=== PATIENT | female | born 1945 | race Caucasian/White ===

== ENCOUNTER 2016-11-09 09:09 | Day surgery (SDC) | payer MEDICARE, BC ==
[~2016-11-09 09:09] MED LIST: Lactated Ringers 1,000 ML IV SCH; Lidocaine 1%/Sod Bicarbonate in NS 8.4% 1 ML Syringe IV PRN; Sodium Chloride 0.9% 10 ML Syringe FLUSH PRN
--- NOTE | 2016-11-09 10:31 | PCM.PREANE ---
Preanesthetic Assessment - Anesthesia/Transfusion/Family Hx Type of Transfusion Reactions: Reports: Unknown - Physical Assessment Height: 1.6 m Weight: 77.111 kg - Allergies Allergies/Adverse Reactions: Allergies Allergy/AdvReac Type Severity Reaction Status Date / Time No Known Allergies Allergy Verified 11/08/16 15:29 PreAnesthesia Questionnaire HEENT History: Reports: Impaired vision, Other (see below) Other HEENT History: wears glasses, has upper partial Cardiovascular History: Reports: Heart Failure, Hypertension, Other (see below) Other Cardiovascular History: chest pain, edema Respiratory History: Reports: SOB, Other (see below) Other Respiratory History: URI Gastrointestinal History: Reports: Chronic constipation, Chronic diarrhea, Hemorrhoids, Other (see below) Other Gastrointestinal History: c diff, nausea, gastroparesis, colitis, post op nausea and vomiting Genitourinary History: Reports: Urinary incontinence, UTI, recurrent, Other ( see below) Other Genitourinary History: dysuria, renal failure, UTI, frequency, hestiency 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 Musculoskeletal History: Reports: Gout, Osteoarthritis Other Musculoskeletal History: degenerative joint disease, lumbar scolisosis, gout, hammertoes, rib fractures, low bakc pain, lumbar sacral radiculopathy at L5, cerviclagia Neurological History: Reports: Neuropathy, diabetic Psychiatric History: Reports: Other (see below) Other Psychiatric History: anorexia nervosa Endocrine/Metabolic History: Reports: Diabetes, type II, Vitamin D deficiency Other Endocrine/Metabolic History: benign lesion of adrenal gland Hematologic History: Reports: Other (see below) Other Hematologic History: hyperkalemia, blood clots, malaise, fatigue Immunologic History: Reports: None Oncologic (Cancer) History: Reports: Pancreatic Dermatologic History: Reports: Cellulitis Other Dermatologic History: dizziness - Past Surgical History Head Surgeries/Procedures: Reports: None HEENT Surgical History: Reports: Cataract surgery GI Surgical History: Reports: Appendectomy, Colonoscopy Female Surgical History: Reports: Hysterectomy Musculoskeletal Surgical History: Reports: Other (see below) Other Musculoskeletal Surgeries/Procedures:: carpal tunnel surgery, shoulder surgery, lumbar fusion, back surgery, knee replacement Oncologic Surgical History: Reports: Other (see below) Other Oncologic Surgeries/Procedures: pacrectomy 75% - SUBSTANCE USE Smoking Status *Q: Never Smoker Second Hand Smoke Exposure: No Recreational Drug Use History: No - HOME MEDS Home Medications: Home Meds Allopurinol [Zyloprim] 150 mg PO DAILY 04/14/14 [History] Furosemide [Lasix] 20 mg PO DAILY 04/14/14 [History] Metoprolol Tartrate [Lopressor] 25 mg PO BID 04/14/14 [History] Omeprazole 40 mg PO DAILY 04/14/14 [History] rOPINIRole [Requip XL] 2 mg PO DAILY 04/14/14 [History] rOPINIRole [Requip] 4 mg PO BEDTIME 04/14/14 [History] Diclofenac Sodium [Voltaren] 1 dose TOP ASDIRECTED PRN 12/31/14 [History] Insulin Aspart [NovoLOG] 3 dose SQ TID PRN 12/31/14 [History] Acetaminophen [Tylenol] 650 mg PO BID 10/04/16 [History] Acetaminophen/HYDROcodone [[place] 325-5 MG] 1 - 2 tab PO DAILY PRN 10/04/16 [ History] Ascorbate Calcium [Vitamin C] 500 mg PO DAILY 10/04/16 [History] Aspirin [Halfprin] 1 tab PO DAILY 10/04/16 [History] Cyanocobalamin (Vitamin B-12) [Vitamin B-12] 1 tab PO DAILY 10/04/16 [History] Diltiazem [Cardizem CD] 1 cap PO DAILY 10/04/16 [History] Docusate Sodium 1 cap PO DAILY 10/04/16 [History] Ergocalciferol (Vitamin D2) [Vitamin D] 1 tab PO DAILY 10/04/16 [History] Gabapentin [Gabapentin] 1,800 mg PO BEDTIME 10/04/16 [History] Gabapentin [Gabapentin] 200 mg PO QAM 10/04/16 [History] Glimepiride [Glimepiride] 1 mg PO DAILY 10/04/16 [History] Insulin Glarg,Human.Rec.Analog [LantUS Solostar] 35 units SQ QAM 10/04/16 [ History] Lactobacillus Acidophilus [Probiotic] 1 cap PO DAILY 10/04/16 [History] Pioglitazone HCl [Actos] 0.5 tab PO DAILY 10/04/16 [History] Simvastatin [Simvastatin] 20 mg PO BEDTIME 10/04/16 [History] metFORMIN HCl [Metformin HCl] 1 tab PO BEDTIME 10/04/16 [History] - CURRENT (IN HOUSE) MEDS Current Meds: Current Medications Lactated Ringer's (Ringers, Lactated) 1,000 mls @ 125 mls/hr IV ASDIRECTED CALI Stop: 11/09/16 23:59 Lidocaine/Sodium Bicarbonate (Buffered Lidocaine 1% In Ns 8.4%) 0.25 ml IV ONETIME PRN PRN Reason: Prior to IV Start Stop: 11/09/16 23:59 Sodium Chloride (Saline Flush) 10 ml FLUSH ASDIRECTED PRN PRN Reason: Keep Vein Open Stop: 11/09/16 23:59 Preanesthetic Assessment - ANESTHESIA/TRANSFUSION/FAMILY HX Anesthesia/Transfusion History: No Prior Transfusion(s), Prior Anesthesia Type of Anesthesia Reaction: Reports: Excessive Nausea/Vomiting. 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: no symptoms Respiratory: Reports: no symptoms Cardiovascular: Reports: blood pressure problem (HTN controlled with medication ) GI: Reports: no symptoms Other: Reports: Easy Bruising, Diabetes - PHYSICAL ASSESSMENT HR: 85 O2 Sat by Pulse Oximetry: 93 RR: 16 BP: 134/86 Temp: 36.5 C Height: 1.6 m Weight: 77.111 kg NPO Status Date: 11/08/16 NPO Status Time: 23:00 ASA Class: 3 Mental Status: Alert & Oriented x3 Airway Class: Mallampati = 2 Dentition: Reports: Dentures (upper ), Partial (bottom ) Thyro-Mental Finger Breadths: 3 Mouth Opening Finger Breadths: 3 ROM/Head Extension: Full Respiratory Status: lungs clear to auscultation bilaterally Cardiovascular Status: regular rate & rhythm, normal S1, S2, no murmur, blood pressure WNL - IMAGING/EKG Impressions: 11-09-16 SR rate 83 - ALLERGIES Allergies/Adverse Reactions: Allergies Allergy/AdvReac Type Severity Reaction Status Date / Time No Known Allergies Allergy Verified 11/08/16 15:29 - BLOOD Blood Available: No Product(s) Available: None - ANESTHESIA PLAN Preop Beta Ted: No Beta Ted: Metoprolol Beta-Ted Last Dose Date: 11/09/16 Beta-Ted Last Dose Time: 07:30 Anesthesia Type Planned: MAC - ACKNOWLEDGEMENTS Pt an Appropriate Candidate for the Planned Anesthesia: Yes Alternatives and Risks of Anesthesia Discussed w Pt/Guardian: Yes Pt/Guardian Understands and Agrees with Anesthesia Plan: Yes
[2016-11-09] MEDS ORDERED: Lidocaine 1% 4 ML ONE (11:10)
[2016-11-09] MEDS ORDERED: Midazolam 1 MG/ML 2 ML SDV ONE (11:10)
[2016-11-09] MEDS ORDERED: fentaNYL 100 MCG/2 ML SDV ONE (11:10)
[2016-11-09] MEDS ORDERED: Propofol 200 MG/20 ML SDV ONE ×2 (11:10→12:34)
--- NOTE | 2016-11-09 11:17 | PCM.HP ---
<Noemy Rawls - Last Filed: 11/09/16 11:32> H&P History of Present Illness - General Date of Service: 11/09/16 Source of Information: Patient History Limitations: Reports: No limitations - History of Present Illness Initial Comments - Free Text/Narative: CC: Colonoscopy HPI: The patient is a 71-year-old male referred by Dr. Edwards for colonoscopy I last saw the patient 09/21/16. She denies any changes to her health history since that visit, aside from starting CPAP for sleep apnea. Feels she is sleeping better. The patient still denies any constipation/ diarrhea/ hematochezia/ melena. Rare blood on tissue paper. Has hx of hemorrhoids, outside and inside with itching, this comes and goes. No pain right now. Hard to wipe clean, has itching and sits in a hot bath for relief. Has 1-2 soft, brown, formed, BMs daily. Bowel movements are described as regular and easy to pass. No unintentional weight loss. No change in stool caliber. Denies history of ulcerative colitis or Crohn' s disease. Daughter with colon cancer and ulcerative colitis. Last colonoscopy was unknown, with Dr. Mat Alcaraz. . History of reflux, heartburn. NO: nausea, vomiting, or dysphagia. Has reflux and heartburn, takes PPI; sometimes (prilosec) medication controls symptoms, sometimes this medication does not control. Will have acid come up into mouth. Sauces (red), make symptoms worse. When really bad will take Zantac for reflux/ heartburn. This does helps. Unsure if she has had an EGD. Has hx pancreatic cancer, 1994, did follow with oncology and did have serial scans, no longer needs screening per her report. No genetic testing per patient. Last mammogram was 2015, at [facility]. Family hx of breast cancer in sister around age 60. No hx of genetic testing. Also reports multiple abdominal surgeries. Feels something move in abdomen every once in a while in upper abdomen. No firm bulges. No pain. No obstipation. No pain with cough/sneeze/bend/lifting. Multiple family members with AAA. CTA abdomen with run offs 2015: Mild calcified and noncalcified thrombus plaque within the abdominal aorta. Patient has been evaluated by [facility], Dr. Martinez for abnormal ABIs, impression was "peripheral neuropathy causing her pain and no evidence of vascular disease." She was referred to neurology. - Related Data Allergies/Adverse Reactions: Allergies Allergy/AdvReac Type Severity Reaction Status Date / Time No Known Allergies Allergy Verified 11/08/16 15:29 Home Medications: Home Meds Allopurinol [Zyloprim] 150 mg PO DAILY 04/14/14 [History] Furosemide [Lasix] 20 mg PO DAILY 04/14/14 [History] Metoprolol Tartrate [Lopressor] 25 mg PO BID 04/14/14 [History] Omeprazole 40 mg PO DAILY 04/14/14 [History] rOPINIRole [Requip XL] 2 mg PO DAILY 04/14/14 [History] rOPINIRole [Requip] 4 mg PO BEDTIME 04/14/14 [History] Diclofenac Sodium [Voltaren] 1 dose TOP ASDIRECTED PRN 12/31/14 [History] Insulin Aspart [NovoLOG] 3 dose SQ TID PRN 12/31/14 [History] Acetaminophen [Tylenol] 650 mg PO BID 10/04/16 [History] Acetaminophen/HYDROcodone [[place] 325-5 MG] 1 - 2 tab PO DAILY PRN 10/04/16 [ History] Ascorbate Calcium [Vitamin C] 500 mg PO DAILY 10/04/16 [History] Aspirin [Halfprin] 1 tab PO DAILY 10/04/16 [History] Cyanocobalamin (Vitamin B-12) [Vitamin B-12] 1 tab PO DAILY 10/04/16 [History] Diltiazem [Cardizem CD] 1 cap PO DAILY 10/04/16 [History] Docusate Sodium 1 cap PO DAILY 10/04/16 [History] Ergocalciferol (Vitamin D2) [Vitamin D] 1 tab PO DAILY 10/04/16 [History] Gabapentin 1,800 mg PO BEDTIME 10/04/16 [History] Gabapentin 200 mg PO QAM 10/04/16 [History] Glimepiride 1 mg PO DAILY 10/04/16 [History] Insulin Glarg,Human.Rec.Analog [LantUS Solostar] 35 units SQ QAM 10/04/16 [ History] Lactobacillus Acidophilus [Probiotic] 1 cap PO DAILY 10/04/16 [History] Pioglitazone HCl [Actos] 0.5 tab PO DAILY 10/04/16 [History] Simvastatin 20 mg PO BEDTIME 10/04/16 [History] metFORMIN HCl [Metformin HCl] 1 tab PO BEDTIME 10/04/16 [History] Past Medical History HEENT History: Reports: Impaired vision, Other (see below) Other HEENT History: wears glasses, has upper partial Cardiovascular History: Reports: Heart Failure, Hypertension, Other (see below) Other Cardiovascular History: chest pain, edema Respiratory History: Reports: SOB, Other (see below) Other Respiratory History: URI Gastrointestinal History: Reports: Chronic constipation, Chronic diarrhea, Hemorrhoids, Other (see below) Other Gastrointestinal History: c diff, nausea, gastroparesis, colitis, post op nausea and vomiting Genitourinary History: Reports: Urinary incontinence, UTI, recurrent, Other ( see below) Other Genitourinary History: dysuria, renal failure, UTI, frequency, hestiency 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 Musculoskeletal History: Reports: Gout, Osteoarthritis Other Musculoskeletal History: degenerative joint disease, lumbar scolisosis, gout, hammertoes, rib fractures, low bakc pain, lumbar sacral radiculopathy at L5, cerviclagia Neurological History: Reports: Neuropathy, diabetic Psychiatric History: Reports: Other (see below) Other Psychiatric History: anorexia nervosa Endocrine/Metabolic History: Reports: Diabetes, type II, Vitamin D deficiency Other Endocrine/Metabolic History: benign lesion of adrenal gland Hematologic History: Reports: Other (see below) Other Hematologic History: hyperkalemia, blood clots, malaise, fatigue Immunologic History: Reports: None Oncologic (Cancer) History: Reports: Pancreatic Dermatologic History: Reports: Cellulitis Other Dermatologic History: dizziness - Past Surgical History Head Surgeries/Procedures: Reports: None HEENT Surgical History: Reports: Cataract surgery GI Surgical History: Reports: Appendectomy, Colonoscopy Female Surgical History: Reports: Hysterectomy Musculoskeletal Surgical History: Reports: Other (see below) Other Musculoskeletal Surgeries/Procedures:: carpal tunnel surgery, shoulder surgery, lumbar fusion, back surgery, knee replacement Oncologic Surgical History: Reports: Other (see below) Other Oncologic Surgeries/Procedures: pacrectomy 75% Social & Family History - Tobacco Use Smoking Status *Q: Never Smoker Month Tobacco Last Used: 1973 Second Hand Smoke Exposure: No - Recreational Drug Use Recreational Drug Use: No Drug Use in Last 12 Months: No H&P Review of Systems - Review of Systems: Review Of Systems: See Below Free Text/Narrative: Denies any exertional chest pain. Has some exertional shortness of breath.History of bleeding or bruising.Personal hx of blood clot. NO: familial history of clotting or bleeding disorders. No history of anesthetic complications, PONV. No history of familial anesthetic complications. Denies presence/history of chest pain, palpitations. Hx of lower extremity edema , wears compression hose. NO: Dyspnea at rest, orthopnea, claudication, wheezing, chronic cough, upper respiratory symptoms in the last two weeks. No history of blood thinner use. No history of anemia. No history of seizure or stroke. Told had a murmur or extra beat at times by providers. Has sleep apnea, reports- is now using CPAP. No fever, chills, or night sweats. No prior cardiology or pulmonology evaluation. Has poorly controlled DM. Echo 2014: EF 60%, mild proximal septal hypertrophy; Grade 2 pattern of LV diastolic filling. Mild to moderate mitral valve regurgitation; moderate tricuspid valve regurgitation. No significant change from 2010. EKG 01/2015: abnormal; SR, occasional ectopic ventricular beats, low voltage pre cordial leads Stress test 2007: Cardiolite scan; Unremarkable. No significant fixed reversible perfusion defect. All other systems reviewed and were negative except as per history of present illness. General: Reports: no symptoms HEENT: Reports: no symptoms Pulmonary: Reports: No Symptoms. Denies: Shortness of Breath Cardiovascular: Reports: no symptoms. Denies: chest pain Gastrointestinal: Reports: Other (see hpi) Genitourinary: Reports: no symptoms Musculoskeletal: Reports: no symptoms Skin: Reports: no symptoms Psychiatric: Reports: no symptoms Neurological: Reports: No Symptoms Hematologic/Lymphatic: Reports: no symptoms Immunologic: Reports: no symptoms Exam - Exam Exam: See Below - Vital Signs Vital Signs: Last Vital Signs Temp 36.5 C 11/09/16 10:44 Pulse 85 11/09/16 10:44 Resp 16 11/09/16 10:44 BP 134/86 11/09/16 10:44 Pulse Ox 93 L 11/09/16 10:44 Weight: 170 lb - Exam General: alert, oriented HEENT: Conjunctiva clear, Mucosa moist & pink Lungs: Other (see anesthesia assessment) Cardiovascular: other (see anesthesia assessment) Abdomen: No: distention Extremities: normal inspection Skin: warm, dry Neurological: No: focal deficit Neuro Extensive - Mental Status: alert, oriented x3, normal mood/affect, normal cognition Psychiatric: alert, normal affect, normal mood *Q Meaningful Use (ADM) - VTE *Q VTE Criteria *Q: - Stroke *Q Stroke Criteria *Q: - AMI *Q AMI Criteria *Q: - Problem List (1) Reflux esophagitis SNOMED Code(s): 747431897 ICD Code: K21.0 - GASTRO-ESOPHAGEAL REFLUX DISEASE WITH ESOPHAGITIS Status : Acute (2) Heartburn SNOMED Code(s): 27479192 ICD Code: R12 - HEARTBURN Status: Acute (3) Rectal bleeding SNOMED Code(s): 76451953 ICD Code: K62.5 - HEMORRHAGE OF ANUS AND RECTUM Status: Acute (4) Hemorrhoids SNOMED Code(s): 86489682 ICD Code: K64.9 - UNSPECIFIED HEMORRHOIDS Status: Acute Qualifiers: Hemorrhoid type: unspecified Qualified Code(s): K64.9 - Unspecified hemorrhoids Problem List Initiated/Reviewed/Updated: Yes Orders Last 24hrs: Active Orders 24 hr Category Date Time Status EKG Documentation Completion [RC] STAT Care 11/09/16 00:01 Active Peripheral IV Care [RC] . DIRECTED Care 11/09/16 00:01 Active Verify Patient Consent Obtain [RC] ASDIRECTED Care 11/09/16 00:01 Active Lactated Ringers [Ringers, Lactated] 1,000 ml Med 11/09/16 00:01 Active IV ASDIRECTED Lidocaine 1%/Sod Bicarbonate [Buffered Lidocaine 1% in Med 11/09/16 00:01 Active NS 8.4%] 0.25 ml IV ONETIME PRN Sodium Chloride 0.9% [Saline Flush] Med 11/09/16 00:01 Active 10 ml FLUSH ASDIRECTED PRN Medication Administration Instruction [OM.PC] Routine Oth 11/09/16 00:01 Ordered Peripheral IV Insertion Adult [OM.PC] Routine Oth 11/09/16 00:01 Ordered Medication Orders Lactated Ringer's (Ringers, Lactated) 1,000 mls @ 125 mls/hr IV ASDIRECTED CALI Stop: 11/09/16 23:59 Last Admin: 11/09/16 10:15 Dose: 125 mls/hr Lidocaine/Sodium Bicarbonate (Buffered Lidocaine 1% In Ns 8.4%) 0.25 ml IV ONETIME PRN PRN Reason: Prior to IV Start Stop: 11/09/16 23:59 Last Admin: 11/09/16 10:14 Dose: 0.25 ml Sodium Chloride (Saline Flush) 10 ml FLUSH ASDIRECTED PRN PRN Reason: Keep Vein Open Stop: 11/09/16 23:59 Assessment/Plan Comment:: 71yr female with reflux, heartburn, inability to wean from PPI, rectal bleeding , history of hemorrhoids, history of itching external hemorrhoidal skin tags, family hx of colon cancer in daughter, need for diagnostic EGD and diagnostic colonoscopy with possible hemorrhoidal banding and possible excision of hemorrhoidal skin tags. Patient can perform 4 METS of physical activity without chest pain. She has exertional shortness of breath. Personal hx of pancreatic cancer, multiple cancer types in family Questionable incisional hernia PLAN: We discussed performing a diagnostic EGD and diagnostic colonoscopy with possible hemorrhoidal banding and possible excision of hemorrhoidal skin tags. We discussed the procedure and post operative expectations. . This procedure will be done today at [facility], due to comorbidities, uncontrolled diabetes, orders were placed and sent. She has had multiple abdominal surgeries, questionable incisional hernia. Request Dr. Blanton evaluate the day of endoscopy. Patient verbalized understanding and agreed with care plan. NIKA Odom General Surgery Department [facility] <HarvinderJoselin - Last Filed: 11/13/16 10:55> H&P History of Present Illness - History of Present Illness Initial Comments - Free Text/Narative: * Correction 71-year-old FEMALE Exam - Vital Signs Vital Signs: Last Vital Signs Temp 97.0 F 11/09/16 13:00 Pulse 87 11/09/16 13:00 Resp 16 11/09/16 13:00 BP 131/80 11/09/16 13:00 Pulse Ox 93 L 11/09/16 13:00 *Q Meaningful Use (ADM) - VTE *Q VTE Criteria *Q: - Stroke *Q Stroke Criteria *Q: - AMI *Q AMI Criteria *Q: - Problem List (1) Gastritis and duodenitis SNOMED Code(s): 718755976 ICD Code: K29.90 - GASTRODUODENITIS, UNSPECIFIED, WITHOUT BLEEDING Status: Acute (2) Colon polyps SNOMED Code(s): 64928682 ICD Code: K63.5 - POLYP OF COLON Status: Acute (3) Hemorrhoids SNOMED Code(s): 68435529 ICD Code: K64.9 - UNSPECIFIED HEMORRHOIDS Status: Acute Qualifiers: Hemorrhoid type: unspecified Qualified Code(s): K64.9 - Unspecified hemorrhoids
--- NOTE | 2016-11-09 12:38 | PCM48HPAN ---
Post Anesthesia Note - EVALUATION WITHIN 48HRS OF ANESTHETIC Vital Signs in Normal Range: Yes Patient Participated in Evaluation: Yes Respiratory Function Stable: Yes Airway Patent: Yes Cardiovascular Function Stable: Yes Hydration Status Stable: Yes Pain Control Satisfactory: Yes Nausea and Vomiting Control Satisfactory: Yes Mental Status Recovered: Yes
--- NOTE | 2016-11-09 12:41 | PCM.OPNOTE ---
- General Post-Op/Procedure Note Date of Surgery/Procedure: 11/09/16 Operative Procedure(s): 1. Diagnostic EGD with cold forceps biopsy. 2. Diagnostic colonoscopy was cold forceps and hot snare polypectomy, saline lift, injection of Jane ink, hemorrhoidal banding Pre Op Diagnosis: Heartburn, hematochezia Post-Op Diagnosis: Hiatal hernia, gastritis, duodenitis, colon polyps at 60 cm, rectal polyp, internal hemorrhoids grade 2 Anesthesia Technique: MAC Primary Surgeon: Joselin Blanton Anesthesia Provider: Jayshree Ray Pathology: 1. Small bowel biopsy 2. Antral biopsy 3. Distal esophageal biopsy 4. Colon polyp at 60 cm 5. Rectal polyp Fluid Replacement, Intraop: 750 (mL crystalloid) EBL in mLs: 2 Complications: None Condition: Good Free Text/Narrative:: INDICATION FOR PROCEDURE: The patient is a 71-year-old woman who was referred to me by Dr. Mac Edwards for evaluation for colonoscopy. The patient did have complaints of occasional hematochezia, history of hemorrhoids, and a daughter with colon cancer. The patient also had a history of reflux and heartburn. Her symptoms are not always controlled with her PPI (Prilosec). Performing a colonoscopy and EGD and the associated risks of the procedures had been discussed with the patient. The patient found these risks acceptable and agreed to proceed. DESCRIPTION OF PROCEDURE: The patient was taken to the operating room and placed in the left lateral decubitus position. After induction of adequate sedation, a bite block was placed. A standard Olympus gastroscope was inserted into the oropharynx and guided down the esophagus without difficulty. The gastroesophageal junction was appreciated at 32 cm from the teeth with an obvious hiatal hernia. There was no evidence of stricture or esophageal ulcerations. The scope was advanced into the stomach, and there was gastritis. The scope was passed into the proximal jejunum and the duodenum which showed duodenitis of D1 and D2 with the presence of petechia. There were no ulcerations. The proximal jejunum was grossly normal in appearance. Multiple cold forceps biopsies were obtained of the proximal jejunum and duodenum. The scope was withdrawn into the antrum, and additional cold forceps biopsies were obtained. The remainder of the gastric body was examined, and there were no other obvious abnormalities. The scope was retroflexed, and there was evidence of hiatal hernia. There were no Stanton's ulcers. The hiatus was measured at 36 cm. The GE junction was at 32 cm, measuring the hiatal hernia at 4 centimeters. The scope was straightened and withdrawn to the GE junction. Additional cold forceps biopsies were obtained of the distal esophagus. The scope was withdrawn through the remainder of the esophagus and no further abnormalities were noted. The posterior oropharynx was grossly normal in appearance. The scope was fully withdrawn and attention was then turned to the colonoscopy. A digital rectal exam was performed which was unremarkable. There were tiny external hemorrhoidal skin tags anteriorly only. They were not removed. A pediatric Olympus colonoscope was inserted into the rectum and guided under direct visualization to the appendiceal orifice and ileocecal valve. Mild melanosis coli was noted. The scope was then slowly withdrawn through the colon. The quality of the prep was good. There was no evidence of angiodysplasias or diverticulum. There was a large polyp at 60 cm from the anal verge, estimated to be around the splenic flexure. Saline elevation was performed followed by snare cautery polypectomy. The area was then tattooed, just distal to the polypectomy site, with Jane ink on 3 titus of the colon. The scope was withdrawn into the rectum, a small sessile polyp was noted in the rectum and removed using cold forceps, the scope was then retroflexed. There were Grade II internal hemorrhoids. Hemorrhoidal banding was performed. The scope was straightened, the colon was desufflated,and the scope was withdrawn. The patient was awakened from sedation and transferred to the recovery room in stable condition having tolerated the procedure well. POSTOPERATIVE PLAN: I discussed with the patient's family my intraoperative findings and recommendations. The patient will follow up in approximately 7- 10 days to discuss pathology and how their symptoms are progressing. The patient is to continue her omeprazole daily. Post-banding and polypectomy instructions were given. I have asked the patient to follow a GERD\gastritis diet. I did discuss with her the possibility of discontinuing her Vitamin C and diclofenac as they can cause gastric irritation. Further intervention for the hiatal hernia may also need to be considered. The patient is to call with any worsening of symptoms or questions prior to the appointment.
[2016-11-09 13:40] VITALS: BP 131/80
== END 2016-11-09 13:30 | disposition home or self-care (01) ==
LOC: JD.SDS 09:09
PROVIDERS: ATTEND Surgery
DX: D12.6 Benign neoplasm of colon, unspecified (principal); K62.1 Rectal polyp; K64.8 Other hemorrhoids; K31.89 Other diseases of stomach and duodenum; K44.9 Diaphragmatic hernia without obstruction or gangrene; Z79.82 Long term (current) use of aspirin; Z79.4 Long term (current) use of insulin; Z79.899 Other long term (current) drug therapy; I10 Essential (primary) hypertension; E55.9 Vitamin D deficiency, unspecified; E11.40 Type 2 diabetes mellitus with diabetic neuropathy, unspecified; Z90.49 Acquired absence of other specified parts of digestive tract; Z90.710 Acquired absence of both cervix and uterus; Z98.890 Other specified postprocedural states
CPT/HCPCS: 43239; 45380; 45385; 46945; 82962; 93005; J2250; J3010; J7120; 00810; 88305; J2704

== ENCOUNTER 2017-07-28 19:44 | Emergency (ER) | payer MEDICARE, BC ==
[2017-07-28 19:57] VITALS: BP 130/79
[2017-07-28] MEDS ORDERED: Lidocaine 1% 20 ML MDV INJECT ONE (20:18)
[2017-07-28] MEDS ORDERED: Diphtheria,Pertussis(Acell),Tetanus Vaccine 0.5 ML SDV IM ONE (20:20)
--- NOTE | 2017-07-28 20:22 | EDM.PDOC ---
ED HPI GENERAL MEDICAL PROBLEM - General Chief Complaint: Laceration Stated Complaint: LACERATION TO HAND Time Seen by Provider: 07/28/17 19:49 Source of Information: Reports: Patient History Limitations: Reports: No Limitations - History of Present Illness INITIAL COMMENTS - FREE TEXT/NARRATIVE: This is a 71-year-old female. Tonight she was taking a knife and trying to try apart 2 frozen things and stabbed a knife into her left hand. She has about a 2 cm laceration over the eye though thenar dominance about mid shaft of the fifth metacarpal area. She denies any numbness denies any tingling she moves her little finger and ring finger without difficulty. He does not know when her last tetanus was. Left Hand Pain Score (Numeric/FACES): 3 - Related Data Allergies Allergy/AdvReac Type Severity Reaction Status Date / Time No Known Allergies Allergy Verified 11/08/16 15:29 Home Meds: Home Meds Allopurinol [Zyloprim] 150 mg PO DAILY 04/14/14 [History] Furosemide [Lasix] 20 mg PO DAILY 04/14/14 [History] Metoprolol Tartrate [Lopressor] 25 mg PO BID 04/14/14 [History] Omeprazole 40 mg PO DAILY 04/14/14 [History] rOPINIRole [Requip XL] 1 mg PO DAILY 04/14/14 [History] rOPINIRole [Requip] 4 mg PO BEDTIME 04/14/14 [History] Insulin Aspart [NovoLOG] 3 dose SQ TID PRN 12/31/14 [History] Acetaminophen [Tylenol] 650 mg PO BID 10/04/16 [History] Acetaminophen/HYDROcodone [[place] 325-5 MG] 1 - 2 tab PO DAILY PRN 10/04/16 [ History] Ascorbate Calcium [Vitamin C] 500 mg PO DAILY 10/04/16 [History] Aspirin [Halfprin] 1 tab PO DAILY 10/04/16 [History] Cyanocobalamin (Vitamin B-12) [Vitamin B-12] 1 tab PO DAILY 10/04/16 [History] Diltiazem [Cardizem CD] 1 cap PO DAILY 10/04/16 [History] Docusate Sodium 1 cap PO DAILY 10/04/16 [History] Ergocalciferol (Vitamin D2) [Vitamin D] 1 tab PO DAILY 10/04/16 [History] Gabapentin 1,800 mg PO BEDTIME 10/04/16 [History] Gabapentin 200 mg PO QAM 10/04/16 [History] Glimepiride 1 mg PO DAILY 10/04/16 [History] Insulin Glarg,Human.Rec.Analog [LantUS Solostar] 35 units SQ QAM 10/04/16 [ History] Lactobacillus Acidophilus [Probiotic] 1 cap PO DAILY 10/04/16 [History] Pioglitazone HCl [Actos] 0.5 tab PO DAILY 10/04/16 [History] Simvastatin 20 mg PO BEDTIME 10/04/16 [History] metFORMIN HCl [Metformin HCl] 500 mg PO BEDTIME 10/04/16 [History] Past Medical History HEENT History: Reports: Impaired Vision, Other (See Below) Other HEENT History: wears glasses, has upper partial Cardiovascular History: Reports: Heart Failure, Hypertension, Other (See Below) Other Cardiovascular History: chest pain, edema Respiratory History: Reports: SOB, Other (See Below) Other Respiratory History: URI Gastrointestinal History: Reports: Chronic Constipation, Chronic Diarrhea, Hemorrhoids, Other (See Below) Other Gastrointestinal History: c diff, nausea, gastroparesis, colitis, post op nausea and vomiting Genitourinary History: Reports: Urinary Incontinence, UTI, Recurrent, Other ( See Below) Other Genitourinary History: dysuria, renal failure, UTI, frequency, hestiency [employer] History: Reports: None Musculoskeletal History: Reports: Gout, Osteoarthritis Other Musculoskeletal History: degenerative joint disease, lumbar scolisosis, gout, hammertoes, rib fractures, low bakc pain, lumbar sacral radiculopathy at L5, cerviclagia Neurological History: Reports: Neuropathy, Diabetic Psychiatric History: Reports: Other (See Below) Other Psychiatric History: anorexia nervosa Endocrine/Metabolic History: Reports: Diabetes, Type II, Vitamin D Deficiency Other Endocrine/Metabolic History: benign lesion of adrenal gland Hematologic History: Reports: Other (See Below) Other Hematologic History: hyperkalemia, blood clots, malaise, fatigue Immunologic History: Reports: None Oncologic (Cancer) History: Reports: Pancreatic Dermatologic History: Reports: Cellulitis Other Dermatologic History: dizziness - Past Surgical History Head Surgeries/Procedures: Reports: None HEENT Surgical History: Reports: Cataract Surgery Musculoskeletal Surgical History: Reports: Other (See Below) Oncologic Surgical History: Reports: Other (See Below) Social & Family History - Tobacco Use Smoking Status *Q: Former Smoker Used Tobacco, but Quit: Yes Month Tobacco Last Used: 45 yrs Second Hand Smoke Exposure: No - Caffeine Use Caffeine Use: Reports: Coffee, Soda - Recreational Drug Use Recreational Drug Use: No Drug Use in Last 12 Months: No ED ROS GENERAL - Review of Systems Review Of Systems: See Below Constitutional: Denies: Fever, Chills HEENT: Reports: No Symptoms Respiratory: Reports: No Symptoms Cardiovascular: Reports: No Symptoms Endocrine: Reports: No Symptoms GI/Abdominal: Reports: No Symptoms : Reports: No Symptoms Musculoskeletal: Reports: Other (As per history of present illness) Skin: Reports: Other (As per history of present illness) Neurological: Reports: No Symptoms Psychiatric: Reports: No Symptoms Hematologic/Lymphatic: Reports: No Symptoms ED EXAM, SKIN/RASH Exam: See Below Exam Limited By: No Limitations General Appearance: Alert, WD/WN, No Apparent Distress Eye Exam: Bilateral Eye: Normal Inspection Ears: Normal External Exam Nose: Normal Inspection Throat/Mouth: Normal Inspection, Normal Lips, Normal Voice, No Airway Compromise Head: Normocephalic Neck: Supple Respiratory/Chest: No Respiratory Distress Back Exam: Full Range of Motion Extremities: Normal Range of Motion, Other (Left hand shows a 2 cm laceration in the palm surface over the mid shaft of the fifth metacarpal, neurovascular is intact in her little and ring finger completely, she has full flexion and extension of her little and ring finger, there is no arterial bleed noted, there is no other acute trauma) Neurological: Alert, Oriented Psychiatric: Normal Affect, Normal Mood Skin: Warm, Dry ED SKIN PROCEDURES - Laceration/Wound Repair Left Hand Lac/Wound length In cm: 2 Appearance: Subcutaneous, Linear Distal NVT: Neuro & Vascular Intact Anesthetic Type: Local Local Anesthesia - Lidocaine (Xylocaine): 1% Plain Local Anesthetic Volume: 4cc Skin Prep: Providone-Iodine (Betadine), Saline, Sterile Drape Exploration/Debridement/Repair: Wound Explored Closed with: Sutures Suture Size: other (5-0) # of Sutures: 3 Suture Type: Nylon, Mattress Drain Placement: No Sterile Dressing Applied: Nurse Tetanus Status Addressed: Yes Complications: No Progress/Comments: Patient tolerated the procedure well Course - Vital Signs Last Recorded V/S: Last Vital Signs Temp 98.3 F 07/28/17 19:55 Pulse 77 07/28/17 19:55 Resp 20 07/28/17 19:55 BP 130/79 07/28/17 19:55 Pulse Ox 94 L 07/28/17 19:55 - Orders/Labs/Meds Orders: Active Orders 24 hr Category Date Time Status Vaccines to be Administered [RC] PER UNIT ROUTINE Care 07/28/17 20:20 Active Meds: Medications Discontinued Medications Generic Name Dose Route Start Last Admin Trade Name Howie PRN Reason Stop Dose Admin Diphtheria/Tetanus/Acell Pertussis 0.5 ml 07/28/17 20:20 Adacel IM 07/28/17 20:21 .ONCE ONE Lidocaine HCl 20 ml 07/28/17 20:18 07/28/17 20:38 Xylocaine 1% INJECT 07/28/17 20:19 Not Given ONETIME ONE Lidocaine HCl 10 ml 07/28/17 20:24 07/28/17 20:38 Xylocaine 1% INJECT 07/28/17 20:25 10 ml ONETIME STA Administration Lidocaine HCl Confirm 07/28/17 20:26 07/28/17 20:38 Xylocaine 1% Administered 07/28/17 20:27 Not Given Dose 10 ml .ROUTE .STK-MED ONE Departure - Departure Time of Disposition: 20:41 Disposition: Home, Self-Care 01 Condition: Good Clinical Impression: Laceration of left palm without complication Qualifiers: Encounter type: initial encounter Qualified Code(s): S61.412A - Laceration without foreign body of left hand, initial encounter - Discharge Information Referrals: Mac Valdez MD [Primary Care Provider] - Forms: ED Department Discharge Additional Instructions: Keep the wound clean and dry and covered for the next 3-4 days, watch for infection which would be redness swelling or purulent drainage and if this occurs see your doctor right away or return to the ER right away, have your sutures removed in 7-10 days with your family doctor, return to the ER if needed - My Orders Last 24 Hours: My Active Orders 07/28/17 20:20 Vaccines to be Administered [RC] PER UNIT ROUTINE - Assessment/Plan Last 24 Hours: My Active Orders 07/28/17 20:20 Vaccines to be Administered [RC] PER UNIT ROUTINE
[2017-07-28] MEDS ORDERED: Lidocaine 1% 10 ML MDV INJECT STA (20:24)
[2017-07-28] MEDS ORDERED: Lidocaine 1% 10 ML MDV ONE (20:26)
== END 2017-07-28 20:50 | disposition home or self-care (01) ==
LOC: JD.ED 19:44
DX: S61.412A Laceration without foreign body of left hand, initial encounter (principal); E11.9 Type 2 diabetes mellitus without complications; Z23 Encounter for immunization; Z87.891 Personal history of nicotine dependence; I10 Essential (primary) hypertension; Z79.82 Long term (current) use of aspirin; Z79.4 Long term (current) use of insulin; Z79.899 Other long term (current) drug therapy; W26.0XXA Contact with knife, initial encounter
CPT/HCPCS: 12001; 90471; 90715; 99282-25; 99283-25

== ENCOUNTER 2018-10-24 16:23 | Emergency (ER) | payer MEDICARE, BC ==
[2018-10-24 16:39] VITALS: BP 144/74
[2018-10-24] MEDS ORDERED: Acetaminophen/oxyCODONE 325-5 MG Tab PO ONE (17:12)
--- NOTE | 2018-10-24 17:38 | EDM.PDOC ---
<Yocasta Melendez - Last Filed: 10/24/18 19:15> ED HPI GENERAL MEDICAL PROBLEM - General Chief Complaint: Lower Extremity Injury/Pain Stated Complaint: LT KNEE AND CALF INJURY Time Seen by Provider: 10/24/18 16:41 Source of Information: Reports: Patient History Limitations: Reports: No Limitations - History of Present Illness INITIAL COMMENTS - FREE TEXT/NARRATIVE: 73-year-old female presents to emergency with chief complaints of left knee pain. She reports she was in the kitchen making more falls when her "left knee gave way twisting her left knee and lower calf region." She reports that she's had left knee pain for months now. She also states that she scraped her left toe during this occurrence. She denies any back pain or neck pain and she is not taking any type of blood thinners. She reports that she did not take anything for pain prior to arrival. She states that the pain is worse when she tries to bear weight she gets severe pain in her knee that radiates down to her calf. Patient does have a strong history of knee pain, diabetes, hypertension. Her PCP is Dr. Mac Diaz. Onset: Today, Sudden Onset Date: 10/24/18 Onset Time: 15:30 Duration: Getting Worse Location: Reports: Lower Extremity, Left (Left knee pain) Quality: Reports: Throbbing Severity: Moderate Improves with: Reports: None Worsens with: Reports: Movement Context: Reports: Trauma Associated Symptoms: Reports: No Other Symptoms Left Knee Pain Score (Numeric/FACES): 8 - Related Data Allergies Allergy/AdvReac Type Severity Reaction Status Date / Time No Known Allergies Allergy Verified 11/08/16 15:29 Home Meds: Home Meds Allopurinol [Zyloprim] 150 mg PO DAILY 04/14/14 [History] Furosemide [Lasix] 30 mg PO DAILY 04/14/14 [History] Metoprolol Tartrate [Lopressor] 25 mg PO BID 04/14/14 [History] Omeprazole 40 mg PO DAILY 04/14/14 [History] rOPINIRole [Requip XL] 2 mg PO DAILY 04/14/14 [History] rOPINIRole [Requip] 4 mg PO BEDTIME 04/14/14 [History] Insulin Aspart [NovoLOG] 3 dose SQ TID PRN 12/31/14 [History] Acetaminophen [Tylenol] 650 mg PO BID 10/04/16 [History] Ascorbate Calcium [Vitamin C] 500 mg PO DAILY 10/04/16 [History] Aspirin [Halfprin] 1 tab PO DAILY 10/04/16 [History] Cyanocobalamin (Vitamin B-12) [Vitamin B-12] 1 tab PO DAILY 10/04/16 [History] Diltiazem [Cardizem CD] 1 cap PO DAILY 10/04/16 [History] Docusate Sodium 1 cap PO DAILY 10/04/16 [History] Ergocalciferol (Vitamin D2) [Vitamin D] 1 tab PO DAILY 10/04/16 [History] Gabapentin 1,800 mg PO BEDTIME 10/04/16 [History] Gabapentin 200 mg PO QAM 10/04/16 [History] Glimepiride 1 mg PO DAILY 10/04/16 [History] Lactobacillus Acidophilus [Probiotic] 1 cap PO DAILY 10/04/16 [History] Pioglitazone HCl [Actos] 0.5 tab PO DAILY 10/04/16 [History] Simvastatin 20 mg PO BEDTIME 10/04/16 [History] Hydrocodone/Acetaminophen [[place] 7.5-325 Tablet] 1 each PO Q6HR PRN #15 tablet 10/24/18 [Rx] Insulin Glargine,Hum.Rec.Anlog [Basaglar Kwikpen U-100] 30 unit SQ DAILY [History] Past Medical History HEENT History: Reports: Impaired Vision, Other (See Below) Other HEENT History: wears glasses, has upper partial Cardiovascular History: Reports: Heart Failure, Hypertension, Other (See Below) Other Cardiovascular History: chest pain, edema Respiratory History: Reports: SOB, Other (See Below) Other Respiratory History: URI Gastrointestinal History: Reports: Chronic Constipation, Chronic Diarrhea, Hemorrhoids, Other (See Below) Other Gastrointestinal History: c diff, nausea, gastroparesis, colitis, post op nausea and vomiting Genitourinary History: Reports: Urinary Incontinence, UTI, Recurrent, Other ( See Below) Other Genitourinary History: dysuria, renal failure, UTI, frequency, hestiency [employer] AGENT History: Reports: None Musculoskeletal History: Reports: Gout, Osteoarthritis Other Musculoskeletal History: degenerative joint disease, lumbar scolisosis, gout, hammertoes, rib fractures, low bakc pain, lumbar sacral radiculopathy at L5, cerviclagia Neurological History: Reports: Neuropathy, Diabetic Psychiatric History: Reports: Other (See Below) Other Psychiatric History: anorexia nervosa Endocrine/Metabolic History: Reports: Diabetes, Type II, Vitamin D Deficiency Other Endocrine/Metabolic History: benign lesion of adrenal gland Hematologic History: Reports: Other (See Below) Other Hematologic History: hyperkalemia, blood clots, malaise, fatigue Immunologic History: Reports: None Oncologic (Cancer) History: Reports: Pancreatic Dermatologic History: Reports: Cellulitis Other Dermatologic History: dizziness - Past Surgical History Head Surgeries/Procedures: Reports: None HEENT Surgical History: Reports: Cataract Surgery Musculoskeletal Surgical History: Reports: Other (See Below) Oncologic Surgical History: Reports: Other (See Below) Social & Family History - Family History Family Medical History: Noncontributory - Tobacco Use Smoking Status *Q: Former Smoker Used Tobacco, but Quit: Yes Month/Year Tobacco Last Used: 08/1984 - Caffeine Use Caffeine Use: Reports: Coffee Review of Systems - Review of Systems Review Of Systems: See Below Constitutional: Reports: No Symptoms Eyes: Reports: No Symptoms Ears: Reports: No Symptoms Nose: Reports: No Symptoms Mouth/Throat: Reports: No Symptoms Respiratory: Reports: No Symptoms Cardiovascular: Denies: Chest Pain, Edema GI/Abdominal: Reports: No Symptoms Genitourinary: Reports: No Symptoms Musculoskeletal: Reports: Leg Pain, Muscle Pain, Other (Left knee pain radiating to her left calf) Skin: Reports: Other (Left pinky toe abrasion) Neurological: Reports: No Symptoms Psychiatric: Reports: No Symptoms ED EXAM, GENERAL - Physical Exam Exam: See Below Exam Limited By: No Limitations General Appearance: Alert, WD/WN, No Apparent Distress Head: Atraumatic, Normocephalic Neck: Normal Inspection, Supple, Non-Tender, Full Range of Motion Respiratory/Chest: No Respiratory Distress, Lungs Clear, Normal Breath Sounds, No Accessory Muscle Use, Chest Non-Tender Cardiovascular: Normal Peripheral Pulses, Regular Rate, Rhythm, No Edema, No Gallop, No JVD, No Murmur, No Rub Back Exam: Normal Inspection, Full Range of Motion Extremities: No Pedal Edema, Normal Capillary Refill, Other (Left knee grossly edematous there is no erythema or warmth noted neurovascularly intact.) Neurological: Alert, Oriented, CN II-XII Intact, Normal Cognition, Normal Gait, Normal Reflexes, No Motor/Sensory Deficits Psychiatric: Normal Affect, Normal Mood Skin Exam: Warm, Dry, Intact, Normal Color Lymphatic: No Adenopathy Course - Vital Signs Last Recorded V/S: Last Vital Signs Temp 97.4 F 10/24/18 16:36 Pulse 85 10/24/18 16:36 Resp 16 10/24/18 16:36 BP 144/74 H 10/24/18 16:36 Pulse Ox 94 L 10/24/18 16:36 - Orders/Labs/Meds Orders: Active Orders 24 hr Category Date Time Status Knee 3V Lt [CR] Stat Exams 10/24/18 17:11 Taken Meds: Medications Discontinued Medications Generic Name Dose Route Start Last Admin Trade Name Howie PRN Reason Stop Dose Admin Ibuprofen 800 mg 10/24/18 18:18 10/24/18 18:32 Motrin PO 10/24/18 18:19 Not Given ONETIME ONE Ketorolac Tromethamine 30 mg 10/24/18 18:24 10/24/18 18:29 Toradol IM 10/24/18 18:25 30 mg ONETIME ONE Administration Morphine Sulfate 6 mg 10/24/18 18:24 10/24/18 19:10 Morphine IM 10/24/18 18:25 6 mg ONETIME ONE Administration Morphine Sulfate Confirm 10/24/18 19:07 10/24/18 19:12 Morphine Administered 10/24/18 19:08 Not Given Dose 10 mg .ROUTE .STK-MED ONE Oxycodone HCl 5 mg 10/24/18 18:19 10/24/18 18:32 Oxycodone PO 10/24/18 18:20 Not Given ONETIME ONE Oxycodone/Acetaminophen 1 tab 10/24/18 17:12 10/24/18 17:17 Percocet 325-5 Mg PO 10/24/18 17:13 1 tab ONETIME ONE Administration - Re-Assessments/Exams Free Text/Narrative Re-Assessment/Exam: 10/24/18 19:15 Her x-ray reveals severe tricompartmental osteoarthritic change. This is characterized by severe osteophytosis and joint space narrowing. No acute fracture dislocation. Soft tissue is normal. Impression is 1)arthritis 2) arthritis Departure - Departure Time of Disposition: 19:17 Disposition: Home, Self-Care 01 Condition: Fair Clinical Impression: Sprain of knee - Discharge Information *PRESCRIPTION DRUG MONITORING PROGRAM REVIEWED*: Not Applicable *COPY OF PRESCRIPTION DRUG MONITORING REPORT IN PATIENT IRENA: Not Applicable Prescriptions: Hydrocodone/Acetaminophen [[place] 7.5-325 Tablet] 1 each PO Q6HR PRN #15 tablet PRN Reason: left knee pain Instructions: Cryotherapy, [id number], Knee Sprain, Adult, [id number], Elastic Bandage and RICE, Knee Sprain, Adult Referrals: Mac Valdez MD [Primary Care Provider] - Forms: ED Department Discharge Additional Instructions: Review of been diagnosed with a left knee sprain. He may take [place] for pain as instructed do not drink, drive or operate machinery while taking this medication. He can alternate the [place] with ibuprofen 800 mg every 8 hours as needed or Tylenol. Alternate ice and heat for pain. You're to follow-up with the orthopedic doctor for further evaluation and treatment. Return to the emergency room for new or acutely worsening symptoms. <Scout Hansen - Last Filed: 10/24/18 19:31> Course - Re-Assessments/Exams Free Text/Narrative Re-Assessment/Exam: 10/24/18 19:30 Hx and exam doen by DEISY Love. I have also interviewed examined patient. I agree with hx, exam, treatment plan as documented.
[2018-10-24] MEDS ORDERED: Ibuprofen 800 MG Tab PO ONE (18:18)
[2018-10-24] MEDS ORDERED: oxyCODONE 5 MG Tab PO ONE (18:19)
[2018-10-24] MEDS ORDERED: Morphine 10 MG/ML Syringe IM ONE (18:24)
[2018-10-24] MEDS ORDERED: Ketorolac 30 MG/ML SDV IM ONE (18:24)
[2018-10-24] MEDS ORDERED: Morphine 10 MG/ML SDV ONE (19:07)
--- NOTE | 2018-10-25 09:26 | CR ---
Left knee: AP, lateral and sunrise patellar views of the left knee were obtained. Comparison: Previous left knee exam of 11/17/09. Severe medial joint space narrowing is seen. Osteophytes noted off the lateral and medial joint. Detached osteophyte noted off the medial joint. Degenerative spurring is noted within the patellofemoral joint. Bony structures are osteopenic. Nothing acute is appreciated. Impression: 1. Degenerative change. 2. Nothing acute is appreciated on left knee exam. Diagnostic code #2 I agree with preliminary report from ad, finalized on 10/24/18, 8:12 PM Central Time
== END 2018-10-24 19:53 | disposition home or self-care (01) ==
LOC: JD.ED 16:23
DX: S83.92XA Sprain of unspecified site of left knee, initial encounter (principal); I11.0 Hypertensive heart disease with heart failure; I50.9 Heart failure, unspecified; X50.1XXA Overexertion from prolonged static or awkward postures, initial encounter; Z79.899 Other long term (current) drug therapy; Z87.891 Personal history of nicotine dependence
CPT/HCPCS: 73562; 96372; 99283; A9270; J1885; J2270

== ENCOUNTER 2019-06-19 01:00 | Emergency (ER) | payer MEDICARE, BC ==
[2019-06-19] MEDS ORDERED: Metoclopramide 10 MG/2 ML SDV IVPUSH ONE (01:24)
[2019-06-19] MEDS ORDERED: HYDROmorphone 1 MG/ML Syringe IVPUSH ONE (01:24)
--- NOTE | 2019-06-19 01:29 | EDM.PDOC ---
ED HPI GENERAL MEDICAL PROBLEM - General Chief Complaint: Gastrointestinal Problem Stated Complaint: [facility] Time Seen by Provider: 06/19/19 01:12 Source of Information: Reports: Patient, EMS Notes Reviewed History Limitations: Reports: No Limitations - History of Present Illness INITIAL COMMENTS - FREE TEXT/NARRATIVE: 73-year-old female presents to the ED per [facility]. States that she became ill about 20 hours ago developed and of diffuse periumbilical cramping pain. She did have a piece of toast and some peanut butter for breakfast. Dull pain started shortly after she left for work this morning about 0800 hrs. Pain has gradually intensified as the day has gone on. She felt that she was constipated and has taken numerous medications to get her bowels working. She estimates she has not had a good [place] for about 4 days. Have some bowel movement but not enough to relieve the abdominal pain. She has had previous abdominal surgery with 3/4 of her pancreas resected due to pancreatic carcinoma 1994. This was done by a surgeon in [facility]. She has never had a bowel obstruction. She presents vomiting of dark bilious material almost feculent in appearance. Latest per rectum. He does feel her abdomen is distended and he feels bloated. This makes her feel somewhat short of breath. No noted fever or chills. Patient is often incontinent of urine. He is prone to urinary tract infections. Denies any back pain. Pain at times will be a 9 out of 10 with severe cramping. Just started vomiting and hour prior to coming to the ED. she did keep her morning meds down. She did not try to take any of her p.m. meds today. Onset: Sudden Onset Date: 06/18/19 Onset Time: 08:00 Duration: Hour(s):, Getting Worse Location: Reports: Abdomen (Diffuse abdominal pain strong colicky component.) Quality: Reports: Sharp (Strong colicky pain but there is a constant deep aching pain just above the umbilicus as well.), Stabbing Severity: Severe (9 out of 10) Improves with: Reports: None Worsens with: Reports: None Context: Denies: Activity, Exercise, Lifting, Sick Contact, Trauma, Other Associated Symptoms: Reports: Loss of Appetite, Malaise, Nausea/Vomiting (Feels like she can't get a full deep breath due to abdominal wall. Started about hour ago. Emesis is dark brown in color. Believe it is mostly dark bile versus feculent.), Shortness of Breath. 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 (see below) (She has taken numerous medications to get her bowels working today.) Middle Abdomen Pain Score (Numeric/FACES): 8 - Related Data Allergies Allergy/AdvReac Type Severity Reaction Status Date / Time No Known Allergies Allergy Verified 02/17/19 14:12 Home Meds: Home Meds Allopurinol [Zyloprim] 150 mg PO DAILY 04/14/14 [History] Furosemide [Lasix] 30 mg PO DAILY 04/14/14 [History] Metoprolol Tartrate [Lopressor] 25 mg PO BID 04/14/14 [History] Insulin Aspart [NovoLOG] 3 units SQ TID PRN 12/31/14 [History] Diltiazem [Cardizem CD] 180 mg PO DAILY 10/04/16 [History] Docusate Sodium 100 mg PO BID PRN 10/04/16 [History] Gabapentin 2,400 mg PO BEDTIME 10/04/16 [History] Gabapentin 200 mg PO QAM 10/04/16 [History] Simvastatin 20 mg PO BEDTIME 10/04/16 [History] Insulin Glargine,Hum.Rec.Anlog [Basaglar Kwikpen U-100] 40 unit SQ QAM 10/24/18 [History] Calcium Carb/Mag Ox/Zinc Gluc [Zzyihvm-Zqcorqvpw-Yksf] 1 tab PO DAILY 02/17/19 [ History] Dapagliflozin/Metformin HCl [Xigduo Xr 10 mg-500 mg Tablet] 1 tab PO DAILY 02/17 [History] Dexlansoprazole [Dexilant] 60 mg PO DAILY 02/17/19 [History] Diclofenac Sodium [Voltaren 1% Gel] 1 dose TOP BID PRN 02/17/19 [History] Dulaglutide [Trulicity] 1.5 ml SQ TU 02/17/19 [History] Ferrous Sulfate [Iron] 65 mg PO DAILY 02/17/19 [History] Cholecalciferol (Vitamin D3) [Vitamin D] 5,000 unit PO DAILY 02/18/19 [History] Lactobacillus Rhamnosus R0011 [Probiotic Digestive Care] 1 each PO DAILY [History] Zolpidem Tartrate [Ambien] 5 mg PO BEDTIME PRN 02/18/19 [History] rOPINIRole [Requip] 4 mg PO BID 02/18/19 [History] Acetaminophen/oxyCODONE [Percocet 325-5 MG] 1 - 2 tab PO Q4H PRN #60 tablet 05/02 [Rx] Aspirin [Ecotrin EC] 325 mg PO BID #84 tab.ec 02/19/19 [Rx] Bisacodyl [Dulcolax] 5 mg PO DAILY PRN tablet 02/19/19 [Rx] Cyclobenzaprine [Flexeril] 10 mg PO BID PRN #30 tablet 02/19/19 [Rx] Docusate Sodium [Colace] 100 mg PO BID cap 02/19/19 [Rx] Famotidine [Pepcid] 20 mg PO Q12H tablet 02/19/19 [Rx] Magnesium Hydroxide [Milk of Magnesia] 30 ml PO BID PRN cup 02/19/19 [Rx] Sennosides [Senna] 8.6 mg PO BID PRN tablet 02/19/19 [Rx] Past Medical History HEENT History: Reports: Impaired Vision, Other (See Below) Other HEENT History: wears glasses, has upper partial Cardiovascular History: Reports: Heart Failure, Hypertension, Other (See Below) Other Cardiovascular History: chest pain, edema Respiratory History: Reports: Sleep Apnea (Does use a CPAP machine and I have sent her daughter home to bring her to [place].), SOB, Other (See Below) Other Respiratory History: URI Gastrointestinal History: Reports: Chronic Constipation, Hemorrhoids, Other ( See Below) Other Gastrointestinal History: c diff, nausea, gastroparesis, colitis, post op nausea and vomiting Genitourinary History: Reports: Urinary Incontinence, UTI, Recurrent, Other ( See Below) Other Genitourinary History: dysuria, renal failure, UTI, frequency, hestiency DIRECTOR OF OUTREACH History: Reports: None Musculoskeletal History: Reports: Gout, Osteoarthritis Other Musculoskeletal History: degenerative joint disease, lumbar scolisosis, gout, hammertoes, rib fractures, low bakc pain, lumbar sacral radiculopathy at L5, cerviclagia Neurological History: Reports: Neuropathy, Diabetic, Other (See Below) Other Neuro History: multilevel failed back syndrome Psychiatric History: Reports: Other (See Below) Other Psychiatric History: anorexia nervosa Endocrine/Metabolic History: Reports: Diabetes, Type I ( iatrogenic diabetes when 3/4 of her pancrease was resectedin [facility] in 1994 for cancer of the pancreas.), Hypothyroidism, Vitamin D Deficiency Other Endocrine/Metabolic History: benign lesion of adrenal gland Hematologic History: Reports: None, Other (See Below) Other Hematologic History: hyperkalemia, blood clots, malaise, fatigue Immunologic History: Reports: None Oncologic (Cancer) History: Reports: Pancreatic (She had 2 cores her pancreas resected at the [facility] in 1994 due to cancer. Resulted over in course developing inability to digest her food and insulin-dependent diabetes.) Dermatologic History: Reports: Cellulitis Other Dermatologic History: dizziness - Infectious Disease History Infectious Disease History: Reports: C-Difficile - Past Surgical History Head Surgeries/Procedures: Reports: None HEENT Surgical History: Reports: Cataract Surgery Cardiovascular Surgical History: Reports: None Respiratory Surgical History: Reports: None GI Surgical History: Reports: Appendectomy, Colonoscopy, Other (See Below) Other GI Surgeries/Procedures: partial removal of pancreas--she reports fairly 3 /4 of her pancreas was removed by a surgeon in [place] because of cancer of the pancreas in 1994 Female Surgical History: Reports: Hysterectomy Endocrine Surgical History: Reports: None Neurological Surgical History: Reports: Other (See Below) Other Neurological Surgeries/Procedures: back surgery Musculoskeletal Surgical History: Reports: Shoulder Replacement, Other (See Below) Other Musculoskeletal Surgeries/Procedures:: carpal tunnel surgery, shoulder surgery, lumbar fusion, back surgery, knee replacement Oncologic Surgical History: Reports: Other (See Below) Other Oncologic Surgeries/Procedures: pacrectomy 75% Social & Family History - Family History Family Medical History: Noncontributory - Tobacco Use Smoking Status *Q: Never Smoker - Caffeine Use Caffeine Use: Reports: Coffee Caffeine Use Comment: States she drinks about 2 cups per day of coffee, drinks about 2 cans of 7up per day - Recreational Drug Use Recreational Drug Use: No - Living Situation & Occupation Living situation: Reports: Occupation: Employed ED ROS GENERAL - Review of Systems Review Of Systems: See Below Constitutional: Reports: Malaise, Weakness, Fatigue, Decreased Appetite. Denies : Fever, Chills HEENT: Reports: Glasses Respiratory: Reports: Shortness of Breath. Denies: Wheezing, Pleuritic Chest Pain, Cough, Sputum Cardiovascular: Denies: Chest Pain Endocrine: Reports: Fatigue, High Glucose GI/Abdominal: Reports: Abdominal Pain, Constipation (Report of vomiting dark brown material about an hour ago. Feels she has not had a good bowel movement for about 4 days), Decreased Appetite (See history of present illness.), Nausea , Vomiting : Reports: Frequency, Incontinence (Urgency incontinence.), Urgency ED EXAM, GI/ABD - Physical Exam Exam: See Below Exam Limited By: No Limitations General Appearance: Alert, WD/WN, Moderate Distress (She is able to provide a history but she is hanging onto the vomiting basin at this time.), Other ( Temperatures 36.3. Pulse ox is 92% on room air pulse is 97 and regular respiratory distress 20 BP 138/68) Eyes: Right: Normal Appearance (No scleral icterus.) Throat/Mouth: Normal Inspection, Normal Lips, Normal Oropharynx, Other (Tongue is mildly dry and coated.) Head: Atraumatic, Normocephalic Neck: Normal Inspection, Supple, Limited Range of Motion, Tender Lateral. No: Full Range of Motion, Lymphadenopathy (L), Lymphadenopathy (R) Respiratory/Chest: Normal Breath Sounds, Chest Non-Tender, Respiratory Distress (Mild tachypnea. O2 sats 92% on room air) Cardiovascular: Regular Rate, Rhythm, No Edema, No Gallop, No Murmur, No Rub. No: Normal Peripheral Pulses GI/Abdominal Exam: Soft, No Organomegaly, Distended (Diffusely distended and tympanitic to percussion.), Tender (Tender mostly in the epigastrium.), Abnormal Bowel Sounds (Bowel sounds are fairly quiescent in all 4 quadrants.). No: Normal Bowel Sounds Back Exam: Decreased Range of Motion, Other (She has had previous multiple surgeries on her lumbar spine. She reports she is fusiform lumbar 1 to lumbar 5. ). No: Full Range of Motion, CVA Tenderness (L), CVA Tenderness (R) Extremities: Normal Inspection, Normal Range of Motion, Non-Tender Neurological: Alert, Oriented, CN II-XII Intact, Normal Cognition Psychiatric: Normal Affect, Normal Mood Skin Exam: Warm, Dry, Intact, Normal Color, No Rash Course - Vital Signs Last Recorded V/S: Last Vital Signs Temp 36.3 C 11/06/19 01:01 Pulse 97 06/19/19 01:01 Resp 20 06/19/19 01:01 BP 138/68 06/19/19 01:01 Pulse Ox 88 L 06/19/19 05:22 - Orders/Labs/Meds Orders: Active Orders 24 hr Category Date Time Status EKG Documentation Completion [RC] STAT Care 06/19/19 01:26 Active Nasogastric Tube Management [Gastrointestinal Tube Mgmt Care 06/19/19 04:17 Active ] [RC] ASDIRECTED Oxygen Therapy [RC] ASDIRECTED Care 06/19/19 01:31 Active Abdomen 1V Flat [CR] Stat Exams 06/19/19 01:26 Taken Abdomen Pelvis w Cont [CT] Stat Exams 06/19/19 02:48 Taken Chest 1V Frontal [CR] Stat Exams 06/19/19 01:25 Ordered Chest 1V Frontal [CR] Stat Exams 06/19/19 06:03 Ordered CULTURE BLOOD [BC] Stat Lab 06/19/19 04:21 Ordered CULTURE BLOOD [BC] Stat Lab 06/19/19 05:05 Received LACTIC ACID [CHEM] Stat Lab 06/19/19 05:15 Received URINALYSIS W/MICROSCOPIC [UA W/MICROSCOPIC] [URIN] Stat Lab 06/19/19 03:00 Results Sodium Chloride 0.9% [Normal Saline] 1,000 ml Med 06/19/19 03:00 Active IV ASDIRECTED Sodium Chloride 0.9% [Normal Saline] 1,000 ml Med 06/19/19 04:30 Active IV ASDIRECTED Blood Culture x2 Reflex Set [OM.PC] Stat Oth 06/19/19 04:21 Ordered Medication Orders Sodium Chloride (Normal Saline) 1,000 mls @ 999 mls/hr IV ASDIRECTED CALI Last Admin: 06/19/19 04:49 Dose: Not Given Sodium Chloride (Normal Saline) 1,000 mls @ 999 mls/hr IV ASDIRECTED CALI Last Admin: 06/19/19 04:47 Dose: 250 mls/hr Labs: Laboratory Tests 06/19/19 06/19/19 06/19/19 Range/Units 01:20 01:20 01:20 WBC 16.91 H (3.98-10.04) K/mm3 RBC 5.36 H (3.98-5.22) M/mm3 Hgb 16.8 H D (11.2-15.7) gm/dl Hct 50.3 H (34.1-44.9) % MCV 93.8 D (79.4-94.8) fl MCH 31.3 (25.6-32.2) pg MCHC 33.4 (32.2-35.5) g/dl RDW Std Deviation 53.3 H (36.4-46.3) fL Plt Count 319 (182-369) K/mm3 MPV 10.5 (9.4-12.3) fl Neut % (Auto) 88.7 H (34.0-71.1) % Lymph % (Auto) 5.0 L (19.3-51.7) % Blaine % (Auto) 5.9 (4.7-12.5) % Eos % (Auto) 0.1 L (0.7-5.8) Baso % (Auto) 0.1 (0.1-1.2) % Neut # (Auto) 15.02 H (1.56-6.13) K/mm3 Lymph # (Auto) 0.84 L (1.18-3.74) K/mm3 Blaine # (Auto) 0.99 H (0.24-0.36) K/mm3 Eos # (Auto) 0.01 L (0.04-0.36) K/mm3 Baso # (Auto) 0.01 (0.01-0.08) K/mm3 Manual Slide Review Abnormal smear PT 10.5 (9.7-12.0) SECONDS INR 0.96 APTT 23 D (22-31) SECONDS Sodium 144 (136-145) mEq/L Potassium 3.9 (3.5-5.1) mEq/L Chloride 102 (98-107) mEq/L Carbon Dioxide 33 H (21-32) mEq/L Anion Gap 12.9 (5-15) BUN 23 H (7-18) mg/dL Creatinine 1.0 (0.55-1.02) mg/dL Est Cr Clr Drug Dosing 40.83 mL/min Estimated GFR (MDRD) 54 (>60) mL/min BUN/Creatinine Ratio 23.0 H (14-18) Glucose 141 H (83-115) mg/dL Calcium 11.0 H D (8.5-10.1) mg/dL Magnesium 2.4 (1.8-2.4) mg/dl Total Bilirubin 4.8 H (0.2-1.0) mg/dL GGT (5-55) U/L AST 1589 H (15-37) U/L ALT 1798 H (14-59) U/L Alkaline Phosphatase 181 H (46-116) U/L C-Reactive Protein 7.9 H* (<1.0) mg/dL NT-Pro-B Natriuret Pep (0-125) pg/mL Total Protein 8.0 (6.4-8.2) g/dl Albumin 4.0 (3.4-5.0) g/dl Globulin 4.0 gm/dL Albumin/Globulin Ratio 1.0 (1-2) Lipase (73-393) U/L Urine Color (Yellow) Urine Appearance (Clear) Urine pH (5.0-8.0) Ur Specific [place] (1.005-1.030) Urine Protein (Negative) Urine Glucose (UA) (Negative) Urine Ketones (Negative) Urine Occult Blood (Negative) Urine Nitrite (Negative) Urine Bilirubin (Negative) Urine Urobilinogen (0.2-1.0) Ur Leukocyte Esterase (Negative) 06/19/19 06/19/19 06/19/19 Range/Units 01:20 01:20 03:00 WBC (3.98-10.04) K/mm3 RBC (3.98-5.22) M/mm3 Hgb (11.2-15.7) gm/dl Hct (34.1-44.9) % MCV (79.4-94.8) fl MCH (25.6-32.2) pg MCHC (32.2-35.5) g/dl RDW Std Deviation (36.4-46.3) fL Plt Count (182-369) K/mm3 MPV (9.4-12.3) fl Neut % (Auto) (34.0-71.1) % Lymph % (Auto) (19.3-51.7) % Blaine % (Auto) (4.7-12.5) % Eos % (Auto) (0.7-5.8) Baso % (Auto) (0.1-1.2) % Neut # (Auto) (1.56-6.13) K/mm3 Lymph # (Auto) (1.18-3.74) K/mm3 Blaine # (Auto) (0.24-0.36) K/mm3 Eos # (Auto) (0.04-0.36) K/mm3 Baso # (Auto) (0.01-0.08) K/mm3 Manual Slide Review PT (9.7-12.0) SECONDS INR APTT (22-31) SECONDS Sodium (136-145) mEq/L Potassium (3.5-5.1) mEq/L Chloride (98-107) mEq/L Carbon Dioxide (21-32) mEq/L Anion Gap (5-15) BUN (7-18) mg/dL Creatinine (0.55-1.02) mg/dL Est Cr Clr Drug Dosing mL/min Estimated GFR (MDRD) (>60) mL/min BUN/Creatinine Ratio (14-18) Glucose (83-115) mg/dL Calcium (8.5-10.1) mg/dL Magnesium (1.8-2.4) mg/dl Total Bilirubin (0.2-1.0) mg/dL GGT 493 H (5-55) U/L AST (15-37) U/L ALT (14-59) U/L Alkaline Phosphatase (46-116) U/L C-Reactive Protein (<1.0) mg/dL NT-Pro-B Natriuret Pep 617 H (0-125) pg/mL Total Protein (6.4-8.2) g/dl Albumin (3.4-5.0) g/dl Globulin gm/dL Albumin/Globulin Ratio (1-2) Lipase 13525 H (73-393) U/L Urine Color Justin H (Yellow) Urine Appearance Turbid H (Clear) Urine pH 6.5 (5.0-8.0) Ur Specific [place] 1.015 (1.005-1.030) Urine Protein 1+ H (Negative) Urine Glucose (UA) 2+ H (Negative) Urine Ketones Trace H (Negative) Urine Occult Blood Negative (Negative) Urine Nitrite Negative (Negative) Urine Bilirubin 1+ H (Negative) Urine Urobilinogen 4.0 H (0.2-1.0) Ur Leukocyte Esterase Negative (Negative) Meds: Medications Generic Name Dose Route Start Last Admin Trade Name Howie PRN Reason Stop Dose Admin Sodium Chloride 1,000 mls @ 999 mls/hr 06/19/19 03:00 06/19/19 04:49 Normal Saline IV Not Given ASDIRECTED CALI Sodium Chloride 1,000 mls @ 999 mls/hr 06/19/19 04:30 06/19/19 04:47 Normal Saline IV 250 mls/hr ASDIRECTED CALI Administration Discontinued Medications Generic Name Dose Route Start Last Admin Trade Name Howie PRN Reason Stop Dose Admin Hydromorphone HCl 1 mg 06/19/19 01:24 06/19/19 01:34 Dilaudid IVPUSH 06/19/19 01:25 1 mg ONETIME ONE Administration Sodium Chloride 1,000 mls @ 150 mls/hr 06/19/19 01:30 06/19/19 02:53 Normal Saline IV 999 mls/hr ASDIRECTED CALI Infusion Levofloxacin/Dextrose 750 mg/ 150 mls @ 100 mls/hr 06/19/19 04:20 06/19/19 05 :19 Premix IV 06/19/19 05:49 100 mls/hr ONETIME ONE Administration Iopamidol 100 ml 06/19/19 03:03 Isovue-300 (61%) IVPUSH 06/19/19 03:04 ONETIME ONE Lidocaine HCl 10 ml 06/19/19 04:17 06/19/19 04:38 Xylocaine 2% Jelly MUCMEM 06/19/19 04:18 10 ml ONETIME ONE Administration Lorazepam 1 mg 06/19/19 02:55 06/19/19 03:12 Ativan IVPUSH 06/19/19 02:56 1 mg ONETIME ONE Administration Metoclopramide HCl 7.5 mg 06/19/19 01:24 06/19/19 01:35 Reglan IVPUSH 06/19/19 01:25 7.5 mg ONETIME ONE Administration - Radiology Interpretation Free Text/Narrative:: 73-year-old female presents to the ED with diffuse severe abdominal cramping pain starting shortly after she got up yesterday morning around 0800 hrs. She did have a piece of toast with peanut butter on it before going to work. Work early because of the severity of the abdominal pain. She described as strong colicky pain compatible with constipation that she is appears before. She has taken numerous medications to get her bowels working and she did have a mild small bowel movement earlier last evening without blood. However the cramping pain became much worse over the last 3 hours and became associated with nausea and vomiting of dark bilious almost feculent material. Patient has had previous abdominal surgery with recurrence of her pancreas removed in 1994 for cancer. This left her with insulin and diet diabetes and trouble digesting her food. She has had problems with constipation ever since. She states she hasn't had a good bowel movement for 4 days. - Re-Assessments/Exams Free Text/Narrative Re-Assessment/Exam: 06/19/19 02:00: Chest x-ray reveals some haziness around the right diaphragm suggesting a little bit of fluid. Cardiac silhouette is upper limits of normal. Left lung appears normal. Poor inspirational view. The abdomen does not show any evidence of bowel obstruction. There is a decreased amount of air throughout the colon on x-ray examination revealed diffuse tympany of the entire abdomen. 06/19/19 02:46 Labs reveal an elevated white count at 16.91. Automated neutrophil count is 88.7. On slide reviewed no bandemia was evident. Hemoglobin is 16.8 with hematocrit of 50.3. This suggest mild degree of hemoconcentration. Platelet count 319,000. MCV is elevated at 93.8. PT is 10.5 with an INR of 0.96. PTT is 23. Creatinine is 1.0. Estimated GFR is 54. Glucose is 141 with a calcium of 11.0 which is high. An ionized calcium will be ordered. Magnesium is 2.4. Bilirubin is elevated at 4.8. AST is elevated at 1589. ELT is elevated at 1798. Alk phosphatase is 181. C-reactive protein is 7.9. BNP is 617. Total protein is 8.0 albumin fraction 4.0. Patient therefore appears to have some degree of biliary tree obstruction. Serum lipase and GGT will now be ordered. 06/19/19 03:02 on review the patient is suffering severe restless leg syndrome and unable to relax. She uses Ropirinole at bedtime for this. Due to possible need for surgery I will not give her any oral meds. Will try Ativan 1 mg IV. 06/19/19 04:04 CT of the abdomen and pelvis was performed without oral contrast IV contrast only. There is a abnormality at the base of the right lung with increased inflammatory response or early pneumonia and a vascular lesion as it fills with contrast attached to the base of the right lung. Her BNP is mildly elevated at 617. There is a moderate size hiatal hernia and the stomach appears to contain food with it evident in the distal esophagus as well. The liver appears homogeneous without some intraductal dilatation. The gallbladder is hard to discern amongst the dilated loops of small bowel. However appears to be severely distended with wall thickening and enhancement. No definite stones are seen. She is status post partial pancreatectomy. The head of the pancreas demonstrates severe pancreatic inflammation consistent with acute pancreatitis. Right kidney is atrophic left is hypertrophic and both kidneys fill with contrast well in no sign of obstruction. The small bowel appears to contain a large amount of fluid throughout most of its entirety except there is solid component or stool it looks like in the distal ileum or possibly distal jejunum. There is an air all the way down to the rectal vault. Most of the cecum and right colon are is air-filled. Multiple air-fluid levels in the small bowel it appears that this is more likely an ileus type pattern secondary to pancreatitis. It is highly suspect that she has a common bile duct obstruction..C-reactive protein is elevated at 7.9. GGT is elevated at 493. BNP is elevated at 617. Lipase is elevated at 15,809. The urine shows it to be justin in color. 1+ proteinuria 2+ glucosuria 1+ bilirubinuria urobilinogen is 4.0. Leukocyte Estrace is negative. Micro-is pending. I will await the radiologist's report before making further decisions and management. She likely needs a nasogastric tube to provide some degree of relief of small bowel fluid. 06/19/19 04:23 is a gastric tube will be inserted. Urojet will be used to facilitate passage of the nasogastric tube. Going to give her first dose of antibiotic Levaquin 750 mg IV for possible pneumonia right lower lobe of lung . I suspect this inflammation may be secondary to severe pancreatitis. She'll require transfer to a larger center where gastroenterology capability of ERCP is available. Patient is cared for by Dr. Harper here in our hospital. She requests [facility] for care. 06/19/19 05:13 patient has fallen asleep. Blood cultures 2 have been obtained and lactic acid. I spoken with primarily Dr. Fonseca--environmental geologist system designer at [facility] in [place]. He has great concern there may be something more going on than just a common bile duct obstruction. I therefore did speak with Dr Keita in the emergency room at [facility] and the patient will be transported to that facility per ground ambulance. The plan is to have her have MR ERCP to establish a firm diagnosis and then developing a treatment plan as to whether or not ERCP intervention is required. 06/19/19 06:20 9 October fluid is coming up the NG tube. I therefore had x-ray take a chest film to see with an estimated nasogastric tube lies. It does appear to be coiled in her hiatal hernia and the tip of the nasogastric tube appears to be above the diaphragm. Therefore it is not draining adequately. It' ll be left in position and can be repositioned later on in [place]. However it will be removed if ERCP is required at any rate. Departure - Departure Time of Disposition: 06:20 Disposition: DC/Tfer to Acute Hospital 02 Condition: Serious Clinical Impression: Obstruction of biliary tree, Right lower lobe pulmonary infiltrate, Abdominal pain, Neutrophilic leukocytosis Acute pancreatitis Qualifiers: Pancreatitis type: unspecified pancreatitis type Acute pancreatitis complication: unspecified Qualified Code(s): K85.90 - Acute pancreatitis without necrosis or infection, unspecified - Discharge Information *PRESCRIPTION DRUG MONITORING PROGRAM REVIEWED*: Not Applicable *COPY OF PRESCRIPTION DRUG MONITORING REPORT IN PATIENT IRENA: Not Applicable Referrals: Mac Valdez MD [Primary Care Provider] - Forms: ED Department Discharge Additional Instructions: Patient transferred to [facility] per ground ambulance. She has no acute pancreatitis with suspect bili tree obstruction of unclear etiology. She is in need of gastroenterology consultation. Tentatively she will be for MRI ERCP after she is seen in the ED at [facility] in [place] this morning. Will determine if she requires gastroenterology care in terms of ERCP. She has received Levaquin 750 mg IV due to possibility of pneumonia right lower lobe lung versus inflammation above the diaphragm secondary to severe pancreatitis. Her lactic acid level was not back at the time of discharge from the ED. It will be phoned to the nrse in te ED. - My Orders Last 24 Hours: My Active Orders 06/19/19 01:25 Chest 1V Frontal [CR] Stat 06/19/19 01:26 EKG Documentation Completion [RC] STAT Abdomen 1V Flat [CR] Stat 06/19/19 01:31 Oxygen Therapy [RC] ASDIRECTED 06/19/19 02:48 Abdomen Pelvis w Cont [CT] Stat 06/19/19 03:00 URINALYSIS W/MICROSCOPIC [UA W/MICROSCOPIC] [URIN] Stat Sodium Chloride 0.9% [Normal Saline] 1,000 ml IV ASDIRECTED 06/19/19 04:17 Nasogastric Tube Management [Gastrointestinal Tube Mgmt] [RC] ASDIRECTED 06/19/19 04:21 CULTURE BLOOD [BC] Stat Blood Culture x2 Reflex Set [OM.PC] Stat 06/19/19 04:30 Sodium Chloride 0.9% [Normal Saline] 1,000 ml IV ASDIRECTED 06/19/19 05:05 CULTURE BLOOD [BC] Stat 06/19/19 05:15 LACTIC ACID [CHEM] Stat 06/19/19 06:03 Chest 1V Frontal [CR] Stat - Assessment/Plan Last 24 Hours: My Active Orders 06/19/19 01:25 Chest 1V Frontal [CR] Stat 06/19/19 01:26 EKG Documentation Completion [RC] STAT Abdomen 1V Flat [CR] Stat 06/19/19 01:31 Oxygen Therapy [RC] ASDIRECTED 06/19/19 02:48 Abdomen Pelvis w Cont [CT] Stat 06/19/19 03:00 URINALYSIS W/MICROSCOPIC [UA W/MICROSCOPIC] [URIN] Stat Sodium Chloride 0.9% [Normal Saline] 1,000 ml IV ASDIRECTED 06/19/19 04:17 Nasogastric Tube Management [Gastrointestinal Tube Mgmt] [RC] ASDIRECTED 06/19/19 04:21 CULTURE BLOOD [BC] Stat Blood Culture x2 Reflex Set [OM.PC] Stat 06/19/19 04:30 Sodium Chloride 0.9% [Normal Saline] 1,000 ml IV ASDIRECTED 06/19/19 05:05 CULTURE BLOOD [BC] Stat 06/19/19 05:15 LACTIC ACID [CHEM] Stat 06/19/19 06:03 Chest 1V Frontal [CR] Stat
[2019-06-19] MEDS ORDERED: Sodium Chloride 0.9% 1,000 ML IV SCH ×3 (01:30→04:30)
[2019-06-19] MEDS ORDERED: LORazepam 2 MG/ML SDV IVPUSH ONE (02:55)
[2019-06-19] MEDS ORDERED: Iopamidol 612 MG/ML 100 ML Bottle IVPUSH ONE (03:03)
[2019-06-19] MEDS ORDERED: Lidocaine 2% Jelly 10 ML Urojet MUCMEM ONE (04:17)
[2019-06-19] MEDS ORDERED: Levofloxacin/Dextrose 5%-Water 750 MG in Premix Bag 1 BAG IV ONE (04:20)
--- NOTE | 2019-06-19 06:51 | CR ---
Abdomen: Supine view of the abdomen was obtained. Comparison: Prior abdominal x-ray of 01/27/09. Multiple surgical clips are seen within the upper left abdomen. Extensive spine surgery is noted. Bowel gas pattern appears within normal limits as seen on the study. Impression: 1. Findings as noted above. 2. Nothing acute is definitely appreciated. Diagnostic code #2
[2019-06-19 06:56] VITALS: BP 137/60; PULSE 109
--- NOTE | 2019-06-19 08:51 | CR ---
Chest: Frontal view of the chest was obtained. Comparison: Prior chest x-ray of 12/03/18. Increased density is noted within the right lung base. Lungs otherwise are clear. Heart size is within normal limits. Mild tortuosity of the thoracic aorta is seen. Scoliosis is noted within the thoracic spine. Spinal hardware is noted within the lumbar spine. Impression: 1. Increased density within the right lung base most likely representing atelectasis although pneumonia is also within the differential if patient has correlating symptoms. 2. Other findings which are felt to be incidental. Diagnostic code #3
--- NOTE | 2019-06-19 08:51 | CR ---
Chest: Frontal view of the chest was obtained. Comparison: Prior chest x-ray performed earlier on the same day (1:33 AM). Continuing increased density within right lung base most likely due to atelectasis. No acute parenchymal change is otherwise seen. Heart is slightly prominent. Scoliosis is seen within the thoracic spine. Nasogastric tube is seen. Tip coiled within a hiatal hernia. Impression: 1. Nasogastric tube with tip coiled within a hiatal hernia. 2. Increased density within the right lung base remains most likely due to atelectasis. Diagnostic code #2
--- NOTE | 2019-06-19 08:51 | CT ---
CT abdomen and pelvis Technique: Multiple axial sections were obtained from above the dome of the diaphragm inferiorly through the pubic symphysis. Intravenous contrast was utilized. No oral contrast has been given. Delayed images were also obtained. Comparison: Prior abdominal x-ray performed earlier on same day (1:36 AM). Prior CT abdomen and pelvis study of 04/13/09. Findings: Increased density noted within the right lung base either due to atelectasis or possibly pneumonia if patient has infectious symptoms. Moderately large hiatal hernia is seen. Surgical clips are seen at the gastroesophageal junction. Other surgical clips are seen within the upper abdomen. Liver contains no focal abnormality. Gallbladder is somewhat distended but no gallbladder wall thickening is seen. Common bile duct measures slightly prominent around 8.6 mm. No calcified gallstones are seen. Pancreas is poorly seen. There is inflammatory change being seen within the upper abdomen and pancreatitis is a possibility. Please correlate with amylase and lipase. Diffuse fluid within colon and small bowel. These findings are most likely due to an ileus. Kidneys show contrast enhancement without hydronephrosis or mass. Aorta shows atherosclerotic calcification without aneurysm. No retroperitoneal adenopathy or mesenteric abnormalities are seen. No pelvic mass or adenopathy is noted. Air is noted within the bladder presumably from recent instrumentation. Appendix not visualized with certainty. Artifact noted from extensive lumbar spine surgery. Compression deformity is noted of T11 which appears old and causes localized kyphosis. Impression: 1. Inflammatory change around the pancreas raising the possibility of pancreatitis. Please correlate with lipase and amylase. 2. Nonspecific gallbladder dilatation as well as mildly prominent CBD. No calcified gallstones are seen. 3. Increased density within the right lung base most likely due to atelectasis unless patient has symptoms to suggest pneumonia. 4. Fluid-filled small bowel and colon likely representing ileus. Diagnostic code #3 I agree with preliminary report from [facility], finalized on 06/19/19, 5:10 AM Central Time
== END 2019-06-19 06:37 ==
LOC: JD.ED 01:00
DX: K83.1 Obstruction of bile duct (principal); K85.90 Acute pancreatitis without necrosis or infection, unspecified; R91.8 Other nonspecific abnormal finding of lung field; D72.829 Elevated white blood cell count, unspecified; I10 Essential (primary) hypertension; G47.30 Sleep apnea, unspecified; M10.9 Gout, unspecified; M19.90 Unspecified osteoarthritis, unspecified site; E10.43 Type 1 diabetes mellitus with diabetic autonomic (poly)neuropathy; K31.84 Gastroparesis; Z79.4 Long term (current) use of insulin; Z79.82 Long term (current) use of aspirin; Z79.899 Other long term (current) drug therapy
CPT/HCPCS: 36415; 43752; 71045; 74018; 74177; 80053; 81001; 82977; 83605; 83690; 83735; 83880; 85025; 85610; 85730; 86140; 87040; 93005; 96361; 96365; 96375; 99285; J1170; J1956; J2060; J2765; J7040; Q9967; 93010

== ENCOUNTER 2020-04-15 08:49 | Emergency (ER) | payer MEDICARE, BC ==
--- NOTE | 2020-04-15 09:26 | EDM.PDOC ---
ED HPI GENERAL MEDICAL PROBLEM - General Chief Complaint: Lower Extremity Injury/Pain Stated Complaint: TOENAIL FELL OFF/HIP PAIN Time Seen by Provider: 04/15/20 09:19 - History of Present Illness INITIAL COMMENTS - FREE TEXT/NARRATIVE: 74-year-old female presents the emergency room after stubbing her great toe and break in the nail off and twisting her hip. Patient usually ambulates with a walker. Earlier she stubbed her great toe which avulsed the great toenail and twisted her hip. She did not fall. She has some hip discomfort but she is able to ambulate on this but it is sore. Her toe is doing okay but she is concerned with her diabetes. Patient has no other problems she had no dizziness or lightheadedness contributing to the fall she just stubbed her toe and twisted herself. She has no other complaints at this time. Left Hip Pain Score (Numeric/FACES): 6 - Related Data Allergies Allergy/AdvReac Type Severity Reaction Status Date / Time dulaglutide [From [facility]] Allergy Nausea and Verified 04/15/20 09:07 Vomiting Home Meds: Home Meds Allopurinol [Zyloprim] 150 mg PO DAILY 04/14/14 [History] Furosemide [Lasix] 30 mg PO DAILY 04/14/14 [History] Metoprolol Tartrate [Lopressor] 25 mg PO BID 04/14/14 [History] Insulin Aspart [NovoLOG] 3 units SQ TID PRN 12/31/14 [History] Diltiazem [Cardizem CD] 180 mg PO DAILY 10/04/16 [History] Docusate Sodium 100 mg PO BID PRN 10/04/16 [History] Gabapentin 2,400 mg PO BEDTIME 10/04/16 [History] Gabapentin 200 mg PO QAM 10/04/16 [History] Simvastatin 20 mg PO BEDTIME 10/04/16 [History] Insulin Glargine,Hum.Rec.Anlog [Basaglar Kwikpen U-100] 40 unit SQ QAM 10/24/18 [History] Calcium Carb/Mag Ox/Zinc Gluc [Yzybnkj-Yjtmqxels-Xhjd] 1 tab PO DAILY 02/17/19 [History] Dapagliflozin/Metformin HCl [Xigduo Xr 10 mg-500 mg Tablet] 1 tab PO DAILY 02/17/19 [History] Dexlansoprazole [Dexilant] 60 mg PO DAILY 02/17/19 [History] Diclofenac Sodium [Voltaren 1% Gel] 1 dose TOP BID PRN 02/17/19 [History] Ferrous Sulfate [Iron] 65 mg PO DAILY 02/17/19 [History] Cholecalciferol (Vitamin D3) [Vitamin D] 5,000 unit PO DAILY 02/18/19 [History] Lactobacillus Rhamnosus R0011 [Probiotic Digestive Care] 1 each PO DAILY 02/18/19 [History] Zolpidem Tartrate [Ambien] 5 mg PO BEDTIME PRN 02/18/19 [History] rOPINIRole [Requip] 3 mg PO TID 02/18/19 [History] Aspirin [Ecotrin EC] 325 mg PO BID #84 tab.ec 02/19/19 [Rx] Docusate Sodium [Colace] 100 mg PO BID cap 02/19/19 [Rx] Famotidine [Pepcid] 20 mg PO Q12H tablet 02/19/19 [Rx] Magnesium Hydroxide [Milk of Magnesia] 30 ml PO BID PRN cup 02/19/19 [Rx] Sennosides [Senna] 8.6 mg PO BID PRN tablet 02/19/19 [Rx] bisacodyL [Dulcolax] 5 mg PO DAILY PRN tablet 02/19/19 [Rx] Past Medical History HEENT History: Reports: Impaired Vision, Other (See Below) Other HEENT History: wears glasses, has upper partial Cardiovascular History: Reports: Heart Failure, Hypertension, Other (See Below) Other Cardiovascular History: chest pain, edema Respiratory History: Reports: Sleep Apnea (Does use a CPAP machine and I have sent her daughter home to bring her to [place].), SOB, Other (See Below) Other Respiratory History: URI Gastrointestinal History: Reports: Chronic Constipation, Hemorrhoids, Other (See Below) Other Gastrointestinal History: c diff, nausea, gastroparesis, colitis, post op nausea and vomiting Genitourinary History: Reports: Urinary Incontinence, UTI, Recurrent, Other (See Below) Other Genitourinary History: dysuria, renal failure, UTI, frequency, hestiency [employer] History: Reports: None Musculoskeletal History: Reports: Gout, Osteoarthritis Other Musculoskeletal History: degenerative joint disease, lumbar scolisosis, gout, hammertoes, rib fractures, low bakc pain, lumbar sacral radiculopathy at L5, cerviclagia Neurological History: Reports: Neuropathy, Diabetic, Other (See Below) Other Neuro History: multilevel failed back syndrome Psychiatric History: Reports: Other (See Below) Other Psychiatric History: anorexia nervosa Endocrine/Metabolic History: Reports: Diabetes, Type I ( iatrogenic diabetes when 3/4 of her pancrease was resectedin [facility] in 1994 for cancer of the pancreas.), Hypothyroidism, Vitamin D Deficiency Other Endocrine/Metabolic History: benign lesion of adrenal gland Hematologic History: Reports: None, Other (See Below) Other Hematologic History: hyperkalemia, blood clots, malaise, fatigue Immunologic History: Reports: None Oncologic (Cancer) History: Reports: Pancreatic (She had 2 cores her pancreas resected at the [facility] in 1994 due to cancer. Resulted over in course developing inability to digest her food and insulin-dependent diabetes.) Dermatologic History: Reports: Cellulitis Other Dermatologic History: dizziness - Infectious Disease History Infectious Disease History: Reports: C-Difficile - Past Surgical History Head Surgeries/Procedures: Reports: None HEENT Surgical History: Reports: Cataract Surgery Cardiovascular Surgical History: Reports: None Respiratory Surgical History: Reports: None GI Surgical History: Reports: Appendectomy, Colonoscopy, Other (See Below) Other GI Surgeries/Procedures: partial removal of pancreas--she reports fairly 3 /4 of her pancreas was removed by a surgeon in [place] because of cancer of the pancreas in 1994 Female Surgical History: Reports: Hysterectomy Endocrine Surgical History: Reports: None Neurological Surgical History: Reports: Other (See Below) Other Neurological Surgeries/Procedures: back surgery Musculoskeletal Surgical History: Reports: Shoulder Replacement, Other (See Below) Other Musculoskeletal Surgeries/Procedures:: carpal tunnel surgery, shoulder surgery, lumbar fusion, back surgery, knee replacement Oncologic Surgical History: Reports: Other (See Below) Other Oncologic Surgeries/Procedures: pacrectomy 75% Social & Family History - Family History Family Medical History: Noncontributory - Caffeine Use Caffeine Use: Reports: Coffee Caffeine Use Comment: States she drinks about 2 cups per day of coffee, drinks about 2 cans of 7up per day - Living Situation & Occupation Living situation: Reports: Occupation: Employed Review of Systems - Review of Systems Review Of Systems: See Below Constitutional: Reports: No Symptoms Respiratory: Reports: No Symptoms Cardiovascular: Reports: No Symptoms GI/Abdominal: Reports: No Symptoms Genitourinary: Reports: No Symptoms Musculoskeletal: Reports: Other (See history of present illness) ED EXAM, GENERAL - Physical Exam Exam: See Below Exam Limited By: No Limitations General Appearance: Alert, No Apparent Distress Respiratory/Chest: No Respiratory Distress, Lungs Clear, Normal Breath Sounds Cardiovascular: Regular Rate, Rhythm, No Edema, No Murmur GI/Abdominal: Normal Bowel Sounds, Soft, Non-Tender Extremities: Other (Clearly avulsed her great toe nail on the left side nail plate looks okay no lacerations. This was bandaged up and we will x-ray the toe looking for a tuft fracture or other fracture. With her hip she has tenderness right over the greater trochanter and the bursa so she may have irritated this with a twist. However we will check x-rays of the hip to make sure we do not miss anything.) Course - Vital Signs Last Recorded V/S: Last Vital Signs Temp 36.3 C 04/15/20 11:08 Pulse 77 04/15/20 11:08 Resp 18 04/15/20 11:08 BP 117/67 04/15/20 11:08 Pulse Ox 96 04/15/20 11:08 - Re-Assessments/Exams Free Text/Narrative Re-Assessment/Exam: 04/15/20 11:55 X-ray is of her great toe shows no tuft fracture or other bony acute abnormality. X-ray images of the hip and pelvis showed no acute fracture or other acute bony abnormalities. The patient will be discharged home she is instructed to use Epson salt soaks on her foot twice daily for the next several days and then just keep little antibiotic ointment and a Band-Aid over her great toe. For discomfort she should stick to Tylenol 1000 mg every 6-8 hours. Departure - Departure Time of Disposition: 11:56 Disposition: Home, Self-Care 01 Clinical Impression: Avulsion of toenail of left foot, Hip strain - Discharge Information Referrals: Mac Valdez MD [Primary Care Provider] - Forms: ED Department Discharge Additional Instructions: Return to the emergency room with any questions problems or worsening symptoms. Soak your left foot in Epsom salts twice daily. After each soak use a little antibiotic ointment over year toe where the toenail used to be and cover with a Band-Aid. When you are nailbed, the area where the toenail used to be, is not bleeding or draining you do not need to cover it or soak it. A new nail will probably grow back and this takes quite a long time and grows what seems very slowly you will not have a normal nail for 6 to 12 months possibly longer. Tylenol for discomfort 1000 mg every 6-8 hours. Sepsis Event Note (ED) - Focused Exam Vital Signs: Vital Signs Temp Pulse Resp BP Pulse Ox 04/15/20 11:08 36.3 C 77 18 117/67 96 04/15/20 10:12 76 16 112/64 94 L 04/15/20 09:20 36.2 C 80 18 124/69 96
--- NOTE | 2020-04-15 10:37 | CR ---
Pelvis and left hip: AP view of the pelvis was obtained as well as AP and frog-leg lateral views left hip. Previous surgery within the lumbar spine and within the sacroiliac joints. Joint spaces within both hips are maintained. Osteopenia is present. No acute fracture or dislocation is seen. Impression: 1. Previous surgery. Osteopenia. 2. AP pelvis and two-view left hip exam is otherwise unremarkable. Diagnostic code #2 This report was dictated in MDT
--- NOTE | 2020-04-15 10:37 | CR ---
Left first toe: 4 views centered to the left first toe were obtained. Comparison: No previous toe study. Joint spaces are maintained. Osteopenia is present. Soft tissue swelling is noted. No acute fracture or other bony abnormality is appreciated. Impression: 1. Soft tissue swelling and osteopenia. 2. No acute bony abnormality is appreciated. Diagnostic code #2 This report was dictated in MDT
[2020-04-15 12:07] VITALS: BP 107/63; PULSE 82
== END 2020-04-15 12:15 | disposition home or self-care (01) ==
LOC: JD.ED 08:49
DX: S91.102A Unspecified open wound of left great toe without damage to nail, initial encounter (principal); S76.012A Strain of muscle, fascia and tendon of left hip, initial encounter; I11.0 Hypertensive heart disease with heart failure; I50.9 Heart failure, unspecified; M10.9 Gout, unspecified; E10.40 Type 1 diabetes mellitus with diabetic neuropathy, unspecified; Z88.8 Allergy status to other drugs, medicaments and biological substances; Z79.899 Other long term (current) drug therapy; Z79.82 Long term (current) use of aspirin; X50.1XXA Overexertion from prolonged static or awkward postures, initial encounter
CPT/HCPCS: 73501-26-LT; 73501-LT; 73660-26-TA; 73660-TA; 99282; 99283-25

== ENCOUNTER 2021-02-13 14:04 | Emergency (ER) | payer MEDICARE, BC ==
[2021-02-13 14:18] VITALS: BP 123/79; PULSE 100
[2021-02-13] MEDS ORDERED: Acetaminophen 325 MG Tab PO ONE (15:01)
[2021-02-13] MEDS ORDERED: HYDROmorphone 0.5 MG/0.5 ML Syringe IM ONE (15:45)
[2021-02-13] MEDS ORDERED: predniSONE 20 MG Tab PO ONE (15:45)
--- NOTE | 2021-02-13 16:06 | EDM.PDOC ---
ED HPI GENERAL MEDICAL PROBLEM - General Chief Complaint: Upper Extremity Injury/Pain Stated Complaint: LEFT HAND SWOLLEN Time Seen by Provider: 02/13/21 14:20 Source of Information: Reports: Patient History Limitations: Reports: No Limitations - History of Present Illness INITIAL COMMENTS - FREE TEXT/NARRATIVE: 75-year-old female presents the emergency department today with complaints of left wrist pain. States that she woke with discomfort and swelling noted to her left medial wrist just below the thumb yesterday. She states that she has been icing the area and did take a dose of Tylenol however the discomfort seems to be worsening. She denies any recent injury or trauma to that area. She denies any overuse injury. She denies any recent fever, chills, nausea, vomiting or diarrhea. She denies headache, cough or shortness of breath. She does have a history of arthritis and gout. Primary care provider is Dr. Edwards. Left Wrist Pain Score (Numeric/FACES): 8 - Related Data Allergies Allergy/AdvReac Type Severity Reaction Status Date / Time dulaglutide [From [facility]] Allergy Nausea and Verified 02/13/21 14:18 Vomiting Home Meds: Home Meds Furosemide [Lasix] 30 mg PO DAILY 04/14/14 [History] Metoprolol Tartrate [Lopressor] 25 mg PO BID 04/14/14 [History] allopurinoL [Zyloprim] 150 mg PO DAILY 04/14/14 [History] Insulin Aspart [NovoLOG] 3 units SQ TID PRN 12/31/14 [History] Diltiazem [Cardizem CD] 180 mg PO DAILY 10/04/16 [History] Docusate Sodium 100 mg PO BID PRN 10/04/16 [History] Gabapentin 2,400 mg PO BEDTIME 10/04/16 [History] Gabapentin 200 mg PO QAM 10/04/16 [History] Simvastatin 20 mg PO BEDTIME 10/04/16 [History] Insulin Glargine,Hum.Rec.Anlog [Basaglar Kwikpen U-100] 40 unit SQ QAM 10/24/18 [History] Calcium Carb/Mag Ox/Zinc Gluc [Lgrkasx-Jgrtrlgxn-Lgtg] 1 tab PO DAILY 02/17/19 [History] Dapagliflozin/Metformin HCl [Xigduo Xr 10 mg-500 mg Tablet] 1 tab PO DAILY 02/17/19 [History] Dexlansoprazole [Dexilant] 60 mg PO DAILY 02/17/19 [History] Diclofenac Sodium [Voltaren 1% Gel] 1 dose TOP BID PRN 02/17/19 [History] Ferrous Sulfate [Iron] 65 mg PO DAILY 02/17/19 [History] Cholecalciferol (Vitamin D3) [Vitamin D] 5,000 unit PO DAILY 02/18/19 [History] Lactobacillus Rhamnosus R0011 [Probiotic Digestive Care] 1 each PO DAILY 02/18/19 [History] Zolpidem Tartrate [Ambien] 5 mg PO BEDTIME PRN 02/18/19 [History] rOPINIRole [Requip] 3 mg PO TID 02/18/19 [History] Aspirin [Ecotrin EC] 325 mg PO BID #84 tab.ec 02/19/19 [Rx] Docusate Sodium [Colace] 100 mg PO BID cap 02/19/19 [Rx] Famotidine [Pepcid] 20 mg PO Q12H tablet 02/19/19 [Rx] Magnesium Hydroxide [Milk of Magnesia] 30 ml PO BID PRN cup 02/19/19 [Rx] Sennosides [Senna] 8.6 mg PO BID PRN tablet 02/19/19 [Rx] bisacodyL [Dulcolax] 5 mg PO DAILY PRN tablet 02/19/19 [Rx] predniSONE [Prednisone] 20 mg PO DAILY #5 tablet 02/13/21 [Rx] Past Medical History HEENT History: Reports: Impaired Vision, Other (See Below) Other HEENT History: wears glasses, has upper partial Cardiovascular History: Reports: Heart Failure, Hypertension, Other (See Below) Other Cardiovascular History: chest pain, edema Respiratory History: Reports: Sleep Apnea, SOB, Other (See Below) Other Respiratory History: URI Gastrointestinal History: Reports: Chronic Constipation, Hemorrhoids, Other (See Below) Other Gastrointestinal History: c diff, nausea, gastroparesis, colitis, post op nausea and vomiting Genitourinary History: Reports: Urinary Incontinence, UTI, Recurrent, Other (See Below) Other Genitourinary History: dysuria, renal failure, UTI, frequency, hestiency 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: Musculoskeletal History: Reports: Gout, Osteoarthritis Other Musculoskeletal History: degenerative joint disease, lumbar scolisosis, go ut, hammertoes, rib fractures, low bakc pain, lumbar sacral radiculopathy at L5, cerviclagia Neurological History: Reports: Neuropathy, Diabetic, Other (See Below) Other Neuro History: multilevel failed back syndrome Psychiatric History: Reports: Other (See Below) Other Psychiatric History: anorexia nervosa Endocrine/Metabolic History: Reports: Diabetes, Type I, Hypothyroidism, Vitamin D Deficiency Other Endocrine/Metabolic History: benign lesion of adrenal gland Hematologic History: Reports: Other (See Below) Other Hematologic History: , blood clots, malaise, fatigue Immunologic History: Reports: None Oncologic (Cancer) History: Reports: Pancreatic Dermatologic History: Reports: Cellulitis Other Dermatologic History: dizziness - Infectious Disease History Infectious Disease History: Reports: C-Difficile - Past Surgical History HEENT Surgical History: Reports: Cataract Surgery Cardiovascular Surgical History: Reports: None Respiratory Surgical History: Reports: None GI Surgical History: Reports: Appendectomy, Colonoscopy, Other (See Below) Other GI Surgeries/Procedures: partial removal of pancreas--she reports fairly 3 /4 of her pancreas was removed by a surgeon in [place] because of cancer of the pancreas in 1994 Female Surgical History: Reports: Hysterectomy Neurological Surgical History: Reports: Other (See Below) Other Neurological Surgeries/Procedures: back surgery Musculoskeletal Surgical History: Reports: Shoulder Replacement, Other (See Below) Other Musculoskeletal Surgeries/Procedures:: carpal tunnel surgery, shoulder surgery, lumbar fusion, back surgery, knee replacement Oncologic Surgical History: Reports: Other (See Below) Other Oncologic Surgeries/Procedures: pacrectomy 75% Social & Family History - Family History Family Medical History: No Pertinent Family History - Tobacco Use Tobacco Use Status *Q: Former Tobacco User Years of Tobacco use: 10 Packs/Tins Daily: 0.5 Used Tobacco, but Quit: Yes Month/Year Tobacco Last Used: 1979 - Caffeine Use Caffeine Use: Reports: Coffee Caffeine Use Comment: States she drinks about 2 cups per day of coffee, drinks about 2 cans of 7up per day - Recreational Drug Use Recreational Drug Use: Yes - Living Situation & Occupation Living situation: Reports: Occupation: Employed Review of Systems - Review of Systems Review Of Systems: Comprehensive ROS is negative, except as noted in HPI. ED EXAM, GENERAL - Physical Exam Exam: See Below Exam Limited By: No Limitations General Appearance: Alert, WD/WN, No Apparent Distress Ears: Normal External Exam, Hearing Grossly Normal Nose: Normal Inspection Throat/Mouth: Normal Inspection, Normal Lips, Normal Voice, No Airway Compromise Head: Atraumatic Neck: Normal Inspection, Supple Respiratory/Chest: No Respiratory Distress, No Accessory Muscle Use Cardiovascular: Normal Peripheral Pulses, Regular Rate, Rhythm GI/Abdominal: No Distention (Female) Exam: Deferred Rectal (Female) Exam: Deferred Back Exam: Normal Inspection Extremities: Normal Range of Motion (Decreased range of motion to left wrist), Other (Swelling noted to left medial wrist area just proximal to the thumb). No: Non-Tender (Tenderness noted to left wrist with palpation) Neurological: Alert, Oriented, Normal Cognition Psychiatric: Normal Affect, Normal Mood Skin Exam: Warm, Dry, Intact, Normal Color, No Rash Lymphatic: No Adenopathy Course - Vital Signs Text/Narrative:: Patient presents with left medial wrist pain and swelling that started yesterday. She states she woke with the pain. Patient is able to make a fist however she states it is painful. She is able to flex and extend the wrist minimally. There is noticeable swelling to the right medial wrist area just below the thumb however there is no warmth or redness noted. CMS is positive. Patient does have a history of arthritis and gout. I have ordered an x-ray of the left wrist, labs to include a CBC, CMP, C-reactive protein, ESR, and uric acid level. Last Recorded V/S: Last Vital Signs Temp 97.7 F 02/13/21 14:15 Pulse 100 02/13/21 14:15 Resp 12 02/13/21 14:15 BP 123/79 02/13/21 14:15 Pulse Ox 90 L 02/13/21 14:15 - Orders/Labs/Meds Orders: Active Orders 24 hr Category Date Time Status Wrist Comp Min 3V Lt [CR] Stat Exams 02/13/21 14:28 Taken DME for Discharge [COMM] Stat Oth 02/13/21 15:59 Ordered Labs: Laboratory Tests 02/13/21 02/13/21 02/13/21 Range/Units 14:45 14:45 14:45 WBC 12.24 H (3.98-10.04) K/mm3 RBC 4.83 (3.98-5.22) M/mm3 Hgb 15.2 (11.2-15.7) gm/dl Hct 46.4 H (34.1-44.9) % MCV 96.1 H (79.4-94.8) fl MCH 31.5 (25.6-32.2) pg MCHC 32.8 (32.2-35.5) g/dl RDW Std Deviation 52.0 H (36.4-46.3) fL Plt Count 311 (182-369) K/mm3 MPV 10.2 (9.4-12.3) fl Neut % (Auto) 81.6 H (34.0-71.1) % Lymph % (Auto) 6.5 L (19.3-51.7) % Teller % (Auto) 9.1 (4.7-12.5) % Eos % (Auto) 2.2 (0.7-5.8) Baso % (Auto) 0.4 (0.1-1.2) % Neut # (Auto) 9.98 H (1.56-6.13) K/mm3 Lymph # (Auto) 0.80 L (1.18-3.74) K/mm3 Teller # (Auto) 1.11 H (0.24-0.36) K/mm3 Eos # (Auto) 0.27 (0.04-0.36) K/mm3 Baso # (Auto) 0.05 (0.01-0.08) K/mm3 Manual Slide Review Abnormal smear ESR 6 (0-20) mm/hr Sodium 141 (136-145) mEq/L Potassium 4.5 (3.5-5.1) mEq/L Chloride 102 (98-107) mEq/L Carbon Dioxide 28 (21-32) mEq/L Anion Gap 15.5 H (5-15) BUN 30 H (7-18) mg/dL Creatinine 1.3 H (0.55-1.02) mg/dL Est Cr Clr Drug Dosing 30.45 mL/min Estimated GFR (MDRD) 40 (>60) mL/min BUN/Creatinine Ratio 23.1 H (14-18) Glucose 224 H (70-99) mg/dL Uric Acid 4.0 (2.6-6.0) mg/dL Calcium 9.0 (8.5-10.1) mg/dL Total Bilirubin 0.5 (0.2-1.0) mg/dL AST 15 (15-37) U/L ALT 19 (14-59) U/L Alkaline Phosphatase 66 (46-116) U/L C-Reactive Protein 0.9 (<1.0) mg/dL Total Protein 7.2 (6.4-8.2) g/dl Albumin 3.7 (3.4-5.0) g/dl Globulin 3.5 gm/dL Albumin/Globulin Ratio 1.1 (1-2) Rheumatoid Factor Scrn (NEGATIVE) 02/13/21 Range/Units 14:45 WBC (3.98-10.04) K/mm3 RBC (3.98-5.22) M/mm3 Hgb (11.2-15.7) gm/dl Hct (34.1-44.9) % MCV (79.4-94.8) fl MCH (25.6-32.2) pg MCHC (32.2-35.5) g/dl RDW Std Deviation (36.4-46.3) fL Plt Count (182-369) K/mm3 MPV (9.4-12.3) fl Neut % (Auto) (34.0-71.1) % Lymph % (Auto) (19.3-51.7) % Teller % (Auto) (4.7-12.5) % Eos % (Auto) (0.7-5.8) Baso % (Auto) (0.1-1.2) % Neut # (Auto) (1.56-6.13) K/mm3 Lymph # (Auto) (1.18-3.74) K/mm3 Teller # (Auto) (0.24-0.36) K/mm3 Eos # (Auto) (0.04-0.36) K/mm3 Baso # (Auto) (0.01-0.08) K/mm3 Manual Slide Review ESR (0-20) mm/hr Sodium (136-145) mEq/L Potassium (3.5-5.1) mEq/L Chloride (98-107) mEq/L Carbon Dioxide (21-32) mEq/L Anion Gap (5-15) BUN (7-18) mg/dL Creatinine (0.55-1.02) mg/dL Est Cr Clr Drug Dosing mL/min Estimated GFR (MDRD) (>60) mL/min BUN/Creatinine Ratio (14-18) Glucose (70-99) mg/dL Uric Acid (2.6-6.0) mg/dL Calcium (8.5-10.1) mg/dL Total Bilirubin (0.2-1.0) mg/dL AST (15-37) U/L ALT (14-59) U/L Alkaline Phosphatase (46-116) U/L C-Reactive Protein (<1.0) mg/dL Total Protein (6.4-8.2) g/dl Albumin (3.4-5.0) g/dl Globulin gm/dL Albumin/Globulin Ratio (1-2) Rheumatoid Factor Scrn Negative (NEGATIVE) Meds: Medications Discontinued Medications Generic Name Dose Route Start Last Admin Trade Name Howie PRN Reason Stop Dose Admin Acetaminophen 975 mg 02/13/21 15:01 02/13/21 15:07 Acetaminophen 325 Mg Tab PO 02/13/21 15:02 975 mg NOW ONE Administration Hydromorphone HCl 0.5 mg 02/13/21 15:45 02/13/21 15:53 Hydromorphone 0.5 Mg/0.5 Ml Syringe IM 02/13/21 15:46 0.5 mg ONETIME ONE Administration Prednisone 20 mg 02/13/21 15:45 02/13/21 15:53 Prednisone 20 Mg Tab PO 02/13/21 15:46 20 mg ONETIME ONE Administration - Re-Assessments/Exams Free Text/Narrative Re-Assessment/Exam: 02/13/21 16:08 Left wrist xrays were reviewed by myself and Dr. Zuñiga and nothing acute is appreciated. Pt does have significant areas that would likely represent arthritis to left wrist. 02/13/21 16:10 Hematology reveals a WBC of 12.24, hemoglobin 15.2, hematocrit 46.4, platelet count 311, ESR 6 Chemistry reveals a sodium of 141, potassium 4.5, anion gap 15.5, BUN 30, creatinine 1.3, GFR 40, glucose 224, uric acid 4.0, C-reactive protein 0.9 Rheumatoid factor negative Patient's pain is likely due to arthritic pain. I have ordered for her to receive a dose of prednisone 20 mg p.o. She is also stating that she is having pain despite receiving 975 of Tylenol. I have ordered her for her to receive Dilaudid 0.5 mg IM x1 dose. I discussed the patient's results with her and will start her on prednisone 20 mg daily x5 days. Would also recommend that she get ibuprofen however due to her being diabetic, 75 and borderline creatinine function I am not going to have her start taking this. We will order a left wrist splint to prevent further i njury and provide stability. She will follow up with her primary care provider in about a week. 02/13/21 16:15 I did discuss with her the fact that the prednisone will likely make her blood sugars go up and she states she is aware of this she will watch her carbohydrate intake and cover her elevated blood sugars with insulin. Departure - Departure Time of Disposition: 16:14 Disposition: Home, Self-Care 01 Condition: Good Clinical Impression: Pain and swelling of left wrist - Discharge Information Prescriptions: predniSONE [Prednisone] 20 mg PO DAILY #5 tablet Referrals: Mac Valdez MD [Primary Care Provider] - Additional Instructions: You were seen in the emergency department today with left wrist pain and swelling. X-rays were completed as well as blood work. Nothing acute is seen on your x-ray other than the fact that you likely do have a significant amount of arthritis in the left wrist. Your lab work was essentially unremarkable. You received pain medication while in the emergency department and Tylenol. You are also given a dose of prednisone while here. I have sent a prescription for prednisone 20 mg to be taken daily x5 days. This was electronically sent to your pharmacy so you can pick that up and begin taking it tomorrow. Recommend that you take Tylenol 650 mg every 4 hours while awake for the next couple of days it likely will take a little bit of time for the prednisone to kick in. You were also given a wrist splint to wear to provide comfort. I would like you to follow-up with your primary care provider in about a week's time for reevaluation of the left wrist. Sepsis Event Note (ED) - Evaluation Sepsis Screening Result: No Definite Risk - Focused Exam Vital Signs: Vital Signs Temp Pulse Resp BP Pulse Ox 02/13/21 14:15 97.7 F 100 12 123/79 90 L - My Orders Last 24 Hours: My Active Orders 02/13/21 14:28 Wrist Comp Min 3V Lt [CR] Stat 02/13/21 15:59 DME for Discharge [COMM] Stat - Assessment/Plan Last 24 Hours: My Active Orders 02/13/21 14:28 Wrist Comp Min 3V Lt [CR] Stat 02/13/21 15:59 DME for Discharge [COMM] Stat
--- NOTE | 2021-02-14 11:43 | CR ---
Left wrist: 4 views of the left wrist were obtained. Comparison: Prior left wrist exam of 12/10/11. Joint space narrowing is noted off the distal navicular bone. Joint space narrowing is noted within the CMC joint of the thumb. Small bony densities are seen around both of these joints. Findings compatible with fairly severe degenerative change which has increased from prior exam. Chondrocalcinosis is noted within the triangular fibrocartilage which is increased from prior exam. Bony structures are osteopenic. Joint space narrowing is also noted between the lunate bone and capitate bone. No acute fracture or dislocation is seen. Impression: 1. Degenerative change as described above. This degenerative change has progressed from prior exam. 2. Nothing acute is appreciated on left wrist study. Diagnostic code #2
== END 2021-02-13 16:40 | disposition home or self-care (01) ==
LOC: JD.ED 14:04
DX: M25.532 Pain in left wrist (principal); M79.89 Other specified soft tissue disorders; E10.40 Type 1 diabetes mellitus with diabetic neuropathy, unspecified; E03.9 Hypothyroidism, unspecified; I11.0 Hypertensive heart disease with heart failure; I50.9 Heart failure, unspecified; Z87.891 Personal history of nicotine dependence; Z79.899 Other long term (current) drug therapy; Z88.8 Allergy status to other drugs, medicaments and biological substances
CPT/HCPCS: 36415; 73110; 80053; 84550; 85025; 85652; 86140; 86430; 96372; 99283; A9270; J1170; J7512

== ENCOUNTER 2021-06-18 19:04 | Emergency (ER) | payer MEDICARE, BC ==
[2021-06-18] MEDS ORDERED: Sodium Chloride 0.9% 10 ML Syringe FLUSH PRN (19:48)
[2021-06-18 20:29] LABS: CORONAVIRUS COVID-19 NAA NEGATIVE (NEGATIVE)
--- NOTE | 2021-06-18 21:05 | EDM.PDOC ---
ED HPI GENERAL MEDICAL PROBLEM - General Chief Complaint: General Stated Complaint: WALKING PROBLEMS Time Seen by Provider: 06/18/21 19:46 Source of Information: Reports: Patient, RN Notes Reviewed - History of Present Illness INITIAL COMMENTS - FREE TEXT/NARRATIVE: 75 yr old lady comes with leg weakness, swelling, difficulty walking. This has progressed over several days. No upper body weakness, no Nunes, N/V, chest pain, speech or visual difficulty. Hx of chronic low back pain. Having more pain low back than usual. Does not radiate. hx of 2 prior back surgeries. She is diabetic, has numerous other chronic medical problems. Back Pain Score (Numeric/FACES): 6 - Related Data Allergies Allergy/AdvReac Type Severity Reaction Status Date / Time dulaglutide [From [facility]] Allergy Nausea and Verified 06/18/21 19:25 Vomiting Home Meds: Home Meds Furosemide [Lasix] 30 mg PO SUMOWEFR 04/14/14 [History] Metoprolol Tartrate [Lopressor] 25 mg PO BID 04/14/14 [History] allopurinoL [Zyloprim] 150 mg PO DAILY 04/14/14 [History] Insulin Aspart [NovoLOG] 3 units SQ TID PRN 12/31/14 [History] Diltiazem [Cardizem CD] 180 mg PO DAILY 10/04/16 [History] Gabapentin 100 mg PO TID 10/04/16 [History] Gabapentin 600 mg PO Q4H 10/04/16 [History] Simvastatin 20 mg PO BEDTIME 10/04/16 [History] Insulin Glargine,Hum.Rec.Anlog [Basaglar Kwikpen U-100] 40 unit SQ QAM 10/24/18 [History] Calcium Carb/Mag Ox/Zinc Gluc [Yjyaoyn-Uqquraqpm-Byrt] 1 tab PO DAILY 02/17/19 [History] Dapagliflozin/Metformin HCl [Xigduo Xr 10 mg-500 mg Tablet] 1 tab PO DAILY 02/17/19 [History] Dexlansoprazole [Dexilant] 60 mg PO DAILY 02/17/19 [History] Diclofenac Sodium [Voltaren 1% Gel] 1 dose TOP BID PRN 02/17/19 [History] Ferrous Sulfate [Iron] 65 mg PO DAILY 02/17/19 [History] Cholecalciferol (Vitamin D3) [Vitamin D] 1,000 unit PO DAILY 02/18/19 [History] Lactobacillus Rhamnosus [id number] [Probiotic Digestive Care] 1 each PO DAILY 02/18/19 [History] Zolpidem Tartrate [Ambien] 5 mg PO BEDTIME PRN 02/18/19 [History] rOPINIRole [Requip] 4 mg PO QID 02/18/19 [History] Acetaminophen [Tylenol Arthritis] 650 mg PO BID 06/18/21 [History] Ascorbic Acid [Vitamin C with Mary Jane Hips] 500 mg PO DAILY 06/18/21 [History] Aspirin [Aspirin EC] 81 mg PO DAILY 06/18/21 [History] Cetirizine HCl/Pseudoephedrine [ZyrTEC-D] 1 tab PO ASDIRECTED PRN 06/18/21 [History] Cyanocobalamin (Vitamin B12) [Vitamin B12] 500 mcg PO Q48H 06/18/21 [History] Docusate Sodium [Colace] 50 mg PO DAILY 06/18/21 [History] Estradiol Micronized 1 applic TOP MOTH 06/18/21 [History] Fluticasone Propionate [Flonase] 1 spray PEPE ASDIRECTED PRN 06/18/21 [History] Glycerin/Min Oil/Polycarbophil [Replens Vaginal Applicator] 1 applic TOP SUTUWEFRSA 06/18/21 [History] Latanoprost [Xalatan 0.005% Ophth Soln] 1 drop EYEBOTH BEDTIME 06/18/21 [History] Losartan Potassium 25 mg PO DAILY 06/18/21 [History] Nystatin 1 applic TOP BID 06/18/21 [History] Nystatin [Nystatin Crm] 1 applic TOP DAILY 06/18/21 [History] Oxybutynin [Oxybutynin ER] 5 mg PO DAILY 06/18/21 [History] Past Medical History HEENT History: Reports: Impaired Vision, Other (See Below) Other HEENT History: wears glasses, has upper partial Cardiovascular History: Reports: Heart Failure, Hypertension, Other (See Below) Other Cardiovascular History: chest pain, edema Respiratory History: Reports: Sleep Apnea, SOB, Other (See Below) Other Respiratory History: URI Gastrointestinal History: Reports: Chronic Constipation, Hemorrhoids, Other (See Below) Other Gastrointestinal History: c diff, nausea, gastroparesis, colitis, post op nausea and vomiting Genitourinary History: Reports: Urinary Incontinence, UTI, Recurrent, Other (See Below) Other Genitourinary History: dysuria, renal failure, UTI, frequency, hestiency [employer] History: Reports: Musculoskeletal History: Reports: Gout, Osteoarthritis Other Musculoskeletal History: degenerative joint disease, lumbar scolisosis, gout, hammertoes, rib fractures, low bakc pain, lumbar sacral radiculopathy at L5, cerviclagia Neurological History: Reports: Neuropathy, Diabetic, Other (See Below) Other Neuro History: multilevel failed back syndrome Psychiatric History: Reports: Other (See Below) Other Psychiatric History: anorexia nervosa Endocrine/Metabolic History: Reports: Diabetes, Type I, Hypothyroidism, Vitamin D Deficiency Other Endocrine/Metabolic History: benign lesion of adrenal gland Hematologic History: Reports: Other (See Below) Other Hematologic History: , blood clots, malaise, fatigue Immunologic History: Reports: None Oncologic (Cancer) History: Reports: Pancreatic Dermatologic History: Reports: Cellulitis Other Dermatologic History: dizziness - Infectious Disease History Infectious Disease History: Reports: C-Difficile - Past Surgical History Head Surgeries/Procedures: Reports: None HEENT Surgical History: Reports: Cataract Surgery Cardiovascular Surgical History: Reports: None Respiratory Surgical History: Reports: None GI Surgical History: Reports: Appendectomy, Colonoscopy, Other (See Below) Other GI Surgeries/Procedures: partial removal of pancreas--she reports fairly 3 /4 of her pancreas was removed by a surgeon in [place] because of cancer of the pancreas in 1994 Female Surgical History: Reports: Hysterectomy Endocrine Surgical History: Reports: None Neurological Surgical History: Reports: Other (See Below) Other Neurological Surgeries/Procedures: back surgery Musculoskeletal Surgical History: Reports: Shoulder Replacement, Other (See Below) Other Musculoskeletal Surgeries/Procedures:: carpal tunnel surgery, shoulder surgery, lumbar fusion, back surgery, knee replacement Oncologic Surgical History: Reports: Other (See Below) Other Oncologic Surgeries/Procedures: pacrectomy 75% Social & Family History - Family History Family Medical History: No Pertinent Family History - Tobacco Use Tobacco Use Status *Q: Former Tobacco User Used Tobacco, but Quit: Yes Month/Year Tobacco Last Used: 50 years ago - Caffeine Use Caffeine Use: Reports: Coffee Caffeine Use Comment: States she drinks about 2 cups per day of coffee, drinks about 2 cans of 7up per day - Recreational Drug Use Recreational Drug Use: No - Living Situation & Occupation Living situation: Reports: Occupation: Employed ED ROS GENERAL - Review of Systems Review Of Systems: See Below Constitutional: Denies: Fever, Chills, Diaphoresis HEENT: Reports: No Symptoms Respiratory: Reports: Shortness of Breath (mild, chronically) Endocrine: Reports: Fatigue GI/Abdominal: Denies: Abdominal Pain, Diarrhea, Nausea, Vomiting Musculoskeletal: Reports: Back Pain Skin: Denies: Rash Neurological: Reports: Weakness (generalized, low legs especially). Denies: Numbness, Tingling, Trouble Speaking, Change in Speech ED EXAM, GENERAL - Physical Exam Exam: See Below General Appearance: Alert, No Apparent Distress Throat/Mouth: Normal Inspection Head: Atraumatic Neck: Supple Respiratory/Chest: No Respiratory Distress, Lungs Clear, Normal Breath Sounds. No: Rales, Rhonchi, Wheezing Cardiovascular: Regular Rate, Rhythm GI/Abdominal: Soft, Non-Tender Back Exam: No: CVA Tenderness (L), CVA Tenderness (R) Extremities: Normal Inspection, Pedal Edema (mild bila) Neurological: Alert, Oriented, No Motor/Sensory Deficits, Other (no drift, finger to nose normal) Skin Exam: Warm, Dry, Normal Color #1 Interpretation EKG Date: 06/18/21 Rhythm: NSR P-Wave: Present QRS: Normal ST-T: Normal Course - Vital Signs Last Recorded V/S: Last Vital Signs Temp 97.8 F 06/18/21 19:22 Pulse 90 06/18/21 19:22 Resp 16 06/18/21 19:22 BP 117/65 06/18/21 19:22 Pulse Ox 91 L 06/18/21 19:22 - Orders/Labs/Meds Orders: Active Orders 24 hr Category Date Time Status Peripheral IV Care [RC] . DIRECTED Care 06/18/21 19:49 Active Chest 1V Frontal [CR] Stat Exams 06/18/21 21:14 Taken Head wo Cont [CT] Stat Exams 06/18/21 19:50 Taken Sodium Chloride 0.9% [Saline Flush] Med 06/18/21 19:48 Active 10 ml FLUSH ASDIRECTED PRN Peripheral IV Insertion Adult [OM.PC] Stat Oth 06/18/21 19:48 Ordered Medication Orders Sodium Chloride (Sodium Chloride 0.9% 10 Ml Syringe) 10 ml FLUSH ASDIRECTED PRN PRN Reason: Keep Vein Open Labs: Laboratory Tests 06/18/21 06/18/21 06/18/21 Range/Units 19:35 20:00 20:00 WBC 11.05 H (3.98-10.04) K/mm3 RBC 4.78 (3.98-5.22) M/mm3 Hgb 15.1 (11.2-15.7) gm/dl Hct 46.9 H (34.1-44.9) % MCV 98.1 H (79.4-94.8) fl MCH 31.6 (25.6-32.2) pg MCHC 32.2 (32.2-35.5) g/dl RDW Std Deviation 51.3 H (36.4-46.3) fL Plt Count 334 (182-369) K/mm3 MPV 10.3 (9.4-12.3) fl Neut % (Auto) 73.0 H (34.0-71.1) % Lymph % (Auto) 11.6 L (19.3-51.7) % [place] % (Auto) 9.3 (4.7-12.5) % Eos % (Auto) 5.4 (0.7-5.8) Baso % (Auto) 0.5 (0.1-1.2) % Neut # (Auto) 8.07 H (1.56-6.13) K/mm3 Lymph # (Auto) 1.28 (1.18-3.74) K/mm3 [place] # (Auto) 1.03 H (0.24-0.36) K/mm3 Eos # (Auto) 0.60 H (0.04-0.36) K/mm3 Baso # (Auto) 0.05 (0.01-0.08) K/mm3 Sodium (136-145) mEq/L Potassium (3.5-5.1) mEq/L Chloride (98-107) mEq/L Carbon Dioxide (21-32) mEq/L Anion Gap (5-15) BUN (7-18) mg/dL Creatinine (0.55-1.02) mg/dL Est Cr Clr Drug Dosing mL/min Estimated GFR (MDRD) (>60) mL/min BUN/Creatinine Ratio (14-18) Glucose (70-99) mg/dL Calcium (8.5-10.1) mg/dL Total Bilirubin (0.2-1.0) mg/dL AST (15-37) U/L ALT (14-59) U/L Alkaline Phosphatase (46-116) U/L Troponin I (0.00-0.056) ng/mL C-Reactive Protein <0.2 (<1.0) mg/dL Total Protein (6.4-8.2) g/dl Albumin (3.4-5.0) g/dl Globulin gm/dL Albumin/Globulin Ratio (1-2) TSH 3rd Generation (0.358-3.74) uIU/mL Urine Color (Yellow) Urine Appearance (Clear) Urine pH (5.0-8.0) Ur Specific [place] (1.005-1.030) Urine Protein (Negative) Urine Glucose (UA) (Negative) Urine Ketones (Negative) Urine Occult Blood (Negative) Urine Nitrite (Negative) Urine Bilirubin (Negative) Urine Urobilinogen (0.2-1.0) Ur Leukocyte Esterase (Negative) Influenza Type A RNA Negative (NEGATIVE) Influenza Type B RNA Negative (NEGATIVE) SARS-CoV-2 RNA (TORIBIO) Negative (NEGATIVE) 06/18/21 06/18/21 06/18/21 Range/Units 20:00 20:00 20:50 WBC (3.98-10.04) K/mm3 RBC (3.98-5.22) M/mm3 Hgb (11.2-15.7) gm/dl Hct (34.1-44.9) % MCV (79.4-94.8) fl MCH (25.6-32.2) pg MCHC (32.2-35.5) g/dl RDW Std Deviation (36.4-46.3) fL Plt Count (182-369) K/mm3 MPV (9.4-12.3) fl Neut % (Auto) (34.0-71.1) % Lymph % (Auto) (19.3-51.7) % [place] % (Auto) (4.7-12.5) % Eos % (Auto) (0.7-5.8) Baso % (Auto) (0.1-1.2) % Neut # (Auto) (1.56-6.13) K/mm3 Lymph # (Auto) (1.18-3.74) K/mm3 [place] # (Auto) (0.24-0.36) K/mm3 Eos # (Auto) (0.04-0.36) K/mm3 Baso # (Auto) (0.01-0.08) K/mm3 Sodium 139 (136-145) mEq/L Potassium 4.8 (3.5-5.1) mEq/L Chloride 102 (98-107) mEq/L Carbon Dioxide 33 H (21-32) mEq/L Anion Gap 8.8 (5-15) BUN 28 H (7-18) mg/dL Creatinine 1.3 H (0.55-1.02) mg/dL Est Cr Clr Drug Dosing 30.45 mL/min Estimated GFR (MDRD) 40 (>60) mL/min BUN/Creatinine Ratio 21.5 H (14-18) Glucose 222 H (70-99) mg/dL Calcium 9.4 (8.5-10.1) mg/dL Total Bilirubin 0.5 (0.2-1.0) mg/dL AST 19 (15-37) U/L ALT 30 (14-59) U/L Alkaline Phosphatase 80 (46-116) U/L Troponin I < 0.017 (0.00-0.056) ng/mL C-Reactive Protein (<1.0) mg/dL Total Protein 7.0 (6.4-8.2) g/dl Albumin 3.8 (3.4-5.0) g/dl Globulin 3.2 gm/dL Albumin/Globulin Ratio 1.2 (1-2) TSH 3rd Generation 2.411 (0.358-3.74) uIU/mL Urine Color Yellow (Yellow) Urine Appearance Clear (Clear) Urine pH 6.5 (5.0-8.0) Ur Specific [place] 1.020 (1.005-1.030) Urine Protein Negative (Negative) Urine Glucose (UA) 2+ H (Negative) Urine Ketones Negative (Negative) Urine Occult Blood Negative (Negative) Urine Nitrite Negative (Negative) Urine Bilirubin Negative (Negative) Urine Urobilinogen 0.2 (0.2-1.0) Ur Leukocyte Esterase Negative (Negative) Influenza Type A RNA (NEGATIVE) Influenza Type B RNA (NEGATIVE) SARS-CoV-2 RNA (TORIBIO) (NEGATIVE) Meds: Medications Generic Name Dose Route Start Last Admin Trade Name Freq PRN Reason Stop Dose Admin Sodium Chloride 10 ml 06/18/21 19:48 Sodium Chloride 0.9% 10 Ml Syringe FLUSH ASDIRECTED PRN Keep Vein Open Discontinued Medications Generic Name Dose Route Start Last Admin Trade Name Freq PRN Reason Stop Dose Admin Acetaminophen 975 mg 06/18/21 21:22 06/18/21 21:57 Acetaminophen 325 Mg Tab PO 06/18/21 21:23 975 mg NOW ONE Administration - Re-Assessments/Exams Free Text/Narrative Re-Assessment/Exam: 06/18/21 22:25 Labs are relatively normal, CXR is good. Head CT no acute findings. She does feel better at time of discharge, discharge instr. as documented. Departure - Departure Time of Disposition: 22:07 Disposition: Home, Self-Care 01 Condition: Fair Clinical Impression: Fluid retention Back pain Qualifiers: Back pain location: low back pain Chronicity: chronic Back pain laterality: midline Sciatica presence: without sciatica Qualified Code(s): M54.50 - Low back pain, unspecified - Discharge Information Instructions: Chronic Back Pain, [id number], Edema, [id number] Referrals: Mac Valdez MD [Primary Care Provider] - Forms: ED Department Discharge Additional Instructions: Increase furosemide to 40 mg in the AM, 20 mg at noon until leg swelling is about gone and rica back to baseline. Than go back to 30 mg q AM or as otherwise directed by Dr Edwards. Increase tylenol to 650 mg 3 times daily. Try see Dr Edwards next week. Call for appt. Monday. Return to ED as needed if symptoms worsening in any way. Sepsis Event Note (ED) - Evaluation Sepsis Screening Result: No Definite Risk - Focused Exam Vital Signs: Vital Signs Temp Pulse Resp BP Pulse Ox 06/18/21 19:22 97.8 F 90 16 117/65 91 L - My Orders Last 24 Hours: My Active Orders 06/18/21 19:48 Sodium Chloride 0.9% [Saline Flush] 10 ml FLUSH ASDIRECTED PRN Peripheral IV Insertion Adult [OM.PC] Stat 06/18/21 19:49 Peripheral IV Care [RC] . DIRECTED 06/18/21 19:50 Head wo Cont [CT] Stat 06/18/21 21:14 Chest 1V Frontal [CR] Stat - Assessment/Plan Last 24 Hours: My Active Orders 06/18/21 19:48 Sodium Chloride 0.9% [Saline Flush] 10 ml FLUSH ASDIRECTED PRN Peripheral IV Insertion Adult [OM.PC] Stat 06/18/21 19:49 Peripheral IV Care [RC] . DIRECTED 06/18/21 19:50 Head wo Cont [CT] Stat 06/18/21 21:14 Chest 1V Frontal [CR] Stat
[2021-06-18] MEDS ORDERED: Acetaminophen 325 MG Tab PO ONE (21:22)
[2021-06-18 23:30] VITALS: BP 127/74; PULSE 92
--- NOTE | 2021-06-19 07:20 | CT ---
Head CT Technique: Multiple axial sections through the brain were obtained. Intravenous contrast was not utilized. Reconstructed coronal and sagittal images were obtained. Comparison: Prior head CT study of 09/20/09. Findings: Ventricles along with basal cisterns and sulci over the convexities are slightly prominent. Minimal diminished density is noted within the periventricular white matter which is compatible with small vessel ischemic demyelination change. No other abnormal parenchymal densities are seen. No evidence of intracranial hemorrhage is seen. No midline shift or mass-effect is seen. Bone window settings were reviewed. Visualized mastoid sinuses and paranasal sinuses show nothing acute. No acute calvarial abnormality is appreciated. Impression: 1. Mild senescent change as noted above. 2. No acute intracranial abnormality is identified. Diagnostic code #2 I agree with preliminary report from [email or web address], finalized on 06/18/21, 9:54 PM CDT, code 1
--- NOTE | 2021-06-19 12:42 | CR ---
Chest: Frontal view of the chest was obtained. Comparison: Prior chest x-ray of 06/19/19. Heart size is normal. Tortuous thoracic aorta is seen. Prior surgery is noted within the lumbar and lower thoracic spine. Lungs are clear with no acute parenchymal change. Impression: 1. Findings as noted above. 2. Nothing acute is seen on frontal chest x-ray. Diagnostic code #2
== END 2021-06-18 22:40 | disposition home or self-care (01) ==
LOC: JD.ED 19:04
DX: G89.29 Other chronic pain (principal); M54.50 Low back pain, unspecified; I11.0 Hypertensive heart disease with heart failure; I50.9 Heart failure, unspecified; M10.9 Gout, unspecified; E10.40 Type 1 diabetes mellitus with diabetic neuropathy, unspecified; Z87.891 Personal history of nicotine dependence; Z88.8 Allergy status to other drugs, medicaments and biological substances; Z79.82 Long term (current) use of aspirin; Z79.899 Other long term (current) drug therapy; Z20.822 Contact with and (suspected) exposure to COVID-19; R26.2 Difficulty in walking, not elsewhere classified; R06.02 Shortness of breath
CPT/HCPCS: 0240U; 36415; 70450; 71045; 80053; 81003; 84443; 84484; 85025; 86140; 93005; 99285; A9270; 93010

== ENCOUNTER 2021-06-29 15:15 | Inpatient (IN) | payer MEDICARE, BC ==
--- NOTE | 2021-06-29 15:23 | EDM.PDOC ---
ED HPI GENERAL MEDICAL PROBLEM <Stephan Zuñiga - Last Filed: 06/30/21 16:27> - General Source of Information: Reports: Patient History Limitations: Reports: No Limitations - History of Present Illness Onset: Today, Gradual Onset Date: 06/29/21 (Paramedics were called out between 10 and 11 AM this morning to help her back up into her chair and now once again.) Onset Time: 14:50 Duration: Minutes:, Intermittent Location: Reports: Generalized (Generalized weakness with difficulty getting up from seated position x2 today with slipping out of the chair onto the floor and she is unable to get back up.) Quality: Reports: Other (Generalized weakness particularly lower extremities) Severity: Severe (Worse than normal) Improves with: Reports: None Worsens with: Reports: None Context: Reports: Other (Patient has severe peripheral neuropathy both lower extremities and legs will often give out on her. She has had 4 previous spinal fusions and peripheral neuropathy in both lower extremities with leg weakness.). Denies: Activity, Exercise, Lifting, Sick Contact, Trauma Associated Symptoms: Reports: Loss of Appetite, Malaise, Weakness (Particular lower extremities). 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 This is the second time this is occurred today. She states her legs simply will not hold her up. Patient is disabled due to previous lumbar spine surgeries x4 with severe peripheral neuropathy in both lower extremities and chronic pain syndrome. She is on a multitude of medications for pain relief and to try and aid sleep. She slipped out of her chair this morning and required multiple paramedics to come and lift her back up into her chair. On neither occasion as she appeared to have gotten hurt. Family wanted her seen in the ED to see if there was another reason for her increased weakness in her lower extremities. She seems to have a lot of trouble getting up from the seated position but does use a walker to aid her gait around the home. She states states that she has become worse over the last few days. She believes she is been slightly nauseated with mild fever and has not been eating or drinking as well as she should. She has been taking all of her medications as prescribed which are extensive. She states that she feels chilled since coming to the hospital. Denies any nausea or vomiting today. He has not had very much to eat or drink since it is too much of an effort to get up from her chair to get food or drink. (Surya Villa) - Related Data Allergies Allergy/AdvReac Type Severity Reaction Status Date / Time dulaglutide [From [facility]] AdvReac Nausea and Verified 06/30/21 18:46 Vomiting Home Meds: Home Meds Furosemide [Lasix] 30 mg PO SUMOWEFR 04/14/14 [History] Metoprolol Tartrate [Lopressor] 25 mg PO BID 04/14/14 [History] allopurinoL [Zyloprim] 150 mg PO DAILY 04/14/14 [History] Insulin Aspart [NovoLOG] 3 units SQ TID 12/31/14 [History] Diltiazem [Cardizem CD] 180 mg PO DAILY 10/04/16 [History] Gabapentin 100 mg PO TID 10/04/16 [History] Gabapentin 600 mg PO Q4H 10/04/16 [History] Simvastatin 20 mg PO BEDTIME 10/04/16 [History] Calcium Carb/Mag Ox/Zinc Gluc [Yojppwz-Jkhrubiop-Ygvv] 1 tab PO DAILY 02/17/19 [History] Diclofenac Sodium [Voltaren 1% Gel] 1 dose TOP BID PRN 02/17/19 [History] Ferrous Sulfate [Iron] 65 mg PO DAILY 02/17/19 [History] Cholecalciferol (Vitamin D3) [Vitamin D] 1,000 unit PO DAILY 02/18/19 [History] Lactobacillus Rhamnosus [id number] [Probiotic Digestive Care] 1 each PO DAILY 02/18/19 [History] Zolpidem Tartrate [Ambien] 10 mg PO BEDTIME PRN 02/18/19 [History] rOPINIRole [Requip] 3 mg PO QID 02/18/19 [History] Acetaminophen [Tylenol Arthritis] 650 mg PO BID 06/18/21 [History] Ascorbic Acid [Vitamin C with Mary Jane Hips] 500 mg PO DAILY 06/18/21 [History] Aspirin [Aspirin EC] 81 mg PO BEDTIME 06/18/21 [History] Cetirizine HCl/Pseudoephedrine [ZyrTEC-D] 1 tab PO ASDIRECTED PRN 06/18/21 [History] Cyanocobalamin (Vitamin B12) [Vitamin B12] 500 mcg PO DAILY 06/18/21 [History] Docusate Sodium [Colace] 50 mg PO DAILY 06/18/21 [History] Estradiol Micronized 1 applic TOP MOTH 06/18/21 [History] Fluticasone Propionate [Flonase] 1 spray PEPE ASDIRECTED PRN 06/18/21 [History] Glycerin/Min Oil/Polycarbophil [Replens Vaginal Applicator] 1 applic TOP SUTUWEFRSA 06/18/21 [History] Latanoprost [Xalatan 0.005% Ophth Soln] 1 drop EYEBOTH BEDTIME 06/18/21 [History] Losartan Potassium 25 mg PO DAILY 06/18/21 [History] Nystatin 1 applic TOP BID 06/18/21 [History] Nystatin [Nystatin Crm] 1 applic TOP DAILY 06/18/21 [History] Oxybutynin [Oxybutynin ER] 5 mg PO DAILY 06/18/21 [History] Cefdinir [Omnicef] 300 mg PO BID #12 cap 06/29/21 [Rx] Dapagliflozin/Metformin HCl [Xigduo Xr 10 mg-500 mg Tablet] 1 tab PO DAILY 06/29/21 [History] Dexlansoprazole [Dexilant] 60 mg PO DAILY 06/29/21 [History] Famotidine 40 mg PO BEDTIME 06/29/21 [History] Insulin Glargine,Hum.Rec.Anlog [Basaglar Kwikpen U-100] 40 unit SQ DAILY 06/29/21 [History] Past Medical History HEENT History: Reports: Impaired Vision, Other (See Below) Other HEENT History: wears glasses, has upper partial Cardiovascular History: Reports: Heart Failure, Hypertension, Other (See Below) Other Cardiovascular History: chest pain, edema Respiratory History: Reports: Sleep Apnea, SOB, Other (See Below) Other Respiratory History: URI Gastrointestinal History: Reports: Chronic Constipation, Hemorrhoids, Other (See Below) Other Gastrointestinal History: c diff, nausea, gastroparesis, colitis, post op nausea and vomiting Genitourinary History: Reports: Urinary Incontinence, UTI, Recurrent, Other (See Below) Other Genitourinary History: dysuria, renal failure, UTI, frequency, hestiency BU[employer]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[employer]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 [employer] COUNTER History: Reports: Musculoskeletal History: Reports: Gout, Osteoarthritis Other Musculoskeletal History: degenerative joint disease, lumbar scolisosis, gout, hammertoes, rib fractures, low bakc pain, lumbar sacral radiculopathy at L5, cerviclagia Neurological History: Reports: Neuropathy, Diabetic, Other (See Below) Other Neuro History: multilevel failed back syndrome Psychiatric History: Reports: Other (See Below) Other Psychiatric History: anorexia nervosa Endocrine/Metabolic History: Reports: Diabetes, Type I, Hypothyroidism, Vitamin D Deficiency Other Endocrine/Metabolic History: benign lesion of adrenal gland Hematologic History: Reports: Other (See Below) Other Hematologic History: , blood clots, malaise, fatigue Immunologic History: Reports: None Oncologic (Cancer) History: Reports: Pancreatic Dermatologic History: Reports: Cellulitis Other Dermatologic History: dizziness - Infectious Disease History Infectious Disease History: Reports: C-Difficile - Past Surgical History Head Surgeries/Procedures: Reports: None HEENT Surgical History: Reports: Cataract Surgery Cardiovascular Surgical History: Reports: None Respiratory Surgical History: Reports: None GI Surgical History: Reports: Appendectomy, Colonoscopy, Other (See Below) Other GI Surgeries/Procedures: partial removal of pancreas--she reports fairly 3 /4 of her pancreas was removed by a surgeon in [place] because of cancer of the pancreas in 1994 Female Surgical History: Reports: Hysterectomy Endocrine Surgical History: Reports: None Neurological Surgical History: Reports: Other (See Below) Other Neurological Surgeries/Procedures: back surgery Musculoskeletal Surgical History: Reports: Shoulder Replacement, Other (See Below) Other Musculoskeletal Surgeries/Procedures:: carpal tunnel surgery, shoulder surgery, lumbar fusion, back surgery, knee replacement Oncologic Surgical History: Reports: Other (See Below) Other Oncologic Surgeries/Procedures: pacrectomy 75% <Surya Villa - Last Filed: 07/03/21 08:13> Social & Family History - Family History Family Medical History: No Pertinent Family History - Caffeine Use Caffeine Use: Reports: Coffee Caffeine Use Comment: States she drinks about 2 cups per day of coffee, drinks about 2 cans of 7up per day - Living Situation & Occupation Living situation: Reports: Occupation: Employed <Surya Villa - Last Filed: 07/03/21 08:13> Review of Systems - Review of Systems Review Of Systems: See Below Constitutional: Reports: Chills, Fever (Complaining of some chills upon entry to the hospital this afternoon), Weakness ( she thought she might be running a low-grade fever this morning generalized weakness). Denies: Diaphoresis Eyes: Reports: Glasses Ears: Reports: No Symptoms Nose: Reports: No Symptoms Mouth/Throat: Reports: No Symptoms Respiratory: Reports: Shortness of Breath. Denies: Wheezing, Pleuritic Chest Pain, Cough, Sputum, Hemoptysis Cardiovascular: Reports: Edema, Lightheadedness (Blood pressure sometimes goes too low). Denies: Chest Pain, Irregular Heart Rate, Palpitations GI/Abdominal: Reports: Constipation, Decreased Appetite. Denies: Abdominal Pain Genitourinary: Reports: Incontinence, Other (Feels a sense of incomplete). Denies: Dysuria ( emptying of her urinary bladder at times) Musculoskeletal: Reports: Neck Pain, Shoulder Pain, Back Pain, Joint Pain (Knees and hips) Skin: Reports: Bruising Neurological: Reports: Dizziness (Oozes easily), Numbness (Numbness in both feet), Paresthesia (Both lower extremities with pain), Difficulty Walking, Weakness (Chronically since lumbar spine surgical procedures many years ago both lower extremities). Denies: Confusion, Headache, Tingling, Tremors ( i.e. sciatica), Trouble Speaking Psychiatric: Reports: No Symptoms <Surya Villa - Last Filed: 07/03/21 08:13> ED EXAM, GENERAL - Physical Exam Exam: See Below Exam Limited By: No Limitations General Appearance: Alert, WD/WN, No Apparent Distress, Anxious (Mildly anxious about having to come to the hospital), Other (Temperature is 35.7 degrees. She feels cool to touch. However she just came in from the ambulance bay. Heart rate was 74 and sinus respiratory is 20 with O2 sats of 94 to 96% room air BP 123/76) Eye Exam: Bilateral Eye: Normal Inspection (Mild blepharal pallor without scleral icterus.), PERRL Throat/Mouth: Normal Lips, Normal Gums, Other (Tongue is dry and coated.). No: Normal Teeth Head: Atraumatic, Normocephalic, Other (No signs of head or facial trauma.) Neck: Normal Inspection, Limited Range of Motion (She has some crepitus on lateral rotation and lateral flexion with loss of 10 degrees in all range of motion), Tender Lateral. No: Carotid Bruit, Lymphadenopathy (L) (Mild bilaterally. She states no worse than normal), Lymphadenopathy (R) Respiratory/Chest: No Accessory Muscle Use, Respiratory Distress (Mildly tachypneic.), Decreased Breath Sounds. No: Lungs Clear, Normal Breath Sounds (Breath sounds are mildly decreased diminished to both posterior lung hernandez by about 20%), Rales, Wheezing Cardiovascular: Normal Peripheral Pulses, Regular Rate, Rhythm, No Gallop, No Murmur, No Rub. No: No Edema Peripheral Pulses: 1+: Posterior Tibial (L), Posterior Tibial (R), Dorsalis Pedis (L), Dorsalis Pedis (R) GI/Abdominal: Normal Bowel Sounds, Soft, Non-Tender, No Organomegaly, No Distention, No Abnormal Bruit. No: Guarding, Rigid, Rebound, Tender Back Exam: Other (Hospital surgical scars lower thoracic and upper lumbar spine. Midline well-healed. No abrasions or contusions of the thoracic or lumbar spine to indicate injury from slipping out of her chair onto the floor at home today.). No: CVA Tenderness (L), CVA Tenderness (R) Extremities: Pedal Edema (1-2+ pitting edema both lower extremities), Other (Evidence of osteoarthritic changes both knees) Neurological: Alert, Oriented, CN II-XII Intact, Normal Cognition, Abnormal Reflexes (Loss of reflexes both ankles and knees.). No: Normal Gait (Not able to assess), Normal Reflexes Psychiatric: Normal Affect, Normal Mood, Anxious (Mildly anxious) Skin Exam: Warm, Dry, Intact, Normal Color, No Rash <Surya Villa - Last Filed: 07/03/21 08:13> #1 Interpretation EKG Date: 06/29/21 Time: 15:34 Rhythm: NSR Rate (Beats/Min): 74 P-Wave: Enlarged (Degree AV block left atrial hypertrophy pattern) QRS: Other (Decreased voltage limb leads) ST-T: Other (Wandering baseline) QT: Normal <Surya Villa - Last Filed: 07/03/21 08:13> #1 Interpretation EKG Interpretation Comments: Abnormal ECG (Surya Villa) Course <Stephan Zuñiga - Last Filed: 06/30/21 16:27> <Surya Villa - Last Filed: 07/03/21 08:13> - Vital Signs Last Recorded V/S: Last Vital Signs Temp 36.7 C 07/03/21 03:38 Pulse 81 07/03/21 03:38 Resp 18 07/03/21 03:38 BP 132/83 07/03/21 03:38 Pulse Ox 96 07/03/21 06:00 - Orders/Labs/Meds Orders: Active Orders 24 hr Category Date Time Status CBC WITH AUTO DIFF [HEME] DAILY Lab 07/04/21 05:00 Ordered CBC WITH AUTO DIFF [HEME] DAILY Lab 07/05/21 05:00 Ordered COMPREHENSIVE METABOLIC PN,CMP [CHEM] DAILY Lab 07/04/21 05:00 Ordered COMPREHENSIVE METABOLIC PN,CMP [CHEM] DAILY Lab 07/05/21 05:00 Ordered Medication Orders Acetaminophen (Acetaminophen 325 Mg Tab) 650 mg PO Q6H PRN PRN Reason: Pain (Mild 1-3)/fever Last Admin: 07/01/21 15:32 Dose: 650 mg Documented by: SHANNON Allopurinol (Allopurinol 100 Mg Tab) 150 mg PO DAILY [facility] Aspirin (Aspirin 81 Mg Tab.Ec) 81 mg PO BEDTIME [facility] Last Admin: 07/02/21 20:49 Dose: 81 mg Documented by: Admin: 07/01/21 20:59 Dose: 81 mg Documented by: Admin: 06/30/21 20:03 Dose: 81 mg Documented by: SHEN Cholecalciferol (Cholecalciferol (Vitamin D3) 25 Mcg Tab) 25 mcg PO DAILY [facility] Last Admin: 07/02/21 08:32 Dose: 25 mcg Documented by: Admin: 07/01/21 10:17 Dose: 25 mcg Documented by: SHANNON Cyanocobalamin (Cyanocobalamin (Vitamin B12) 1,000 Mcg Tab) 500 mcg PO DAILY [facility] Last Admin: 07/02/21 08:32 Dose: 500 mcg Documented by: Admin: 07/01/21 10:18 Dose: 500 mcg Documented by: SHANNON Diclofenac Sodium (Diclofenac Sodium 1% Gel 100 Gm Tube) 0 gm TOP BID PRN PRN Reason: Pain Docusate Sodium (Docusate Sodium 100 Mg Cap) 100 mg PO DAILY [facility] Last Admin: 07/02/21 08:32 Dose: 100 mg Documented by: Admin: 07/01/21 12:57 Dose: 100 mg Documented by: SHANNON Enoxaparin Sodium (Enoxaparin 40 Mg/0.4 Ml Syringe) 40 mg SUBCUT DAILY [facility] Last Admin: 07/02/21 08:32 Dose: 40 mg Documented by: Admin: 07/01/21 10:19 Dose: 40 mg Documented by: SHANNON Famotidine (Famotidine 20 Mg Tab) 20 mg PO BEDTIME [facility] Last Admin: 07/02/21 20:48 Dose: 20 mg Documented by: Admin: 07/01/21 20:59 Dose: 20 mg Documented by: Admin: 06/30/21 20:03 Dose: 20 mg Documented by: Admin: 06/29/21 21:17 Dose: 20 mg Documented by: MARCO Fluticasone Propionate (Fluticasone Propionate Nasal [place] 16 Gm Bottle) 0 gm NASBOTH DAILY PRN PRN Reason: Congestion Furosemide (Furosemide 20 Mg Tab) 30 mg PO SuMoWeFr@0900 [facility] Last Admin: 07/02/21 11:39 Dose: 30 mg Documented by: DAMON Gabapentin (Gabapentin 600 Mg Tab) 600 mg PO Q6H [facility] Last Admin: 07/03/21 04:13 Dose: 600 mg Documented by: Admin: 07/02/21 21:12 Dose: 600 mg Documented by: Admin: 07/02/21 16:55 Dose: 600 mg Documented by: DAMON Hydralazine HCl (Hydralazine 20 Mg/Ml Sdv) 10 mg IVPUSH Q4H PRN PRN Reason: Hypertension Hydromorphone HCl (Hydromorphone 0.5 Mg/0.5 Ml Syringe) 0.5 mg IVPUSH Q4H PRN PRN Reason: Pain (severe 7-10) Promethazine HCl 6.25 mg/ (Sodium Chloride) 50.25 mls @ 100 mls/hr IV Q6H PRN PRN Reason: Nausea/Vomiting Insulin Human Lispro (Insulin Lispro 100 Unit/Ml 3 Ml Kwikpen) 0 unit SUBCUT QIDACANDBED [facility]; Protocol Last Admin: 07/02/21 21:31 Dose: 8 units Documented by: Admin: 07/02/21 16:55 Dose: 2 units Documented by: Admin: 07/02/21 11:38 Dose: 8 units Documented by: Admin: 07/02/21 08:03 Dose: Not Given Documented by: Admin: 07/01/21 21:51 Dose: 2 units Documented by: Admin: 07/01/21 18:05 Dose: Not Given Documented by: Admin: 07/01/21 12:57 Dose: 2 units Documented by: Admin: 07/01/21 06:39 Dose: Not Given Documented by: Admin: 06/30/21 22:16 Dose: 2 units Documented by: Admin: 06/30/21 19:40 Dose: Not Given Documented by: SHEN Latanoprost (Latanoprost 0.005% Ophth Soln 2.5 Ml Bottle) 0 ml EYEBOTH BEDTIME [facility] Last Admin: 07/02/21 21:11 Dose: 1 drop Documented by: Admin: 07/01/21 21:50 Dose: 1 drop Documented by: ORBERT Metoprolol Tartrate (Metoprolol Tartrate 25 Mg Tab) 25 mg PO BID [facility] Last Admin: 07/02/21 20:49 Dose: 25 mg Documented by: JAMES Calcium Carb/Mag Ox/ (Zinc Gluc Tab Ptom) 1 tab PO DAILY [facility] Last Admin: 07/02/21 08:32 Dose: 1 tab Documented by: Admin: 07/01/21 10:13 Dose: 1 tab Documented by: SHANNON Ferrous Sulfate 325 (Mg Tablet Ptom) 0 mg PO DAILY [facility] Last Admin: 07/02/21 08:32 Dose: 325 mg Documented by: Admin: 07/01/21 10:14 Dose: 325 mg Documented by: SHANNON Ropinirole 3 Mg (Tablet Ptom) 0 mg PO QID [facility] Last Admin: 07/02/21 21:12 Dose: 3 mg Documented by: Admin: 07/02/21 16:56 Dose: 3 mg Documented by: Admin: 07/02/21 14:49 Dose: 3 mg Documented by: Admin: 07/02/21 08:33 Dose: 3 mg Documented by: Admin: 07/01/21 21:06 Dose: 3 mg Documented by: Admin: 07/01/21 18:05 Dose: 3 mg Documented by: Admin: 07/01/21 12:58 Dose: 3 mg Documented by: Admin: 07/01/21 10:16 Dose: 3 mg Documented by: SHANNON Oxybutynin Chloride (Oxybutynin 5 Mg Tab.Er) 5 mg PO DAILY [facility] Oxycodone/Acetaminophen (Acetaminophen/Oxycodone 325-5 Mg Tab) 1 tab PO Q6H PRN PRN Reason: pain relief Last Admin: 07/01/21 23:13 Dose: 1 tab Documented by: Admin: 07/01/21 03:33 Dose: 1 tab Documented by: Admin: 06/29/21 21:16 Dose: 1 tab Documented by: MARCO Saccharomyces Boulardii (Saccharomyces Boulardii (Probiotic) 250 Mg Cap) 250 mg PO DAILY [facility] Last Admin: 07/02/21 08:31 Dose: 250 mg Documented by: Admin: 07/01/21 10:17 Dose: 250 mg Documented by: SHANNON Senna/Docusate Sodium (Docusate Sodium/Sennosides 50-8.6 Mg Tab) 2 tab PO BID [facility] Last Admin: 07/02/21 20:49 Dose: 2 tab Documented by: Admin: 07/02/21 11:38 Dose: 2 tab Documented by: DAMON Simvastatin (Simvastatin 20 Mg Tab) 20 mg PO BEDTIME [facility] Last Admin: 07/02/21 20:49 Dose: 20 mg Documented by: JAMES Zolpidem Tartrate (Zolpidem 5 Mg Tab) 5 mg PO BEDTIME PRN PRN Reason: Insomnia Labs: Laboratory Tests 06/29/21 06/29/21 06/29/21 Range/Units 15:37 15:37 15:37 WBC (3.98-10.04) K/mm3 RBC (3.98-5.22) M/mm3 Hgb (11.2-15.7) gm/dl Hct (34.1-44.9) % MCV (79.4-94.8) fl MCH (25.6-32.2) pg MCHC (32.2-35.5) g/dl RDW Std Deviation (36.4-46.3) fL Plt Count (182-369) K/mm3 MPV (9.4-12.3) fl Neut % (Auto) (34.0-71.1) % Lymph % (Auto) (19.3-51.7) % [place] % (Auto) (4.7-12.5) % Eos % (Auto) (0.7-5.8) Baso % (Auto) (0.1-1.2) % Neut # (Auto) (1.56-6.13) K/mm3 Lymph # (Auto) (1.18-3.74) K/mm3 [place] # (Auto) (0.24-0.36) K/mm3 Eos # (Auto) (0.04-0.36) K/mm3 Baso # (Auto) (0.01-0.08) K/mm3 Manual Slide Review ESR 8 (0-20) mm/hr PT 10.1 (9.7-12.0) SECONDS INR < 0.93 APTT 26.3 (21.7-31.4) SECONDS Sodium 131 L (136-145) mEq/L Potassium 4.4 (3.5-5.1) mEq/L Chloride 99 (98-107) mEq/L Carbon Dioxide 29 (21-32) mEq/L Anion Gap 7.4 (5-15) BUN 28 H (7-18) mg/dL Creatinine 1.1 H (0.55-1.02) mg/dL Est Cr Clr Drug Dosing 35.99 mL/min Estimated GFR (MDRD) 48 (>60) mL/min BUN/Creatinine Ratio 25.5 H (14-18) Glucose 133 H (70-99) mg/dL POC Glucose (70-99) mg/dL Lactic Acid (0.4-2.0) mmol/L Calcium 9.0 (8.5-10.1) mg/dL Magnesium 2.3 (1.8-2.4) mg/dL Total Bilirubin 0.5 (0.2-1.0) mg/dL AST 26 (15-37) U/L ALT 27 (14-59) U/L Alkaline Phosphatase 73 (46-116) U/L CK-MB (CK-2) 6.6 H (0-3.6) ng/ml Troponin I < 0.017 (0.00-0.056) ng/mL C-Reactive Protein 0.2 (<1.0) mg/dL NT-Pro-B Natriuret Pep (0-450) pg/mL Total Protein 7.3 (6.4-8.2) g/dl Albumin 3.6 (3.4-5.0) g/dl Globulin 3.7 gm/dL Albumin/Globulin Ratio 1.0 (1-2) Free T4 (0.76-1.46) ng/dL TSH 3rd Generation (0.358-3.74) uIU/mL Urine Color (Yellow) Urine Appearance (Clear) Urine pH (5.0-8.0) Ur Specific [place] (1.005-1.030) Urine Protein (Negative) Urine Glucose (UA) (Negative) Urine Ketones (Negative) Urine Occult Blood (Negative) Urine Nitrite (Negative) Urine Bilirubin (Negative) Urine Urobilinogen (0.2-1.0) Ur Leukocyte Esterase (Negative) Urine RBC (0-5) /hpf Urine WBC (0-5) /hpf Ur Epithelial Cells (0-5) /hpf Urine Bacteria (FEW) /hpf Urine Mucus (FEW) /hpf SARS-CoV-2 RNA (TORIBOI) (NEGATIVE) 06/29/21 06/29/21 06/29/21 Range/Units 15:37 16:30 18:19 WBC 9.21 (3.98-10.04) K/mm3 RBC 4.60 (3.98-5.22) M/mm3 Hgb 14.6 (11.2-15.7) gm/dl Hct 44.9 (34.1-44.9) % MCV 97.6 H (79.4-94.8) fl MCH 31.7 (25.6-32.2) pg MCHC 32.5 (32.2-35.5) g/dl RDW Std Deviation 49.7 H (36.4-46.3) fL Plt Count 328 (182-369) K/mm3 MPV 10.4 (9.4-12.3) fl Neut % (Auto) 69.5 (34.0-71.1) % Lymph % (Auto) 15.2 L (19.3-51.7) % [place] % (Auto) 9.2 (4.7-12.5) % Eos % (Auto) 5.5 (0.7-5.8) Baso % (Auto) 0.5 (0.1-1.2) % Neut # (Auto) 6.39 H (1.56-6.13) K/mm3 Lymph # (Auto) 1.40 (1.18-3.74) K/mm3 [place] # (Auto) 0.85 H (0.24-0.36) K/mm3 Eos # (Auto) 0.51 H (0.04-0.36) K/mm3 Baso # (Auto) 0.05 (0.01-0.08) K/mm3 Manual Slide Review ESR (0-20) mm/hr PT (9.7-12.0) SECONDS INR APTT (21.7-31.4) SECONDS Sodium (136-145) mEq/L Potassium (3.5-5.1) mEq/L Chloride (98-107) mEq/L Carbon Dioxide (21-32) mEq/L Anion Gap (5-15) BUN (7-18) mg/dL Creatinine (0.55-1.02) mg/dL Est Cr Clr Drug Dosing mL/min Estimated GFR (MDRD) (>60) mL/min BUN/Creatinine Ratio (14-18) Glucose (70-99) mg/dL POC Glucose (70-99) mg/dL Lactic Acid (0.4-2.0) mmol/L Calcium (8.5-10.1) mg/dL Magnesium (1.8-2.4) mg/dL Total Bilirubin (0.2-1.0) mg/dL AST (15-37) U/L ALT (14-59) U/L Alkaline Phosphatase (46-116) U/L CK-MB (CK-2) (0-3.6) ng/ml Troponin I (0.00-0.056) ng/mL C-Reactive Protein (<1.0) mg/dL NT-Pro-B Natriuret Pep 167 (0-450) pg/mL Total Protein (6.4-8.2) g/dl Albumin (3.4-5.0) g/dl Globulin gm/dL Albumin/Globulin Ratio (1-2) Free T4 (0.76-1.46) ng/dL TSH 3rd Generation (0.358-3.74) uIU/mL Urine Color Yellow (Yellow) Urine Appearance Slt cloudy H (Clear) Urine pH 6.5 (5.0-8.0) Ur Specific [place] 1.015 (1.005-1.030) Urine Protein Negative (Negative) Urine Glucose (UA) 2+ H (Negative) Urine Ketones 1+ H (Negative) Urine Occult Blood Trace-intact H (Negative) Urine Nitrite Negative (Negative) Urine Bilirubin Negative (Negative) Urine Urobilinogen 0.2 (0.2-1.0) Ur Leukocyte Esterase Negative (Negative) Urine RBC 0-5 (0-5) /hpf Urine WBC 5-10 H (0-5) /hpf Ur Epithelial Cells 0-5 (0-5) /hpf Urine Bacteria Many H (FEW) /hpf Urine Mucus Not seen (FEW) /hpf SARS-CoV-2 RNA (TORIBIO) (NEGATIVE) 06/29/21 06/30/21 06/30/21 Range/Units 18:19 11:31 12:58 WBC (3.98-10.04) K/mm3 RBC (3.98-5.22) M/mm3 Hgb (11.2-15.7) gm/dl Hct (34.1-44.9) % MCV (79.4-94.8) fl MCH (25.6-32.2) pg MCHC (32.2-35.5) g/dl RDW Std Deviation (36.4-46.3) fL Plt Count (182-369) K/mm3 MPV (9.4-12.3) fl Neut % (Auto) (34.0-71.1) % Lymph % (Auto) (19.3-51.7) % [place] % (Auto) (4.7-12.5) % Eos % (Auto) (0.7-5.8) Baso % (Auto) (0.1-1.2) % Neut # (Auto) (1.56-6.13) K/mm3 Lymph # (Auto) (1.18-3.74) K/mm3 [place] # (Auto) (0.24-0.36) K/mm3 Eos # (Auto) (0.04-0.36) K/mm3 Baso # (Auto) (0.01-0.08) K/mm3 Manual Slide Review ESR (0-20) mm/hr PT (9.7-12.0) SECONDS INR APTT (21.7-31.4) SECONDS Sodium (136-145) mEq/L Potassium (3.5-5.1) mEq/L Chloride (98-107) mEq/L Carbon Dioxide (21-32) mEq/L Anion Gap (5-15) BUN (7-18) mg/dL Creatinine (0.55-1.02) mg/dL Est Cr Clr Drug Dosing mL/min Estimated GFR (MDRD) (>60) mL/min BUN/Creatinine Ratio (14-18) Glucose (70-99) mg/dL POC Glucose 97 (70-99) mg/dL Lactic Acid 1.0 (0.4-2.0) mmol/L Calcium (8.5-10.1) mg/dL Magnesium (1.8-2.4) mg/dL Total Bilirubin (0.2-1.0) mg/dL AST (15-37) U/L ALT (14-59) U/L Alkaline Phosphatase (46-116) U/L CK-MB (CK-2) (0-3.6) ng/ml Troponin I (0.00-0.056) ng/mL C-Reactive Protein (<1.0) mg/dL NT-Pro-B Natriuret Pep (0-450) pg/mL Total Protein (6.4-8.2) g/dl Albumin (3.4-5.0) g/dl Globulin gm/dL Albumin/Globulin Ratio (1-2) Free T4 (0.76-1.46) ng/dL TSH 3rd Generation (0.358-3.74) uIU/mL Urine Color (Yellow) Urine Appearance (Clear) Urine pH (5.0-8.0) Ur Specific [place] (1.005-1.030) Urine Protein (Negative) Urine Glucose (UA) (Negative) Urine Ketones (Negative) Urine Occult Blood (Negative) Urine Nitrite (Negative) Urine Bilirubin (Negative) Urine Urobilinogen (0.2-1.0) Ur Leukocyte Esterase (Negative) Urine RBC (0-5) /hpf Urine WBC (0-5) /hpf Ur Epithelial Cells (0-5) /hpf Urine Bacteria (FEW) /hpf Urine Mucus (FEW) /hpf SARS-CoV-2 RNA (TORIBIO) Negative (NEGATIVE) 06/30/21 06/30/21 07/01/21 Range/Units 18:34 21:04 06:08 WBC 9.76 (3.98-10.04) K/mm3 RBC 4.39 (3.98-5.22) M/mm3 Hgb 13.6 (11.2-15.7) gm/dl Hct 43.7 (34.1-44.9) % MCV 99.5 H (79.4-94.8) fl MCH 31.0 (25.6-32.2) pg MCHC 31.1 L (32.2-35.5) g/dl RDW Std Deviation 51.7 H (36.4-46.3) fL Plt Count 305 (182-369) K/mm3 MPV 10.8 (9.4-12.3) fl Neut % (Auto) 61.6 (34.0-71.1) % Lymph % (Auto) 18.0 L (19.3-51.7) % [place] % (Auto) 13.3 H (4.7-12.5) % Eos % (Auto) 6.5 H (0.7-5.8) Baso % (Auto) 0.5 (0.1-1.2) % Neut # (Auto) 6.01 (1.56-6.13) K/mm3 Lymph # (Auto) 1.76 (1.18-3.74) K/mm3 [place] # (Auto) 1.30 H (0.24-0.36) K/mm3 Eos # (Auto) 0.63 H (0.04-0.36) K/mm3 Baso # (Auto) 0.05 (0.01-0.08) K/mm3 Manual Slide Review Not Reportable ESR (0-20) mm/hr PT (9.7-12.0) SECONDS INR APTT (21.7-31.4) SECONDS Sodium (136-145) mEq/L Potassium (3.5-5.1) mEq/L Chloride (98-107) mEq/L Carbon Dioxide (21-32) mEq/L Anion Gap (5-15) BUN (7-18) mg/dL Creatinine (0.55-1.02) mg/dL Est Cr Clr Drug Dosing mL/min Estimated GFR (MDRD) (>60) mL/min BUN/Creatinine Ratio (14-18) Glucose (70-99) mg/dL POC Glucose 165 H 189 H (70-99) mg/dL Lactic Acid (0.4-2.0) mmol/L Calcium (8.5-10.1) mg/dL Magnesium (1.8-2.4) mg/dL Total Bilirubin (0.2-1.0) mg/dL AST (15-37) U/L ALT (14-59) U/L Alkaline Phosphatase (46-116) U/L CK-MB (CK-2) (0-3.6) ng/ml Troponin I (0.00-0.056) ng/mL C-Reactive Protein (<1.0) mg/dL NT-Pro-B Natriuret Pep (0-450) pg/mL Total Protein (6.4-8.2) g/dl Albumin (3.4-5.0) g/dl Globulin gm/dL Albumin/Globulin Ratio (1-2) Free T4 (0.76-1.46) ng/dL TSH 3rd Generation (0.358-3.74) uIU/mL Urine Color (Yellow) Urine Appearance (Clear) Urine pH (5.0-8.0) Ur Specific [place] (1.005-1.030) Urine Protein (Negative) Urine Glucose (UA) (Negative) Urine Ketones (Negative) Urine Occult Blood (Negative) Urine Nitrite (Negative) Urine Bilirubin (Negative) Urine Urobilinogen (0.2-1.0) Ur Leukocyte Esterase (Negative) Urine RBC (0-5) /hpf Urine WBC (0-5) /hpf Ur Epithelial Cells (0-5) /hpf Urine Bacteria (FEW) /hpf Urine Mucus (FEW) /hpf SARS-CoV-2 RNA (TORIBIO) (NEGATIVE) 07/01/21 07/01/21 07/01/21 Range/Units 06:08 06:08 06:24 WBC (3.98-10.04) K/mm3 RBC (3.98-5.22) M/mm3 Hgb (11.2-15.7) gm/dl Hct (34.1-44.9) % MCV (79.4-94.8) fl MCH (25.6-32.2) pg MCHC (32.2-35.5) g/dl RDW Std Deviation (36.4-46.3) fL Plt Count (182-369) K/mm3 MPV (9.4-12.3) fl Neut % (Auto) (34.0-71.1) % Lymph % (Auto) (19.3-51.7) % [place] % (Auto) (4.7-12.5) % Eos % (Auto) (0.7-5.8) Baso % (Auto) (0.1-1.2) % Neut # (Auto) (1.56-6.13) K/mm3 Lymph # (Auto) (1.18-3.74) K/mm3 [place] # (Auto) (0.24-0.36) K/mm3 Eos # (Auto) (0.04-0.36) K/mm3 Baso # (Auto) (0.01-0.08) K/mm3 Manual Slide Review ESR (0-20) mm/hr PT (9.7-12.0) SECONDS INR APTT (21.7-31.4) SECONDS Sodium 142 D (136-145) mEq/L Potassium 4.3 (3.5-5.1) mEq/L Chloride 103 (98-107) mEq/L Carbon Dioxide 26 (21-32) mEq/L Anion Gap 17.3 H (5-15) BUN 20 H (7-18) mg/dL Creatinine 1.1 H (0.55-1.02) mg/dL Est Cr Clr Drug Dosing 34.41 mL/min Estimated GFR (MDRD) 48 (>60) mL/min BUN/Creatinine Ratio 18.2 H (14-18) Glucose 139 H (70-99) mg/dL POC Glucose 125 H (70-99) mg/dL Lactic Acid (0.4-2.0) mmol/L Calcium 8.3 L (8.5-10.1) mg/dL Magnesium 2.1 (1.8-2.4) mg/dL Total Bilirubin 0.4 (0.2-1.0) mg/dL AST 19 (15-37) U/L ALT 24 (14-59) U/L Alkaline Phosphatase 65 (46-116) U/L CK-MB (CK-2) (0-3.6) ng/ml Troponin I (0.00-0.056) ng/mL C-Reactive Protein (<1.0) mg/dL NT-Pro-B Natriuret Pep (0-450) pg/mL Total Protein 6.3 L (6.4-8.2) g/dl Albumin 3.3 L (3.4-5.0) g/dl Globulin 3.0 gm/dL Albumin/Globulin Ratio 1.1 (1-2) Free T4 1.16 (0.76-1.46) ng/dL TSH 3rd Generation 5.870 H (0.358-3.74) uIU/mL Urine Color (Yellow) Urine Appearance (Clear) Urine pH (5.0-8.0) Ur Specific [place] (1.005-1.030) Urine Protein (Negative) Urine Glucose (UA) (Negative) Urine Ketones (Negative) Urine Occult Blood (Negative) Urine Nitrite (Negative) Urine Bilirubin (Negative) Urine Urobilinogen (0.2-1.0) Ur Leukocyte Esterase (Negative) Urine RBC (0-5) /hpf Urine WBC (0-5) /hpf Ur Epithelial Cells (0-5) /hpf Urine Bacteria (FEW) /hpf Urine Mucus (FEW) /hpf SARS-CoV-2 RNA (TORIBIO) (NEGATIVE) 07/01/21 07/01/21 07/01/21 Range/Units 11:30 17:59 20:50 WBC (3.98-10.04) K/mm3 RBC (3.98-5.22) M/mm3 Hgb (11.2-15.7) gm/dl Hct (34.1-44.9) % MCV (79.4-94.8) fl MCH (25.6-32.2) pg MCHC (32.2-35.5) g/dl RDW Std Deviation (36.4-46.3) fL Plt Count (182-369) K/mm3 MPV (9.4-12.3) fl Neut % (Auto) (34.0-71.1) % Lymph % (Auto) (19.3-51.7) % [place] % (Auto) (4.7-12.5) % Eos % (Auto) (0.7-5.8) Baso % (Auto) (0.1-1.2) % Neut # (Auto) (1.56-6.13) K/mm3 Lymph # (Auto) (1.18-3.74) K/mm3 [place] # (Auto) (0.24-0.36) K/mm3 Eos # (Auto) (0.04-0.36) K/mm3 Baso # (Auto) (0.01-0.08) K/mm3 Manual Slide Review ESR (0-20) mm/hr PT (9.7-12.0) SECONDS INR APTT (21.7-31.4) SECONDS Sodium (136-145) mEq/L Potassium (3.5-5.1) mEq/L Chloride (98-107) mEq/L Carbon Dioxide (21-32) mEq/L Anion Gap (5-15) BUN (7-18) mg/dL Creatinine (0.55-1.02) mg/dL Est Cr Clr Drug Dosing mL/min Estimated GFR (MDRD) (>60) mL/min BUN/Creatinine Ratio (14-18) Glucose (70-99) mg/dL POC Glucose 190 H 133 H 191 H (70-99) mg/dL Lactic Acid (0.4-2.0) mmol/L Calcium (8.5-10.1) mg/dL Magnesium (1.8-2.4) mg/dL Total Bilirubin (0.2-1.0) mg/dL AST (15-37) U/L ALT (14-59) U/L Alkaline Phosphatase (46-116) U/L CK-MB (CK-2) (0-3.6) ng/ml Troponin I (0.00-0.056) ng/mL C-Reactive Protein (<1.0) mg/dL NT-Pro-B Natriuret Pep (0-450) pg/mL Total Protein (6.4-8.2) g/dl Albumin (3.4-5.0) g/dl Globulin gm/dL Albumin/Globulin Ratio (1-2) Free T4 (0.76-1.46) ng/dL TSH 3rd Generation (0.358-3.74) uIU/mL Urine Color (Yellow) Urine Appearance (Clear) Urine pH (5.0-8.0) Ur Specific [place] (1.005-1.030) Urine Protein (Negative) Urine Glucose (UA) (Negative) Urine Ketones (Negative) Urine Occult Blood (Negative) Urine Nitrite (Negative) Urine Bilirubin (Negative) Urine Urobilinogen (0.2-1.0) Ur Leukocyte Esterase (Negative) Urine RBC (0-5) /hpf Urine WBC (0-5) /hpf Ur Epithelial Cells (0-5) /hpf Urine Bacteria (FEW) /hpf Urine Mucus (FEW) /hpf SARS-CoV-2 RNA (TORIBIO) (NEGATIVE) 07/02/21 07/02/21 07/02/21 Range/Units 05:49 05:49 07:12 WBC 8.61 (3.98-10.04) K/mm3 RBC 4.42 (3.98-5.22) M/mm3 Hgb 13.9 (11.2-15.7) gm/dl Hct 44.1 (34.1-44.9) % MCV 99.8 H (79.4-94.8) fl MCH 31.4 (25.6-32.2) pg MCHC 31.5 L (32.2-35.5) g/dl RDW Std Deviation 50.9 H (36.4-46.3) fL Plt Count 313 (182-369) K/mm3 MPV 11.1 (9.4-12.3) fl Neut % (Auto) 61.2 (34.0-71.1) % Lymph % (Auto) 15.1 L (19.3-51.7) % [place] % (Auto) 14.4 H (4.7-12.5) % Eos % (Auto) 8.4 H (0.7-5.8) Baso % (Auto) 0.8 (0.1-1.2) % Neut # (Auto) 5.27 (1.56-6.13) K/mm3 Lymph # (Auto) 1.30 (1.18-3.74) K/mm3 [place] # (Auto) 1.24 H (0.24-0.36) K/mm3 Eos # (Auto) 0.72 H (0.04-0.36) K/mm3 Baso # (Auto) 0.07 (0.01-0.08) K/mm3 Manual Slide Review ESR (0-20) mm/hr PT (9.7-12.0) SECONDS INR APTT (21.7-31.4) SECONDS Sodium 140 (136-145) mEq/L Potassium 4.8 (3.5-5.1) mEq/L Chloride 103 (98-107) mEq/L Carbon Dioxide 27 (21-32) mEq/L Anion Gap 14.8 (5-15) BUN 19 H (7-18) mg/dL Creatinine 0.9 (0.55-1.02) mg/dL Est Cr Clr Drug Dosing 42.06 mL/min Estimated GFR (MDRD) > 60 (>60) mL/min BUN/Creatinine Ratio 21.1 H (14-18) Glucose 162 H (70-99) mg/dL POC Glucose 133 H (70-99) mg/dL Lactic Acid (0.4-2.0) mmol/L Calcium 8.7 (8.5-10.1) mg/dL Magnesium (1.8-2.4) mg/dL Total Bilirubin 0.5 (0.2-1.0) mg/dL AST 17 (15-37) U/L ALT 23 (14-59) U/L Alkaline Phosphatase 71 (46-116) U/L CK-MB (CK-2) (0-3.6) ng/ml Troponin I (0.00-0.056) ng/mL C-Reactive Protein (<1.0) mg/dL NT-Pro-B Natriuret Pep (0-450) pg/mL Total Protein 6.4 (6.4-8.2) g/dl Albumin 3.2 L (3.4-5.0) g/dl Globulin 3.2 gm/dL Albumin/Globulin Ratio 1.0 (1-2) Free T4 (0.76-1.46) ng/dL TSH 3rd Generation (0.358-3.74) uIU/mL Urine Color (Yellow) Urine Appearance (Clear) Urine pH (5.0-8.0) Ur Specific [place] (1.005-1.030) Urine Protein (Negative) Urine Glucose (UA) (Negative) Urine Ketones (Negative) Urine Occult Blood (Negative) Urine Nitrite (Negative) Urine Bilirubin (Negative) Urine Urobilinogen (0.2-1.0) Ur Leukocyte Esterase (Negative) Urine RBC (0-5) /hpf Urine WBC (0-5) /hpf Ur Epithelial Cells (0-5) /hpf Urine Bacteria (FEW) /hpf Urine Mucus (FEW) /hpf SARS-CoV-2 RNA (TORIBIO) (NEGATIVE) Meds: Medications Generic Name Dose Route Start Last Admin Trade Name Freq PRN Reason Stop Dose Admin Acetaminophen 650 mg 06/30/21 18:17 07/01/21 15:32 Acetaminophen 325 Mg Tab PO 650 mg Q6H PRN Administration Pain (Mild 1-3)/fever Allopurinol 150 mg 07/03/21 09:00 Allopurinol 100 Mg Tab PO DAILY CALI Aspirin 81 mg 06/30/21 21:00 07/02/21 20:49 Aspirin 81 Mg Tab.Ec PO 81 mg BEDTIME CALI Administration Cholecalciferol 25 mcg 07/01/21 09:00 07/02/21 08:32 Cholecalciferol (Vitamin D3) 25 Mcg Tab PO 25 mcg DAILY CALI Administration Cyanocobalamin 500 mcg 07/01/21 09:00 07/02/21 08:32 Cyanocobalamin (Vitamin B12) 1,000 Mcg Tab PO 500 mcg DAILY CALI Administration Diclofenac Sodium 0 gm 07/01/21 11:00 Diclofenac Sodium 1% Gel 100 Gm Tube TOP BID PRN Pain Docusate Sodium 100 mg 07/01/21 11:45 07/02/21 08:32 Docusate Sodium 100 Mg Cap PO 100 mg DAILY CALI Administration Enoxaparin Sodium 40 mg 07/01/21 09:00 07/02/21 08:32 Enoxaparin 40 Mg/0.4 Ml Syringe SUBCUT 40 mg DAILY CALI Administration Famotidine 20 mg 06/29/21 21:00 07/02/21 20:48 Famotidine 20 Mg Tab PO 20 mg BEDTIME CALI Administration Fluticasone Propionate 0 gm 06/30/21 18:21 Fluticasone Propionate Nasal [place] 16 Gm Bottle NASBOTH DAILY PRN Congestion Furosemide 30 mg 07/02/21 11:30 07/02/21 11:39 Furosemide 20 Mg Tab PO 30 mg [id number] CALI Administration Gabapentin 600 mg 07/02/21 16:00 07/03/21 04:13 Gabapentin 600 Mg Tab PO 600 mg Q6H CALI Administration Hydralazine HCl 10 mg 06/30/21 18:33 Hydralazine 20 Mg/Ml Sdv IVPUSH Q4H PRN Hypertension Hydromorphone HCl 0.5 mg 06/30/21 18:17 Hydromorphone 0.5 Mg/0.5 Ml Syringe IVPUSH Q4H PRN Pain (severe 7-10) Promethazine HCl 6.25 mg/ 50.25 mls @ 100 mls/hr 06/30/21 18:17 Sodium Chloride IV Q6H PRN Nausea/Vomiting Insulin Human Lispro 0 unit 06/30/21 17:00 07/02/21 21:31 Insulin Lispro 100 Unit/Ml 3 Ml Kwikpen SUBCUT 8 units QIDACANDBED CALI Administration Protocol Latanoprost 0 ml 07/01/21 21:00 07/02/21 21:11 Latanoprost 0.005% Ophth Soln 2.5 Ml Bottle EYEBOTH 1 drop BEDTIME CALI Administration Metoprolol Tartrate 25 mg 07/02/21 21:00 07/02/21 20:49 Metoprolol Tartrate 25 Mg Tab PO 25 mg BID CALI Administration Calcium Carb/Mag Ox/ 1 tab 07/01/21 10:00 07/02/21 08:32 Zinc Gluc Tab Ptom PO 1 tab DAILY CALI Administration Ferrous Sulfate 325 0 mg 07/01/21 10:00 07/02/21 08:32 Mg Tablet Ptom PO 325 mg DAILY CALI Administration Ropinirole 3 Mg 0 mg 07/01/21 10:00 07/02/21 21:12 Tablet Ptom PO 3 mg QID CALI Administration Oxybutynin Chloride 5 mg 07/03/21 09:00 Oxybutynin 5 Mg Tab.Er PO DAILY CALI Oxycodone/Acetaminophen 1 tab 06/29/21 20:13 07/01/21 23:13 Acetaminophen/Oxycodone 325-5 Mg Tab PO 1 tab Q6H PRN Administration pain relief Saccharomyces Boulardii 250 mg 07/01/21 10:00 07/02/21 08:31 Saccharomyces Boulardii (Probiotic) 250 Mg Cap PO 250 mg DAILY CALI Administration Senna/Docusate Sodium 2 tab 07/02/21 11:00 07/02/21 20:49 Docusate Sodium/Sennosides 50-8.6 Mg Tab PO 2 tab BID CALI Administration Simvastatin 20 mg 07/02/21 21:00 07/02/21 20:49 Simvastatin 20 Mg Tab PO 20 mg BEDTIME CALI Administration Zolpidem Tartrate 5 mg 06/30/21 18:21 Zolpidem 5 Mg Tab PO BEDTIME PRN Insomnia Discontinued Medications Generic Name Dose Route Start Last Admin Trade Name Freq PRN Reason Stop Dose Admin Allopurinol 150 mg 07/01/21 10:00 07/02/21 08:33 Allopurinol 100 Mg Tab Ptom PO 150 mg DAILY CALI Administration Furosemide 40 mg 06/30/21 07:00 06/30/21 06:59 Furosemide 40 Mg Tab PO 06/30/21 07:01 40 mg ONETIME ONE Administration Gabapentin 600 mg 06/29/21 17:30 06/29/21 18:06 Gabapentin 600 Mg Tab PO 06/29/21 17:31 600 mg ONETIME ONE Administration Gabapentin 600 mg 06/29/21 23:00 07/01/21 04:38 Gabapentin 600 Mg Tab PO 600 mg Q6H CALI Administration Gabapentin 100 mg 06/30/21 21:00 Gabapentin 100 Mg Cap PO TID CALI Gabapentin 600 mg 07/01/21 10:00 07/02/21 09:35 Gabapentin 600 Mg Tab Ptom PO 600 mg Q6H CALI Administration Hydromorphone HCl 1 mg 06/29/21 17:29 06/29/21 18:03 Hydromorphone 1 Mg/Ml Syringe IVPUSH 06/29/21 17:30 1 mg ONETIME ONE Administration Sodium Chloride 1,000 mls @ 150 mls/hr 06/29/21 15:30 06/29/21 18:05 Normal Saline IV 999 mls/hr ASDIRECTED CALI Infusion Sodium Chloride 1,000 mls @ 999 mls/hr 06/29/21 17:45 Normal Saline IV ASDIRECTED CALI Sodium Chloride 1,000 mls @ 100 mls/hr 06/29/21 20:00 06/29/21 20:12 Normal Saline IV 100 mls/hr ASDIRECTED CALI Administration Ceftriaxone Sodium 1 gm/ 100 mls @ 200 mls/hr 06/29/21 19:53 06/29/21 20:12 Sodium Chloride IV 06/29/21 20:22 200 mls/hr ONETIME ONE Administration Sodium Chloride 1,000 mls @ 65 mls/hr 06/30/21 18:15 Normal Saline IV ASDIRECTED CALI Ceftriaxone Sodium 1 gm/ 100 mls @ 200 mls/hr 06/30/21 18:30 06/30/21 20:03 Sodium Chloride IV 200 mls/hr Q24H CALI Administration Insulin Glargine 20 unit 06/30/21 21:00 07/01/21 11:29 Insulin Glargine,Hum.Rec.Anlog 100 Unit/Ml 3 Ml Pen SUBCUT Not Given DAILY CALI Magnesium Hydroxide 30 ml 07/02/21 10:00 07/02/21 09:35 Magnesium Hydroxide 400 Mg/5 Ml Susp 30 Ml Cup PO 07/02/21 10:01 30 ml ONETIME ONE Administration Metoprolol Tartrate 25 mg 06/30/21 10:00 07/02/21 08:33 Metoprolol Tartrate 25 Mg Tab Ptom PO 25 mg BID CALI Administration Ondansetron HCl 4 mg 06/29/21 17:29 06/29/21 18:01 Ondansetron 4 Mg/2 Ml Sdv IVPUSH 06/29/21 17:30 4 mg ONETIME ONE Administration Oxybutynin Chloride 5 mg 07/01/21 10:00 07/02/21 08:33 Oxybutynin 5 Mg Tab.Er Ptom PO 5 mg DAILY CALI Administration Ropinirole HCl 3 mg 06/30/21 10:07 06/30/21 10:20 Ropinirole 1 Mg Tab PO 06/30/21 10:08 3 mg ONETIME ONE Administration Simvastatin 20 mg 07/01/21 21:00 07/01/21 21:05 Simvastatin 20 Mg Tab Ptom PO 20 mg BEDTIME CALI Administration Trazodone HCl 50 mg 07/01/21 02:10 07/01/21 02:33 Trazodone 50 Mg Tab PO 07/01/21 02:11 50 mg ONETIME ONE Administration Zolpidem Tartrate 5 mg 06/29/21 23:42 06/29/21 23:55 Zolpidem 5 Mg Tab PO 06/29/21 23:43 5 mg ONETIME ONE Administration - Radiology Interpretation Free Text/Narrative:: 75-year-old female presents to the ED after falling or slipping more or less from a chair to the floor in her home and unable to get up. This occurred e arlier this morning as well and she had to have multiple paramedics come and help her up off the floor and get her back into a chair. She states her legs today just or not working properly. Of note she has had 4 or 5 lumbar spine fusion procedures and does have neuropathy in both lower extremities which cause her is her legs to simply give out at times. She does use a walker to aid her gait but even this will sometimes not keep her from falling. She has been feeling a little lightheaded and she believes a little bit chilled and feverish at times as well. She denies any injuries from her slipped out of the chair to the floor today x2. Plan routine labs to be obtained. IV will be normal saline at 250 mils an hour as clinically she appears to be mildly volume depleted. (Surya Villa) - Re-Assessments/Exams Free Text/Narrative Re-Assessment/Exam: 06/30/21 16:[address] Villa. My nurse tried to get the patient up today to go home and she had pain and generalized weakness. I talked with my social services coordinator Es and she came to see the patient and try to get her placed. She was unable to get her placed. She cannot go home so I called Dr Morgan our hospitalist and he will admit the patient. (Stephan Zuñiga) 06/29/21 17:33 patient is asking for analgesia due to her increasing back pain. I will give her Dilaudid 1 mg IV with Zofran 4 mg IV. She is also used to getting gabapentin 600 mg every 4 hours and I will add an oral tablet of this as well to her treatment plan. Chest x-ray done portably reveals heart size to be within upper limits of normal for portable technique. Slight tortuosity of the thoracic aorta is appreciated. Prior surgery is noted within the lower thoracic and upper lumbar spine. Lungs are clear with no acute parenchymal changes 06/29/21 17:35 Current sedimentation rate is 8. PT is 10.1 with an INR of less than 0.93 PTT is 26.3. Sodium is slightly low at 131 with a potassium of 4.4 and a chloride of 99. Bicarb is 29 with an anion gap of 7.4. BUN is 28 which is mildly elevated . Creatinine is 1.1. GFR is 48. BUN/creatinine ratio is elevated at 25.5 suggesting volume depletion. Glucose is 133 calcium is 9.0 magnesium is 2.3 liver function is normal CK-MB is 6.6 mildly elevated troponin I however is less than 0.017. C-reactive protein is 0.2 BNP 167 total protein 7.3 with an albumin fraction of 3.6 CBC. And urinalysis are pending 06/29/21 18:45 White count is normal at 9.21. The auto differential reveals 69.5% neutrophils. Hemoglobin is 14.6 with hematocrit of 44.9. MCV is 97.6. Platelet count 328,000 urinalysis shows it to be slightly cloudy with 2+ glucosuria 1+ ketones trace of occult blood and 5-10 white blood cells per high- power field with many bacteria appreciated. Urine culture will be ordered. I will give her a dose of Rocephin 1 g IV at this time. 06/29/21 19:30 patient will stay in the emergency department overnight as she is too weak and very fearful of falling if she goes back home. I will hang a second liter of normal saline to run at 100 mils an hour overnight to improve her serum sodium level. She will require gabapentin 600 mg every 4 hours and I will write that as a standing order. Ambien 10 mg at at bedtime to help her sleep while she is in the hospital. (Surya Villa) Departure - Departure Time of Disposition: 16:30 <Stephan Zuñiga - Last Filed: 06/30/21 16:27> - Departure Condition: Fair - Discharge Information *PRESCRIPTION DRUG MONITORING PROGRAM REVIEWED*: Not Applicable *COPY OF PRESCRIPTION DRUG MONITORING REPORT IN PATIENT IRENA: Not Applicable <Surya Villa - Last Filed: 07/03/21 08:13> - Departure Disposition: Refer to Observation Clinical Impression: Recurrent falls, Muscle weakness of lower extremity, Chronic pain syndrome, Hyponatremia, Lower urinary tract infection, Volume depletion Type 2 diabetes mellitus Qualifiers: Diabetes mellitus snf insulin use: without superintendent [employer] use Diabetes mellitus complication status: with other specified complication Qualified Code(s): E11.69 - Type 2 diabetes mellitus with other specified complication
[2021-06-29] MEDS ORDERED: Sodium Chloride 0.9% 1,000 ML IV SCH ×3 (15:30→20:00)
--- NOTE | 2021-06-29 16:42 | CR ---
Chest: Portable view of the chest was obtained. Comparison: Prior chest x-ray of 06/18/21. Heart size appears within normal limits for portable technique. Slight tortuosity of the thoracic aorta is seen. Prior surgery is noted within the lower thoracic and upper lumbar spine. Lungs are clear with no acute parenchymal change. Impression: 1. Nothing acute is seen on portable chest x-ray. Diagnostic code #2
[2021-06-29] MEDS ORDERED: HYDROmorphone 1 MG/ML Syringe IVPUSH ONE (17:29)
[2021-06-29] MEDS ORDERED: Ondansetron 4 MG/2 ML SDV IVPUSH ONE (17:29)
[2021-06-29] MEDS ORDERED: Gabapentin 600 MG Tab PO ONE (17:30)
[2021-06-29] MEDS ORDERED: cefTRIAXone 1 GM in Sodium Chloride 0.9% 100 ML IV ONE (19:53)
[2021-06-29] MEDS: Acetaminophen/oxyCODONE 325-5 MG Tab PO PRN (21:16)
[2021-06-29] MEDS: Famotidine 20 MG Tab PO SCH (21:17)
[2021-06-29] MEDS: Gabapentin 600 MG Tab PO SCH (23:40)
[2021-06-29] MEDS ORDERED: Zolpidem 5 MG Tab PO ONE (23:42)
[2021-06-30] MEDS: Gabapentin 600 MG Tab PO SCH ×4 (05:17→22:15)
[2021-06-30] MEDS ORDERED: Furosemide 40 MG Tab PO ONE (07:00)
[2021-06-30] MEDS ORDERED: rOPINIRole 1 MG Tab PO ONE (10:07)
--- NOTE | 2021-06-30 18:00 | PCM.HP.2 ---
H&P History of Present Illness - General Date of Service: 06/30/21 Admit Problem/Dx: Admission Diagnosis/Problem Admission Diagnosis/Problem UTI, Urinary tract infectious disease Source of Information: Patient, Provider, Other - History of Present Illness Initial Comments - Free Text/Narative: Patient is a 75-year-old female with a history of chronic back pain status post lumbar spinal fusion, chronic leg weakness, peripheral neuropathy in both lower extremities who was brought to the ER due to generalized weakness. As per patient and daughter, she started her to have back pain about a 15 years ago. She has undergone lumbar spinal fusion procedures x 2. She has been having peripheral neuropathy in both legs. She can normally walk using a walker in her room. Over the past few days she has been too weak which caused her to slip from your chair and onto the floor at home with inability to get up on your own volition. Denies loss of consciousness. Patient has not been eating and drin georgiana well over the past 1 to 2 days due to difficulty walking. She has diabetes which resulted from pancreatic removal for pancreatic cancer 15 years ago. In the ER, she was found to have soft blood pressure possibly due to dehydration. Urinalysis questionable UTI. Patient not able to go home because of weakness. Back Pain Score (Numeric/FACES): 6 - Related Data Allergies/Adverse Reactions: Allergies Allergy/AdvReac Type Severity Reaction Status Date / Time dulaglutide [From [facility]] AdvReac Nausea and Verified 06/30/21 14:25 Vomiting Home Medications: Home Meds Furosemide [Lasix] 30 mg PO SUMOWEFR 04/14/14 [History] Metoprolol Tartrate [Lopressor] 25 mg PO BID 04/14/14 [History] allopurinoL [Zyloprim] 150 mg PO DAILY 04/14/14 [History] Insulin Aspart [NovoLOG] 3 units SQ TID PRN 12/31/14 [History] Diltiazem [Cardizem CD] 180 mg PO DAILY 10/04/16 [History] Gabapentin 100 mg PO TID 10/04/16 [History] Gabapentin 600 mg PO Q4H 10/04/16 [History] Simvastatin 20 mg PO BEDTIME 10/04/16 [History] Calcium Carb/Mag Ox/Zinc Gluc [Ogarytr-Jfwrwxtqw-Xwjp] 1 tab PO DAILY 02/17/19 [History] Diclofenac Sodium [Voltaren 1% Gel] 1 dose TOP BID PRN 02/17/19 [History] Ferrous Sulfate [Iron] 65 mg PO DAILY 02/17/19 [History] Cholecalciferol (Vitamin D3) [Vitamin D] 1,000 unit PO DAILY 02/18/19 [History] Lactobacillus Rhamnosus R0011 [Probiotic Digestive Care] 1 each PO DAILY [History] Zolpidem Tartrate [Ambien] 5 mg PO BEDTIME PRN 02/18/19 [History] rOPINIRole [Requip] 3 mg PO QID 02/18/19 [History] Acetaminophen [Tylenol Arthritis] 650 mg PO BID 06/18/21 [History] Ascorbic Acid [Vitamin C with Mary Jane Hips] 500 mg PO DAILY 06/18/21 [History] Aspirin [Aspirin EC] 81 mg PO BEDTIME 06/18/21 [History] Cetirizine HCl/Pseudoephedrine [ZyrTEC-D] 1 tab PO ASDIRECTED PRN 06/18/21 [History] Cyanocobalamin (Vitamin B12) [Vitamin B12] 500 mcg PO DAILY 06/18/21 [History] Docusate Sodium [Colace] 50 mg PO DAILY 06/18/21 [History] Estradiol Micronized 1 applic TOP MOTH 06/18/21 [History] Fluticasone Propionate [Flonase] 1 spray PEPE ASDIRECTED PRN 06/18/21 [History] Glycerin/Min Oil/Polycarbophil [Replens Vaginal Applicator] 1 applic TOP SUTUWEFRSA 06/18/21 [History] Latanoprost [Xalatan 0.005% Ophth Soln] 1 drop EYEBOTH BEDTIME 06/18/21 [History] Losartan Potassium 25 mg PO DAILY 06/18/21 [History] Nystatin 1 applic TOP BID 06/18/21 [History] Nystatin [Nystatin Crm] 1 applic TOP DAILY 06/18/21 [History] Oxybutynin [Oxybutynin ER] 5 mg PO DAILY 06/18/21 [History] Cefdinir [Omnicef] 300 mg PO BID #12 cap 06/29/21 [Rx] Dapagliflozin/Metformin HCl [Xigduo Xr 10 mg-500 mg Tablet] 10 - 500 mg PO DAILY 06/29/21 [History] Dexlansoprazole [Dexilant] 60 mg PO DAILY 06/29/21 [History] Famotidine 40 mg PO BEDTIME 06/29/21 [History] Insulin Glargine,Hum.Rec.Anlog [Basaglar Kwikpen U-100] 40 unit SQ DAILY 06/29/21 [History] Past Medical History HEENT History: Reports: Impaired Vision, Other (See Below) Other HEENT History: wears glasses, has upper partial Cardiovascular History: Reports: Heart Failure, Hypertension, Other (See Below) Other Cardiovascular History: chest pain, edema Respiratory History: Reports: Sleep Apnea, SOB, Other (See Below) Other Respiratory History: URI Gastrointestinal History: Reports: Chronic Constipation, Hemorrhoids, Other (See Below) Other Gastrointestinal History: c diff, nausea, gastroparesis, colitis, post op nausea and vomiting Genitourinary History: Reports: Urinary Incontinence, UTI, Recurrent, Other (See Below) Other Genitourinary History: dysuria, renal failure, UTI, frequency, hestiency 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: Musculoskeletal History: Reports: Gout, Osteoarthritis Other Musculoskeletal History: degenerative joint disease, lumbar scolisosis, gout, hammertoes, rib fractures, low bakc pain, lumbar sacral radiculopathy at L5, cerviclagia Neurological History: Reports: Neuropathy, Diabetic, Other (See Below) Other Neuro History: multilevel failed back syndrome Psychiatric History: Reports: Other (See Below) Other Psychiatric History: anorexia nervosa Endocrine/Metabolic History: Reports: Diabetes, Type I, Hypothyroidism, Vitamin D Deficiency Other Endocrine/Metabolic History: benign lesion of adrenal gland Hematologic History: Reports: Other (See Below) Other Hematologic History: , blood clots, malaise, fatigue Immunologic History: Reports: None Oncologic (Cancer) History: Reports: Pancreatic Dermatologic History: Reports: Cellulitis Other Dermatologic History: dizziness - Infectious Disease History Infectious Disease History: Reports: C-Difficile - Past Surgical History Head Surgeries/Procedures: Reports: None HEENT Surgical History: Reports: Cataract Surgery Cardiovascular Surgical History: Reports: None Respiratory Surgical History: Reports: None GI Surgical History: Reports: Appendectomy, Colonoscopy, Other (See Below) Other GI Surgeries/Procedures: partial removal of pancreas--she reports fairly 3 /4 of her pancreas was removed by a surgeon in [place] because of cancer of the pancreas in 1994 Female Surgical History: Reports: Hysterectomy Endocrine Surgical History: Reports: None Neurological Surgical History: Reports: Other (See Below) Other Neurological Surgeries/Procedures: back surgery Musculoskeletal Surgical History: Reports: Shoulder Replacement, Other (See Below) Other Musculoskeletal Surgeries/Procedures:: carpal tunnel surgery, shoulder surgery, lumbar fusion, back surgery, knee replacement Oncologic Surgical History: Reports: Other (See Below) Other Oncologic Surgeries/Procedures: pacrectomy 75% Social & Family History - Family History Family Medical History: No Pertinent Family History - Tobacco Use Tobacco Use Status *Q: Former Tobacco User Used Tobacco, but Quit: Yes Month/Year Tobacco Last Used: 50 yr - Caffeine Use Caffeine Use: Reports: Coffee Caffeine Use Comment: States she drinks about 2 cups per day of coffee, drinks about 2 cans of 7up per day - Recreational Drug Use Recreational Drug Use: No - Living Situation & Occupation Living situation: Reports: Occupation: Employed H&P Review of Systems - Review of Systems: Review Of Systems: See Below General: Reports: Malaise, Weakness, Fatigue HEENT: Reports: No Symptoms Pulmonary: Reports: No Symptoms Cardiovascular: Reports: No Symptoms Gastrointestinal: Reports: No Symptoms Musculoskeletal: Reports: Back Pain Skin: Reports: No Symptoms Psychiatric: Reports: No Symptoms Neurological: Reports: Difficulty Walking (Due to generalized weakness), Weakness (Generalized weakness) Hematologic/Lymphatic: Reports: No Symptoms Immunologic: Reports: No Symptoms Exam - Exam Exam: See Below - Vital Signs Vital Signs: Last Vital Signs Temp 36.6 C 06/30/21 07:22 Pulse 85 06/30/21 16:00 Resp 20 06/30/21 16:00 BP 96/63 06/30/21 16:00 Pulse Ox 95 06/30/21 16:00 Weight: 86.183 kg - Exam General: Alert, Oriented, Cooperative HEENT: Conjunctiva Clear, EOMI, Pupils Equal, Pupils Reactive Neck: Supple, Trachea Midline, +2 Carotid Pulse wo Bruit Lungs: Clear to Auscultation, Normal Respiratory Effort Cardiovascular: Regular Rate, Regular Rhythm, Normal S1, Normal S2 GI/Abdominal Exam: Normal Bowel Sounds, Soft, Non-Tender, No Organomegaly, No Distention Back Exam: CVA Tenderness (L), Other (Tenderness lower L and S-spine areas and right upper buttock. ) Extremities: Normal Inspection, Pedal Edema (1+) Skin: Warm, Dry, Intact Neurological: Reflexes Equal Bilateral, Strength Equal Bilateral (strength: 2- 3/5 in both legs but symmetrical; 3-4/5 in both arms, symmetrical. ), Normal Speech, Normal Tone, Sensation Intact Neuro Extensive - Mental Status: Alert, Oriented x3, Normal Mood/Affect Neuro Extensive - Motor, Sensory, Reflexes: CN II-XII Intact Psychiatric: Alert, Normal Affect, Normal Mood - Patient Data Lab Results Last 24 hrs: Laboratory Results - last 24 hr 06/29/21 06/29/21 06/29/21 Range/Units 16:30 18:19 18:19 WBC 9.21 (3.98-10.04) K/mm3 RBC 4.60 (3.98-5.22) M/mm3 Hgb 14.6 (11.2-15.7) gm/dl Hct 44.9 (34.1-44.9) % MCV 97.6 H (79.4-94.8) fl MCH 31.7 (25.6-32.2) pg MCHC 32.5 (32.2-35.5) g/dl RDW Std Deviation 49.7 H (36.4-46.3) fL Plt Count 328 (182-369) K/mm3 MPV 10.4 (9.4-12.3) fl Neut % (Auto) 69.5 (34.0-71.1) % Lymph % (Auto) 15.2 L (19.3-51.7) % Owen % (Auto) 9.2 (4.7-12.5) % Eos % (Auto) 5.5 (0.7-5.8) Baso % (Auto) 0.5 (0.1-1.2) % Neut # (Auto) 6.39 H (1.56-6.13) K/mm3 Lymph # (Auto) 1.40 (1.18-3.74) K/mm3 Owen # (Auto) 0.85 H (0.24-0.36) K/mm3 Eos # (Auto) 0.51 H (0.04-0.36) K/mm3 Baso # (Auto) 0.05 (0.01-0.08) K/mm3 POC Glucose (70-99) mg/dL Lactic Acid 1.0 (0.4-2.0) mmol/L Urine Color Yellow (Yellow) Urine Appearance Slt cloudy H (Clear) Urine pH 6.5 (5.0-8.0) Ur Specific [place] 1.015 (1.005-1.030) Urine Protein Negative (Negative) Urine Glucose (UA) 2+ H (Negative) Urine Ketones 1+ H (Negative) Urine Occult Blood Trace-intact H (Negative) Urine Nitrite Negative (Negative) Urine Bilirubin Negative (Negative) Urine Urobilinogen 0.2 (0.2-1.0) Ur Leukocyte Esterase Negative (Negative) Urine RBC 0-5 (0-5) /hpf Urine WBC 5-10 H (0-5) /hpf Ur Epithelial Cells 0-5 (0-5) /hpf Urine Bacteria Many H (FEW) /hpf Urine Mucus Not seen (FEW) /hpf SARS-CoV-2 RNA (TORIBIO) (NEGATIVE) 06/30/21 06/30/21 Range/Units 11:31 12:58 WBC (3.98-10.04) K/mm3 RBC (3.98-5.22) M/mm3 Hgb (11.2-15.7) gm/dl Hct (34.1-44.9) % MCV (79.4-94.8) fl MCH (25.6-32.2) pg MCHC (32.2-35.5) g/dl RDW Std Deviation (36.4-46.3) fL Plt Count (182-369) K/mm3 MPV (9.4-12.3) fl Neut % (Auto) (34.0-71.1) % Lymph % (Auto) (19.3-51.7) % Owen % (Auto) (4.7-12.5) % Eos % (Auto) (0.7-5.8) Baso % (Auto) (0.1-1.2) % Neut # (Auto) (1.56-6.13) K/mm3 Lymph # (Auto) (1.18-3.74) K/mm3 Owen # (Auto) (0.24-0.36) K/mm3 Eos # (Auto) (0.04-0.36) K/mm3 Baso # (Auto) (0.01-0.08) K/mm3 POC Glucose 97 (70-99) mg/dL Lactic Acid (0.4-2.0) mmol/L Urine Color (Yellow) Urine Appearance (Clear) Urine pH (5.0-8.0) Ur Specific [place] (1.005-1.030) Urine Protein (Negative) Urine Glucose (UA) (Negative) Urine Ketones (Negative) Urine Occult Blood (Negative) Urine Nitrite (Negative) Urine Bilirubin (Negative) Urine Urobilinogen (0.2-1.0) Ur Leukocyte Esterase (Negative) Urine RBC (0-5) /hpf Urine WBC (0-5) /hpf Ur Epithelial Cells (0-5) /hpf Urine Bacteria (FEW) /hpf Urine Mucus (FEW) /hpf SARS-CoV-2 RNA (TORIBIO) Negative (NEGATIVE) Result Diagrams: 06/29/21 18:19 06/29/21 15:37 Sepsis Event Note - Evaluation Sepsis Screening Result: No Definite Risk - Focused Exam Vital Signs: Vital Signs Temp Pulse Resp BP Pulse Ox 06/30/21 16:00 85 20 96/63 95 06/30/21 14:00 98 16 107/66 96 06/30/21 11:05 95 22 H 80/66 L 93 L 06/30/21 07:22 36.6 C 108 H 20 110/57 L 97 Problem List Initiated/Reviewed/Updated: Yes Orders Last 24hrs: Active Orders 24 hr Category Date Time Status Patient Status [ADT] Routine ADT 06/30/21 16:31 Active Oxygen Therapy, ED [RC] ASDIRECTED Care 06/29/21 18:10 Active BLOOD CULTURE [MREF] Stat Lab 06/29/21 18:14 Received BLOOD CULTURE [MREF] Stat Lab 06/29/21 18:19 Received Acetaminophen/oxyCODONE [Percocet 325-5 MG] Med 06/29/21 20:13 Active 1 tab PO Q6H PRN Famotidine [Pepcid] Med 06/29/21 21:00 Active 20 mg PO BEDTIME Gabapentin [Neurontin] Med 06/29/21 23:00 Active 600 mg PO Q6H Insulin Lispro [HumaLOG] Med 06/30/21 17:00 Active See Protocol SUBCUT QIDACANDBED Sodium Chloride 0.9% [Normal Saline] 1,000 ml Med 06/29/21 17:45 Active IV ASDIRECTED Sodium Chloride 0.9% [Normal Saline] 1,000 ml Med 06/29/21 20:00 Active IV ASDIRECTED Blood Culture x2 Reflex Set [OM.PC] Stat Oth 06/29/21 18:08 Ordered Medication Orders Famotidine (Famotidine 20 Mg Tab) 20 mg PO BEDTIME CALI Last Admin: 06/29/21 21:17 Dose: 20 mg Documented by: MARCO Gabapentin (Gabapentin 600 Mg Tab) 600 mg PO Q6H CALI Last Admin: 06/30/21 10:20 Dose: 600 mg Documented by: Admin: 06/30/21 05:17 Dose: 600 mg Documented by: Admin: 06/29/21 23:40 Dose: 600 mg Documented by: MARCO Sodium Chloride (Normal Saline) 1,000 mls @ 999 mls/hr IV ASDIRECTED CALI Sodium Chloride (Normal Saline) 1,000 mls @ 100 mls/hr IV ASDIRECTED CALI Last Admin: 06/29/21 20:12 Dose: 100 mls/hr Documented by: MARCO Insulin Human Lispro (Insulin Lispro 100 Unit/Ml 3 Ml Kwikpen) 0 unit SUBCUT QIDACANDBED [facility]; Protocol Oxycodone/Acetaminophen (Acetaminophen/Oxycodone 325-5 Mg Tab) 1 tab PO Q6H PRN PRN Reason: pain relief Last Admin: 06/29/21 21:16 Dose: 1 tab Documented by: MARCO Assessment/Plan Comment:: Patient is a 75-year-old female with a history of chronic back pain status post lumbar spinal fusion, chronic leg weakness, peripheral neuropathy in both lower extremities who was brought to the ER due to generalized weakness. Assessment and plan: Chronic back pain Chronic peripheral neuropathy in both legs pain management including iv dilaudid. Continue home gabapentin PT OT Acute hypoxic respiratory failure In the ER, she was not desaturated but she was on 2 L Chest x-ray no acute change Pulse ox Oxygen therapy if needed Generalized weakness TSH PT OT Dehydration Soft BP NS 2L was given in the ER. I will not give her more IVF since both leg swelling and hx of CHF. losartan 25mg daily is on hold diltiazem 180mg daily (unknown why she is taking diltiazem) Continue metoprolol 25mg bid Possible UTI/pyelonephritis BRAULIO or CKD Creatinine 1.1 in the ER today. It was 1.0 on 10/09/2020 She has mild dehydration. NS bolus was given in the ER Avoid nephrotoxic meds Repeat the renal function in morning Diabetes with a diabetic nephropathy Acquired? had pancreatic cancer 15 years ago and pancreas removed. dapagliflozin/metformin is on hold She is on lantus 40units daily I will order lantus 20 units daily Insulin ss adjust insulin based on glucose levels Hx of CHF, unknown type BNP 167 home Lasix 30mg is on hold Mild leg swelling No lasix ordered at this moment Self care deficit PT OT placement DVT prophylaxis: Lovenox CODE STATUS: CPR only. Discussed with the patient and her daughter. Pt initially wanted DNR/DNI. But she changed to CPR only. - Mortality Measure Prognosis:: Poor
[2021-06-30] MEDS ORDERED: Sodium Chloride 0.9% 1,000 ML IV SCH (18:15)
[2021-06-30] MEDS ORDERED: Promethazine 6.25 MG in Sodium Chloride 0.9% 50 ML IV PRN (18:17)
[2021-06-30] MEDS ORDERED: Acetaminophen 325 MG Tab PO PRN (18:17)
[2021-06-30] MEDS ORDERED: HYDROmorphone 0.5 MG/0.5 ML Syringe IVPUSH PRN (18:17)
[2021-06-30] MEDS ORDERED: Fluticasone Propionate Nasal Spray 16 GM Bottle NASBOTH PRN (18:21)
[2021-06-30] MEDS ORDERED: cefTRIAXone 1 GM in Sodium Chloride 0.9% 100 ML IV SCH (18:30)
[2021-06-30] MEDS ORDERED: hydrALAZINE 20 MG/ML SDV IVPUSH PRN (18:33)
[2021-06-30] MEDS: Insulin Lispro 100 Unit/ML 3 ML KwikPen SUBCUT SCH ×2 (19:40→22:16)
[2021-06-30] MEDS: Aspirin 81 MG Tab.EC PO SCH (20:03)
[2021-06-30] MEDS: Famotidine 20 MG Tab PO SCH (20:03)
[2021-06-30] MEDS ORDERED: Gabapentin 100 MG Cap PO SCH (21:00)
[2021-07-01] MEDS ORDERED: traZODone 50 MG Tab PO ONE (02:10)
[2021-07-01] MEDS: Acetaminophen/oxyCODONE 325-5 MG Tab PO PRN ×2 (03:33→23:13)
[2021-07-01] MEDS: Gabapentin 600 MG Tab PO SCH (04:38)
[2021-07-01] MEDS: Insulin Lispro 100 Unit/ML 3 ML KwikPen SUBCUT SCH ×4 (06:39→21:51)
[2021-07-01] MEDS: Metoprolol Tartrate 25 MG Tab **PTOM PO SCH ×3 (09:39→21:00)
[2021-07-01] MEDS: CALCIUM CARBONATE PO SCH (10:13)
[2021-07-01] MEDS: MAGNESIUM OXIDE PO SCH (10:13)
[2021-07-01] MEDS: ZINC GLUCONATE PO SCH (10:13)
[2021-07-01] MEDS: FERROUS SULFATE 325 MG PO SCH (10:14)
[2021-07-01] MEDS: OXYBUTYNIN 5 MG PO SCH (10:15)
[2021-07-01] MEDS: GABAPENTIN 600 MG PO SCH ×3 (10:15→21:51)
[2021-07-01] MEDS: ROPINIROLE 3 MG PO SCH ×4 (10:16→21:06)
[2021-07-01] MEDS: Cholecalciferol (Vitamin D3) 25 MCG Tab PO SCH (10:17)
[2021-07-01] MEDS: Saccharomyces Boulardii (Probiotic) 250 MG Cap PO SCH (10:17)
[2021-07-01] MEDS: Allopurinol 100 MG Tab **PTOM PO SCH (10:17)
[2021-07-01] MEDS: Cyanocobalamin (Vitamin B12) 1,000 MCG Tab PO SCH (10:18)
[2021-07-01] MEDS: Enoxaparin 40 MG/0.4 ML Syringe SUBCUT SCH (10:19)
--- NOTE | 2021-07-01 10:47 | PCM.PN ---
- General Info Date of Service: 07/01/21 Admission Dx/Problem (Free Text): Admission Diagnosis/Problem Admission Diagnosis/Problem UTI, Urinary tract infectious disease Functional Status: Reports: Pain Controlled (for the most part), Urinating. Denies: Tolerating Diet (Decreased intake ), Ambulating (Manuel lift currently), New Symptoms - Review of Systems General: Reports: Weakness. Denies: Fever, Fatigue, Malaise, Chills HEENT: Reports: No Symptoms. Denies: Headaches, Sore Throat Pulmonary: Reports: No Symptoms. Denies: Shortness of Breath, Cough, Sputum, Wheezing Cardiovascular: Reports: Edema (chronic ). Denies: Chest Pain, Palpitations, D yspnea on Exertion Gastrointestinal: Reports: Decreased Appetite. Denies: Abdominal Pain, Constipation, Diarrhea, Nausea, Vomiting Genitourinary: Reports: Incontinence, Retention. Denies: Dysuria, Frequency, Burning, Pain Musculoskeletal: Reports: Back Pain (Chronic - hx/o multiple lumbar spine compression fractures/surgeries) Skin: Reports: No Symptoms. Denies: Cyanosis Neurological: Reports: Pre-Existing Deficit, Difficulty Walking, Weakness. Denies: Confusion, Dizziness, Headache, Numbness, Seizure, Syncope, Tingling, Tremors, Change in Speech, Gait Disturbance Psychiatric: Reports: No Symptoms - Patient Data Vitals - Most Recent: Last Vital Signs Temp 99.0 F 07/01/21 08:41 Pulse 85 07/01/21 10:13 Resp 16 07/01/21 03:58 BP 127/57 L 07/01/21 10:13 Pulse Ox 93 L 07/01/21 08:41 Weight - Most Recent: 206 lb 8 oz I&O - Last 24 Hours: Intake & Output 06/30/21 07/01/21 07/01/21 22:59 06:59 14:59 Output Total 800 Balance -800 Lab Results Last 24 Hours: Laboratory Results - last 24 hr 06/30/21 06/30/21 06/30/21 Range/Units 11:31 12:58 18:34 WBC (3.98-10.04) K/mm3 RBC (3.98-5.22) M/mm3 Hgb (11.2-15.7) gm/dl Hct (34.1-44.9) % MCV (79.4-94.8) fl MCH (25.6-32.2) pg MCHC (32.2-35.5) g/dl RDW Std Deviation (36.4-46.3) fL Plt Count (182-369) K/mm3 MPV (9.4-12.3) fl Neut % (Auto) (34.0-71.1) % Lymph % (Auto) (19.3-51.7) % Love % (Auto) (4.7-12.5) % Eos % (Auto) (0.7-5.8) Baso % (Auto) (0.1-1.2) % Neut # (Auto) (1.56-6.13) K/mm3 Lymph # (Auto) (1.18-3.74) K/mm3 Love # (Auto) (0.24-0.36) K/mm3 Eos # (Auto) (0.04-0.36) K/mm3 Baso # (Auto) (0.01-0.08) K/mm3 Sodium (136-145) mEq/L Potassium (3.5-5.1) mEq/L Chloride (98-107) mEq/L Carbon Dioxide (21-32) mEq/L Anion Gap (5-15) BUN (7-18) mg/dL Creatinine (0.55-1.02) mg/dL Est Cr Clr Drug Dosing mL/min Estimated GFR (MDRD) (>60) mL/min BUN/Creatinine Ratio (14-18) Glucose (70-99) mg/dL POC Glucose 97 165 H (70-99) mg/dL Calcium (8.5-10.1) mg/dL Magnesium (1.8-2.4) mg/dL Total Bilirubin (0.2-1.0) mg/dL AST (15-37) U/L ALT (14-59) U/L Alkaline Phosphatase (46-116) U/L Total Protein (6.4-8.2) g/dl Albumin (3.4-5.0) g/dl Globulin gm/dL Albumin/Globulin Ratio (1-2) Free T4 (0.76-1.46) ng/dL TSH 3rd Generation (0.358-3.74) uIU/mL SARS-CoV-2 RNA (TORIBIO) Negative (NEGATIVE) 11/07/01/21 07/01/21 Range/Units 21:04 06:08 06:08 WBC 9.76 (3.98-10.04) K/mm3 RBC 4.39 (3.98-5.22) M/mm3 Hgb 13.6 (11.2-15.7) gm/dl Hct 43.7 (34.1-44.9) % MCV 99.5 H (79.4-94.8) fl MCH 31.0 (25.6-32.2) pg MCHC 31.1 L (32.2-35.5) g/dl RDW Std Deviation 51.7 H (36.4-46.3) fL Plt Count 305 (182-369) K/mm3 MPV 10.8 (9.4-12.3) fl Neut % (Auto) 61.6 (34.0-71.1) % Lymph % (Auto) 18.0 L (19.3-51.7) % Love % (Auto) 13.3 H (4.7-12.5) % Eos % (Auto) 6.5 H (0.7-5.8) Baso % (Auto) 0.5 (0.1-1.2) % Neut # (Auto) 6.01 (1.56-6.13) K/mm3 Lymph # (Auto) 1.76 (1.18-3.74) K/mm3 Love # (Auto) 1.30 H (0.24-0.36) K/mm3 Eos # (Auto) 0.63 H (0.04-0.36) K/mm3 Baso # (Auto) 0.05 (0.01-0.08) K/mm3 Sodium 142 D (136-145) mEq/L Potassium 4.3 (3.5-5.1) mEq/L Chloride 103 (98-107) mEq/L Carbon Dioxide 26 (21-32) mEq/L Anion Gap 17.3 H (5-15) BUN 20 H (7-18) mg/dL Creatinine 1.1 H (0.55-1.02) mg/dL Est Cr Clr Drug Dosing 34.41 mL/min Estimated GFR (MDRD) 48 (>60) mL/min BUN/Creatinine Ratio 18.2 H (14-18) Glucose 139 H (70-99) mg/dL POC Glucose 189 H (70-99) mg/dL Calcium 8.3 L (8.5-10.1) mg/dL Magnesium 2.1 (1.8-2.4) mg/dL Total Bilirubin 0.4 (0.2-1.0) mg/dL AST 19 (15-37) U/L ALT 24 (14-59) U/L Alkaline Phosphatase 65 (46-116) U/L Total Protein 6.3 L (6.4-8.2) g/dl Albumin 3.3 L (3.4-5.0) g/dl Globulin 3.0 gm/dL Albumin/Globulin Ratio 1.1 (1-2) Free T4 (0.76-1.46) ng/dL TSH 3rd Generation 5.870 H (0.358-3.74) uIU/mL SARS-CoV-2 RNA (TORIBIO) (NEGATIVE) 07/01/21 07/01/21 Range/Units 06:08 06:24 WBC (3.98-10.04) K/mm3 RBC (3.98-5.22) M/mm3 Hgb (11.2-15.7) gm/dl Hct (34.1-44.9) % MCV (79.4-94.8) fl MCH (25.6-32.2) pg MCHC (32.2-35.5) g/dl RDW Std Deviation (36.4-46.3) fL Plt Count (182-369) K/mm3 MPV (9.4-12.3) fl Neut % (Auto) (34.0-71.1) % Lymph % (Auto) (19.3-51.7) % Love % (Auto) (4.7-12.5) % Eos % (Auto) (0.7-5.8) Baso % (Auto) (0.1-1.2) % Neut # (Auto) (1.56-6.13) K/mm3 Lymph # (Auto) (1.18-3.74) K/mm3 Love # (Auto) (0.24-0.36) K/mm3 Eos # (Auto) (0.04-0.36) K/mm3 Baso # (Auto) (0.01-0.08) K/mm3 Sodium (136-145) mEq/L Potassium (3.5-5.1) mEq/L Chloride (98-107) mEq/L Carbon Dioxide (21-32) mEq/L Anion Gap (5-15) BUN (7-18) mg/dL Creatinine (0.55-1.02) mg/dL Est Cr Clr Drug Dosing mL/min Estimated GFR (MDRD) (>60) mL/min BUN/Creatinine Ratio (14-18) Glucose (70-99) mg/dL POC Glucose 125 H (70-99) mg/dL Calcium (8.5-10.1) mg/dL Magnesium (1.8-2.4) mg/dL Total Bilirubin (0.2-1.0) mg/dL AST (15-37) U/L ALT (14-59) U/L Alkaline Phosphatase (46-116) U/L Total Protein (6.4-8.2) g/dl Albumin (3.4-5.0) g/dl Globulin gm/dL Albumin/Globulin Ratio (1-2) Free T4 1.16 (0.76-1.46) ng/dL TSH 3rd Generation (0.358-3.74) uIU/mL SARS-CoV-2 RNA (TORIBIO) (NEGATIVE) Med Orders - Current: Current Medications Acetaminophen (Acetaminophen 325 Mg Tab) 650 mg PO Q6H PRN PRN Reason: Pain (Mild 1-3)/fever Allopurinol (Allopurinol 100 Mg Tab Ptom) 150 mg PO DAILY [facility] Last Admin: 07/01/21 10:17 Dose: 150 mg Documented by: Aspirin (Aspirin 81 Mg Tab.Ec) 81 mg PO BEDTIME [facility] Last Admin: 06/30/21 20:03 Dose: 81 mg Documented by: Cholecalciferol (Cholecalciferol (Vitamin D3) 25 Mcg Tab) 25 mcg PO DAILY [facility] Last Admin: 07/01/21 10:17 Dose: 25 mcg Documented by: Cyanocobalamin (Cyanocobalamin (Vitamin B12) 1,000 Mcg Tab) 500 mcg PO DAILY [facility] Last Admin: 07/01/21 10:18 Dose: 500 mcg Documented by: Enoxaparin Sodium (Enoxaparin 40 Mg/0.4 Ml Syringe) 40 mg SUBCUT DAILY [facility] Last Admin: 07/01/21 10:19 Dose: 40 mg Documented by: Famotidine (Famotidine 20 Mg Tab) 20 mg PO BEDTIME [facility] Last Admin: 06/30/21 20:03 Dose: 20 mg Documented by: Fluticasone Propionate (Fluticasone Propionate Nasal [place] 16 Gm Bottle) 0 gm NASBOTH DAILY PRN PRN Reason: Congestion Gabapentin (Gabapentin 600 Mg Tab Ptom) 600 mg PO Q6H [facility] Last Admin: 07/01/21 10:15 Dose: 600 mg Documented by: Hydralazine HCl (Hydralazine 20 Mg/Ml Sdv) 10 mg IVPUSH Q4H PRN PRN Reason: Hypertension Hydromorphone HCl (Hydromorphone 0.5 Mg/0.5 Ml Syringe) 0.5 mg IVPUSH Q4H PRN PRN Reason: Pain (severe 7-10) Promethazine HCl 6.25 mg/ (Sodium Chloride) 50.25 mls @ 100 mls/hr IV Q6H PRN PRN Reason: Nausea/Vomiting Ceftriaxone Sodium 1 gm/ (Sodium Chloride) 100 mls @ 200 mls/hr IV Q24H [facility] Last Admin: 06/30/21 20:03 Dose: 200 mls/hr Documented by: Insulin Glargine (Insulin Glargine,Hum.Rec.Anlog 100 Unit/Ml 3 Ml Pen) 20 unit SUBCUT DAILY [facility] Insulin Human Lispro (Insulin Lispro 100 Unit/Ml 3 Ml Kwikpen) 0 unit SUBCUT QIDACANDBED [facility]; Protocol Last Admin: 07/01/21 06:39 Dose: Not Given Documented by: Latanoprost (Latanoprost 0.005% Ophth Soln 2.5 Ml Bottle) 0 ml EYEBOTH BEDTIME [facility] Metoprolol Tartrate (Metoprolol Tartrate 25 Mg Tab Ptom) 25 mg PO BID [facility] Last Admin: 07/01/21 10:13 Dose: 25 mg Documented by: Calcium Carb/Mag Ox/ (Zinc Gluc Tab Ptom) 1 tab PO DAILY [facility] Last Admin: 07/01/21 10:13 Dose: 1 tab Documented by: Famotidine 40 Mg (Tablet Ptom) 0 mg PO BEDTIME [facility] Ferrous Sulfate 325 (Mg Tablet Ptom) 0 mg PO DAILY [facility] Last Admin: 07/01/21 10:14 Dose: 325 mg Documented by: Ropinirole 3 Mg (Tablet Ptom) 0 mg PO QID [facility] Last Admin: 07/01/21 10:16 Dose: 3 mg Documented by: Oxybutynin Chloride (Oxybutynin 5 Mg Tab.Er Ptom) 5 mg PO DAILY [facility] Last Admin: 07/01/21 10:15 Dose: 5 mg Documented by: Oxycodone/Acetaminophen (Acetaminophen/Oxycodone 325-5 Mg Tab) 1 tab PO Q6H PRN PRN Reason: pain relief Last Admin: 07/01/21 03:33 Dose: 1 tab Documented by: Saccharomyces Boulardii (Saccharomyces Boulardii (Probiotic) 250 Mg Cap) 250 mg PO DAILY [facility] Last Admin: 07/01/21 10:17 Dose: 250 mg Documented by: Simvastatin (Simvastatin 20 Mg Tab Ptom) 20 mg PO BEDTIME [facility] Zolpidem Tartrate (Zolpidem 5 Mg Tab) 5 mg PO BEDTIME PRN PRN Reason: Insomnia Discontinued Medications Furosemide (Furosemide 40 Mg Tab) 40 mg PO ONETIME ONE Stop: 06/30/21 07:01 Last Admin: 06/30/21 06:59 Dose: 40 mg Documented by: Gabapentin (Gabapentin 600 Mg Tab) 600 mg PO ONETIME ONE Stop: 06/29/21 17:31 Last Admin: 06/29/21 18:06 Dose: 600 mg Documented by: Gabapentin (Gabapentin 600 Mg Tab) 600 mg PO Q6H [facility] Last Admin: 07/01/21 04:38 Dose: 600 mg Documented by: Gabapentin (Gabapentin 100 Mg Cap) 100 mg PO TID [facility] Hydromorphone HCl (Hydromorphone 1 Mg/Ml Syringe) 1 mg IVPUSH ONETIME ONE Stop: 06/29/21 17:30 Last Admin: 06/29/21 18:03 Dose: 1 mg Documented by: Sodium Chloride (Normal Saline) 1,000 mls @ 150 mls/hr IV ASDIRECTED [facility] Last Infusion: 06/29/21 18:05 Dose: 999 mls/hr Documented by: Sodium Chloride (Normal Saline) 1,000 mls @ 999 mls/hr IV ASDIRECTED [facility] Sodium Chloride (Normal Saline) 1,000 mls @ 100 mls/hr IV ASDIRECTED [facility] Last Admin: 06/29/21 20:12 Dose: 100 mls/hr Documented by: Ceftriaxone Sodium 1 gm/ (Sodium Chloride) 100 mls @ 200 mls/hr IV ONETIME ONE Stop: 06/29/21 20:22 Last Admin: 06/29/21 20:12 Dose: 200 mls/hr Documented by: Sodium Chloride (Normal Saline) 1,000 mls @ 65 mls/hr IV ASDIRECTED [facility] Ondansetron HCl (Ondansetron 4 Mg/2 Ml Sdv) 4 mg IVPUSH ONETIME ONE Stop: 06/29/21 17:30 Last Admin: 06/29/21 18:01 Dose: 4 mg Documented by: Ropinirole HCl (Ropinirole 1 Mg Tab) 3 mg PO ONETIME ONE Stop: 06/30/21 10:08 Last Admin: 06/30/21 10:20 Dose: 3 mg Documented by: Trazodone HCl (Trazodone 50 Mg Tab) 50 mg PO ONETIME ONE Stop: 07/01/21 02:11 Last Admin: 07/01/21 02:33 Dose: 50 mg Documented by: Zolpidem Tartrate (Zolpidem 5 Mg Tab) 5 mg PO ONETIME ONE Stop: 06/29/21 23:43 Last Admin: 06/29/21 23:55 Dose: 5 mg Documented by: - Exam Quality Assessment: Supplemental Oxygen (1L), DVT Prophylaxis. No: Urine Catheter Urinary Catheter Total Time: 0Days 0Hours General: Alert, Oriented, Cooperative, No Acute Distress HEENT: Pupils Equal, Pupils Reactive, Mucous Membr. Moist/[place]: Supple, Trachea Midline Lungs: Clear to Auscultation, Normal Respiratory Effort Cardiovascular: Regular Rate, Regular Rhythm GI/Abdominal Exam: Normal Bowel Sounds, Soft, Non-Tender, No Distention (Female) Exam: Deferred Back Exam: Decreased Range of Motion, Vertebral Tenderness Extremities: Normal Inspection, Non-Tender, Normal Capillary Refill, Pedal Edema (1-2+), Limited Range of Motion Skin: Warm, Dry, Intact Neurological: No New Focal Deficit, Normal Speech, Normal Tone, Strength Equal Bilateral, Sensation Intact. No: Normal Gait Psy/Mental Status: Alert, Normal Affect, Normal Mood - Patient Data Lab Results Last 24 hrs: Laboratory Results - last 24 hr 06/30/21 06/30/2121 Range/Units 11:31 12:58 18:34 WBC (3.98-10.04) K/mm3 RBC (3.98-5.22) M/mm3 Hgb (11.2-15.7) gm/dl Hct (34.1-44.9) % MCV (79.4-94.8) fl MCH (25.6-32.2) pg MCHC (32.2-35.5) g/dl RDW Std Deviation (36.4-46.3) fL Plt Count (182-369) K/mm3 MPV (9.4-12.3) fl Neut % (Auto) (34.0-71.1) % Lymph % (Auto) (19.3-51.7) % Love % (Auto) (4.7-12.5) % Eos % (Auto) (0.7-5.8) Baso % (Auto) (0.1-1.2) % Neut # (Auto) (1.56-6.13) K/mm3 Lymph # (Auto) (1.18-3.74) K/mm3 Love # (Auto) (0.24-0.36) K/mm3 Eos # (Auto) (0.04-0.36) K/mm3 Baso # (Auto) (0.01-0.08) K/mm3 Sodium (136-145) mEq/L Potassium (3.5-5.1) mEq/L Chloride (98-107) mEq/L Carbon Dioxide (21-32) mEq/L Anion Gap (5-15) BUN (7-18) mg/dL Creatinine (0.55-1.02) mg/dL Est Cr Clr Drug Dosing mL/min Estimated GFR (MDRD) (>60) mL/min BUN/Creatinine Ratio (14-18) Glucose (70-99) mg/dL POC Glucose 97 165 H (70-99) mg/dL Calcium (8.5-10.1) mg/dL Magnesium (1.8-2.4) mg/dL Total Bilirubin (0.2-1.0) mg/dL AST (15-37) U/L ALT (14-59) U/L Alkaline Phosphatase (46-116) U/L Total Protein (6.4-8.2) g/dl Albumin (3.4-5.0) g/dl Globulin gm/dL Albumin/Globulin Ratio (1-2) Free T4 (0.76-1.46) ng/dL TSH 3rd Generation (0.358-3.74) uIU/mL SARS-CoV-2 RNA (TORIBIO) Negative (NEGATIVE) 06/30/21 07/01/21 07/01/21 Range/Units 21:04 06:08 06:08 WBC 9.76 (3.98-10.04) K/mm3 RBC 4.39 (3.98-5.22) M/mm3 Hgb 13.6 (11.2-15.7) gm/dl Hct 43.7 (34.1-44.9) % MCV 99.5 H (79.4-94.8) fl MCH 31.0 (25.6-32.2) pg MCHC 31.1 L (32.2-35.5) g/dl RDW Std Deviation 51.7 H (36.4-46.3) fL Plt Count 305 (182-369) K/mm3 MPV 10.8 (9.4-12.3) fl Neut % (Auto) 61.6 (34.0-71.1) % Lymph % (Auto) 18.0 L (19.3-51.7) % Love % (Auto) 13.3 H (4.7-12.5) % Eos % (Auto) 6.5 H (0.7-5.8) Baso % (Auto) 0.5 (0.1-1.2) % Neut # (Auto) 6.01 (1.56-6.13) K/mm3 Lymph # (Auto) 1.76 (1.18-3.74) K/mm3 Love # (Auto) 1.30 H (0.24-0.36) K/mm3 Eos # (Auto) 0.63 H (0.04-0.36) K/mm3 Baso # (Auto) 0.05 (0.01-0.08) K/mm3 Sodium 142 D (136-145) mEq/L Potassium 4.3 (3.5-5.1) mEq/L Chloride 103 (98-107) mEq/L Carbon Dioxide 26 (21-32) mEq/L Anion Gap 17.3 H (5-15) BUN 20 H (7-18) mg/dL Creatinine 1.1 H (0.55-1.02) mg/dL Est Cr Clr Drug Dosing 34.41 mL/min Estimated GFR (MDRD) 48 (>60) mL/min BUN/Creatinine Ratio 18.2 H (14-18) Glucose 139 H (70-99) mg/dL POC Glucose 189 H (70-99) mg/dL Calcium 8.3 L (8.5-10.1) mg/dL Magnesium 2.1 (1.8-2.4) mg/dL Total Bilirubin 0.4 (0.2-1.0) mg/dL AST 19 (15-37) U/L ALT 24 (14-59) U/L Alkaline Phosphatase 65 (46-116) U/L Total Protein 6.3 L (6.4-8.2) g/dl Albumin 3.3 L (3.4-5.0) g/dl Globulin 3.0 gm/dL Albumin/Globulin Ratio 1.1 (1-2) Free T4 (0.76-1.46) ng/dL TSH 3rd Generation 5.870 H (0.358-3.74) uIU/mL SARS-CoV-2 RNA (TORIBIO) (NEGATIVE) 07/01/21 07/01/21 Range/Units 06:08 06:24 WBC (3.98-10.04) K/mm3 RBC (3.98-5.22) M/mm3 Hgb (11.2-15.7) gm/dl Hct (34.1-44.9) % MCV (79.4-94.8) fl MCH (25.6-32.2) pg MCHC (32.2-35.5) g/dl RDW Std Deviation (36.4-46.3) fL Plt Count (182-369) K/mm3 MPV (9.4-12.3) fl Neut % (Auto) (34.0-71.1) % Lymph % (Auto) (19.3-51.7) % Love % (Auto) (4.7-12.5) % Eos % (Auto) (0.7-5.8) Baso % (Auto) (0.1-1.2) % Neut # (Auto) (1.56-6.13) K/mm3 Lymph # (Auto) (1.18-3.74) K/mm3 Love # (Auto) (0.24-0.36) K/mm3 Eos # (Auto) (0.04-0.36) K/mm3 Baso # (Auto) (0.01-0.08) K/mm3 Sodium (136-145) mEq/L Potassium (3.5-5.1) mEq/L Chloride (98-107) mEq/L Carbon Dioxide (21-32) mEq/L Anion Gap (5-15) BUN (7-18) mg/dL Creatinine (0.55-1.02) mg/dL Est Cr Clr Drug Dosing mL/min Estimated GFR (MDRD) (>60) mL/min BUN/Creatinine Ratio (14-18) Glucose (70-99) mg/dL POC Glucose 125 H (70-99) mg/dL Calcium (8.5-10.1) mg/dL Magnesium (1.8-2.4) mg/dL Total Bilirubin (0.2-1.0) mg/dL AST (15-37) U/L ALT (14-59) U/L Alkaline Phosphatase (46-116) U/L Total Protein (6.4-8.2) g/dl Albumin (3.4-5.0) g/dl Globulin gm/dL Albumin/Globulin Ratio (1-2) Free T4 1.16 (0.76-1.46) ng/dL TSH 3rd Generation (0.358-3.74) uIU/mL SARS-CoV-2 RNA (TORIBIO) (NEGATIVE) Result Diagrams: 07/01/21 06:08 07/01/21 06:08 Sepsis Event Note - Evaluation Sepsis Screening Result: No Definite Risk - Focused Exam Vital Signs: Vital Signs Temp Pulse Resp BP Pulse Ox Pulse Ox 07/01/21 10:13 85 127/57 L 07/01/21 08:41 99.0 F 122 H 134/53 L 93 L 07/01/21 08:12 92 L 07/01/21 03:58 98.8 F 101 H 16 113/52 L 90 L 07/01/21 00:27 99.7 F 101 H 16 125/95 H 94 L - Problem List & Annotations (1) Asymptomatic bacteriuria SNOMED Code(s): 991193416 Code(s): R82.71 - BACTERIURIA Status: Chronic Priority: Low Current Visit: Yes (2) History of urinary retention SNOMED Code(s): 854941626 Code(s): Z87.898 - PERSONAL HISTORY OF OTHER SPECIFIED CONDITIONS Status: Chronic Priority: Low Current Visit: No (3) Chronic pain syndrome SNOMED Code(s): 901415308 Code(s): G89.4 - CHRONIC PAIN SYNDROME Status: Chronic Priority: High Current Visit: Yes (4) Hyponatremia SNOMED Code(s): 10715004 Code(s): E87.1 - HYPO-OSMOLALITY AND HYPONATREMIA Status: Resolved Priority: High Current Visit: Yes (5) Muscle weakness of lower extremity SNOMED Code(s): 601767706, 714261903 Code(s): M62.81 - MUSCLE WEAKNESS (GENERALIZED) Status: Acute Priority: High Current Visit: Yes (6) Recurrent falls SNOMED Code(s): 864384484 Code(s): R29.6 - REPEATED FALLS Status: Acute Priority: High Current Visit: Yes (7) Type II diabetes mellitus SNOMED Code(s): 35782856 Code(s): E11.9 - TYPE 2 DIABETES MELLITUS WITHOUT COMPLICATIONS Status: Chronic Priority: Medium Current Visit: Yes Qualifiers: Diabetes mellitus extermination supervisor insulin use: without extermination supervisor use Diabetes mellitus complication status: with other specified complication Qualified Code(s): E11.69 - Type 2 diabetes mellitus with other specified complication (8) Volume depletion SNOMED Code(s): 674801904 Code(s): E86.9 - VOLUME DEPLETION, UNSPECIFIED Status: Acute Priority: High Current Visit: Yes (9) Peripheral neuropathy SNOMED Code(s): 892916955 Code(s): G62.9 - POLYNEUROPATHY, UNSPECIFIED Status: Chronic Priority: High Current Visit: Yes Qualifiers: Peripheral neuropathy type: polyneuropathy, unspecified Qualified Code(s): G62.9 - Polyneuropathy, unspecified (10) Acute respiratory failure with hypoxia SNOMED Code(s): 51583047, 220762559 Code(s): J96.01 - ACUTE RESPIRATORY FAILURE WITH HYPOXIA Status: Acute Priority: Medium Current Visit: Yes (11) CKD (chronic kidney disease) SNOMED Code(s): 557820984 Code(s): N18.9 - CHRONIC KIDNEY DISEASE, UNSPECIFIED Status: Chronic Priority: Medium Current Visit: Yes Qualifiers: Chronic kidney disease stage: stage 3 (moderate) Chronic kidney disease stage 3 subtype: stage 3a (GFR 45-59) Qualified Code(s): N18.31 - Chronic kidney disease, stage 3a (12) History of pancreatic cancer SNOMED Code(s): 69799146732822 Code(s): Z85.07 - PERSONAL HISTORY OF MALIGNANT NEOPLASM OF PANCREAS Status: Chronic Priority: Low Current Visit: No (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 SNOMED Code(s): 12240368 Code(s): M96.1 - POSTLAMINECTOMY SYNDROME, NOT ELSEWHERE CLASSIFIED Status: Chronic Priority: High Current Visit: Yes (14) ISMAEL (obstructive sleep apnea) SNOMED Code(s): 81517383 Code(s): G47.33 - OBSTRUCTIVE SLEEP APNEA (ADULT) (PEDIATRIC) Status: Chronic Priority: Medium Current Visit: No (15) RLS (restless legs syndrome) SNOMED Code(s): 75250485 Code(s): G25.81 - RESTLESS LEGS SYNDROME Status: Chronic Priority: Medium Current Visit: No (16) Subclinical hypothyroidism SNOMED Code(s): 12742162 Code(s): E03.8 - OTHER SPECIFIED HYPOTHYROIDISM Status: Chronic Priority: Low Current Visit: Yes (17) History of CHF (congestive heart failure) SNOMED Code(s): 214957341 Code(s): Z86.79 - PERSONAL HISTORY OF OTHER DISEASES OF THE CIRCULATORY SYSTEM Status: Chronic Priority: Low Current Visit: No (18) Self-care deficit SNOMED Code(s): 879819358 Code(s): Z78.9 - OTHER SPECIFIED HEALTH STATUS Status: Chronic Priority: High Current Visit: Yes - Problem List Review Problem List Initiated/Reviewed/Updated: Yes - My Orders Last 24 Hours: My Active Orders 07/01/21 08:45 Consult to Case Management/Croze Cutter [CONS] Routine 07/01/21 10:44 Antiembolic Devices [RC] PER UNIT ROUTINE Vital Signs [RC] 03,09,15,21 SACHIN Hose [Antiembolic Hose] [OM.PC] Routine - Assessment Assessment:: This is a 75-year-old female admitted to the floor after multiple falls at home. She does have a history of multiple significant lumbar spine compression fractures and multiple failed back surgeries. She states she has been weaker as of late. She normally utilizes a walker. She has been a Manuel lift here. PT and OT are working with her and are recommending SNF placement. UA was obtained in the ED and shows bacteria but minimal urine WBCs with no leukocyte esterase or nitrites. Patient does report a history of chronic urinary retention. She denies any new urinary symptoms. Appears to be asymptomatic bacteriuria. Urine culture is pending. We will discontinue antibiotics at this time. Pain medications as ordered. Social work and case management are consulted. Unfortunately patient only meets observation criteria. Discussed possible imaging with Dr. Jackson, attending hospitalist, who agrees patient has multiple chronic back issues and additional imaging is not decayed at this time as it will not change our plan of care for the patient. Per the patient she was told after her last back surgery that if she requires any more she will likely be paralyzed by the procedure. She does report chronic pedal edema and states she is about at baseline. There is a remote history of CHF however her echocardiogram from a few months ago was reviewed and looks good with LV EF of 60 to 65%. Normal pattern of LV diastolic filling. Normal right ventricular systolic function. No aortic valve stenosis. Trace mitral valve regurgitation. Trace tricuspid valve regurgitation. Right ventricular systolic pressure mildly elevated at 39.8 mmHg and no regional wall motion abnormalities. Given patient's renal function we will hold some of her medications. Her intake has been fairly poor so we will discontinue long-acting insulin and continue sliding scale insulin per protocol. Patient is currently requiring 1 L which is likely due to need for pain medications. Labs today show WBC of 9.76. Hemoglobin 13.6. Platelet 205,000. Neutrophils are normal at 61.6%. Sodium has improved to 142. Potassium 4.3. Chloride 103. Carbon dioxide 26. Anion gap is 17.3. Creatinine 1.1. BUN 20. GFR is 48. Blood glucose readings have been between 125 and 190. Magnesium is 2.1. Total bilirubin 0.4. AST is 19, ALT 24, alkaline phosphatase 65. Albumin is 3.3. TSH was obtained and was elevated at 5.870 however free T4 was 1.16. Likely length of stay 1-2 more days pending placement. - Plan Plan:: Patient is a 75-year-old female with a history of chronic back pain status post lumbar spinal fusion, chronic leg weakness, peripheral neuropathy in both lower extremities who was brought to the ER due to generalized weakness. Assessment and plan: Chronic back pain Multilevel failed back syndrome Restless leg syndrome Chronic peripheral neuropathy in both legs Pain management including iv dilaudid. Continue home gabapentin PT OT Acute hypoxic respiratory failure In the ER, she was not desaturated but she was on 2 L, currently requiring 1L Chest x-ray no acute change Oxygen therapy if needed Generalized weakness Subclinical hypothyroidism PT/OT CM/SW Volume depletion, resolved Had Soft BP NS 2L was given in the ER. Losartan 25mg daily is on hold Hold Diltiazem 180mg daily (unknown why she is taking diltiazem) Continue metoprolol 25mg bid Asymptomatic bacteriuria Chronic urinary retention No acute concerns CKD She has mild dehydration. NS bolus was given in the ER Avoid nephrotoxic meds Monitor renal function Diabetes with a diabetic nephropathy Acquired? had pancreatic cancer 15 years ago and pancreas removed. dapagliflozin/metformin is on hold She is on lantus 40units daily I will order lantus 20 units daily Insulin ss adjust insulin based on glucose levels Hx of CHF, unknown type BNP 167 home Lasix 30mg is on hold Mild leg swelling No lasix ordered at this moment Self care deficit PT OT placement Type II DM Hold home long acting insulin at this time due to poor oral intake QID AC and Bedtime blood glucose checks Medium sliding scale insulin DVT prophylaxis: Lovenox CODE STATUS: CPR only. Discussed with the patient and her daughter. Pt initially wanted DNR/DNI. But she changed to CPR only.
[2021-07-01] MEDS ORDERED: Diclofenac Sodium 1% Gel 100 GM Tube TOP PRN (11:00)
[2021-07-01] MEDS: Insulin Glargine,Hum.Rec.Anlog 100 UNIT/ML 3 ML Pen SUBCUT SCH (11:29)
[2021-07-01] MEDS: Docusate Sodium 100 MG Cap PO SCH (12:57)
[2021-07-01] MEDS: Aspirin 81 MG Tab.EC PO SCH (20:59)
[2021-07-01] MEDS: Famotidine 20 MG Tab PO SCH (20:59)
[2021-07-01] MEDS ORDERED: FAMOTIDINE 40 MG PO SCH (21:00)
[2021-07-01] MEDS: Latanoprost 0.005% Ophth Soln 2.5 ML Bottle EYEBOTH SCH (21:50)
[2021-07-02] MEDS: GABAPENTIN 600 MG PO SCH ×2 (04:26→09:35)
[2021-07-02] MEDS: Insulin Lispro 100 Unit/ML 3 ML KwikPen SUBCUT SCH ×4 (08:03→21:31)
[2021-07-02] MEDS: Saccharomyces Boulardii (Probiotic) 250 MG Cap PO SCH (08:31)
[2021-07-02] MEDS: MAGNESIUM OXIDE PO SCH (08:32)
[2021-07-02] MEDS: CALCIUM CARBONATE PO SCH (08:32)
[2021-07-02] MEDS: ZINC GLUCONATE PO SCH (08:32)
[2021-07-02] MEDS: Docusate Sodium 100 MG Cap PO SCH (08:32)
[2021-07-02] MEDS: Cyanocobalamin (Vitamin B12) 1,000 MCG Tab PO SCH (08:32)
[2021-07-02] MEDS: FERROUS SULFATE 325 MG PO SCH (08:32)
[2021-07-02] MEDS: Cholecalciferol (Vitamin D3) 25 MCG Tab PO SCH (08:32)
[2021-07-02] MEDS: Enoxaparin 40 MG/0.4 ML Syringe SUBCUT SCH (08:32)
[2021-07-02] MEDS: Allopurinol 100 MG Tab **PTOM PO SCH (08:33)
[2021-07-02] MEDS: Metoprolol Tartrate 25 MG Tab **PTOM PO SCH (08:33)
[2021-07-02] MEDS: ROPINIROLE 3 MG PO SCH ×4 (08:33→21:12)
[2021-07-02] MEDS: OXYBUTYNIN 5 MG PO SCH (08:33)
[2021-07-02] MEDS ORDERED: Magnesium Hydroxide 400 MG/5 ML Susp 30 ML Cup PO ONE (10:00)
--- NOTE | 2021-07-02 11:01 | PCM.PN ---
- General Info Date of Service: 07/02/21 Admission Dx/Problem (Free Text): Admission Diagnosis/Problem Admission Diagnosis/Problem UTI, Urinary tract infectious disease Functional Status: Reports: Pain Controlled, Tolerating Diet, Urinating. Denies: Ambulating (Manuel lift ), New Symptoms - Review of Systems General: Reports: Weakness. Denies: Fever, Fatigue, Malaise, Chills HEENT: Reports: No Symptoms. Denies: Headaches, Sore Throat Pulmonary: Reports: No Symptoms. Denies: Shortness of Breath, Cough, Sputum, Wheezing Cardiovascular: Reports: No Symptoms. Denies: Chest Pain, Palpitations, Dyspnea on Exertion, Edema Gastrointestinal: Reports: Constipation. Denies: Abdominal Pain, Diarrhea, Nausea, Vomiting Genitourinary: Reports: Retention (history of ). Denies: Pain Musculoskeletal: Reports: Back Pain (Acute on chronic) Skin: Reports: No Symptoms. Denies: Cyanosis Neurological: Reports: Pre-Existing Deficit (Ambulated with a walker), Difficulty Walking, Weakness, Gait Disturbance. Denies: Confusion, Dizziness, Headache, Numbness, Syncope, Tingling Psychiatric: Reports: No Symptoms - Patient Data Vitals - Most Recent: Last Vital Signs Temp 97.9 F 07/02/21 07:26 Pulse 88 07/02/21 08:33 Resp 15 07/02/21 07:26 BP 122/58 L 07/02/21 08:33 Pulse Ox 94 L 07/02/21 08:10 Weight - Most Recent: 196 lb 1.6 oz I&O - Last 24 Hours: Intake & Output 07/01/21 07/02/21 07/02/21 22:59 06:59 14:59 Intake Total 1340 300 Output Total 400 100 Balance 940 200 Lab Results Last 24 Hours: Laboratory Results - last 24 hr 07/01/21 07/01/21 07/01/21 Range/Units 06:08 11:30 17:59 WBC (3.98-10.04) K/mm3 RBC (3.98-5.22) M/mm3 Hgb (11.2-15.7) gm/dl Hct (34.1-44.9) % MCV (79.4-94.8) fl MCH (25.6-32.2) pg MCHC (32.2-35.5) g/dl RDW Std Deviation (36.4-46.3) fL Plt Count (182-369) K/mm3 MPV (9.4-12.3) fl Neut % (Auto) (34.0-71.1) % Lymph % (Auto) (19.3-51.7) % Bailey % (Auto) (4.7-12.5) % Eos % (Auto) (0.7-5.8) Baso % (Auto) (0.1-1.2) % Neut # (Auto) (1.56-6.13) K/mm3 Lymph # (Auto) (1.18-3.74) K/mm3 Bailey # (Auto) (0.24-0.36) K/mm3 Eos # (Auto) (0.04-0.36) K/mm3 Baso # (Auto) (0.01-0.08) K/mm3 Manual Slide Review Not Reportable Sodium (136-145) mEq/L Potassium (3.5-5.1) mEq/L Chloride (98-107) mEq/L Carbon Dioxide (21-32) mEq/L Anion Gap (5-15) BUN (7-18) mg/dL Creatinine (0.55-1.02) mg/dL Est Cr Clr Drug Dosing mL/min Estimated GFR (MDRD) (>60) mL/min BUN/Creatinine Ratio (14-18) Glucose (70-99) mg/dL POC Glucose 190 H 133 H (70-99) mg/dL Calcium (8.5-10.1) mg/dL Total Bilirubin (0.2-1.0) mg/dL AST (15-37) U/L ALT (14-59) U/L Alkaline Phosphatase (46-116) U/L Total Protein (6.4-8.2) g/dl Albumin (3.4-5.0) g/dl Globulin gm/dL Albumin/Globulin Ratio (1-2) 07/01/21 07/02/21 07/02/21 Range/Units 20:50 05:49 05:49 WBC 8.61 (3.98-10.04) K/mm3 RBC 4.42 (3.98-5.22) M/mm3 Hgb 13.9 (11.2-15.7) gm/dl Hct 44.1 (34.1-44.9) % MCV 99.8 H (79.4-94.8) fl MCH 31.4 (25.6-32.2) pg MCHC 31.5 L (32.2-35.5) g/dl RDW Std Deviation 50.9 H (36.4-46.3) fL Plt Count 313 (182-369) K/mm3 MPV 11.1 (9.4-12.3) fl Neut % (Auto) 61.2 (34.0-71.1) % Lymph % (Auto) 15.1 L (19.3-51.7) % Bailey % (Auto) 14.4 H (4.7-12.5) % Eos % (Auto) 8.4 H (0.7-5.8) Baso % (Auto) 0.8 (0.1-1.2) % Neut # (Auto) 5.27 (1.56-6.13) K/mm3 Lymph # (Auto) 1.30 (1.18-3.74) K/mm3 Bailey # (Auto) 1.24 H (0.24-0.36) K/mm3 Eos # (Auto) 0.72 H (0.04-0.36) K/mm3 Baso # (Auto) 0.07 (0.01-0.08) K/mm3 Manual Slide Review Sodium 140 (136-145) mEq/L Potassium 4.8 (3.5-5.1) mEq/L Chloride 103 (98-107) mEq/L Carbon Dioxide 27 (21-32) mEq/L Anion Gap 14.8 (5-15) BUN 19 H (7-18) mg/dL Creatinine 0.9 (0.55-1.02) mg/dL Est Cr Clr Drug Dosing 42.06 mL/min Estimated GFR (MDRD) > 60 (>60) mL/min BUN/Creatinine Ratio 21.1 H (14-18) Glucose 162 H (70-99) mg/dL POC Glucose 191 H (70-99) mg/dL Calcium 8.7 (8.5-10.1) mg/dL Total Bilirubin 0.5 (0.2-1.0) mg/dL AST 17 (15-37) U/L ALT 23 (14-59) U/L Alkaline Phosphatase 71 (46-116) U/L Total Protein 6.4 (6.4-8.2) g/dl Albumin 3.2 L (3.4-5.0) g/dl Globulin 3.2 gm/dL Albumin/Globulin Ratio 1.0 (1-2) 07/02/21 Range/Units 07:12 WBC (3.98-10.04) K/mm3 RBC (3.98-5.22) M/mm3 Hgb (11.2-15.7) gm/dl Hct (34.1-44.9) % MCV (79.4-94.8) fl MCH (25.6-32.2) pg MCHC (32.2-35.5) g/dl RDW Std Deviation (36.4-46.3) fL Plt Count (182-369) K/mm3 MPV (9.4-12.3) fl Neut % (Auto) (34.0-71.1) % Lymph % (Auto) (19.3-51.7) % Bailey % (Auto) (4.7-12.5) % Eos % (Auto) (0.7-5.8) Baso % (Auto) (0.1-1.2) % Neut # (Auto) (1.56-6.13) K/mm3 Lymph # (Auto) (1.18-3.74) K/mm3 Bailey # (Auto) (0.24-0.36) K/mm3 Eos # (Auto) (0.04-0.36) K/mm3 Baso # (Auto) (0.01-0.08) K/mm3 Manual Slide Review Sodium (136-145) mEq/L Potassium (3.5-5.1) mEq/L Chloride (98-107) mEq/L Carbon Dioxide (21-32) mEq/L Anion Gap (5-15) BUN (7-18) mg/dL Creatinine (0.55-1.02) mg/dL Est Cr Clr Drug Dosing mL/min Estimated GFR (MDRD) (>60) mL/min BUN/Creatinine Ratio (14-18) Glucose (70-99) mg/dL POC Glucose 133 H (70-99) mg/dL Calcium (8.5-10.1) mg/dL Total Bilirubin (0.2-1.0) mg/dL AST (15-37) U/L ALT (14-59) U/L Alkaline Phosphatase (46-116) U/L Total Protein (6.4-8.2) g/dl Albumin (3.4-5.0) g/dl Globulin gm/dL Albumin/Globulin Ratio (1-2) Yousuf Results Last 24 Hours: Microbiology 06/29/21 18:19 Blood Culture - Preliminary Blood - Venous - Lab Draw 06/29/21 18:14 Blood Culture - Preliminary Blood - Venous Med Orders - Current: Current Medications Acetaminophen (Acetaminophen 325 Mg Tab) 650 mg PO Q6H PRN PRN Reason: Pain (Mild 1-3)/fever Last Admin: 07/01/21 15:32 Dose: 650 mg Documented by: Allopurinol (Allopurinol 100 Mg Tab Ptom) 150 mg PO DAILY [facility] Last Admin: 07/02/21 08:33 Dose: 150 mg Documented by: Aspirin (Aspirin 81 Mg Tab.Ec) 81 mg PO BEDTIME [facility] Last Admin: 07/01/21 20:59 Dose: 81 mg Documented by: Cholecalciferol (Cholecalciferol (Vitamin D3) 25 Mcg Tab) 25 mcg PO DAILY [facility] Last Admin: 07/02/21 08:32 Dose: 25 mcg Documented by: Cyanocobalamin (Cyanocobalamin (Vitamin B12) 1,000 Mcg Tab) 500 mcg PO DAILY [facility] Last Admin: 07/02/21 08:32 Dose: 500 mcg Documented by: Diclofenac Sodium (Diclofenac Sodium 1% Gel 100 Gm Tube) 0 gm TOP BID PRN PRN Reason: Pain Docusate Sodium (Docusate Sodium 100 Mg Cap) 100 mg PO DAILY [facility] Last Admin: 07/02/21 08:32 Dose: 100 mg Documented by: Enoxaparin Sodium (Enoxaparin 40 Mg/0.4 Ml Syringe) 40 mg SUBCUT DAILY [facility] Last Admin: 07/02/21 08:32 Dose: 40 mg Documented by: Famotidine (Famotidine 20 Mg Tab) 20 mg PO BEDTIME [facility] Last Admin: 07/01/21 20:59 Dose: 20 mg Documented by: Fluticasone Propionate (Fluticasone Propionate Nasal [place] 16 Gm Bottle) 0 gm NASBOTH DAILY PRN PRN Reason: Congestion Gabapentin (Gabapentin 600 Mg Tab Ptom) 600 mg PO Q6H [facility] Last Admin: 07/02/21 09:35 Dose: 600 mg Documented by: Hydralazine HCl (Hydralazine 20 Mg/Ml Sdv) 10 mg IVPUSH Q4H PRN PRN Reason: Hypertension Hydromorphone HCl (Hydromorphone 0.5 Mg/0.5 Ml Syringe) 0.5 mg IVPUSH Q4H PRN PRN Reason: Pain (severe 7-10) Promethazine HCl 6.25 mg/ (Sodium Chloride) 50.25 mls @ 100 mls/hr IV Q6H PRN PRN Reason: Nausea/Vomiting Insulin Human Lispro (Insulin Lispro 100 Unit/Ml 3 Ml Kwikpen) 0 unit SUBCUT QIDACANDBED [facility]; Protocol Last Admin: 07/02/21 08:03 Dose: Not Given Documented by: Latanoprost (Latanoprost 0.005% Ophth Soln 2.5 Ml Bottle) 0 ml EYEBOTH BEDTIME [facility] Last Admin: 07/01/21 21:50 Dose: 1 drop Documented by: Metoprolol Tartrate (Metoprolol Tartrate 25 Mg Tab Ptom) 25 mg PO BID [facility] Last Admin: 07/02/21 08:33 Dose: 25 mg Documented by: Calcium Carb/Mag Ox/ (Zinc Gluc Tab Ptom) 1 tab PO DAILY [facility] Last Admin: 07/02/21 08:32 Dose: 1 tab Documented by: Ferrous Sulfate 325 (Mg Tablet Ptom) 0 mg PO DAILY [facility] Last Admin: 07/02/21 08:32 Dose: 325 mg Documented by: Ropinirole 3 Mg (Tablet Ptom) 0 mg PO QID [facility] Last Admin: 07/02/21 08:33 Dose: 3 mg Documented by: Oxybutynin Chloride (Oxybutynin 5 Mg Tab.Er Ptom) 5 mg PO DAILY [facility] Last Admin: 07/02/21 08:33 Dose: 5 mg Documented by: Oxycodone/Acetaminophen (Acetaminophen/Oxycodone 325-5 Mg Tab) 1 tab PO Q6H PRN PRN Reason: pain relief Last Admin: 07/01/21 23:13 Dose: 1 tab Documented by: Saccharomyces Boulardii (Saccharomyces Boulardii (Probiotic) 250 Mg Cap) 250 mg PO DAILY [facility] Last Admin: 07/02/21 08:31 Dose: 250 mg Documented by: Senna/Docusate Sodium (Docusate Sodium/Sennosides 50-8.6 Mg Tab) 2 tab PO BID [facility] Simvastatin (Simvastatin 20 Mg Tab Ptom) 20 mg PO BEDTIME [facility] Last Admin: 07/01/21 21:05 Dose: 20 mg Documented by: Zolpidem Tartrate (Zolpidem 5 Mg Tab) 5 mg PO BEDTIME PRN PRN Reason: Insomnia Discontinued Medications Furosemide (Furosemide 40 Mg Tab) 40 mg PO ONETIME ONE Stop: 06/30/21 07:01 Last Admin: 06/30/21 06:59 Dose: 40 mg Documented by: Gabapentin (Gabapentin 600 Mg Tab) 600 mg PO ONETIME ONE Stop: 06/29/21 17:31 Last Admin: 06/29/21 18:06 Dose: 600 mg Documented by: Gabapentin (Gabapentin 600 Mg Tab) 600 mg PO Q6H [facility] Last Admin: 07/01/21 04:38 Dose: 600 mg Documented by: Gabapentin (Gabapentin 100 Mg Cap) 100 mg PO TID [facility] Hydromorphone HCl (Hydromorphone 1 Mg/Ml Syringe) 1 mg IVPUSH ONETIME ONE Stop: 06/29/21 17:30 Last Admin: 06/29/21 18:03 Dose: 1 mg Documented by: Sodium Chloride (Normal Saline) 1,000 mls @ 150 mls/hr IV ASDIRECTED [facility] Last Infusion: 06/29/21 18:05 Dose: 999 mls/hr Documented by: Sodium Chloride (Normal Saline) 1,000 mls @ 999 mls/hr IV ASDIRECTED [facility] Sodium Chloride (Normal Saline) 1,000 mls @ 100 mls/hr IV ASDIRECTED [facility] Last Admin: 06/29/21 20:12 Dose: 100 mls/hr Documented by: Ceftriaxone Sodium 1 gm/ (Sodium Chloride) 100 mls @ 200 mls/hr IV ONETIME ONE Stop: 06/29/21 20:22 Last Admin: 06/29/21 20:12 Dose: 200 mls/hr Documented by: Sodium Chloride (Normal Saline) 1,000 mls @ 65 mls/hr IV ASDIRECTED [facility] Ceftriaxone Sodium 1 gm/ (Sodium Chloride) 100 mls @ 200 mls/hr IV Q24H [facility] Last Admin: 06/30/21 20:03 Dose: 200 mls/hr Documented by: Insulin Glargine (Insulin Glargine,Hum.Rec.Anlog 100 Unit/Ml 3 Ml Pen) 20 unit SUBCUT DAILY [facility] Last Admin: 07/01/21 11:29 Dose: Not Given Documented by: Magnesium Hydroxide (Magnesium Hydroxide 400 Mg/5 Ml Susp 30 Ml Cup) 30 ml PO ONETIME ONE Stop: 07/02/21 10:01 Last Admin: 07/02/21 09:35 Dose: 30 ml Documented by: Ondansetron HCl (Ondansetron 4 Mg/2 Ml Sdv) 4 mg IVPUSH ONETIME ONE Stop: 06/29/21 17:30 Last Admin: 06/29/21 18:01 Dose: 4 mg Documented by: Ropinirole HCl (Ropinirole 1 Mg Tab) 3 mg PO ONETIME ONE Stop: 06/30/21 10:08 Last Admin: 06/30/21 10:20 Dose: 3 mg Documented by: Trazodone HCl (Trazodone 50 Mg Tab) 50 mg PO ONETIME ONE Stop: 07/01/21 02:11 Last Admin: 07/01/21 02:33 Dose: 50 mg Documented by: Zolpidem Tartrate (Zolpidem 5 Mg Tab) 5 mg PO ONETIME ONE Stop: 06/29/21 23:43 Last Admin: 06/29/21 23:55 Dose: 5 mg Documented by: - Exam Quality Assessment: DVT Prophylaxis. No: Supplemental Oxygen, Urine Catheter Urinary Catheter Total Time: 0Days 0Hours General: Alert, Oriented, Cooperative, No Acute Distress HEENT: Pupils Equal, Pupils Reactive, Mucous Membr. Moist/[place] Neck: Supple, Trachea Midline Lungs: Clear to Auscultation, Normal Respiratory Effort Cardiovascular: Regular Rate, Regular Rhythm GI/Abdominal Exam: Normal Bowel Sounds, Soft, Non-Tender, No Distention (Female) Exam: Deferred Back Exam: Decreased Range of Motion, Vertebral Tenderness, Other (Back hardware visible under skin 1 patient leans forward) Extremities: Normal Inspection, Non-Tender, Normal Capillary Refill, Pedal Edema (1+), Limited Range of Motion Skin: Warm, Dry, Intact Neurological: No New Focal Deficit Psy/Mental Status: Alert, Normal Affect, Normal Mood - Patient Data Lab Results Last 24 hrs: Laboratory Results - last 24 hr 07/01/21 07/01/21 07/01/21 Range/Units 06:08 11:30 17:59 WBC (3.98-10.04) K/mm3 RBC (3.98-5.22) M/mm3 Hgb (11.2-15.7) gm/dl Hct (34.1-44.9) % MCV (79.4-94.8) fl MCH (25.6-32.2) pg MCHC (32.2-35.5) g/dl RDW Std Deviation (36.4-46.3) fL Plt Count (182-369) K/mm3 MPV (9.4-12.3) fl Neut % (Auto) (34.0-71.1) % Lymph % (Auto) (19.3-51.7) % Bailey % (Auto) (4.7-12.5) % Eos % (Auto) (0.7-5.8) Baso % (Auto) (0.1-1.2) % Neut # (Auto) (1.56-6.13) K/mm3 Lymph # (Auto) (1.18-3.74) K/mm3 Bailey # (Auto) (0.24-0.36) K/mm3 Eos # (Auto) (0.04-0.36) K/mm3 Baso # (Auto) (0.01-0.08) K/mm3 Manual Slide Review Not Reportable Sodium (136-145) mEq/L Potassium (3.5-5.1) mEq/L Chloride (98-107) mEq/L Carbon Dioxide (21-32) mEq/L Anion Gap (5-15) BUN (7-18) mg/dL Creatinine (0.55-1.02) mg/dL Est Cr Clr Drug Dosing mL/min Estimated GFR (MDRD) (>60) mL/min BUN/Creatinine Ratio (14-18) Glucose (70-99) mg/dL POC Glucose 190 H 133 H (70-99) mg/dL Calcium (8.5-10.1) mg/dL Total Bilirubin (0.2-1.0) mg/dL AST (15-37) U/L ALT (14-59) U/L Alkaline Phosphatase (46-116) U/L Total Protein (6.4-8.2) g/dl Albumin (3.4-5.0) g/dl Globulin gm/dL Albumin/Globulin Ratio (1-2) 07/01/21 07/02/21 07/02/21 Range/Units 20:50 05:49 05:49 WBC 8.61 (3.98-10.04) K/mm3 RBC 4.42 (3.98-5.22) M/mm3 Hgb 13.9 (11.2-15.7) gm/dl Hct 44.1 (34.1-44.9) % MCV 99.8 H (79.4-94.8) fl MCH 31.4 (25.6-32.2) pg MCHC 31.5 L (32.2-35.5) g/dl RDW Std Deviation 50.9 H (36.4-46.3) fL Plt Count 313 (182-369) K/mm3 MPV 11.1 (9.4-12.3) fl Neut % (Auto) 61.2 (34.0-71.1) % Lymph % (Auto) 15.1 L (19.3-51.7) % Bailey % (Auto) 14.4 H (4.7-12.5) % Eos % (Auto) 8.4 H (0.7-5.8) Baso % (Auto) 0.8 (0.1-1.2) % Neut # (Auto) 5.27 (1.56-6.13) K/mm3 Lymph # (Auto) 1.30 (1.18-3.74) K/mm3 Bailey # (Auto) 1.24 H (0.24-0.36) K/mm3 Eos # (Auto) 0.72 H (0.04-0.36) K/mm3 Baso # (Auto) 0.07 (0.01-0.08) K/mm3 Manual Slide Review Sodium 140 (136-145) mEq/L Potassium 4.8 (3.5-5.1) mEq/L Chloride 103 (98-107) mEq/L Carbon Dioxide 27 (21-32) mEq/L Anion Gap 14.8 (5-15) BUN 19 H (7-18) mg/dL Creatinine 0.9 (0.55-1.02) mg/dL Est Cr Clr Drug Dosing 42.06 mL/min Estimated GFR (MDRD) > 60 (>60) mL/min BUN/Creatinine Ratio 21.1 H (14-18) Glucose 162 H (70-99) mg/dL POC Glucose 191 H (70-99) mg/dL Calcium 8.7 (8.5-10.1) mg/dL Total Bilirubin 0.5 (0.2-1.0) mg/dL AST 17 (15-37) U/L ALT 23 (14-59) U/L Alkaline Phosphatase 71 (46-116) U/L Total Protein 6.4 (6.4-8.2) g/dl Albumin 3.2 L (3.4-5.0) g/dl Globulin 3.2 gm/dL Albumin/Globulin Ratio 1.0 (1-2) 07/02/21 Range/Units 07:12 WBC (3.98-10.04) K/mm3 RBC (3.98-5.22) M/mm3 Hgb (11.2-15.7) gm/dl Hct (34.1-44.9) % MCV (79.4-94.8) fl MCH (25.6-32.2) pg MCHC (32.2-35.5) g/dl RDW Std Deviation (36.4-46.3) fL Plt Count (182-369) K/mm3 MPV (9.4-12.3) fl Neut % (Auto) (34.0-71.1) % Lymph % (Auto) (19.3-51.7) % Bailey % (Auto) (4.7-12.5) % Eos % (Auto) (0.7-5.8) Baso % (Auto) (0.1-1.2) % Neut # (Auto) (1.56-6.13) K/mm3 Lymph # (Auto) (1.18-3.74) K/mm3 Bailey # (Auto) (0.24-0.36) K/mm3 Eos # (Auto) (0.04-0.36) K/mm3 Baso # (Auto) (0.01-0.08) K/mm3 Manual Slide Review Sodium (136-145) mEq/L Potassium (3.5-5.1) mEq/L Chloride (98-107) mEq/L Carbon Dioxide (21-32) mEq/L Anion Gap (5-15) BUN (7-18) mg/dL Creatinine (0.55-1.02) mg/dL Est Cr Clr Drug Dosing mL/min Estimated GFR (MDRD) (>60) mL/min BUN/Creatinine Ratio (14-18) Glucose (70-99) mg/dL POC Glucose 133 H (70-99) mg/dL Calcium (8.5-10.1) mg/dL Total Bilirubin (0.2-1.0) mg/dL AST (15-37) U/L ALT (14-59) U/L Alkaline Phosphatase (46-116) U/L Total Protein (6.4-8.2) g/dl Albumin (3.4-5.0) g/dl Globulin gm/dL Albumin/Globulin Ratio (1-2) Result Diagrams: 07/02/21 05:49 07/02/21 05:49 Yousuf Results Last 24 hrs: Microbiology 06/29/21 18:19 Blood Culture - Preliminary Blood - Venous - Lab Draw 06/29/21 18:14 Blood Culture - Preliminary Blood - Venous Sepsis Event Note - Evaluation Sepsis Screening Result: No Definite Risk - Focused Exam Vital Signs: Vital Signs Temp Pulse Resp BP Pulse Ox Pulse Ox 07/02/21 08:33 88 122/58 L 07/02/21 08:10 94 L 07/02/21 07:26 97.9 F 88 15 122/58 L 93 L 07/02/21 07:14 80 93 L 07/02/21 06:00 93 L 07/02/21 04:36 98.1 F 75 20 133/86 92 L 07/02/21 01:00 77 90 L 07/02/21 00:00 90 L 07/01/21 23:13 98.8 F 85 24 H 122/79 90 L - Problem List & Annotations (1) Asymptomatic bacteriuria SNOMED Code(s): 577566649 Code(s): R82.71 - BACTERIURIA Status: Chronic Priority: Low Current Visit: Yes (2) History of urinary retention SNOMED Code(s): 540496679 Code(s): Z87.898 - PERSONAL HISTORY OF OTHER SPECIFIED CONDITIONS Status: Chronic Priority: Low Current Visit: No (3) Chronic pain syndrome SNOMED Code(s): 216277349 Code(s): G89.4 - CHRONIC PAIN SYNDROME Status: Chronic Priority: High Current Visit: Yes (4) Hyponatremia SNOMED Code(s): 69736811 Code(s): E87.1 - HYPO-OSMOLALITY AND HYPONATREMIA Status: Resolved Priority: High Current Visit: Yes (5) Muscle weakness of lower extremity SNOMED Code(s): 997728097, 299118675 Code(s): M62.81 - MUSCLE WEAKNESS (GENERALIZED) Status: Acute Priority: High Current Visit: Yes (6) Recurrent falls SNOMED Code(s): 830970615 Code(s): R29.6 - REPEATED FALLS Status: Acute Priority: High Current Visit: Yes (7) Type II diabetes mellitus SNOMED Code(s): 41220232 Code(s): E11.9 - TYPE 2 DIABETES MELLITUS WITHOUT COMPLICATIONS Status: Chronic Priority: Medium Current Visit: Yes Qualifiers: Diabetes mellitus senior living insulin use: without senior living use Diabetes mellitus complication status: with other specified complication Qualified Code(s): E11.69 - Type 2 diabetes mellitus with other specified complication (8) Volume depletion SNOMED Code(s): 035254125 Code(s): E86.9 - VOLUME DEPLETION, UNSPECIFIED Status: Acute Priority: High Current Visit: Yes (9) Peripheral neuropathy SNOMED Code(s): 943538261 Code(s): G62.9 - POLYNEUROPATHY, UNSPECIFIED Status: Chronic Priority: High Current Visit: Yes Qualifiers: Peripheral neuropathy type: polyneuropathy, unspecified Qualified Code(s): G62.9 - Polyneuropathy, unspecified (10) Acute respiratory failure with hypoxia SNOMED Code(s): 26830333, 092242750 Code(s): J96.01 - ACUTE RESPIRATORY FAILURE WITH HYPOXIA Status: Resolved Priority: Medium Current Visit: Yes (11) CKD (chronic kidney disease) SNOMED Code(s): 286478703 Code(s): N18.9 - CHRONIC KIDNEY DISEASE, UNSPECIFIED Status: Chronic Priority: Medium Current Visit: Yes Qualifiers: Chronic kidney disease stage: stage 3 (moderate) Chronic kidney disease stage 3 subtype: stage 3a (GFR 45-59) Qualified Code(s): N18.31 - Chronic kidney disease, stage 3a (12) History of pancreatic cancer SNOMED Code(s): 93704444769984 Code(s): Z85.07 - PERSONAL HISTORY OF MALIGNANT NEOPLASM OF PANCREAS Status: Chronic Priority: Low Current Visit: No (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 SNOMED Code(s): 56579259 Code(s): M96.1 - POSTLAMINECTOMY SYNDROME, NOT ELSEWHERE CLASSIFIED Status: Chronic Priority: High Current Visit: Yes (14) ISMAEL (obstructive sleep apnea) SNOMED Code(s): 41064581 Code(s): G47.33 - OBSTRUCTIVE SLEEP APNEA (ADULT) (PEDIATRIC) Status: Chronic Priority: Medium Current Visit: No (15) RLS (restless legs syndrome) SNOMED Code(s): 40190692 Code(s): G25.81 - RESTLESS LEGS SYNDROME Status: Chronic Priority: Medium Current Visit: No (16) Subclinical hypothyroidism SNOMED Code(s): 58313031 Code(s): E03.8 - OTHER SPECIFIED HYPOTHYROIDISM Status: Chronic Priority: Low Current Visit: Yes (17) History of CHF (congestive heart failure) SNOMED Code(s): 662858780 Code(s): Z86.79 - PERSONAL HISTORY OF OTHER DISEASES OF THE CIRCULATORY SYSTEM Status: Chronic Priority: Low Current Visit: No (18) Self-care deficit SNOMED Code(s): 958452623 Code(s): Z78.9 - OTHER SPECIFIED HEALTH STATUS Status: Chronic Priority: High Current Visit: Yes (19) Constipation SNOMED Code(s): 89726355 Code(s): K59.00 - CONSTIPATION, UNSPECIFIED Status: Acute Priority: Medium Current Visit: Yes Qualifiers: Constipation type: unspecified constipation type Qualified Code(s): K59.00 - Constipation, unspecified - Problem List Review Problem List Initiated/Reviewed/Updated: Yes - My Orders Last 24 Hours: My Active Orders 07/01/21 10:44 Antiembolic Devices [RC] PER UNIT ROUTINE Vital Signs [RC] 03,09,, SACHIN Hose [Antiembolic Hose] [OM.PC] Routine 07/01/21 11:00 Diclofenac Sodium [Voltaren 1% Gel] 0 gm TOP BID PRN 07/01/21 11:45 Docusate Sodium [Colace] 100 mg PO DAILY 07/02/21 10:58 Patient Status [ADT] Routine 07/02/21 11:00 Docusate Sodium/Sennosides [Senna Plus] 2 tab PO BID - Assessment Assessment:: 07/01/2021 This is a 75-year-old female admitted to the floor after multiple falls at home. She does have a history of multiple significant lumbar spine compression fractures and multiple failed back surgeries. She states she has been weaker as of late. She normally utilizes a walker. She has been a [facility] lift here. PT and OT are working with her and are recommending SNF placement. UA was obtained in the ED and shows bacteria but minimal urine WBCs with no leukocyte esterase or nitrites. Patient does report a history of chronic urinary retention. She denies any new urinary symptoms. Appears to be asymptomatic bacteriuria. Urine culture is pending. We will discontinue antibiotics at this time. Pain medications as ordered. Social work and case management are consulted. Unfortunately patient only meets observation criteria. Discussed possible imaging with Dr. Jackson, attending hospitalist, who agrees patient has multiple chronic back issues and additional imaging is not decayed at this time as it will not change our plan of care for the patient. Per the patient she was told after her last back surgery that if she requires any more she will likely be paralyzed by the procedure. She does report chronic pedal edema and states she is about at baseline. There is a remote history of CHF however her echocardiogram from a few months ago was reviewed and looks good with LV EF of 60 to 65%. Normal pattern of LV diastolic filling. Normal right ventricular systolic function. No aortic valve stenosis. Trace mitral valve regurgitation. Trace tricuspid valve regurgitation. Right ventricular systolic pressure mildly elevated at 39.8 mmHg and no regional wall motion abnormalities. Given patient's renal function we will hold some of her medications. Her intake has been fairly poor so we will discontinue long-acting insulin and continue sliding scale insulin per protocol. Patient is currently requiring 1 L which is likely due to need for pain medications. Labs today show WBC of 9.76. Hemoglobin 13.6. Platelet 205,000. Neutrophils are normal at 61.6%. Sodium has improved to 142. Potassium 4.3. Chloride 103. Carbon dioxide 26. Anion gap is 17.3. Creatinine 1.1. BUN 20. GFR is 48. Blood glucose readings have been between 125 and 190. Magnesium is 2.1. Total bilirubin 0.4. AST is 19, ALT 24, alkaline phosphatase 65. Albumin is 3.3. TSH was obtained and was elevated at 5.870 however free T4 was 1.16. Likely length of stay 1-2 more days pending placement. 07/02/2021 This is a 75-year-old female admitted to the floor for UTI and difficulty with ambulation/weakness. Since admission patient has been a [place] lift and PT and OT are recommending SNF placement. She has a longstanding history of significant back pain with multiple failed prior surgeries. Pain does wax and wane but for the most part has been controlled. From a UTI standpoint her urine is not very impressive. She does have a history of urinary retention but denies any known frequent recurrent UTIs. She denies any urinary symptoms. This is therefore likely asymptomatic bacteriuria. Urine culture is pending but antibiotics have been stopped. Her white count was within normal limits and there were no signs of any systemic infection. Blood cultures remain negative. She has been utilizing her home CPAP. Home long-acting insulin has been held due to minimal oral intake and her blood sugars remain in the low 100s utilizing sliding scale insulin. Labs today show WBC of 8.61. Hemoglobin is 13.9. Platelet 313,000. Neutrophils are normal at 61.2%. Sodium is 140. Potassium 4.8. Chloride 103. Carbon dioxide 27. Anion gap is 14.8. BUN is 19. Creatinine 0.9. GFR greater than 60. Bilirubin 0.5. AST 17, ALT 23, alkaline phosphatase 71. Albumin is 3.2. There are currently concerns with the patient safety as she is not able to ambulate and has been a Manuel lift here. She cer tainly cannot go home like this as she is unable to perform any of her ADLs. We will continue to work on placement. She does meet inpatient criteria and was upgraded today. Hopeful for discharge Monday versus Monday once SNF placement is arranged. Local SNF facilities do not admit patients on the weekend. She was started on scheduled senna plus due to constipation. - Plan Plan:: Patient is a 75-year-old female with a history of chronic back pain status post lumbar spinal fusion, chronic leg weakness, peripheral neuropathy in both lower extremities who was brought to the ER due to generalized weakness. Assessment and plan: Chronic back pain Multilevel failed back syndrome Restless leg syndrome Chronic peripheral neuropathy in both legs Pain management including iv dilaudid. Continue gabapentin but adjust dosing due to concerns over toxicity PT OT Home Voltaren gel Acute hypoxic respiratory failure, Resolved In the ER, she was not desaturated but she was on 2 L, Currently off of oxygen Chest x-ray no acute change Oxygen therapy if needed Generalized weakness Subclinical hypothyroidism PT/OT CM/SW Volume depletion, resolved Had Soft BP NS 2L was given in the ER. Losartan 25mg daily is on hold Hold Diltiazem 180mg daily (unknown why she is taking diltiazem) Continue metoprolol 25mg bid Asymptomatic bacteriuria Chronic urinary retention No acute concerns Urine culture pending CKD She had mild dehydration. NS bolus was given in the ER Avoid nephrotoxic meds Monitor renal function Diabetes with a diabetic nephropathy Acquired? had pancreatic cancer 15 years ago and pancreas removed. dapagliflozin/metformin is on hold She is on lantus 40units daily Will hold long acting insulin for now as her intake has been quite poor Insulin ss adjust insulin based on glucose levels QID AC and Bedtime blood glucose checks Hx of CHF, unknown type BNP 167 home Lasix 30mg is on hold Mild leg swelling Will resume home lasix SACHIN Hose for pedal edema Self care deficit PT OT placement ISMAEL Home CPAP Constipation Given Colace without any change. Scheduled senna plus twice daily Given milk of magnesia today. DVT prophylaxis: Lovenox CODE STATUS: CPR only. Discussed with the patient and her daughter. Pt initially wanted DNR/DNI. But she changed to CPR only.
[2021-07-02] MEDS: Furosemide 20 MG Tab PO SCH (11:39)
[2021-07-02] MEDS: Gabapentin 600 MG Tab PO SCH ×2 (16:55→21:12)
[2021-07-02] MEDS: Famotidine 20 MG Tab PO SCH (20:48)
[2021-07-02] MEDS: Aspirin 81 MG Tab.EC PO SCH (20:49)
[2021-07-02] MEDS: Metoprolol Tartrate 25 MG Tab PO SCH (20:49)
[2021-07-02] MEDS: Simvastatin 20 MG Tab PO SCH (20:49)
[2021-07-02] MEDS: Latanoprost 0.005% Ophth Soln 2.5 ML Bottle EYEBOTH SCH (21:11)
[2021-07-03] MEDS: Gabapentin 600 MG Tab PO SCH ×4 (04:13→21:02)
[2021-07-03] MEDS: Insulin Lispro 100 Unit/ML 3 ML KwikPen SUBCUT SCH ×4 (08:21→21:30)
[2021-07-03] MEDS: Enoxaparin 40 MG/0.4 ML Syringe SUBCUT SCH (08:21)
[2021-07-03] MEDS: Docusate Sodium 100 MG Cap PO SCH (08:22)
[2021-07-03] MEDS: Metoprolol Tartrate 25 MG Tab PO SCH ×2 (08:22→21:19)
[2021-07-03] MEDS: Allopurinol 100 MG Tab PO SCH (08:22)
[2021-07-03] MEDS: Cholecalciferol (Vitamin D3) 25 MCG Tab PO SCH (08:23)
[2021-07-03] MEDS: Cyanocobalamin (Vitamin B12) 1,000 MCG Tab PO SCH (08:23)
[2021-07-03] MEDS: Saccharomyces Boulardii (Probiotic) 250 MG Cap PO SCH (08:23)
[2021-07-03] MEDS: MAGNESIUM OXIDE PO SCH (08:24)
[2021-07-03] MEDS: FERROUS SULFATE 325 MG PO SCH (08:24)
[2021-07-03] MEDS: ROPINIROLE 3 MG PO SCH ×4 (08:24→21:14)
[2021-07-03] MEDS: ZINC GLUCONATE PO SCH (08:24)
[2021-07-03] MEDS: CALCIUM CARBONATE PO SCH (08:24)
[2021-07-03] MEDS: Oxybutynin 5 MG Tab.ER PO SCH (08:24)
--- NOTE | 2021-07-03 09:46 | PCM.PN ---
- General Info Date of Service: 07/03/21 Admission Dx/Problem (Free Text): Admission Diagnosis/Problem Admission Diagnosis/Problem UTI, Urinary tract infectious disease - Patient Data Vitals - Most Recent: Last Vital Signs Temp 97.7 F 07/03/21 07:55 Pulse 83 07/03/21 08:22 Resp 14 07/03/21 07:55 BP 152/62 H 07/03/21 08:22 Pulse Ox 91 L 07/03/21 08:00 Weight - Most Recent: 193 lb 12.8 oz I&O - Last 24 Hours: Intake & Output 07/02/21 07/03/21 07/03/21 22:59 06:59 14:59 Intake Total 1295 630 Output Total 200 700 Balance 1095 -70 Lab Results Last 24 Hours: Laboratory Results - last 24 hr 07/02/21 07/02/21 07/02/21 Range/Units 11:22 16:22 21:08 WBC (3.98-10.04) K/mm3 RBC (3.98-5.22) M/mm3 Hgb (11.2-15.7) gm/dl Hct (34.1-44.9) % MCV (79.4-94.8) fl MCH (25.6-32.2) pg MCHC (32.2-35.5) g/dl RDW Std Deviation (36.4-46.3) fL Plt Count (182-369) K/mm3 MPV (9.4-12.3) fl Neut % (Auto) (34.0-71.1) % Lymph % (Auto) (19.3-51.7) % Saunders % (Auto) (4.7-12.5) % Eos % (Auto) (0.7-5.8) Baso % (Auto) (0.1-1.2) % Neut # (Auto) (1.56-6.13) K/mm3 Lymph # (Auto) (1.18-3.74) K/mm3 Saunders # (Auto) (0.24-0.36) K/mm3 Eos # (Auto) (0.04-0.36) K/mm3 Baso # (Auto) (0.01-0.08) K/mm3 Sodium (136-145) mEq/L Potassium (3.5-5.1) mEq/L Chloride (98-107) mEq/L Carbon Dioxide (21-32) mEq/L Anion Gap (5-15) BUN (7-18) mg/dL Creatinine (0.55-1.02) mg/dL Est Cr Clr Drug Dosing mL/min Estimated GFR (MDRD) (>60) mL/min BUN/Creatinine Ratio (14-18) Glucose (70-99) mg/dL POC Glucose 320 H 192 H 311 H (70-99) mg/dL Calcium (8.5-10.1) mg/dL Total Bilirubin (0.2-1.0) mg/dL AST (15-37) U/L ALT (14-59) U/L Alkaline Phosphatase (46-116) U/L Total Protein (6.4-8.2) g/dl Albumin (3.4-5.0) g/dl Globulin gm/dL Albumin/Globulin Ratio (1-2) 07/03/21 07/03/21 07/03/21 Range/Units 05:30 05:30 06:30 WBC 9.44 (3.98-10.04) K/mm3 RBC 4.56 (3.98-5.22) M/mm3 Hgb 14.1 (11.2-15.7) gm/dl Hct 44.7 (34.1-44.9) % MCV 98.0 H (79.4-94.8) fl MCH 30.9 (25.6-32.2) pg MCHC 31.5 L (32.2-35.5) g/dl RDW Std Deviation 48.8 H (36.4-46.3) fL Plt Count 327 (182-369) K/mm3 MPV 10.8 (9.4-12.3) fl Neut % (Auto) 65.1 (34.0-71.1) % Lymph % (Auto) 15.4 L (19.3-51.7) % Saunders % (Auto) 10.9 (4.7-12.5) % Eos % (Auto) 7.9 H (0.7-5.8) Baso % (Auto) 0.5 (0.1-1.2) % Neut # (Auto) 6.14 H (1.56-6.13) K/mm3 Lymph # (Auto) 1.45 (1.18-3.74) K/mm3 Saunders # (Auto) 1.03 H (0.24-0.36) K/mm3 Eos # (Auto) 0.75 H (0.04-0.36) K/mm3 Baso # (Auto) 0.05 (0.01-0.08) K/mm3 Sodium 141 (136-145) mEq/L Potassium 4.2 (3.5-5.1) mEq/L Chloride 102 (98-107) mEq/L Carbon Dioxide 29 (21-32) mEq/L Anion Gap 14.2 (5-15) BUN 18 (7-18) mg/dL Creatinine 0.8 (0.55-1.02) mg/dL Est Cr Clr Drug Dosing 47.32 mL/min Estimated GFR (MDRD) > 60 (>60) mL/min BUN/Creatinine Ratio 22.5 H (14-18) Glucose 205 H (70-99) mg/dL POC Glucose 175 H (70-99) mg/dL Calcium 8.9 (8.5-10.1) mg/dL Total Bilirubin 0.5 (0.2-1.0) mg/dL AST 15 (15-37) U/L ALT 23 (14-59) U/L Alkaline Phosphatase 75 (46-116) U/L Total Protein 6.5 (6.4-8.2) g/dl Albumin 3.2 L (3.4-5.0) g/dl Globulin 3.3 gm/dL Albumin/Globulin Ratio 1.0 (1-2) Yousuf Results Last 24 Hours: Microbiology 06/29/21 16:30 Urine Culture - Preliminary Urine Escherichia Coli Med Orders - Current: Current Medications Acetaminophen (Acetaminophen 325 Mg Tab) 650 mg PO Q6H PRN PRN Reason: Pain (Mild 1-3)/fever Last Admin: 07/01/21 15:32 Dose: 650 mg Documented by: Allopurinol (Allopurinol 100 Mg Tab) 150 mg PO DAILY [facility] Last Admin: 07/03/21 08:22 Dose: 150 mg Documented by: Aspirin (Aspirin 81 Mg Tab.Ec) 81 mg PO BEDTIME [facility] Last Admin: 07/02/21 20:49 Dose: 81 mg Documented by: Cholecalciferol (Cholecalciferol (Vitamin D3) 25 Mcg Tab) 25 mcg PO DAILY [facility] Last Admin: 07/03/21 08:23 Dose: 25 mcg Documented by: Cyanocobalamin (Cyanocobalamin (Vitamin B12) 1,000 Mcg Tab) 500 mcg PO DAILY [facility] Last Admin: 07/03/21 08:23 Dose: 500 mcg Documented by: Diclofenac Sodium (Diclofenac Sodium 1% Gel 100 Gm Tube) 0 gm TOP BID PRN PRN Reason: Pain Docusate Sodium (Docusate Sodium 100 Mg Cap) 100 mg PO DAILY [facility] Last Admin: 07/03/21 08:22 Dose: 100 mg Documented by: Enoxaparin Sodium (Enoxaparin 40 Mg/0.4 Ml Syringe) 40 mg SUBCUT DAILY [facility] Last Admin: 07/03/21 08:21 Dose: 40 mg Documented by: Famotidine (Famotidine 20 Mg Tab) 20 mg PO BEDTIME [facility] Last Admin: 07/02/21 20:48 Dose: 20 mg Documented by: Fluticasone Propionate (Fluticasone Propionate Nasal [place] 16 Gm Bottle) 0 gm NASBOTH DAILY PRN PRN Reason: Congestion Furosemide (Furosemide 20 Mg Tab) 30 mg PO SuMoWeFr@0900 [facility] Last Admin: 07/02/21 11:39 Dose: 30 mg Documented by: Gabapentin (Gabapentin 600 Mg Tab) 600 mg PO Q6H [facility] Last Admin: 07/03/21 09:25 Dose: 600 mg Documented by: Hydralazine HCl (Hydralazine 20 Mg/Ml Sdv) 10 mg IVPUSH Q4H PRN PRN Reason: Hypertension Hydromorphone HCl (Hydromorphone 0.5 Mg/0.5 Ml Syringe) 0.5 mg IVPUSH Q4H PRN PRN Reason: Pain (severe 7-10) Promethazine HCl 6.25 mg/ (Sodium Chloride) 50.25 mls @ 100 mls/hr IV Q6H PRN PRN Reason: Nausea/Vomiting Insulin Human Lispro (Insulin Lispro 100 Unit/Ml 3 Ml Kwikpen) 0 unit SUBCUT QIDACANDBED [facility]; Protocol Last Admin: 07/03/21 08:21 Dose: 2 units Documented by: Latanoprost (Latanoprost 0.005% Ophth Soln 2.5 Ml Bottle) 0 ml EYEBOTH BEDTIME [facility] Last Admin: 07/02/21 21:11 Dose: 1 drop Documented by: Metoprolol Tartrate (Metoprolol Tartrate 25 Mg Tab) 25 mg PO BID [facility] Last Admin: 07/03/21 08:22 Dose: 25 mg Documented by: Calcium Carb/Mag Ox/ (Zinc Gluc Tab Ptom) 1 tab PO DAILY [facility] Last Admin: 07/03/21 08:24 Dose: 1 tab Documented by: Ferrous Sulfate 325 (Mg Tablet Ptom) 0 mg PO DAILY [facility] Last Admin: 07/03/21 08:24 Dose: 325 mg Documented by: Ropinirole 3 Mg (Tablet Ptom) 0 mg PO QID [facility] Last Admin: 07/03/21 08:24 Dose: 3 mg Documented by: Oxybutynin Chloride (Oxybutynin 5 Mg Tab.Er) 5 mg PO DAILY [facility] Last Admin: 07/03/21 08:24 Dose: 5 mg Documented by: Oxycodone/Acetaminophen (Acetaminophen/Oxycodone 325-5 Mg Tab) 1 tab PO Q6H PRN PRN Reason: pain relief Last Admin: 07/01/21 23:13 Dose: 1 tab Documented by: Saccharomyces Boulardii (Saccharomyces Boulardii (Probiotic) 250 Mg Cap) 250 mg PO DAILY [facility] Last Admin: 07/03/21 08:23 Dose: 250 mg Documented by: Senna/Docusate Sodium (Docusate Sodium/Sennosides 50-8.6 Mg Tab) 2 tab PO BID [facility] Last Admin: 07/03/21 08:23 Dose: 2 tab Documented by: Simvastatin (Simvastatin 20 Mg Tab) 20 mg PO BEDTIME [facility] Last Admin: 07/02/21 20:49 Dose: 20 mg Documented by: Zolpidem Tartrate (Zolpidem 5 Mg Tab) 5 mg PO BEDTIME PRN PRN Reason: Insomnia Discontinued Medications Allopurinol (Allopurinol 100 Mg Tab Ptom) 150 mg PO DAILY [facility] Last Admin: 07/02/21 08:33 Dose: 150 mg Documented by: Furosemide (Furosemide 40 Mg Tab) 40 mg PO ONETIME ONE Stop: 06/30/21 07:01 Last Admin: 06/30/21 06:59 Dose: 40 mg Documented by: Gabapentin (Gabapentin 600 Mg Tab) 600 mg PO ONETIME ONE Stop: 06/29/21 17:31 Last Admin: 06/29/21 18:06 Dose: 600 mg Documented by: Gabapentin (Gabapentin 600 Mg Tab) 600 mg PO Q6H [facility] Last Admin: 07/01/21 04:38 Dose: 600 mg Documented by: Gabapentin (Gabapentin 100 Mg Cap) 100 mg PO TID [facility] Gabapentin (Gabapentin 600 Mg Tab Ptom) 600 mg PO Q6H [facility] Last Admin: 07/02/21 09:35 Dose: 600 mg Documented by: Hydromorphone HCl (Hydromorphone 1 Mg/Ml Syringe) 1 mg IVPUSH ONETIME ONE Stop: 06/29/21 17:30 Last Admin: 06/29/21 18:03 Dose: 1 mg Documented by: Sodium Chloride (Normal Saline) 1,000 mls @ 150 mls/hr IV ASDIRECTED [facility] Last Infusion: 06/29/21 18:05 Dose: 999 mls/hr Documented by: Sodium Chloride (Normal Saline) 1,000 mls @ 999 mls/hr IV ASDIRECTED [facility] Sodium Chloride (Normal Saline) 1,000 mls @ 100 mls/hr IV ASDIRECTED [facility] Last Admin: 06/29/21 20:12 Dose: 100 mls/hr Documented by: Ceftriaxone Sodium 1 gm/ (Sodium Chloride) 100 mls @ 200 mls/hr IV ONETIME ONE Stop: 06/29/21 20:22 Last Admin: 06/29/21 20:12 Dose: 200 mls/hr Documented by: Sodium Chloride (Normal Saline) 1,000 mls @ 65 mls/hr IV ASDIRECTED [facility] Ceftriaxone Sodium 1 gm/ (Sodium Chloride) 100 mls @ 200 mls/hr IV Q24H [facility] Last Admin: 06/30/21 20:03 Dose: 200 mls/hr Documented by: Insulin Glargine (Insulin Glargine,Hum.Rec.Anlog 100 Unit/Ml 3 Ml Pen) 20 unit SUBCUT DAILY [facility] Last Admin: 07/01/21 11:29 Dose: Not Given Documented by: Magnesium Hydroxide (Magnesium Hydroxide 400 Mg/5 Ml Susp 30 Ml Cup) 30 ml PO ONETIME ONE Stop: 07/02/21 10:01 Last Admin: 07/02/21 09:35 Dose: 30 ml Documented by: Metoprolol Tartrate (Metoprolol Tartrate 25 Mg Tab Ptom) 25 mg PO BID [facility] Last Admin: 07/02/21 08:33 Dose: 25 mg Documented by: Ondansetron HCl (Ondansetron 4 Mg/2 Ml Sdv) 4 mg IVPUSH ONETIME ONE Stop: 06/29/21 17:30 Last Admin: 06/29/21 18:01 Dose: 4 mg Documented by: Oxybutynin Chloride (Oxybutynin 5 Mg Tab.Er Ptom) 5 mg PO DAILY [facility] Last Admin: 07/02/21 08:33 Dose: 5 mg Documented by: Ropinirole HCl (Ropinirole 1 Mg Tab) 3 mg PO ONETIME ONE Stop: 06/30/21 10:08 Last Admin: 06/30/21 10:20 Dose: 3 mg Documented by: Simvastatin (Simvastatin 20 Mg Tab Ptom) 20 mg PO BEDTIME [facility] Last Admin: 07/01/21 21:05 Dose: 20 mg Documented by: Trazodone HCl (Trazodone 50 Mg Tab) 50 mg PO ONETIME ONE Stop: 07/01/21 02:11 Last Admin: 07/01/21 02:33 Dose: 50 mg Documented by: Zolpidem Tartrate (Zolpidem 5 Mg Tab) 5 mg PO ONETIME ONE Stop: 06/29/21 23:43 Last Admin: 06/29/21 23:55 Dose: 5 mg Documented by: - Exam Urinary Catheter Total Time: 0Days 0Hours - Patient Data Lab Results Last 24 hrs: Laboratory Results - last 24 hr 07/02/21 07/02/21 07/02/21 Range/Units 11:22 16:22 21:08 WBC (3.98-10.04) K/mm3 RBC (3.98-5.22) M/mm3 Hgb (11.2-15.7) gm/dl Hct (34.1-44.9) % MCV (79.4-94.8) fl MCH (25.6-32.2) pg MCHC (32.2-35.5) g/dl RDW Std Deviation (36.4-46.3) fL Plt Count (182-369) K/mm3 MPV (9.4-12.3) fl Neut % (Auto) (34.0-71.1) % Lymph % (Auto) (19.3-51.7) % Saunders % (Auto) (4.7-12.5) % Eos % (Auto) (0.7-5.8) Baso % (Auto) (0.1-1.2) % Neut # (Auto) (1.56-6.13) K/mm3 Lymph # (Auto) (1.18-3.74) K/mm3 Saunders # (Auto) (0.24-0.36) K/mm3 Eos # (Auto) (0.04-0.36) K/mm3 Baso # (Auto) (0.01-0.08) K/mm3 Sodium (136-145) mEq/L Potassium (3.5-5.1) mEq/L Chloride (98-107) mEq/L Carbon Dioxide (21-32) mEq/L Anion Gap (5-15) BUN (7-18) mg/dL Creatinine (0.55-1.02) mg/dL Est Cr Clr Drug Dosing mL/min Estimated GFR (MDRD) (>60) mL/min BUN/Creatinine Ratio (14-18) Glucose (70-99) mg/dL POC Glucose 320 H 192 H 311 H (70-99) mg/dL Calcium (8.5-10.1) mg/dL Total Bilirubin (0.2-1.0) mg/dL AST (15-37) U/L ALT (14-59) U/L Alkaline Phosphatase (46-116) U/L Total Protein (6.4-8.2) g/dl Albumin (3.4-5.0) g/dl Globulin gm/dL Albumin/Globulin Ratio (1-2) 07/03/21 07/03/21 07/03/21 Range/Units 05:30 05:30 06:30 WBC 9.44 (3.98-10.04) K/mm3 RBC 4.56 (3.98-5.22) M/mm3 Hgb 14.1 (11.2-15.7) gm/dl Hct 44.7 (34.1-44.9) % MCV 98.0 H (79.4-94.8) fl MCH 30.9 (25.6-32.2) pg MCHC 31.5 L (32.2-35.5) g/dl RDW Std Deviation 48.8 H (36.4-46.3) fL Plt Count 327 (182-369) K/mm3 MPV 10.8 (9.4-12.3) fl Neut % (Auto) 65.1 (34.0-71.1) % Lymph % (Auto) 15.4 L (19.3-51.7) % Saunders % (Auto) 10.9 (4.7-12.5) % Eos % (Auto) 7.9 H (0.7-5.8) Baso % (Auto) 0.5 (0.1-1.2) % Neut # (Auto) 6.14 H (1.56-6.13) K/mm3 Lymph # (Auto) 1.45 (1.18-3.74) K/mm3 Saunders # (Auto) 1.03 H (0.24-0.36) K/mm3 Eos # (Auto) 0.75 H (0.04-0.36) K/mm3 Baso # (Auto) 0.05 (0.01-0.08) K/mm3 Sodium 141 (136-145) mEq/L Potassium 4.2 (3.5-5.1) mEq/L Chloride 102 (98-107) mEq/L Carbon Dioxide 29 (21-32) mEq/L Anion Gap 14.2 (5-15) BUN 18 (7-18) mg/dL Creatinine 0.8 (0.55-1.02) mg/dL Est Cr Clr Drug Dosing 47.32 mL/min Estimated GFR (MDRD) > 60 (>60) mL/min BUN/Creatinine Ratio 22.5 H (14-18) Glucose 205 H (70-99) mg/dL POC Glucose 175 H (70-99) mg/dL Calcium 8.9 (8.5-10.1) mg/dL Total Bilirubin 0.5 (0.2-1.0) mg/dL AST 15 (15-37) U/L ALT 23 (14-59) U/L Alkaline Phosphatase 75 (46-116) U/L Total Protein 6.5 (6.4-8.2) g/dl Albumin 3.2 L (3.4-5.0) g/dl Globulin 3.3 gm/dL Albumin/Globulin Ratio 1.0 (1-2) Result Diagrams: 07/03/21 05:30 07/03/21 05:30 Yousuf Results Last 24 hrs: Microbiology 06/29/21 16:30 Urine Culture - Preliminary Urine Escherichia Coli Sepsis Event Note - Evaluation Sepsis Screening Result: No Definite Risk - Focused Exam Vital Signs: Vital Signs Temp Pulse Resp BP Pulse Ox Pulse Ox 07/03/21 08:22 83 152/62 H 07/03/21 08:00 91 L 07/03/21 07:55 97.7 F 83 14 152/62 H 91 L 07/03/21 06:00 96 07/03/21 03:38 98.1 F 81 18 132/83 92 L 07/03/21 00:00 92 L - Problem List & Annotations (1) Muscle weakness of lower extremity SNOMED Code(s): 567922227, 984825907 Code(s): M62.81 - MUSCLE WEAKNESS (GENERALIZED) Status: Acute Priority: High Current Visit: Yes (2) Asymptomatic bacteriuria SNOMED Code(s): 354757694 Code(s): R82.71 - BACTERIURIA Status: Chronic Priority: Low Current Visit: Yes - Problem List Review Problem List Initiated/Reviewed/Updated: Yes - Assessment Assessment:: 07/01/2021 This is a 75-year-old female admitted to the floor after multiple falls at home. She does have a history of multiple significant lumbar spine compression fractures and multiple failed back surgeries. She states she has been weaker as of late. She normally utilizes a walker. She has been a Manuel lift here. PT and OT are working with her and are recommending SNF placement. UA was obtained in the ED and shows bacteria but minimal urine WBCs with no leukocyte esterase or nitrites. Patient does report a history of chronic urinary retention. She denies any new urinary symptoms. Appears to be asymptomatic bacteriuria. Urine culture is pending. We will discontinue antibiotics at this time. Pain medications as ordered. Social work and case management are consulted. Unfortunately patient only meets observation criteria. Discussed possible imaging with Dr. Jackson, attending hospitalist, who agrees patient has multiple chronic back issues and additional imaging is not decayed at this time as it will not change our plan of care for the patient. Per the patient she was told after her last back surgery that if she requires any more she will likely be paralyzed by the procedure. She does report chronic pedal edema and states she is about at baseline. There is a remote history of CHF however her echocardiogram from a few months ago was reviewed and looks good with LV EF of 60 to 65%. Normal pattern of LV diastolic filling. Normal right ventricular systolic function. No aortic valve stenosis. Trace mitral valve regurgitation. Trace tricuspid valve regurgitation. Right ventricular systolic pressure mildly elevated at 39.8 mmHg and no regional wall motion abnormalities. Given patient's renal function we will hold some of her medications. Her intake has been fairly poor so we will discontinue long-acting insulin and continue sliding scale insulin per protocol. Patient is currently requiring 1 L which is likely due to need for pain medications. Labs today show WBC of 9.76. Hemoglobin 13.6. Platelet 205,000. Neutrophils are normal at 61.6%. Sodium has improved to 142. Potassium 4.3. Chloride 103. Carbon dioxide 26. Anion gap is 17.3. Creatinine 1.1. BUN 20. GFR is 48. Blood glucose readings have been between 125 and 190. Magnesium is 2.1. Total bilirubin 0.4. AST is 19, ALT 24, alkaline phosphatase 65. Albumin is 3.3. TSH was obtained and was elevated at 5.870 however free T4 was 1.16. Likely length of stay 1-2 more days pending placement. 07/02/2021 This is a 75-year-old female admitted to the floor for UTI and difficulty with ambulation/weakness. Since admission patient has been a Manuel lift and PT and OT are recommending SNF placement. She has a longstanding history of significant back pain with multiple failed prior surgeries. Pain does wax and wane but for the most part has been controlled. From a UTI standpoint her urine is not very impressive. She does have a history of urinary retention but denies any known frequent recurrent UTIs. She denies any urinary symptoms. This is therefore likely asymptomatic bacteriuria. Urine culture is pending but antibiotics have been stopped. Her white count was within normal limits and there were no signs of any systemic infection. Blood cultures remain negative. She has been utilizing her home CPAP. Home long-acting insulin has been held due to minimal oral intake and her blood sugars remain in the low 100s utilizing sliding scale insulin. Labs today show WBC of 8.61. Hemoglobin is 13.9. Platelet 313,000. Neutrophils are normal at 61.2%. Sodium is 140. Potassium 4.8. Chloride 103. Carbon dioxide 27. Anion gap is 14.8. BUN is 19. Creatinine 0.9. GFR greater than 60. Bilirubin 0.5. AST 17, ALT 23, alkaline phosphatase 71. Albumin is 3.2. There are currently concerns with the patient safety as she is not able to ambulate and has been a Manuel lift here. She certainly cannot go home like this as she is unable to perform any of her ADLs. We will continue to work on placement. She does meet inpatient criteria and was upgraded today. Hopeful for discharge Monday versus Monday once SNF placement is arranged. Local SNF facilities do not admit patients on the weekend. She was started on scheduled senna plus due to constipation. 07/03/2021 75-year-old female admitted secondary to weakness and back pain. Patient is undergoing physical therapy and waiting for placement at a SNF. No significant changes overnight. UA did grow out E. coli, but this is felt to be an asymptomatic bacteriuria not being treated. It is resistant to Bactrim and levofloxacin. Lab work was noncontributory except glucose of 205. - Plan Plan:: Patient is a 75-year-old female with a history of chronic back pain status post lumbar spinal fusion, chronic leg weakness, peripheral neuropathy in both lower extremities who was brought to the ER due to generalized weakness. Assessment and plan: Chronic back pain Multilevel failed back syndrome Restless leg syndrome Chronic peripheral neuropathy in both legs Pain management including iv dilaudid. Continue gabapentin but adjust dosing due to concerns over toxicity PT OT Home Voltaren gel Acute hypoxic respiratory failure, Resolved In the ER, she was not desaturated but she was on 2 L, Currently off of oxygen Chest x-ray no acute change Oxygen therapy if needed Generalized weakness Subclinical hypothyroidism PT/OT CM/SW Volume depletion, resolved Had Soft BP NS 2L was given in the ER. Losartan 25mg daily is on hold Hold Diltiazem 180mg daily (unknown why she is taking diltiazem) Continue metoprolol 25mg bid Asymptomatic bacteriuria Chronic urinary retention No acute concerns Urine culture pending CKD She had mild dehydration. NS bolus was given in the ER Avoid nephrotoxic meds Monitor renal function Diabetes with a diabetic nephropathy Acquired? had pancreatic cancer 15 years ago and pancreas removed. dapagliflozin/metformin is on hold She is on lantus 40units daily Will hold long acting insulin for now as her intake has been quite poor Insulin ss adjust insulin based on glucose levels QID AC and Bedtime blood glucose checks Hx of CHF, unknown type BNP 167 home Lasix 30mg is on hold Mild leg swelling Will resume home lasix SACHIN Hose for pedal edema Self care deficit PT OT placement ISMAEL Home CPAP Constipation Given Colace without any change. Scheduled senna plus twice daily Given milk of magnesia today. DVT prophylaxis: Lovenox CODE STATUS: CPR only. Discussed with the patient and her daughter. Pt initially wanted DNR/DNI. But she changed to CPR only. No change in above plan Length of stay greater than 96 hours secondary to awaiting placement.
[2021-07-03] MEDS: Famotidine 20 MG Tab PO SCH (21:01)
[2021-07-03] MEDS: Aspirin 81 MG Tab.EC PO SCH (21:01)
[2021-07-03] MEDS: Simvastatin 20 MG Tab PO SCH (21:02)
[2021-07-03] MEDS: Latanoprost 0.005% Ophth Soln 2.5 ML Bottle EYEBOTH SCH (21:02)
[2021-07-03] MEDS: Zolpidem 5 MG Tab PO PRN (23:55)
[2021-07-04] MEDS: Gabapentin 600 MG Tab PO SCH ×4 (04:52→21:49)
[2021-07-04] MEDS: Saccharomyces Boulardii (Probiotic) 250 MG Cap PO SCH (09:41)
[2021-07-04] MEDS: Cyanocobalamin (Vitamin B12) 1,000 MCG Tab PO SCH (09:42)
[2021-07-04] MEDS: Allopurinol 100 MG Tab PO SCH (09:42)
[2021-07-04] MEDS: Docusate Sodium 100 MG Cap PO SCH (09:42)
[2021-07-04] MEDS: Furosemide 20 MG Tab PO SCH (09:42)
[2021-07-04] MEDS: Metoprolol Tartrate 25 MG Tab PO SCH ×2 (09:43→21:52)
[2021-07-04] MEDS: Enoxaparin 40 MG/0.4 ML Syringe SUBCUT SCH (09:43)
[2021-07-04] MEDS: Oxybutynin 5 MG Tab.ER PO SCH (09:43)
[2021-07-04] MEDS: Insulin Lispro 100 Unit/ML 3 ML KwikPen SUBCUT SCH ×4 (09:46→21:51)
[2021-07-04] MEDS: FERROUS SULFATE 325 MG PO SCH (09:53)
[2021-07-04] MEDS: Cholecalciferol (Vitamin D3) 25 MCG Tab PO SCH (09:53)
[2021-07-04] MEDS: ZINC GLUCONATE PO SCH (09:53)
[2021-07-04] MEDS: MAGNESIUM OXIDE PO SCH (09:53)
[2021-07-04] MEDS: ROPINIROLE 3 MG PO SCH ×4 (09:53→21:57)
[2021-07-04] MEDS: CALCIUM CARBONATE PO SCH (09:53)
--- NOTE | 2021-07-04 10:47 | PCM.PN ---
- General Info Date of Service: 07/04/21 Admission Dx/Problem (Free Text): Admission Diagnosis/Problem Admission Diagnosis/Problem UTI, Urinary tract infectious disease Subjective Update: 75-year-old female admitted secondary to weakness and back pain. Continues with physical therapy. She does have a wound that nursing just found on the back of her leg that she is putting a Mepilex on. Functional Status: Reports: Pain Controlled - Review of Systems General: Reports: No Symptoms HEENT: Reports: No Symptoms Pulmonary: Reports: No Symptoms Cardiovascular: Reports: No Symptoms Musculoskeletal: Reports: No Symptoms Skin: Reports: Other (Skin breakdown) Neurological: Reports: No Symptoms Psychiatric: Reports: No Symptoms - Patient Data Vitals - Most Recent: Last Vital Signs Temp 98.2 F 07/04/21 04:57 Pulse 107 H 07/04/21 09:43 Resp 18 07/04/21 04:57 BP 141/83 H 07/04/21 09:43 Pulse Ox 93 L 07/04/21 04:57 Weight - Most Recent: 192 lb I&O - Last 24 Hours: Intake & Output 07/03/21 07/04/21 07/04/21 22:59 06:59 14:59 Intake Total 1040 400 Output Total 600 550 Balance 440 -150 Lab Results Last 24 Hours: Laboratory Results - last 24 hr 07/03/21 07/03/21 07/03/21 Range/Units 11:43 16:39 21:17 WBC (3.98-10.04) K/mm3 RBC (3.98-5.22) M/mm3 Hgb (11.2-15.7) gm/dl Hct (34.1-44.9) % MCV (79.4-94.8) fl MCH (25.6-32.2) pg MCHC (32.2-35.5) g/dl RDW Std Deviation (36.4-46.3) fL Plt Count (182-369) K/mm3 MPV (9.4-12.3) fl Neut % (Auto) (34.0-71.1) % Lymph % (Auto) (19.3-51.7) % Webster % (Auto) (4.7-12.5) % Eos % (Auto) (0.7-5.8) Baso % (Auto) (0.1-1.2) % Neut # (Auto) (1.56-6.13) K/mm3 Lymph # (Auto) (1.18-3.74) K/mm3 [place] # (Auto) (0.24-0.36) K/mm3 Eos # (Auto) (0.04-0.36) K/mm3 Baso # (Auto) (0.01-0.08) K/mm3 Sodium (136-145) mEq/L Potassium (3.5-5.1) mEq/L Chloride (98-107) mEq/L Carbon Dioxide (21-32) mEq/L Anion Gap (5-15) BUN (7-18) mg/dL Creatinine (0.55-1.02) mg/dL Est Cr Clr Drug Dosing mL/min Estimated GFR (MDRD) (>60) mL/min BUN/Creatinine Ratio (14-18) Glucose (70-99) mg/dL POC Glucose 207 H 294 H 234 H (70-99) mg/dL Calcium (8.5-10.1) mg/dL Total Bilirubin (0.2-1.0) mg/dL AST (15-37) U/L ALT (14-59) U/L Alkaline Phosphatase (46-116) U/L Total Protein (6.4-8.2) g/dl Albumin (3.4-5.0) g/dl Globulin gm/dL Albumin/Globulin Ratio (1-2) 07/04/21 07/04/21 07/04/21 Range/Units 05:25 05:25 06:43 WBC 9.05 (3.98-10.04) K/mm3 RBC 4.83 (3.98-5.22) M/mm3 Hgb 15.3 (11.2-15.7) gm/dl Hct 47.3 H (34.1-44.9) % MCV 97.9 H (79.4-94.8) fl MCH 31.7 (25.6-32.2) pg MCHC 32.3 (32.2-35.5) g/dl RDW Std Deviation 49.2 H (36.4-46.3) fL Plt Count 336 (182-369) K/mm3 MPV 10.7 (9.4-12.3) fl Neut % (Auto) 67.9 (34.0-71.1) % Lymph % (Auto) 15.6 L (19.3-51.7) % [place] % (Auto) 9.2 (4.7-12.5) % Eos % (Auto) 6.7 H (0.7-5.8) Baso % (Auto) 0.4 (0.1-1.2) % Neut # (Auto) 6.14 H (1.56-6.13) K/mm3 Lymph # (Auto) 1.41 (1.18-3.74) K/mm3 [place] # (Auto) 0.83 H (0.24-0.36) K/mm3 Eos # (Auto) 0.61 H (0.04-0.36) K/mm3 Baso # (Auto) 0.04 (0.01-0.08) K/mm3 Sodium 137 (136-145) mEq/L Potassium 4.7 (3.5-5.1) mEq/L Chloride 98 (98-107) mEq/L Carbon Dioxide 28 (21-32) mEq/L Anion Gap 15.7 H (5-15) BUN 19 H (7-18) mg/dL Creatinine 0.9 (0.55-1.02) mg/dL Est Cr Clr Drug Dosing 42.06 mL/min Estimated GFR (MDRD) > 60 (>60) mL/min BUN/Creatinine Ratio 21.1 H (14-18) Glucose 221 H (70-99) mg/dL POC Glucose 210 H (70-99) mg/dL Calcium 9.3 (8.5-10.1) mg/dL Total Bilirubin 0.5 (0.2-1.0) mg/dL AST 15 (15-37) U/L ALT 25 (14-59) U/L Alkaline Phosphatase 82 (46-116) U/L Total Protein 6.8 (6.4-8.2) g/dl Albumin 3.4 (3.4-5.0) g/dl Globulin 3.4 gm/dL Albumin/Globulin Ratio 1.0 (1-2) Yousuf Results Last 24 Hours: Microbiology 06/29/21 16:30 Urine Culture - Final Urine Escherichia Coli Med Orders - Current: Current Medications Acetaminophen (Acetaminophen 325 Mg Tab) 650 mg PO Q6H PRN PRN Reason: Pain (Mild 1-3)/fever Last Admin: 07/01/21 15:32 Dose: 650 mg Documented by: Allopurinol (Allopurinol 100 Mg Tab) 150 mg PO DAILY [facility] Last Admin: 07/04/21 09:42 Dose: 150 mg Documented by: Aspirin (Aspirin 81 Mg Tab.Ec) 81 mg PO BEDTIME [facility] Last Admin: 07/03/21 21:01 Dose: 81 mg Documented by: Cholecalciferol (Cholecalciferol (Vitamin D3) 25 Mcg Tab) 25 mcg PO DAILY [facility] Last Admin: 07/04/21 09:53 Dose: 25 mcg Documented by: Cyanocobalamin (Cyanocobalamin (Vitamin B12) 1,000 Mcg Tab) 500 mcg PO DAILY [facility] Last Admin: 07/04/21 09:42 Dose: 500 mcg Documented by: Diclofenac Sodium (Diclofenac Sodium 1% Gel 100 Gm Tube) 0 gm TOP BID PRN PRN Reason: Pain Docusate Sodium (Docusate Sodium 100 Mg Cap) 100 mg PO DAILY [facility] Last Admin: 07/04/21 09:42 Dose: 100 mg Documented by: Enoxaparin Sodium (Enoxaparin 40 Mg/0.4 Ml Syringe) 40 mg SUBCUT DAILY [facility] Last Admin: 07/04/21 09:43 Dose: 40 mg Documented by: Famotidine (Famotidine 20 Mg Tab) 20 mg PO BEDTIME [facility] Last Admin: 07/03/21 21:01 Dose: 20 mg Documented by: Fluticasone Propionate (Fluticasone Propionate Nasal Gable 16 Gm Bottle) 0 gm NASBOTH DAILY PRN PRN Reason: Congestion Furosemide (Furosemide 20 Mg Tab) 30 mg PO SuMoWeFr@0900 [facility] Last Admin: 07/04/21 09:42 Dose: 30 mg Documented by: Gabapentin (Gabapentin 600 Mg Tab) 600 mg PO Q6H [facility] Last Admin: 07/04/21 09:41 Dose: 600 mg Documented by: Hydralazine HCl (Hydralazine 20 Mg/Ml Sdv) 10 mg IVPUSH Q4H PRN PRN Reason: Hypertension Hydromorphone HCl (Hydromorphone 0.5 Mg/0.5 Ml Syringe) 0.5 mg IVPUSH Q4H PRN PRN Reason: Pain (severe 7-10) Promethazine HCl 6.25 mg/ (Sodium Chloride) 50.25 mls @ 100 mls/hr IV Q6H PRN PRN Reason: Nausea/Vomiting Insulin Human Lispro (Insulin Lispro 100 Unit/Ml 3 Ml Kwikpen) 0 unit SUBCUT QIDACANDBED [facility]; Protocol Last Admin: 07/04/21 09:46 Dose: Not Given Documented by: Latanoprost (Latanoprost 0.005% Ophth Soln 2.5 Ml Bottle) 0 ml EYEBOTH BEDTIME [facility] Last Admin: 07/03/21 21:02 Dose: 1 drop Documented by: Metoprolol Tartrate (Metoprolol Tartrate 25 Mg Tab) 25 mg PO BID [facility] Last Admin: 07/04/21 09:43 Dose: 25 mg Documented by: Calcium Carb/Mag Ox/ (Zinc Gluc Tab Ptom) 1 tab PO DAILY [facility] Last Admin: 07/04/21 09:53 Dose: 1 tab Documented by: Ferrous Sulfate 325 (Mg Tablet Ptom) 0 mg PO DAILY [facility] Last Admin: 07/04/21 09:53 Dose: 325 mg Documented by: Ropinirole 3 Mg (Tablet Ptom) 0 mg PO QID [facility] Last Admin: 07/04/21 09:53 Dose: 3 mg Documented by: Oxybutynin Chloride (Oxybutynin 5 Mg Tab.Er) 5 mg PO DAILY [facility] Last Admin: 07/04/21 09:43 Dose: 5 mg Documented by: Oxycodone/Acetaminophen (Acetaminophen/Oxycodone 325-5 Mg Tab) 1 tab PO Q6H PRN PRN Reason: pain relief Last Admin: 07/01/21 23:13 Dose: 1 tab Documented by: Saccharomyces Boulardii (Saccharomyces Boulardii (Probiotic) 250 Mg Cap) 250 mg PO DAILY [facility] Last Admin: 07/04/21 09:41 Dose: 250 mg Documented by: Senna/Docusate Sodium (Docusate Sodium/Sennosides 50-8.6 Mg Tab) 2 tab PO BID [facility] Last Admin: 07/04/21 09:41 Dose: 2 tab Documented by: Simvastatin (Simvastatin 20 Mg Tab) 20 mg PO BEDTIME [facility] Last Admin: 07/03/21 21:02 Dose: 20 mg Documented by: Zolpidem Tartrate (Zolpidem 5 Mg Tab) 5 mg PO BEDTIME PRN PRN Reason: Insomnia Last Admin: 07/03/21 23:55 Dose: 5 mg Documented by: Discontinued Medications Allopurinol (Allopurinol 100 Mg Tab Ptom) 150 mg PO DAILY [facility] Last Admin: 07/02/21 08:33 Dose: 150 mg Documented by: Furosemide (Furosemide 40 Mg Tab) 40 mg PO ONETIME ONE Stop: 06/30/21 07:01 Last Admin: 06/30/21 06:59 Dose: 40 mg Documented by: Gabapentin (Gabapentin 600 Mg Tab) 600 mg PO ONETIME ONE Stop: 06/29/21 17:31 Last Admin: 06/29/21 18:06 Dose: 600 mg Documented by: Gabapentin (Gabapentin 600 Mg Tab) 600 mg PO Q6H [facility] Last Admin: 07/01/21 04:38 Dose: 600 mg Documented by: Gabapentin (Gabapentin 100 Mg Cap) 100 mg PO TID [facility] Gabapentin (Gabapentin 600 Mg Tab Ptom) 600 mg PO Q6H [facility] Last Admin: 07/02/21 09:35 Dose: 600 mg Documented by: Hydromorphone HCl (Hydromorphone 1 Mg/Ml Syringe) 1 mg IVPUSH ONETIME ONE Stop: 06/29/21 17:30 Last Admin: 06/29/21 18:03 Dose: 1 mg Documented by: Sodium Chloride (Normal Saline) 1,000 mls @ 150 mls/hr IV ASDIRECTED [facility] Last Infusion: 06/29/21 18:05 Dose: 999 mls/hr Documented by: Sodium Chloride (Normal Saline) 1,000 mls @ 999 mls/hr IV ASDIRECTED [facility]I Sodium Chloride (Normal Saline) 1,000 mls @ 100 mls/hr IV ASDIRECTED [facility] Last Admin: 06/29/21 20:12 Dose: 100 mls/hr Documented by: Ceftriaxone Sodium 1 gm/ (Sodium Chloride) 100 mls @ 200 mls/hr IV ONETIME ONE Stop: 06/29/21 20:22 Last Admin: 06/29/21 20:12 Dose: 200 mls/hr Documented by: Sodium Chloride (Normal Saline) 1,000 mls @ 65 mls/hr IV ASDIRECTED [facility]I Ceftriaxone Sodium 1 gm/ (Sodium Chloride) 100 mls @ 200 mls/hr IV Q24H [facility] Last Admin: 06/30/21 20:03 Dose: 200 mls/hr Documented by: Insulin Glargine (Insulin Glargine,Hum.Rec.Anlog 100 Unit/Ml 3 Ml Pen) 20 unit SUBCUT DAILY [facility] Last Admin: 07/01/21 11:29 Dose: Not Given Documented by: Magnesium Hydroxide (Magnesium Hydroxide 400 Mg/5 Ml Susp 30 Ml Cup) 30 ml PO ONETIME ONE Stop: 07/02/21 10:01 Last Admin: 07/02/21 09:35 Dose: 30 ml Documented by: Metoprolol Tartrate (Metoprolol Tartrate 25 Mg Tab Ptom) 25 mg PO BID [facility] Last Admin: 07/02/21 08:33 Dose: 25 mg Documented by: Ondansetron HCl (Ondansetron 4 Mg/2 Ml Sdv) 4 mg IVPUSH ONETIME ONE Stop: 06/29/21 17:30 Last Admin: 06/29/21 18:01 Dose: 4 mg Documented by: Oxybutynin Chloride (Oxybutynin 5 Mg Tab.Er Ptom) 5 mg PO DAILY [facility] Last Admin: 07/02/21 08:33 Dose: 5 mg Documented by: Ropinirole HCl (Ropinirole 1 Mg Tab) 3 mg PO ONETIME ONE Stop: 06/30/21 10:08 Last Admin: 06/30/21 10:20 Dose: 3 mg Documented by: Simvastatin (Simvastatin 20 Mg Tab Ptom) 20 mg PO BEDTIME [facility] Last Admin: 07/01/21 21:05 Dose: 20 mg Documented by: Trazodone HCl (Trazodone 50 Mg Tab) 50 mg PO ONETIME ONE Stop: 07/01/21 02:11 Last Admin: 07/01/21 02:33 Dose: 50 mg Documented by: Zolpidem Tartrate (Zolpidem 5 Mg Tab) 5 mg PO ONETIME ONE Stop: 06/29/21 23:43 Last Admin: 06/29/21 23:55 Dose: 5 mg Documented by: - Exam Quality Assessment: No: Supplemental Oxygen Urinary Catheter Total Time: 0Days 0Hours General: Alert, Oriented HEENT: Pupils Equal, Mucous Membr. Moist/[place] Neck: Supple Lungs: Clear to Auscultation, Normal Respiratory Effort Cardiovascular: Regular Rate, Regular Rhythm GI/Abdominal Exam: Normal Bowel Sounds, Soft, Non-Tender, No Organomegaly, No Distention, No Abnormal Bruit, No Mass Extremities: Normal Inspection, Normal Range of Motion, Non-Tender, No Pedal Edema, Normal Capillary Refill Neurological: No New Focal Deficit Psy/Mental Status: Alert, Normal Affect, Normal Mood - Patient Data Lab Results Last 24 hrs: Laboratory Results - last 24 hr 07/03/21 07/03/21 07/03/21 Range/Units 11:43 16:39 21:17 WBC (3.98-10.04) K/mm3 RBC (3.98-5.22) M/mm3 Hgb (11.2-15.7) gm/dl Hct (34.1-44.9) % MCV (79.4-94.8) fl MCH (25.6-32.2) pg MCHC (32.2-35.5) g/dl RDW Std Deviation (36.4-46.3) fL Plt Count (182-369) K/mm3 MPV (9.4-12.3) fl Neut % (Auto) (34.0-71.1) % Lymph % (Auto) (19.3-51.7) % Webster % (Auto) (4.7-12.5) % Eos % (Auto) (0.7-5.8) Baso % (Auto) (0.1-1.2) % Neut # (Auto) (1.56-6.13) K/mm3 Lymph # (Auto) (1.18-3.74) K/mm3 [place] # (Auto) (0.24-0.36) K/mm3 Eos # (Auto) (0.04-0.36) K/mm3 Baso # (Auto) (0.01-0.08) K/mm3 Sodium (136-145) mEq/L Potassium (3.5-5.1) mEq/L Chloride (98-107) mEq/L Carbon Dioxide (21-32) mEq/L Anion Gap (5-15) BUN (7-18) mg/dL Creatinine (0.55-1.02) mg/dL Est Cr Clr Drug Dosing mL/min Estimated GFR (MDRD) (>60) mL/min BUN/Creatinine Ratio (14-18) Glucose (70-99) mg/dL POC Glucose 207 H 294 H 234 H (70-99) mg/dL Calcium (8.5-10.1) mg/dL Total Bilirubin (0.2-1.0) mg/dL AST (15-37) U/L ALT (14-59) U/L Alkaline Phosphatase (46-116) U/L Total Protein (6.4-8.2) g/dl Albumin (3.4-5.0) g/dl Globulin gm/dL Albumin/Globulin Ratio (1-2) 07/04/21 07/04/21 07/04/21 Range/Units 05:25 05:25 06:43 WBC 9.05 (3.98-10.04) K/mm3 RBC 4.83 (3.98-5.22) M/mm3 Hgb 15.3 (11.2-15.7) gm/dl Hct 47.3 H (34.1-44.9) % MCV 97.9 H (79.4-94.8) fl MCH 31.7 (25.6-32.2) pg MCHC 32.3 (32.2-35.5) g/dl RDW Std Deviation 49.2 H (36.4-46.3) fL Plt Count 336 (182-369) K/mm3 MPV 10.7 (9.4-12.3) fl Neut % (Auto) 67.9 (34.0-71.1) % Lymph % (Auto) 15.6 L (19.3-51.7) % Webster % (Auto) 9.2 (4.7-12.5) % Eos % (Auto) 6.7 H (0.7-5.8) Baso % (Auto) 0.4 (0.1-1.2) % Neut # (Auto) 6.14 H (1.56-6.13) K/mm3 Lymph # (Auto) 1.41 (1.18-3.74) K/mm3 [place] # (Auto) 0.83 H (0.24-0.36) K/mm3 Eos # (Auto) 0.61 H (0.04-0.36) K/mm3 Baso # (Auto) 0.04 (0.01-0.08) K/mm3 Sodium 137 (136-145) mEq/L Potassium 4.7 (3.5-5.1) mEq/L Chloride 98 (98-107) mEq/L Carbon Dioxide 28 (21-32) mEq/L Anion Gap 15.7 H (5-15) BUN 19 H (7-18) mg/dL Creatinine 0.9 (0.55-1.02) mg/dL Est Cr Clr Drug Dosing 42.06 mL/min Estimated GFR (MDRD) > 60 (>60) mL/min BUN/Creatinine Ratio 21.1 H (14-18) Glucose 221 H (70-99) mg/dL POC Glucose 210 H (70-99) mg/dL Calcium 9.3 (8.5-10.1) mg/dL Total Bilirubin 0.5 (0.2-1.0) mg/dL AST 15 (15-37) U/L ALT 25 (14-59) U/L Alkaline Phosphatase 82 (46-116) U/L Total Protein 6.8 (6.4-8.2) g/dl Albumin 3.4 (3.4-5.0) g/dl Globulin 3.4 gm/dL Albumin/Globulin Ratio 1.0 (1-2) Result Diagrams: 07/04/21 05:25 07/04/21 05:25 Yousuf Results Last 24 hrs: Microbiology 06/29/21 16:30 Urine Culture - Final Urine Escherichia Coli Sepsis Event Note - Evaluation Sepsis Screening Result: No Definite Risk - Focused Exam Vital Signs: Vital Signs Temp Pulse Resp BP Pulse Ox 07/04/21 09:43 107 H 141/83 H 07/04/21 04:57 98.2 F 79 18 146/64 H 93 L 07/04/21 00:00 91 L 07/03/21 23:58 98.1 F 81 18 149/91 H 91 L - Problem List & Annotations (1) Muscle weakness of lower extremity SNOMED Code(s): 273492571, 473826175 Code(s): M62.81 - MUSCLE WEAKNESS (GENERALIZED) Status: Acute Priority: High Current Visit: Yes (2) Asymptomatic bacteriuria SNOMED Code(s): 567480012 Code(s): R82.71 - BACTERIURIA Status: Chronic Priority: Low Current Visit: Yes - Problem List Review Problem List Initiated/Reviewed/Updated: Yes - Assessment Assessment:: 07/01/2021 This is a 75-year-old female admitted to the floor after multiple falls at home. She does have a history of multiple significant lumbar spine compression fractures and multiple failed back surgeries. She states she has been weaker as of late. She normally utilizes a walker. She has been a Manuel lift here. PT and OT are working with her and are recommending SNF placement. UA was obtained in the ED and shows bacteria but minimal urine WBCs with no leukocyte esterase or nitrites. Patient does report a history of chronic urinary retention. She denies any new urinary symptoms. Appears to be asymptomatic bacteriuria. Urine culture is pending. We will discontinue antibiotics at this time. Pain medications as ordered. Social work and case management are consulted. Unfortunately patient only meets observation criteria. Discussed possible imaging with Dr. Jackson, attending hospitalist, who agrees patient has multiple chronic back issues and additional imaging is not decayed at this time as it will not change our plan of care for the patient. Per the patient she was told after her last back surgery that if she requires any more she will likely be paralyzed by the procedure. She does report chronic pedal edema and states she is about at baseline. There is a remote history of CHF however her ec hocardiogram from a few months ago was reviewed and looks good with LV EF of 60 to 65%. Normal pattern of LV diastolic filling. Normal right ventricular systolic function. No aortic valve stenosis. Trace mitral valve regurgitation. Trace tricuspid valve regurgitation. Right ventricular systolic pressure mildly elevated at 39.8 mmHg and no regional wall motion abnormalities. Given patient's renal function we will hold some of her medications. Her intake has been fairly poor so we will discontinue long-acting insulin and continue sliding scale insulin per protocol. Patient is currently requiring 1 L which is likely due to need for pain medications. Labs today show WBC of 9.76. Hemoglobin 13.6. Platelet 205,000. Neutrophils are normal at 61.6%. Sodium has improved to 142. Potassium 4.3. Chloride 103. Carbon dioxide 26. Anion gap is 17.3. Creatinine 1.1. BUN 20. GFR is 48. Blood glucose readings have been between 125 and 190. Magnesium is 2.1. Total bilirubin 0.4. AST is 19, ALT 24, alkaline phosphatase 65. Albumin is 3.3. TSH was obtained and was elevated at 5.870 however free T4 was 1.16. Likely length of stay 1-2 more days pending placement. 07/02/2021 This is a 75-year-old female admitted to the floor for UTI and difficulty with ambulation/weakness. Since admission patient has been a Manuel lift and PT and OT are recommending SNF placement. She has a longstanding history of significant back pain with multiple failed prior surgeries. Pain does wax and wane but for the most part has been controlled. From a UTI standpoint her urine is not very impressive. She does have a history of urinary retention but denies any known frequent recurrent UTIs. She denies any urinary symptoms. This is therefore likely asymptomatic bacteriuria. Urine culture is pending but antibiotics have been stopped. Her white count was within normal limits and there were no signs of any systemic infection. Blood cultures remain negative. She has been utilizing her home CPAP. Home long-acting insulin has been held due to minimal oral intake and her blood sugars remain in the low 100s utilizing sliding scale insulin. Labs today show WBC of 8.61. Hemoglobin is 13.9. Platelet 313,000. Neutrophils are normal at 61.2%. Sodium is 140. Potassium 4.8. Chloride 103. Carbon dioxide 27. Anion gap is 14.8. BUN is 19. Creatinine 0.9. GFR greater than 60. Bilirubin 0.5. AST 17, ALT 23, alkaline phosphatase 71. Albumin is 3.2. There are currently concerns with the patient safety as she is not able to ambulate and has been a Manuel lift here. She certainly cannot go home like this as she is unable to perform any of her ADLs. We will continue to work on placement. She does meet inpatient criteria and was upgraded today. Hopeful for discharge Monday versus Monday once SNF placement is arranged. Local SNF facilities do not admit patients on the weekend. She was started on scheduled senna plus due to constipation. 07/03/2021 75-year-old female admitted secondary to weakness and back pain. Patient is undergoing physical therapy and waiting for placement at a SNF. No significant changes overnight. UA did grow out E. coli, but this is felt to be an asymptomatic bacteriuria not being treated. It is resistant to Bactrim and levofloxacin. Lab work was noncontributory except glucose of 205. 07/04/2021 75-year-old female admitted with weakness and back pain. She does have a new wound on her leg which nursing is treating. I did not view it today. She co ntinues to be asymptomatic in regards to her bacteriuria. She continues with physical therapy. Plan for discharge to SNF. - Plan Plan:: Patient is a 75-year-old female with a history of chronic back pain status post lumbar spinal fusion, chronic leg weakness, peripheral neuropathy in both lower extremities who was brought to the ER due to generalized weakness. Assessment and plan: Chronic back pain Multilevel failed back syndrome Restless leg syndrome Chronic peripheral neuropathy in both legs Pain management including iv dilaudid. Continue gabapentin but adjust dosing due to concerns over toxicity PT OT Home Voltaren gel Acute hypoxic respiratory failure, Resolved In the ER, she was not desaturated but she was on 2 L, Currently off of oxygen Chest x-ray no acute change Oxygen therapy if needed Generalized weakness Subclinical hypothyroidism PT/OT CM/SW Volume depletion, resolved Had Soft BP NS 2L was given in the ER. Losartan 25mg daily is on hold Hold Diltiazem 180mg daily (unknown why she is taking diltiazem) Continue metoprolol 25mg bid Blood pressures now in the 140s systolic and 60s and 90s diastolic Asymptomatic bacteriuria Chronic urinary retention No acute concerns Urine culture pending CKD She had mild dehydration. NS bolus was given in the ER Avoid nephrotoxic meds Monitor renal function Diabetes with a diabetic nephropathy Acquired? had pancreatic cancer 15 years ago and pancreas removed. dapagliflozin/metformin is on hold She is on lantus 40units daily Will hold long acting insulin for now as her intake has been quite poor Insulin ss adjust insulin based on glucose levels QID AC and Bedtime blood glucose checks Hx of CHF, unknown type BNP 167 home Lasix 30mg is on hold Mild leg swelling Will resume home lasix SACHIN Hose for pedal edema Self care deficit PT OT placement ISMAEL Home CPAP Constipation Given Colace without any change. Scheduled senna plus twice daily Given milk of magnesia today. DVT prophylaxis: Lovenox CODE STATUS: CPR only. Discussed with the patient and her daughter. Pt dottie miramontes wanted DNR/DNI. But she changed to CPR only. No change in above plan Length of stay greater than 96 hours secondary to awaiting placement.
[2021-07-04] MEDS: Simvastatin 20 MG Tab PO SCH (21:50)
[2021-07-04] MEDS: Famotidine 20 MG Tab PO SCH (21:50)
[2021-07-04] MEDS: Aspirin 81 MG Tab.EC PO SCH (21:50)
[2021-07-04] MEDS: Latanoprost 0.005% Ophth Soln 2.5 ML Bottle EYEBOTH SCH (21:51)
[2021-07-04] MEDS: Zolpidem 5 MG Tab PO PRN (21:55)
[2021-07-04] MEDS: Acetaminophen/oxyCODONE 325-5 MG Tab PO PRN (21:56)
[2021-07-05] MEDS: Gabapentin 600 MG Tab PO SCH ×2 (04:09→10:00)
--- NOTE | 2021-07-05 07:21 | PCM.PN ---
- General Info Date of Service: 07/05/21 Admission Dx/Problem (Free Text): Admission Diagnosis/Problem Admission Diagnosis/Problem UTI, Urinary tract infectious disease Functional Status: Reports: Pain Controlled, Tolerating Diet, Ambulating (Took a few steps ), Urinating. Denies: New Symptoms - Review of Systems General: Reports: Weakness. Denies: Fever, Fatigue, Malaise, Chills HEENT: Reports: No Symptoms. Denies: Headaches, Sore Throat Pulmonary: Reports: No Symptoms. Denies: Shortness of Breath, Cough, Sputum, Wheezing Cardiovascular: Reports: No Symptoms. Denies: Chest Pain, Palpitations, Dyspnea on Exertion Gastrointestinal: Reports: No Symptoms. Denies: Abdominal Pain, Constipation, Diarrhea, Nausea, Vomiting Genitourinary: Reports: No Symptoms. Denies: Pain Musculoskeletal: Reports: Back Pain (Chronic) Skin: Reports: Other (Skin breakdown on left leg). Denies: Cyanosis Neurological: Reports: No Symptoms, Difficulty Walking, Weakness, Gait Disturbance. Denies: Confusion, Dizziness, Headache, Numbness, Seizure, Syncope, Tingling, Tremors, Trouble Speaking, Change in Speech Psychiatric: Reports: No Symptoms - Patient Data Vitals - Most Recent: Last Vital Signs Temp 97.9 F 07/05/21 05:09 Pulse 91 07/05/21 05:09 Resp 18 07/05/21 05:09 BP 122/71 07/05/21 05:09 Pulse Ox 91 L 07/05/21 06:00 Weight - Most Recent: 191 lb 14.4 oz I&O - Last 24 Hours: Intake & Output 07/04/21 07/05/21 07/05/21 22:59 06:59 14:59 Intake Total 770 500 Output Total 800 700 Balance -30 -200 Lab Results Last 24 Hours: Laboratory Results - last 24 hr 07/04/21 07/04/21 07/04/21 Range/Units 11:32 16:10 21:42 WBC (3.98-10.04) K/mm3 RBC (3.98-5.22) M/mm3 Hgb (11.2-15.7) gm/dl Hct (34.1-44.9) % MCV (79.4-94.8) fl MCH (25.6-32.2) pg MCHC (32.2-35.5) g/dl RDW Std Deviation (36.4-46.3) fL Plt Count (182-369) K/mm3 MPV (9.4-12.3) fl Neut % (Auto) (34.0-71.1) % Lymph % (Auto) (19.3-51.7) % [place] % (Auto) (4.7-12.5) % Eos % (Auto) (0.7-5.8) Baso % (Auto) (0.1-1.2) % Neut # (Auto) (1.56-6.13) K/mm3 Lymph # (Auto) (1.18-3.74) K/mm3 [place] # (Auto) (0.24-0.36) K/mm3 Eos # (Auto) (0.04-0.36) K/mm3 Baso # (Auto) (0.01-0.08) K/mm3 Sodium (136-145) mEq/L Potassium (3.5-5.1) mEq/L Chloride (98-107) mEq/L Carbon Dioxide (21-32) mEq/L Anion Gap (5-15) BUN (7-18) mg/dL Creatinine (0.55-1.02) mg/dL Est Cr Clr Drug Dosing mL/min Estimated GFR (MDRD) (>60) mL/min BUN/Creatinine Ratio (14-18) Glucose (70-99) mg/dL POC Glucose 327 H 282 H 343 H (70-99) mg/dL Calcium (8.5-10.1) mg/dL Total Bilirubin (0.2-1.0) mg/dL AST (15-37) U/L ALT (14-59) U/L Alkaline Phosphatase (46-116) U/L Total Protein (6.4-8.2) g/dl Albumin (3.4-5.0) g/dl Globulin gm/dL Albumin/Globulin Ratio (1-2) 07/05/21 07/05/21 07/05/21 Range/Units 05:45 05:45 06:57 WBC 8.57 (3.98-10.04) K/mm3 RBC 5.02 (3.98-5.22) M/mm3 Hgb 15.8 H (11.2-15.7) gm/dl Hct 48.6 H (34.1-44.9) % MCV 96.8 H (79.4-94.8) fl MCH 31.5 (25.6-32.2) pg MCHC 32.5 (32.2-35.5) g/dl RDW Std Deviation 48.3 H (36.4-46.3) fL Plt Count 343 (182-369) K/mm3 MPV 11.0 (9.4-12.3) fl Neut % (Auto) 61.7 (34.0-71.1) % Lymph % (Auto) 21.0 (19.3-51.7) % [place] % (Auto) 8.6 (4.7-12.5) % Eos % (Auto) 7.8 H (0.7-5.8) Baso % (Auto) 0.7 (0.1-1.2) % Neut # (Auto) 5.28 (1.56-6.13) K/mm3 Lymph # (Auto) 1.80 (1.18-3.74) K/mm3 [place] # (Auto) 0.74 H (0.24-0.36) K/mm3 Eos # (Auto) 0.67 H (0.04-0.36) K/mm3 Baso # (Auto) 0.06 (0.01-0.08) K/mm3 Sodium 138 (136-145) mEq/L Potassium 4.5 (3.5-5.1) mEq/L Chloride 98 (98-107) mEq/L Carbon Dioxide 31 (21-32) mEq/L Anion Gap 13.5 (5-15) BUN 25 H (7-18) mg/dL Creatinine 1.0 (0.55-1.02) mg/dL Est Cr Clr Drug Dosing 37.85 mL/min Estimated GFR (MDRD) 54 (>60) mL/min BUN/Creatinine Ratio 25.0 H (14-18) Glucose 259 H (70-99) mg/dL POC Glucose 259 H (70-99) mg/dL Calcium 9.4 (8.5-10.1) mg/dL Total Bilirubin 0.5 (0.2-1.0) mg/dL AST 13 L (15-37) U/L ALT 27 (14-59) U/L Alkaline Phosphatase 90 (46-116) U/L Total Protein 7.2 (6.4-8.2) g/dl Albumin 3.5 (3.4-5.0) g/dl Globulin 3.7 gm/dL Albumin/Globulin Ratio 1.0 (1-2) Med Orders - Current: Current Medications Acetaminophen (Acetaminophen 325 Mg Tab) 650 mg PO Q6H PRN PRN Reason: Pain (Mild 1-3)/fever Last Admin: 07/01/21 15:32 Dose: 650 mg Documented by: Allopurinol (Allopurinol 100 Mg Tab) 150 mg PO DAILY [facility] Last Admin: 07/04/21 09:42 Dose: 150 mg Documented by: Aspirin (Aspirin 81 Mg Tab.Ec) 81 mg PO BEDTIME [facility] Last Admin: 07/04/21 21:50 Dose: 81 mg Documented by: Cholecalciferol (Cholecalciferol (Vitamin D3) 25 Mcg Tab) 25 mcg PO DAILY [facility] Last Admin: 07/04/21 09:53 Dose: 25 mcg Documented by: Cyanocobalamin (Cyanocobalamin (Vitamin B12) 1,000 Mcg Tab) 500 mcg PO DAILY [facility] Last Admin: 07/04/21 09:42 Dose: 500 mcg Documented by: Diclofenac Sodium (Diclofenac Sodium 1% Gel 100 Gm Tube) 0 gm TOP BID PRN PRN Reason: Pain Docusate Sodium (Docusate Sodium 100 Mg Cap) 100 mg PO DAILY [facility] Last Admin: 07/04/21 09:42 Dose: 100 mg Documented by: Enoxaparin Sodium (Enoxaparin 40 Mg/0.4 Ml Syringe) 40 mg SUBCUT DAILY [facility] Last Admin: 07/04/21 09:43 Dose: 40 mg Documented by: Famotidine (Famotidine 20 Mg Tab) 20 mg PO BEDTIME [facility] Last Admin: 07/04/21 21:50 Dose: 20 mg Documented by: Fluticasone Propionate (Fluticasone Propionate Nasal [place] 16 Gm Bottle) 0 gm NASBOTH DAILY PRN PRN Reason: Congestion Furosemide (Furosemide 20 Mg Tab) 30 mg PO SuMoWeFr@0900 [facility] Last Admin: 07/04/21 09:42 Dose: 30 mg Documented by: Gabapentin (Gabapentin 600 Mg Tab) 600 mg PO Q6H [facility] Last Admin: 07/05/21 04:09 Dose: 600 mg Documented by: Hydralazine HCl (Hydralazine 20 Mg/Ml Sdv) 10 mg IVPUSH Q4H PRN PRN Reason: Hypertension Hydromorphone HCl (Hydromorphone 0.5 Mg/0.5 Ml Syringe) 0.5 mg IVPUSH Q4H PRN PRN Reason: Pain (severe 7-10) Promethazine HCl 6.25 mg/ (Sodium Chloride) 50.25 mls @ 100 mls/hr IV Q6H PRN PRN Reason: Nausea/Vomiting Insulin Human Lispro (Insulin Lispro 100 Unit/Ml 3 Ml Kwikpen) 0 unit SUBCUT QIDACANDBED [facility]; Protocol Last Admin: 07/04/21 21:51 Dose: 8 units Documented by: Latanoprost (Latanoprost 0.005% Ophth Soln 2.5 Ml Bottle) 0 ml EYEBOTH BEDTIME [facility] Last Admin: 07/04/21 21:51 Dose: 1 drop Documented by: Metoprolol Tartrate (Metoprolol Tartrate 25 Mg Tab) 25 mg PO BID [facility] Last Admin: 07/04/21 21:52 Dose: 25 mg Documented by: Calcium Carb/Mag Ox/ (Zinc Gluc Tab Ptom) 1 tab PO DAILY [facility] Last Admin: 07/04/21 09:53 Dose: 1 tab Documented by: Ferrous Sulfate 325 (Mg Tablet Ptom) 0 mg PO DAILY [facility] Last Admin: 07/04/21 09:53 Dose: 325 mg Documented by: Ropinirole 3 Mg (Tablet Ptom) 0 mg PO QID [facility] Last Admin: 07/04/21 21:57 Dose: 3 mg Documented by: Oxybutynin Chloride (Oxybutynin 5 Mg Tab.Er) 5 mg PO DAILY [facility] Last Admin: 07/04/21 09:43 Dose: 5 mg Documented by: Oxycodone/Acetaminophen (Acetaminophen/Oxycodone 325-5 Mg Tab) 1 tab PO Q6H PRN PRN Reason: pain relief Last Admin: 07/04/21 21:56 Dose: 1 tab Documented by: Saccharomyces Boulardii (Saccharomyces Boulardii (Probiotic) 250 Mg Cap) 250 mg PO DAILY [facility] Last Admin: 07/04/21 09:41 Dose: 250 mg Documented by: Senna/Docusate Sodium (Docusate Sodium/Sennosides 50-8.6 Mg Tab) 2 tab PO BID [facility] Last Admin: 07/04/21 21:50 Dose: 2 tab Documented by: Simvastatin (Simvastatin 20 Mg Tab) 20 mg PO BEDTIME [facility] Last Admin: 07/04/21 21:50 Dose: 20 mg Documented by: Zolpidem Tartrate (Zolpidem 5 Mg Tab) 5 mg PO BEDTIME PRN PRN Reason: Insomnia Last Admin: 07/04/21 21:55 Dose: 5 mg Documented by: Discontinued Medications Allopurinol (Allopurinol 100 Mg Tab Ptom) 150 mg PO DAILY [facility] Last Admin: 07/02/21 08:33 Dose: 150 mg Documented by: Furosemide (Furosemide 40 Mg Tab) 40 mg PO ONETIME ONE Stop: 06/30/21 07:01 Last Admin: 06/30/21 06:59 Dose: 40 mg Documented by: Gabapentin (Gabapentin 600 Mg Tab) 600 mg PO ONETIME ONE Stop: 06/29/21 17:31 Last Admin: 06/29/21 18:06 Dose: 600 mg Documented by: Gabapentin (Gabapentin 600 Mg Tab) 600 mg PO Q6H [facility] Last Admin: 07/01/21 04:38 Dose: 600 mg Documented by: Gabapentin (Gabapentin 100 Mg Cap) 100 mg PO TID [facility] Gabapentin (Gabapentin 600 Mg Tab Ptom) 600 mg PO Q6H [facility] Last Admin: 07/02/21 09:35 Dose: 600 mg Documented by: Hydromorphone HCl (Hydromorphone 1 Mg/Ml Syringe) 1 mg IVPUSH ONETIME ONE Stop: 06/29/21 17:30 Last Admin: 06/29/21 18:03 Dose: 1 mg Documented by: Sodium Chloride (Normal Saline) 1,000 mls @ 150 mls/hr IV ASDIRECTED [facility] Last Infusion: 06/29/21 18:05 Dose: 999 mls/hr Documented by: Sodium Chloride (Normal Saline) 1,000 mls @ 999 mls/hr IV ASDIRECTED [facility] Sodium Chloride (Normal Saline) 1,000 mls @ 100 mls/hr IV ASDIRECTED [facility] Last Admin: 06/29/21 20:12 Dose: 100 mls/hr Documented by: Ceftriaxone Sodium 1 gm/ (Sodium Chloride) 100 mls @ 200 mls/hr IV ONETIME ONE Stop: 06/29/21 20:22 Last Admin: 06/29/21 20:12 Dose: 200 mls/hr Documented by: Sodium Chloride (Normal Saline) 1,000 mls @ 65 mls/hr IV ASDIRECTED [facility] Ceftriaxone Sodium 1 gm/ (Sodium Chloride) 100 mls @ 200 mls/hr IV Q24H [facility] Last Admin: 06/30/21 20:03 Dose: 200 mls/hr Documented by: Insulin Glargine (Insulin Glargine,Hum.Rec.Anlog 100 Unit/Ml 3 Ml Pen) 20 unit SUBCUT DAILY [facility] Last Admin: 07/01/21 11:29 Dose: Not Given Documented by: Magnesium Hydroxide (Magnesium Hydroxide 400 Mg/5 Ml Susp 30 Ml Cup) 30 ml PO ONETIME ONE Stop: 07/02/21 10:01 Last Admin: 07/02/21 09:35 Dose: 30 ml Documented by: Metoprolol Tartrate (Metoprolol Tartrate 25 Mg Tab Ptom) 25 mg PO BID [facility] Last Admin: 07/02/21 08:33 Dose: 25 mg Documented by: Ondansetron HCl (Ondansetron 4 Mg/2 Ml Sdv) 4 mg IVPUSH ONETIME ONE Stop: 06/29/21 17:30 Last Admin: 06/29/21 18:01 Dose: 4 mg Documented by: Oxybutynin Chloride (Oxybutynin 5 Mg Tab.Er Ptom) 5 mg PO DAILY [facility] Last Admin: 07/02/21 08:33 Dose: 5 mg Documented by: Ropinirole HCl (Ropinirole 1 Mg Tab) 3 mg PO ONETIME ONE Stop: 06/30/21 10:08 Last Admin: 06/30/21 10:20 Dose: 3 mg Documented by: Simvastatin (Simvastatin 20 Mg Tab Ptom) 20 mg PO BEDTIME [facility] Last Admin: 07/01/21 21:05 Dose: 20 mg Documented by: Trazodone HCl (Trazodone 50 Mg Tab) 50 mg PO ONETIME ONE Stop: 07/01/21 02:11 Last Admin: 07/01/21 02:33 Dose: 50 mg Documented by: Zolpidem Tartrate (Zolpidem 5 Mg Tab) 5 mg PO ONETIME ONE Stop: 06/29/21 23:43 Last Admin: 06/29/21 23:55 Dose: 5 mg Documented by: - Exam Quality Assessment: DVT Prophylaxis. No: Supplemental Oxygen, Urine Catheter Urinary Catheter Total Time: 0Days 0Hours General: Alert, Oriented, Cooperative, No Acute Distress HEENT: Pupils Equal, Pupils Reactive, Mucous Membr. Moist/[place] Neck: Supple, Trachea Midline Lungs: Clear to Auscultation, Normal Respiratory Effort Cardiovascular: Regular Rate, Regular Rhythm GI/Abdominal Exam: Normal Bowel Sounds, Soft, Non-Tender, No Distention (Female) Exam: Deferred Back Exam: Decreased Range of Motion, Vertebral Tenderness Extremities: Normal Inspection, Normal Range of Motion, Non-Tender, Normal Capillary Refill, Pedal Edema (Trace to 1+) Skin: Warm, Dry, Intact Wound/Incisions: Healing Well, Dressing Dry and Intact. No: Erythema Neurological: No New Focal Deficit Psy/Mental Status: Alert, Normal Affect, Normal Mood - Patient Data Lab Results Last 24 hrs: Laboratory Results - last 24 hr 07/04/21 07/04/21 07/04/21 Range/Units 11:32 16:10 21:42 WBC (3.98-10.04) K/mm3 RBC (3.98-5.22) M/mm3 Hgb (11.2-15.7) gm/dl Hct (34.1-44.9) % MCV (79.4-94.8) fl MCH (25.6-32.2) pg MCHC (32.2-35.5) g/dl RDW Std Deviation (36.4-46.3) fL Plt Count (182-369) K/mm3 MPV (9.4-12.3) fl Neut % (Auto) (34.0-71.1) % Lymph % (Auto) (19.3-51.7) % [place] % (Auto) (4.7-12.5) % Eos % (Auto) (0.7-5.8) Baso % (Auto) (0.1-1.2) % Neut # (Auto) (1.56-6.13) K/mm3 Lymph # (Auto) (1.18-3.74) K/mm3 [place] # (Auto) (0.24-0.36) K/mm3 Eos # (Auto) (0.04-0.36) K/mm3 Baso # (Auto) (0.01-0.08) K/mm3 Sodium (136-145) mEq/L Potassium (3.5-5.1) mEq/L Chloride (98-107) mEq/L Carbon Dioxide (21-32) mEq/L Anion Gap (5-15) BUN (7-18) mg/dL Creatinine (0.55-1.02) mg/dL Est Cr Clr Drug Dosing mL/min Estimated GFR (MDRD) (>60) mL/min BUN/Creatinine Ratio (14-18) Glucose (70-99) mg/dL POC Glucose 327 H 282 H 343 H (70-99) mg/dL Calcium (8.5-10.1) mg/dL Total Bilirubin (0.2-1.0) mg/dL AST (15-37) U/L ALT (14-59) U/L Alkaline Phosphatase (46-116) U/L Total Protein (6.4-8.2) g/dl Albumin (3.4-5.0) g/dl Globulin gm/dL Albumin/Globulin Ratio (1-2) 07/05/21 07/05/21 07/05/21 Range/Units 05:45 05:45 06:57 WBC 8.57 (3.98-10.04) K/mm3 RBC 5.02 (3.98-5.22) M/mm3 Hgb 15.8 H (11.2-15.7) gm/dl Hct 48.6 H (34.1-44.9) % MCV 96.8 H (79.4-94.8) fl MCH 31.5 (25.6-32.2) pg MCHC 32.5 (32.2-35.5) g/dl RDW Std Deviation 48.3 H (36.4-46.3) fL Plt Count 343 (182-369) K/mm3 MPV 11.0 (9.4-12.3) fl Neut % (Auto) 61.7 (34.0-71.1) % Lymph % (Auto) 21.0 (19.3-51.7) % [place] % (Auto) 8.6 (4.7-12.5) % Eos % (Auto) 7.8 H (0.7-5.8) Baso % (Auto) 0.7 (0.1-1.2) % Neut # (Auto) 5.28 (1.56-6.13) K/mm3 Lymph # (Auto) 1.80 (1.18-3.74) K/mm3 [place] # (Auto) 0.74 H (0.24-0.36) K/mm3 Eos # (Auto) 0.67 H (0.04-0.36) K/mm3 Baso # (Auto) 0.06 (0.01-0.08) K/mm3 Sodium 138 (136-145) mEq/L Potassium 4.5 (3.5-5.1) mEq/L Chloride 98 (98-107) mEq/L Carbon Dioxide 31 (21-32) mEq/L Anion Gap 13.5 (5-15) BUN 25 H (7-18) mg/dL Creatinine 1.0 (0.55-1.02) mg/dL Est Cr Clr Drug Dosing 37.85 mL/min Estimated GFR (MDRD) 54 (>60) mL/min BUN/Creatinine Ratio 25.0 H (14-18) Glucose 259 H (70-99) mg/dL POC Glucose 259 H (70-99) mg/dL Calcium 9.4 (8.5-10.1) mg/dL Total Bilirubin 0.5 (0.2-1.0) mg/dL AST 13 L (15-37) U/L ALT 27 (14-59) U/L Alkaline Phosphatase 90 (46-116) U/L Total Protein 7.2 (6.4-8.2) g/dl Albumin 3.5 (3.4-5.0) g/dl Globulin 3.7 gm/dL Albumin/Globulin Ratio 1.0 (1-2) Result Diagrams: 07/05/21 05:45 07/05/21 05:45 Sepsis Event Note - Evaluation Sepsis Screening Result: No Definite Risk - Focused Exam Vital Signs: Vital Signs Temp Pulse Resp BP Pulse Ox 07/05/21 06:00 91 L 07/05/21 05:09 97.9 F 91 18 122/71 90 L 07/05/21 00:12 96.1 F L 87 18 113/63 95 07/05/21 00:00 95 07/04/21 21:52 98 130/85 07/04/21 21:51 98 90 L 07/04/21 21:25 96.6 F L 122 H 18 130/85 89 L - Problem List & Annotations (1) Asymptomatic bacteriuria SNOMED Code(s): 997006733 Code(s): R82.71 - BACTERIURIA Status: Chronic Priority: Low Current Visit: Yes (2) History of urinary retention SNOMED Code(s): 613173175 Code(s): Z87.898 - PERSONAL HISTORY OF OTHER SPECIFIED CONDITIONS Status: Chronic Priority: Low Current Visit: No (3) Chronic pain syndrome SNOMED Code(s): 914193608 Code(s): G89.4 - CHRONIC PAIN SYNDROME Status: Chronic Priority: High Current Visit: Yes (4) Hyponatremia SNOMED Code(s): 81587735 Code(s): E87.1 - HYPO-OSMOLALITY AND HYPONATREMIA Status: Resolved Priority: High Current Visit: Yes (5) Muscle weakness of lower extremity SNOMED Code(s): 226983561, 299799187 Code(s): M62.81 - MUSCLE WEAKNESS (GENERALIZED) Status: Acute Priority: High Current Visit: Yes (6) Recurrent falls SNOMED Code(s): 088803064 Code(s): R29.6 - REPEATED FALLS Status: Acute Priority: High Current Visit: Yes (7) Type II diabetes mellitus SNOMED Code(s): 91232180 Code(s): E11.9 - TYPE 2 DIABETES MELLITUS WITHOUT COMPLICATIONS Status: Chronic Priority: Medium Current Visit: Yes Qualifiers: 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: without prison 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 Diabetes mellitus complication status: with other specified complication Qualified Code(s): E11.69 - Type 2 diabetes mellitus with other specified complication (8) Volume depletion SNOMED Code(s): 441881395 Code(s): E86.9 - VOLUME DEPLETION, UNSPECIFIED Status: Acute Priority: High Current Visit: Yes (9) Peripheral neuropathy SNOMED Code(s): 980400365 Code(s): G62.9 - POLYNEUROPATHY, UNSPECIFIED Status: Chronic Priority: High Current Visit: Yes Qualifiers: Peripheral neuropathy type: polyneuropathy, unspecified Qualified Code(s): G62.9 - Polyneuropathy, unspecified (10) Acute respiratory failure with hypoxia SNOMED Code(s): 10378842, 521274664 Code(s): J96.01 - ACUTE RESPIRATORY FAILURE WITH HYPOXIA Status: Resolved Priority: Medium Current Visit: Yes (11) CKD (chronic kidney disease) SNOMED Code(s): 433591075 Code(s): N18.9 - CHRONIC KIDNEY DISEASE, UNSPECIFIED Status: Chronic Priority: Medium Current Visit: Yes Qualifiers: Chronic kidney disease stage: stage 3 (moderate) Chronic kidney disease stage 3 subtype: stage 3a (GFR 45-59) Qualified Code(s): N18.31 - Chronic ki dney disease, stage 3a (12) History of pancreatic cancer SNOMED Code(s): 17632356664126 Code(s): Z85.07 - PERSONAL HISTORY OF MALIGNANT NEOPLASM OF PANCREAS Status: Chronic Priority: Low Current Visit: No (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 SNOMED Code(s): 76119115 Code(s): M96.1 - POSTLAMINECTOMY SYNDROME, NOT ELSEWHERE CLASSIFIED Status: Chronic Priority: High Current Visit: Yes (14) ISMAEL (obstructive sleep apnea) SNOMED Code(s): 62652403 Code(s): G47.33 - OBSTRUCTIVE SLEEP APNEA (ADULT) (PEDIATRIC) Status: Chronic Priority: Medium Current Visit: No (15) RLS (restless legs syndrome) SNOMED Code(s): 24868380 Code(s): G25.81 - RESTLESS LEGS SYNDROME Status: Chronic Priority: Medium Current Visit: No (16) Subclinical hypothyroidism SNOMED Code(s): 98016461 Code(s): E03.8 - OTHER SPECIFIED HYPOTHYROIDISM Status: Chronic Priority: Low Current Visit: Yes (17) History of CHF (congestive heart failure) SNOMED Code(s): 457570639 Code(s): Z86.79 - PERSONAL HISTORY OF OTHER DISEASES OF THE CIRCULATORY SYSTEM Status: Chronic Priority: Low Current Visit: No (18) Self-care deficit SNOMED Code(s): 638143776 Code(s): Z78.9 - OTHER SPECIFIED HEALTH STATUS Status: Chronic Priority: High Current Visit: Yes (19) Constipation SNOMED Code(s): 47858788 Code(s): K59.00 - CONSTIPATION, UNSPECIFIED Status: Acute Priority: Medium Current Visit: Yes Qualifiers: Constipation type: unspecified constipation type Qualified Code(s): K59.00 - Constipation, unspecified (20) Skin breakdown SNOMED Code(s): 542893261 Code(s): R23.8 - OTHER SKIN CHANGES Status: Acute Priority: Medium Current Visit: Yes - Problem List Review Problem List Initiated/Reviewed/Updated: Yes - Assessment Assessment:: 07/01/2021 This is a 75-year-old female admitted to the floor after multiple falls at home. She does have a history of multiple significant lumbar spine compression fractures and multiple failed back surgeries. She states she has been weaker as of late. She normally utilizes a walker. She has been a Manuel lift here. PT and OT are working with her and are recommending SNF placement. UA was obtained in the ED and shows bacteria but minimal urine WBCs with no leukocyte esterase or nitrites. Patient does report a history of chronic urinary retention. She denies any new urinary symptoms. Appears to be asymptomatic bacteriuria. Urine culture is pending. We will discontinue antibiotics at this time. Pain medications as ordered. Social work and case management are consulted. Unfortunately patient only meets observation criteria. Discussed possible imaging with Dr. Jackson, attending hospitalist, who agrees patient has multiple chronic back issues and additional imaging is not decayed at this time as it will not change our plan of care for the patient. Per the patient she was told after her last back surgery that if she requires any more she will likely be paralyzed by the procedure. She does report chronic pedal edema and states she is about at baseline. There is a remote history of CHF however her echocardiogram from a few months ago was reviewed and looks good with LV EF of 60 to 65%. Normal pattern of LV diastolic filling. Normal right ventricular systolic function. No aortic valve stenosis. Trace mitral valve regurgitation. Trace tricuspid valve regurgitation. Right ventricular systolic pressure mildly elevated at 39.8 mmHg and no regional wall motion abnormalities. Given patient's renal function we will hold some of her medications. Her intake has been fairly poor so we will discontinue long-acting insulin and continue sliding scale insulin per protocol. Patient is currently requiring 1 L which is likely due to need for pain medications. Labs today show WBC of 9.76. Hemoglobin 13.6. Platelet 205,000. Neutrophils are normal at 61.6%. Sodium has improved to 142. Potassium 4.3. Chloride 103. Carbon dioxide 26. Anion gap is 17.3. Creatinine 1.1. BUN 20. GFR is 48. Blood glucose readings have been between 125 and 190. Magnesium is 2.1. Total bilirubin 0.4. AST is 19, ALT 24, alkaline phosphatase 65. Albumin is 3.3. TSH was obtained and was elevated at 5.870 however free T4 was 1.16. Likely length of stay 1-2 more days pending placement. 07/02/2021 This is a 75-year-old female admitted to the floor for UTI and difficulty with ambulation/weakness. Since admission patient has been a Manuel lift and PT and OT are recommending SNF placement. She has a longstanding history of significant back pain with multiple failed prior surgeries. Pain does wax and wane but for the most part has been controlled. From a UTI standpoint her urine is not very impressive. She does have a history of urinary retention but denies any known frequent recurrent UTIs. She denies any urinary symptoms. This is therefore likely asymptomatic bacteriuria. Urine culture is pending but antibiotics have been stopped. Her white count was within normal limits and there were no signs of any systemic infection. Blood cultures remain negative. She has been utilizing her home CPAP. Home long-acting insulin has been held du e to minimal oral intake and her blood sugars remain in the low 100s utilizing sliding scale insulin. Labs today show WBC of 8.61. Hemoglobin is 13.9. Platelet 313,000. Neutrophils are normal at 61.2%. Sodium is 140. Potassium 4.8. Chloride 103. Carbon dioxide 27. Anion gap is 14.8. BUN is 19. Creatinine 0.9. GFR greater than 60. Bilirubin 0.5. AST 17, ALT 23, alkaline phosphatase 71. Albumin is 3.2. There are currently concerns with the patient safety as she is not able to ambulate and has been a Manuel lift here. She certainly cannot go home like this as she is unable to perform any of her ADLs. We will continue to work on placement. She does meet inpatient criteria and was upgraded today. Hopeful for discharge Monday versus Monday once SNF placement is arranged. Local SNF facilities do not admit patients on the weekend. She was started on scheduled senna plus due to constipation. 07/03/2021 75-year-old female admitted secondary to weakness and back pain. Patient is undergoing physical therapy and waiting for placement at a SNF. No significant changes overnight. UA did grow out E. coli, but this is felt to be an asymptomatic bacteriuria not being treated. It is resistant to Bactrim and levofloxacin. Lab work was noncontributory except glucose of 205. 07/04/2021 75-year-old female admitted with weakness and back pain. She does have a new wound on her leg which nursing is treating. I did not view it today. She continues to be asymptomatic in regards to her bacteriuria. She continues with physical therapy. Plan for discharge to SNF. 07/05/2021 - Plan Plan:: Patient is a 75-year-old female with a history of chronic back pain status post lumbar spinal fusion, chronic leg weakness, peripheral neuropathy in both lower extremities who was brought to the ER due to generalized weakness. Assessment and plan: Chronic back pain Multilevel failed back syndrome Restless leg syndrome Chronic peripheral neuropathy in both legs Pain management including iv dilaudid. Continue gabapentin but adjust dosing due to concerns over toxicity PT OT Home Voltaren gel Acute hypoxic respiratory failure, Resolved In the ER, she was not desaturated but she was on 2 L, Currently off of oxygen Chest x-ray no acute change Oxygen therapy if needed Generalized weakness Subclinical hypothyroidism PT/OT CM/SW Volume depletion, resolved Had Soft BP NS 2L was given in the ER. Losartan 25mg daily is on hold Hold Diltiazem 180mg daily (unknown why she is taking diltiazem) Continue metoprolol 25mg bid Blood pressures now in the 140s systolic and 60s and 90s diastolic Asymptomatic bacteriuria Chronic urinary retention No acute concerns Urine culture pending CKD She had mild dehydration. NS bolus was given in the ER Avoid nephrotoxic meds Monitor renal function Diabetes with a diabetic nephropathy Acquired? had pancreatic cancer 15 years ago and pancreas removed. 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 Scheduled senna plus twice daily Given milk of magnesia today. Skin breakdown Nursing providing dressing changes Monitor DVT prophylaxis: Lovenox CODE STATUS: CPR only. Discussed with the patient and her daughter. Pt initially wanted DNR/DNI. But she changed to CPR only. No change in above plan Length of stay greater than 96 hours secondary to awaiting placement.
[2021-07-05] MEDS: Insulin Lispro 100 Unit/ML 3 ML KwikPen SUBCUT SCH ×2 (08:06→12:46)
[2021-07-05] MEDS: Cholecalciferol (Vitamin D3) 25 MCG Tab PO SCH (08:07)
[2021-07-05] MEDS: Saccharomyces Boulardii (Probiotic) 250 MG Cap PO SCH (08:07)
[2021-07-05] MEDS: Furosemide 20 MG Tab PO SCH (08:07)
[2021-07-05] MEDS: Enoxaparin 40 MG/0.4 ML Syringe SUBCUT SCH (08:07)
[2021-07-05] MEDS: Docusate Sodium 100 MG Cap PO SCH (08:07)
[2021-07-05] MEDS: Metoprolol Tartrate 25 MG Tab PO SCH (08:08)
[2021-07-05] MEDS: Cyanocobalamin (Vitamin B12) 1,000 MCG Tab PO SCH (08:09)
[2021-07-05] MEDS: Oxybutynin 5 MG Tab.ER PO SCH (08:09)
[2021-07-05] MEDS: CALCIUM CARBONATE PO SCH (08:21)
[2021-07-05] MEDS: MAGNESIUM OXIDE PO SCH (08:21)
[2021-07-05] MEDS: FERROUS SULFATE 325 MG PO SCH (08:21)
[2021-07-05] MEDS: ZINC GLUCONATE PO SCH (08:21)
[2021-07-05] MEDS: Allopurinol 100 MG Tab PO SCH (08:22)
[2021-07-05] MEDS: ROPINIROLE 3 MG PO SCH ×2 (08:22→12:48)
[2021-07-05] MEDS ORDERED: Insulin Glargine,Hum.Rec.Anlog 100 UNIT/ML 3 ML Pen SUBCUT SCH (11:00)
[2021-07-05 12:08] VITALS: BP 130/64; PULSE 84
--- NOTE | 2021-07-05 13:08 | PCM.DCSUM1 ---
Discharge Summary - Hospital Course HPI Initial Comments: Patient is a 75-year-old female with a history of chronic back pain status post lumbar spinal fusion, chronic leg weakness, peripheral neuropathy in both lower extremities who was brought to the ER due to generalized weakness. As per patient and daughter, she started her to have back pain about a 15 years ago. She has undergone lumbar spinal fusion procedures x 2. She has been having peripheral neuropathy in both legs. She can normally walk using a walker in her room. Over the past few days she has been too weak which caused her to slip from your chair and onto the floor at home with inability to get up on your own volition. Denies loss of consciousness. Patient has not been eating and drinking well over the past 1 to 2 days due to difficulty walking. She has diabetes which resulted from pancreatic removal for pancreatic cancer 15 years ago. In the ER, she was found to have soft blood pressure possibly due to dehydration. Urinalysis questionable UTI. Patient not able to go home because of weakness. Diagnosis: Stroke: No - Discharge Data Discharge Date: 07/05/21 (Admit date: 06/30/2021) Discharge Disposition: DC/Tfer to SNF 03 Condition: Good - Referral to Home Health Primary Care Physician: Mac Edwards MD - Discharge Diagnosis/Problem(s) (1) Asymptomatic bacteriuria SNOMED Code(s): 477161817 ICD Code: R82.71 - BACTERIURIA Status: Chronic Priority: Low Current Visit: Yes (2) History of urinary retention SNOMED Code(s): 265275884 ICD Code: Z87.898 - PERSONAL HISTORY OF OTHER SPECIFIED CONDITIONS Status: Chronic Priority: Low Current Visit: No (3) Chronic pain syndrome SNOMED Code(s): 918827456 ICD Code: G89.4 - CHRONIC PAIN SYNDROME Status: Chronic Priority: High Current Visit: Yes (4) Hyponatremia SNOMED Code(s): 43520637 ICD Code: E87.1 - HYPO-OSMOLALITY AND HYPONATREMIA Status: Resolved Priority: High Current Visit: Yes (5) Muscle weakness of lower extremity SNOMED Code(s): 103547628, 786147906 ICD Code: M62.81 - MUSCLE WEAKNESS (GENERALIZED) Status: Acute Priority: High Current Visit: Yes (6) Recurrent falls SNOMED Code(s): 752177861 ICD Code: R29.6 - REPEATED FALLS Status: Acute Priority: High Current Visit: Yes (7) Type II diabetes mellitus SNOMED Code(s): 18080172 ICD Code: E11.9 - TYPE 2 DIABETES MELLITUS WITHOUT COMPLICATIONS Status: Chronic Priority: Medium Current Visit: Yes Qualifiers: Diabetes mellitus fdc insulin use: without fdc use Diabetes mellitus complication status: with other specified complication Qualified Code(s): E11.69 - Type 2 diabetes mellitus with other specified complication (8) Volume depletion SNOMED Code(s): 120139555 ICD Code: E86.9 - VOLUME DEPLETION, UNSPECIFIED Status: Acute Priority: High Current Visit: Yes (9) Peripheral neuropathy SNOMED Code(s): 625923304 ICD Code: G62.9 - POLYNEUROPATHY, UNSPECIFIED Status: Chronic Priority: High Current Visit: Yes Qualifiers: Peripheral neuropathy type: polyneuropathy, unspecified Qualified Code(s): G62.9 - Polyneuropathy, unspecified (10) Acute respiratory failure with hypoxia SNOMED Code(s): 54961051, 612995417 ICD Code: J96.01 - ACUTE RESPIRATORY FAILURE WITH HYPOXIA Status: Resolved Priority: Medium Current Visit: Yes (11) CKD (chronic kidney disease) SNOMED Code(s): 155931438 ICD Code: N18.9 - CHRONIC KIDNEY DISEASE, UNSPECIFIED Status: Chronic Priority: Medium Current Visit: Yes Qualifiers: Chronic kidney disease stage: stage 3 (moderate) Chronic kidney disease stage 3 subtype: stage 3a (GFR 45-59) Qualified Code(s): N18.31 - Chronic kidney disease, stage 3a (12) History of pancreatic cancer SNOMED Code(s): 38313113458443 ICD Code: Z85.07 - PERSONAL HISTORY OF MALIGNANT NEOPLASM OF PANCREAS Status: Chronic Priority: Low Current Visit: No (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 SNOMED Code(s): 21774019 ICD Code: M96.1 - POSTLAMINECTOMY SYNDROME, NOT ELSEWHERE CLASSIFIED Status: Chronic Priority: High Current Visit: Yes (14) ISMAEL (obstructive sleep apnea) SNOMED Code(s): 66678276 ICD Code: G47.33 - OBSTRUCTIVE SLEEP APNEA (ADULT) (PEDIATRIC) Status: Chronic Priority: Medium Current Visit: No (15) RLS (restless legs syndrome) SNOMED Code(s): 62992464 ICD Code: G25.81 - RESTLESS LEGS SYNDROME Status: Chronic Priority: Medium Current Visit: No (16) Subclinical hypothyroidism SNOMED Code(s): 91787907 ICD Code: E03.8 - OTHER SPECIFIED HYPOTHYROIDISM Status: Chronic Priority: Low Current Visit: Yes (17) History of CHF (congestive heart failure) SNOMED Code(s): 254236711 ICD Code: Z86.79 - PERSONAL HISTORY OF OTHER DISEASES OF THE CIRCULATORY SYSTEM Status: Chronic Priority: Low Current Visit: No (18) Self-care deficit SNOMED Code(s): 601653688 ICD Code: Z78.9 - OTHER SPECIFIED HEALTH STATUS Status: Chronic Priority: High Current Visit: Yes (19) Constipation SNOMED Code(s): 13507355 ICD Code: K59.00 - CONSTIPATION, UNSPECIFIED Status: Acute Priority: Medium Current Visit: Yes Qualifiers: Constipation type: unspecified constipation type Qualified Code(s): K59.00 - Constipation, unspecified (20) Skin breakdown SNOMED Code(s): 755163971 ICD Code: R23.8 - OTHER SKIN CHANGES Status: Acute Priority: Medium Current Visit: Yes - Patient Summary/Data Consults: Consultations 06/30/21 18:17 OT Evaluation and Treatment [CONS] Routine PT Evaluation and Treatment [CONS] Routine 07/01/21 08:45 Consult to Case Management/Parachute Harness Rigger [CONS] Routine Labs Pending at D/C: None Recommended Follow-up Testing/Procedures: Follow-up with primary care provider within 5 to 7 days of discharge, sooner if needed. * Patient's gabapentin was decreased at discharge * Patient discharged on Percocet for back pain and instructed to wean. * Patient weaned off oxygen prior to discharge * All other home medications continued at discharge. * Recommend repeat CBC, CMP, and magnesium in follow-up. * Patient placed on home diabetic regimen. Instructed to take blood glucose readings 4 times daily before meals and bedtime. Please review this. * Instructed to continue PT/OT at SNF. * Discharged to [facility] [place]. Consider pain management/back specialist follow-up after discharge Hospital Course: This is a 75-year-old female admitted to the floor for treatment of urinary tract infection and generalized weakness/back pain resulting in multiple falls. Patient reports she normally ambulates with a walker and has been having difficulty with this as of late. She does have a history of multiple failed back surgeries and chronic pain syndrome. She reports she was told by her back surgeon that any further surgeries would likely paralyze her and she is no longer a surgical candidate. Shortly after admission it was determined that patient does not in fact have a urinary tract infection but has asymptomatic bacteriuria. Patient does report chronic urinary retention but no other symptoms. Urine had no nitrite or leukocyte esterase and only 5-10 urine WBCs. Many bacteria were noted. Urine was sent for culture and this returned E. coli. Because of this patient received a couple days of Rocephin and this was discontinued. There were no signs of any systemic infection. She had minimal CRP and no leukocytosis. Blood cultures were negative. On admission patient was noted to be somewhat volume depleted and she did receive IV fluids. Her renal function did improve. She does have a history of chronic renal failure. TSH was obtained and was elevated at 5.870 however T4 was 1.16. She was therefore diagnosed with subclinical hypothyroidism. 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 Pharmacy was concerned with patient's gabapentin as it was significantly over the recommended dosing limit and her gabapentin was therefore decreased. She will continue on 600 mg 3 times daily gabapentin at discharge. She was also receiving as needed Percocet for pain, and has been doing well with this. She was instructed to continue to wean down on her Percocet use and utilize Tylenol for lesser pain. She was instructed to watch out for constipation and let nursing staff know if she was having issues. She was receiving a bowel regimen while here. She was not eating very much on admission and her long-acting insulin was discontinued over concerns over potential hypoglycemia. This did improve throughout her stay and she will be discharged on her home diabetic medications. Nursing staff was instructed to check her blood glucose readings 4 times daily before meals and bedtime and record them in a journal, bring this with to all medical appointments. She was ultimately accepted to [facility] [place] for a rehab stay. PT and OT should continue while there. She discharged to [facility] today. - Patient Instructions Diet: Diabetic Diet Activity: As Tolerated, No Strenuous Activities, Rest and Relax Today Driving: Do Not Drive Showering/Bathing: May Shower Notify Provider of: Fever, Increased Pain, Nausea and/or Vomiting Other/Special Instructions: Follow-up with primary care provider within 5 to 7 days of discharge, sooner if needed. Continue PT/OT at SNF. Continue home medications as directed. Your gabapentin dosing was decreased. Be sure to take the new dosing. You were sent a prescription for Percocet which is an opioid pain medication for your back pain. You may take 1 pill every 6 hours as needed for moderate to severe pain. Try to wean off of this as soon as possible. Be aware it may lead to constipation and inability to operate machinery or drive. Use Tylenol for more mild pain. Recommend you check your blood sugars 4 times a day before meals and at bedtime. Continue this until blood sugars are stable. Resume home insulin dosing as prior. You have been weaned off of oxygen. Should symptoms return or worsen contact your primary care provider or return to the emergency room. - Discharge Plan *PRESCRIPTION DRUG MONITORING PROGRAM REVIEWED*: Not Applicable *COPY OF PRESCRIPTION DRUG MONITORING REPORT IN PATIENT IRENA: Not Applicable Prescriptions/Med Rec: Gabapentin [Neurontin] 600 mg PO Q6H #60 tablet Acetaminophen/oxyCODONE [Percocet 325-5 MG] 1 tab PO Q6H PRN #20 tablet PRN Reason: pain relief Home Medications: Home Meds Furosemide [Lasix] 30 mg PO SUMOWEFR 04/14/14 [History] Metoprolol Tartrate [Lopressor] 25 mg PO BID 04/14/14 [History] allopurinoL [Zyloprim] 150 mg PO DAILY 04/14/14 [History] Insulin Aspart [NovoLOG] 3 units SQ TID 12/31/14 [History] Diltiazem [Cardizem CD] 180 mg PO DAILY 10/04/16 [History] Simvastatin 20 mg PO BEDTIME 10/04/16 [History] Calcium Carb/Mag Ox/Zinc Gluc [Dbfnzvk-Fkatjemxm-Imss] 1 tab PO DAILY 02/17/19 [History] Diclofenac Sodium [Voltaren 1% Gel] 1 dose TOP BID PRN 02/17/19 [History] Ferrous Sulfate [Iron] 65 mg PO DAILY 02/17/19 [History] Cholecalciferol (Vitamin D3) [Vitamin D] 1,000 unit PO DAILY 02/18/19 [History] Lactobacillus Rhamnosus R0011 [Probiotic Digestive Care] 1 each PO DAILY 02/18/19 [History] Zolpidem Tartrate [Ambien] 10 mg PO BEDTIME PRN 02/18/19 [History] rOPINIRole [Requip] 3 mg PO QID 02/18/19 [History] Acetaminophen [Tylenol Arthritis] 650 mg PO BID 06/18/21 [History] Ascorbic Acid [Vitamin C with Mary Jane Hips] 500 mg PO DAILY 06/18/21 [History] Aspirin [Aspirin EC] 81 mg PO BEDTIME 06/18/21 [History] Cetirizine HCl/Pseudoephedrine [ZyrTEC-D] 1 tab PO ASDIRECTED PRN 06/18/21 [History] Cyanocobalamin (Vitamin B12) [Vitamin B12] 500 mcg PO DAILY 06/18/21 [History] Docusate Sodium [Colace] 50 mg PO DAILY 06/18/21 [History] Estradiol Micronized 1 applic TOP MOTH 06/18/21 [History] Fluticasone Propionate [Flonase] 1 spray PEPE ASDIRECTED PRN 06/18/21 [History] Glycerin/Min Oil/Polycarbophil [Replens Vaginal Applicator] 1 applic TOP SUTUWEFRSA 06/18/21 [History] Latanoprost [Xalatan 0.005% Ophth Soln] 1 drop EYEBOTH BEDTIME 06/18/21 [History] Losartan Potassium 25 mg PO DAILY 06/18/21 [History] Nystatin 1 applic TOP BID 06/18/21 [History] Nystatin [Nystatin Crm] 1 applic TOP DAILY 06/18/21 [History] Oxybutynin [Oxybutynin ER] 5 mg PO DAILY 06/18/21 [History] Dapagliflozin/Metformin HCl [Xigduo Xr 10 mg-500 mg Tablet] 1 tab PO DAILY 06/29/21 [History] Dexlansoprazole [Dexilant] 60 mg PO DAILY 06/29/21 [History] Famotidine 40 mg PO BEDTIME 06/29/21 [History] Insulin Glargine,Hum.Rec.Anlog [Basaglar Kwikpen U-100] 40 unit SQ DAILY 06/29/21 [History] Acetaminophen/oxyCODONE [Percocet 325-5 MG] 1 tab PO Q6H PRN #20 tablet 07/05/21 [Rx] Gabapentin [Neurontin] 600 mg PO Q6H #60 tablet 07/05/21 [Rx] Oxygen Therapy Mode: Room Air Maintain SPO2% less than: 88 Patient Handouts: CPAP and BPAP Information, Heart Failure, Diagnosis, [id number], Heart Failure Eating Plan Forms: ED Department Discharge Referrals: Mac Valdez MD [Primary Care Provider] - 07/13/21 3:10 pm (You will be seeing Dr. Kamlesh Cevallos for this appointment.) - Discharge Summary/Plan Comment DC Time >30 min.: Yes Total # of Minutes for Discharge Time: 45 - General Info Date of Service: 07/05/21 Functional Status: Reports: Pain Controlled (mostly), Tolerating Diet, Ambulating (Took a few steps with PT today ), Urinating. Denies: New Symptoms - Review of Systems General: Reports: Weakness. Denies: Fever, Fatigue, Malaise, Chills HEENT: Reports: No Symptoms. Denies: Headaches, Sore Throat Pulmonary: Reports: No Symptoms. Denies: Shortness of Breath, Cough, Sputum, Wheezing Cardiovascular: Reports: Edema. Denies: Chest Pain, Palpitations, Dyspnea on Exertion Gastrointestinal: Reports: No Symptoms. Denies: Abdominal Pain, Constipation, Diarrhea, Difficulty Swallowing, Nausea, Vomiting Genitourinary: Reports: Retention (reports chronic ). Denies: Pain Musculoskeletal: Reports: Back Pain (Chronic) Skin: Reports: No Symptoms. Denies: Cyanosis Neurological: Reports: Pre-Existing Deficit, Difficulty Walking, Weakness, Gait Disturbance. Denies: Confusion, Dizziness, Headache, Numbness, Syncope, Tingling Psychiatric: Reports: No Symptoms - Patient Data Vitals - Most Recent: Last Vital Signs Temp 97.5 F 07/05/21 11:34 Pulse 84 07/05/21 11:34 Resp 16 07/05/21 11:34 BP 130/64 07/05/21 11:34 Pulse Ox 90 L 07/05/21 11:34 Weight - Most Recent: 191 lb 14.4 oz I&O - Last 24 hours: Intake & Output 07/04/21 07/05/21 07/05/21 22:59 06:59 14:59 Intake Total 770 500 875 Output Total 800 700 600 Balance -30 -200 275 Lab Results - Last 24 hrs: Laboratory Results - last 24 hr 07/04/21 07/04/21 07/05/21 Range/Units 16:10 21:42 05:45 WBC 8.57 (3.98-10.04) K/mm3 RBC 5.02 (3.98-5.22) M/mm3 Hgb 15.8 H (11.2-15.7) gm/dl Hct 48.6 H (34.1-44.9) % MCV 96.8 H (79.4-94.8) fl MCH 31.5 (25.6-32.2) pg MCHC 32.5 (32.2-35.5) g/dl RDW Std Deviation 48.3 H (36.4-46.3) fL Plt Count 343 (182-369) K/mm3 MPV 11.0 (9.4-12.3) fl Neut % (Auto) 61.7 (34.0-71.1) % Lymph % (Auto) 21.0 (19.3-51.7) % [place] % (Auto) 8.6 (4.7-12.5) % Eos % (Auto) 7.8 H (0.7-5.8) Baso % (Auto) 0.7 (0.1-1.2) % Neut # (Auto) 5.28 (1.56-6.13) K/mm3 Lymph # (Auto) 1.80 (1.18-3.74) K/mm3 [place] # (Auto) 0.74 H (0.24-0.36) K/mm3 Eos # (Auto) 0.67 H (0.04-0.36) K/mm3 Baso # (Auto) 0.06 (0.01-0.08) K/mm3 Sodium (136-145) mEq/L Potassium (3.5-5.1) mEq/L Chloride (98-107) mEq/L Carbon Dioxide (21-32) mEq/L Anion Gap (5-15) BUN (7-18) mg/dL Creatinine (0.55-1.02) mg/dL Est Cr Clr Drug Dosing mL/min Estimated GFR (MDRD) (>60) mL/min BUN/Creatinine Ratio (14-18) Glucose (70-99) mg/dL POC Glucose 282 H 343 H (70-99) mg/dL Calcium (8.5-10.1) mg/dL Total Bilirubin (0.2-1.0) mg/dL AST (15-37) U/L ALT (14-59) U/L Alkaline Phosphatase (46-116) U/L Total Protein (6.4-8.2) g/dl Albumin (3.4-5.0) g/dl Globulin gm/dL Albumin/Globulin Ratio (1-2) SARS-CoV-2 RNA (TORIBIO) (NEGATIVE) 07/05/21 07/05/21 07/05/21 Range/Units 05:45 06:57 11:53 WBC (3.98-10.04) K/mm3 RBC (3.98-5.22) M/mm3 Hgb (11.2-15.7) gm/dl Hct (34.1-44.9) % MCV (79.4-94.8) fl MCH (25.6-32.2) pg MCHC (32.2-35.5) g/dl RDW Std Deviation (36.4-46.3) fL Plt Count (182-369) K/mm3 MPV (9.4-12.3) fl Neut % (Auto) (34.0-71.1) % Lymph % (Auto) (19.3-51.7) % [place] % (Auto) (4.7-12.5) % Eos % (Auto) (0.7-5.8) Baso % (Auto) (0.1-1.2) % Neut # (Auto) (1.56-6.13) K/mm3 Lymph # (Auto) (1.18-3.74) K/mm3 [place] # (Auto) (0.24-0.36) K/mm3 Eos # (Auto) (0.04-0.36) K/mm3 Baso # (Auto) (0.01-0.08) K/mm3 Sodium 138 (136-145) mEq/L Potassium 4.5 (3.5-5.1) mEq/L Chloride 98 (98-107) mEq/L Carbon Dioxide 31 (21-32) mEq/L Anion Gap 13.5 (5-15) BUN 25 H (7-18) mg/dL Creatinine 1.0 (0.55-1.02) mg/dL Est Cr Clr Drug Dosing 37.85 mL/min Estimated GFR (MDRD) 54 (>60) mL/min BUN/Creatinine Ratio 25.0 H (14-18) Glucose 259 H (70-99) mg/dL POC Glucose 259 H (70-99) mg/dL Calcium 9.4 (8.5-10.1) mg/dL Total Bilirubin 0.5 (0.2-1.0) mg/dL AST 13 L (15-37) U/L ALT 27 (14-59) U/L Alkaline Phosphatase 90 (46-116) U/L Total Protein 7.2 (6.4-8.2) g/dl Albumin 3.5 (3.4-5.0) g/dl Globulin 3.7 gm/dL Albumin/Globulin Ratio 1.0 (1-2) SARS-CoV-2 RNA (TORIBIO) Negative (NEGATIVE) 07/05/21 Range/Units 12:11 WBC (3.98-10.04) K/mm3 RBC (3.98-5.22) M/mm3 Hgb (11.2-15.7) gm/dl Hct (34.1-44.9) % MCV (79.4-94.8) fl MCH (25.6-32.2) pg MCHC (32.2-35.5) g/dl RDW Std Deviation (36.4-46.3) fL Plt Count (182-369) K/mm3 MPV (9.4-12.3) fl Neut % (Auto) (34.0-71.1) % Lymph % (Auto) (19.3-51.7) % [place] % (Auto) (4.7-12.5) % Eos % (Auto) (0.7-5.8) Baso % (Auto) (0.1-1.2) % Neut # (Auto) (1.56-6.13) K/mm3 Lymph # (Auto) (1.18-3.74) K/mm3 [place] # (Auto) (0.24-0.36) K/mm3 Eos # (Auto) (0.04-0.36) K/mm3 Baso # (Auto) (0.01-0.08) K/mm3 Sodium (136-145) mEq/L Potassium (3.5-5.1) mEq/L Chloride (98-107) mEq/L Carbon Dioxide (21-32) mEq/L Anion Gap (5-15) BUN (7-18) mg/dL Creatinine (0.55-1.02) mg/dL Est Cr Clr Drug Dosing mL/min Estimated GFR (MDRD) (>60) mL/min BUN/Creatinine Ratio (14-18) Glucose (70-99) mg/dL POC Glucose 386 H (70-99) mg/dL Calcium (8.5-10.1) mg/dL Total Bilirubin (0.2-1.0) mg/dL AST (15-37) U/L ALT (14-59) U/L Alkaline Phosphatase (46-116) U/L Total Protein (6.4-8.2) g/dl Albumin (3.4-5.0) g/dl Globulin gm/dL Albumin/Globulin Ratio (1-2) SARS-CoV-2 RNA (TORIBIO) (NEGATIVE) [facility] Results - Last 24 hrs: Microbiology 06/29/21 18:19 Blood Culture - Final Blood - Venous - Lab Draw 06/29/21 18:14 Blood Culture - Final Blood - Venous Med Orders - Current: Current Medications Acetaminophen (Acetaminophen 325 Mg Tab) 650 mg PO Q6H PRN PRN Reason: Pain (Mild 1-3)/fever Last Admin: 07/01/21 15:32 Dose: 650 mg Documented by: Allopurinol (Allopurinol 100 Mg Tab) 150 mg PO DAILY [facility] Last Admin: 07/05/21 08:22 Dose: 150 mg Documented by: Aspirin (Aspirin 81 Mg Tab.Ec) 81 mg PO BEDTIME [facility] Last Admin: 07/04/21 21:50 Dose: 81 mg Documented by: Cholecalciferol (Cholecalciferol (Vitamin D3) 25 Mcg Tab) 25 mcg PO DAILY [facility] Last Admin: 07/05/21 08:07 Dose: 25 mcg Documented by: Cyanocobalamin (Cyanocobalamin (Vitamin B12) 1,000 Mcg Tab) 500 mcg PO DAILY [facility] Last Admin: 07/05/21 08:09 Dose: 500 mcg Documented by: Diclofenac Sodium (Diclofenac Sodium 1% Gel 100 Gm Tube) 0 gm TOP BID PRN PRN Reason: Pain Docusate Sodium (Docusate Sodium 100 Mg Cap) 100 mg PO DAILY [facility] Last Admin: 07/05/21 08:07 Dose: 100 mg Documented by: Enoxaparin Sodium (Enoxaparin 40 Mg/0.4 Ml Syringe) 40 mg SUBCUT DAILY [facility] Last Admin: 07/05/21 08:07 Dose: 40 mg Documented by: Famotidine (Famotidine 20 Mg Tab) 20 mg PO BEDTIME [facility] Last Admin: 07/04/21 21:50 Dose: 20 mg Documented by: Fluticasone Propionate (Fluticasone Propionate Nasal [place] 16 Gm Bottle) 0 gm NASBOTH DAILY PRN PRN Reason: Congestion Furosemide (Furosemide 20 Mg Tab) 30 mg PO SuMoWeFr@0900 [facility] Last Admin: 07/05/21 08:07 Dose: 30 mg Documented by: Gabapentin (Gabapentin 600 Mg Tab) 600 mg PO Q6H [facility] Last Admin: 07/05/21 10:00 Dose: 600 mg Documented by: Hydralazine HCl (Hydralazine 20 Mg/Ml Sdv) 10 mg IVPUSH Q4H PRN PRN Reason: Hypertension Hydromorphone HCl (Hydromorphone 0.5 Mg/0.5 Ml Syringe) 0.5 mg IVPUSH Q4H PRN PRN Reason: Pain (severe 7-10) Promethazine HCl 6.25 mg/ (Sodium Chloride) 50.25 mls @ 100 mls/hr IV Q6H PRN PRN Reason: Nausea/Vomiting Insulin Glargine (Insulin Glargine,Hum.Rec.Anlog 100 Unit/Ml 3 Ml Pen) 20 unit SUBCUT DAILY [facility] Last Admin: 07/05/21 12:46 Dose: 20 unit Documented by: Insulin Human Lispro (Insulin Lispro 100 Unit/Ml 3 Ml Kwikpen) 0 unit SUBCUT QIDACANDBED [facility]; Protocol Last Admin: 07/05/21 12:46 Dose: 10 units Documented by: Latanoprost (Latanoprost 0.005% Ophth Soln 2.5 Ml Bottle) 0 ml EYEBOTH BEDTIME [facility] Last Admin: 07/04/21 21:51 Dose: 1 drop Documented by: Metoprolol Tartrate (Metoprolol Tartrate 25 Mg Tab) 25 mg PO BID [facility] Last Admin: 07/05/21 08:08 Dose: 25 mg Documented by: Calcium Carb/Mag Ox/ (Zinc Gluc Tab Ptom) 1 tab PO DAILY [facility] Last Admin: 07/05/21 08:21 Dose: 1 tab Documented by: Ferrous Sulfate 325 (Mg Tablet Ptom) 0 mg PO DAILY [facility] Last Admin: 07/05/21 08:21 Dose: 325 mg Documented by: Ropinirole 3 Mg (Tablet Ptom) 0 mg PO QID [facility] Last Admin: 07/05/21 12:48 Dose: 3 mg Documented by: Oxybutynin Chloride (Oxybutynin 5 Mg Tab.Er) 5 mg PO DAILY [facility] Last Admin: 07/05/21 08:09 Dose: 5 mg Documented by: Oxycodone/Acetaminophen (Acetaminophen/Oxycodone 325-5 Mg Tab) 1 tab PO Q6H PRN PRN Reason: pain relief Last Admin: 07/04/21 21:56 Dose: 1 tab Documented by: Saccharomyces Boulardii (Saccharomyces Boulardii (Probiotic) 250 Mg Cap) 250 mg PO DAILY [facility] Last Admin: 07/05/21 08:07 Dose: 250 mg Documented by: Senna/Docusate Sodium (Docusate Sodium/Sennosides 50-8.6 Mg Tab) 2 tab PO BID [facility] Last Admin: 07/05/21 08:07 Dose: 2 tab Documented by: Simvastatin (Simvastatin 20 Mg Tab) 20 mg PO BEDTIME [facility] Last Admin: 07/04/21 21:50 Dose: 20 mg Documented by: Zolpidem Tartrate (Zolpidem 5 Mg Tab) 5 mg PO BEDTIME PRN PRN Reason: Insomnia Last Admin: 07/04/21 21:55 Dose: 5 mg Documented by: Discontinued Medications Allopurinol (Allopurinol 100 Mg Tab Ptom) 150 mg PO DAILY [facility] Last Admin: 07/02/21 08:33 Dose: 150 mg Documented by: Furosemide (Furosemide 40 Mg Tab) 40 mg PO ONETIME ONE Stop: 06/30/21 07:01 Last Admin: 06/30/21 06:59 Dose: 40 mg Documented by: Gabapentin (Gabapentin 600 Mg Tab) 600 mg PO ONETIME ONE Stop: 06/29/21 17:31 Last Admin: 06/29/21 18:06 Dose: 600 mg Documented by: Gabapentin (Gabapentin 600 Mg Tab) 600 mg PO Q6H [facility] Last Admin: 07/01/21 04:38 Dose: 600 mg Documented by: Gabapentin (Gabapentin 100 Mg Cap) 100 mg PO TID [facility] Gabapentin (Gabapentin 600 Mg Tab Ptom) 600 mg PO Q6H [facility] Last Admin: 07/02/21 09:35 Dose: 600 mg Documented by: Hydromorphone HCl (Hydromorphone 1 Mg/Ml Syringe) 1 mg IVPUSH ONETIME ONE Stop: 06/29/21 17:30 Last Admin: 06/29/21 18:03 Dose: 1 mg Documented by: Sodium Chloride (Normal Saline) 1,000 mls @ 150 mls/hr IV ASDIRECTED [facility] Last Infusion: 06/29/21 18:05 Dose: 999 mls/hr Documented by: Sodium Chloride (Normal Saline) 1,000 mls @ 999 mls/hr IV ASDIRECTED CALI Sodium Chloride (Normal Saline) 1,000 mls @ 100 mls/hr IV ASDIRECTED [facility] Last Admin: 06/29/21 20:12 Dose: 100 mls/hr Documented by: Ceftriaxone Sodium 1 gm/ (Sodium Chloride) 100 mls @ 200 mls/hr IV ONETIME ONE Stop: 06/29/21 20:22 Last Admin: 06/29/21 20:12 Dose: 200 mls/hr Documented by: Sodium Chloride (Normal Saline) 1,000 mls @ 65 mls/hr IV ASDIRECTED [facility] Ceftriaxone Sodium 1 gm/ (Sodium Chloride) 100 mls @ 200 mls/hr IV Q24H [facility] Last Admin: 06/30/21 20:03 Dose: 200 mls/hr Documented by: Insulin Glargine (Insulin Glargine,Hum.Rec.Anlog 100 Unit/Ml 3 Ml Pen) 20 unit SUBCUT DAILY [facility] Last Admin: 07/01/21 11:29 Dose: Not Given Documented by: Magnesium Hydroxide (Magnesium Hydroxide 400 Mg/5 Ml Susp 30 Ml Cup) 30 ml PO ONETIME ONE Stop: 07/02/21 10:01 Last Admin: 07/02/21 09:35 Dose: 30 ml Documented by: Metoprolol Tartrate (Metoprolol Tartrate 25 Mg Tab Ptom) 25 mg PO BID [facility] Last Admin: 07/02/21 08:33 Dose: 25 mg Documented by: Ondansetron HCl (Ondansetron 4 Mg/2 Ml Sdv) 4 mg IVPUSH ONETIME ONE Stop: 06/29/21 17:30 Last Admin: 06/29/21 18:01 Dose: 4 mg Documented by: Oxybutynin Chloride (Oxybutynin 5 Mg Tab.Er Ptom) 5 mg PO DAILY [facility] Last Admin: 07/02/21 08:33 Dose: 5 mg Documented by: Ropinirole HCl (Ropinirole 1 Mg Tab) 3 mg PO ONETIME ONE Stop: 06/30/21 10:08 Last Admin: 06/30/21 10:20 Dose: 3 mg Documented by: Simvastatin (Simvastatin 20 Mg Tab Ptom) 20 mg PO BEDTIME [facility] Last Admin: 07/01/21 21:05 Dose: 20 mg Documented by: Trazodone HCl (Trazodone 50 Mg Tab) 50 mg PO ONETIME ONE Stop: 07/01/21 02:11 Last Admin: 07/01/21 02:33 Dose: 50 mg Documented by: Zolpidem Tartrate (Zolpidem 5 Mg Tab) 5 mg PO ONETIME ONE Stop: 06/29/21 23:43 Last Admin: 06/29/21 23:55 Dose: 5 mg Documented by: - Exam Quality Assessment: Reports: DVT Prophylaxis. Denies: Supplemental Oxygen, Urine Catheter General: Reports: Alert, Oriented, Cooperative, No Acute Distress HEENT: Reports: Pupils Equal, Pupils Reactive, Mucous Membr. Moist/[place] Neck: Reports: Supple, Trachea Midline Lungs: Reports: Clear to Auscultation, Normal Respiratory Effort Cardiovascular: Reports: Regular Rate, Regular Rhythm GI/Abdominal Exam: Normal Bowel Sounds, Soft, Non-Tender, No Distention (Female) Exam: Deferred Rectal (Female) Exam: Deferred Back Exam: Reports: Decreased Range of Motion, Vertebral Tenderness, Other (Back hardware visible under skin) Extremities: Normal Inspection, Normal Range of Motion, Non-Tender, Pedal Edema (Trace) Skin: Reports: Warm, Dry, Intact Neurological: Reports: No New Focal Deficit Psy/Mental Status: Reports: Alert, Normal Affect, Normal Mood
== END 2021-07-05 13:29 | DRG 555 ==
LOC: SUPCPDRO 15:15 → JD.ED 15:15 → JD.MS 06-30 17:07 → OBSVTOIN 07-02 10:58
PROVIDERS: ADMIT Internal Medicine; ATTEND Internal Medicine
DX: M62.81 Muscle weakness (generalized) (principal); R53.1 Weakness; N39.0 Urinary tract infection, site not specified; J96.01 Acute respiratory failure with hypoxia; E87.1 Hypo-osmolality and hyponatremia; H54.7 Unspecified visual loss; G47.30 Sleep apnea, unspecified; I11.0 Hypertensive heart disease with heart failure; I13.0 Hypertensive heart and chronic kidney disease with heart failure and stage 1 through stage 4 chronic kidney disease, or unspecified chronic kidney disease; R32 Unspecified urinary incontinence; R82.71 Bacteriuria; M19.90 Unspecified osteoarthritis, unspecified site; M10.9 Gout, unspecified; E55.9 Vitamin D deficiency, unspecified; Z87.898 Personal history of other specified conditions; G89.4 Chronic pain syndrome; Z88.8 Allergy status to other drugs, medicaments and biological substances; Z79.82 Long term (current) use of aspirin; Z79.899 Other long term (current) drug therapy; Z87.891 Personal history of nicotine dependence; E86.9 Volume depletion, unspecified; Z85.07 Personal history of malignant neoplasm of pancreas; I50.9 Heart failure, unspecified; K59.09 Other constipation; G62.9 Polyneuropathy, unspecified; N18.31 Chronic kidney disease, stage 3a; Z79.4 Long term (current) use of insulin; M96.1 Postlaminectomy syndrome, not elsewhere classified; G47.33 Obstructive sleep apnea (adult) (pediatric); E03.8 Other specified hypothyroidism; R23.8 Other skin changes; E03.9 Hypothyroidism, unspecified; E11.22 Type 2 diabetes mellitus with diabetic chronic kidney disease; W01.0XXA Fall on same level from slipping, tripping and stumbling without subsequent striking against object, initial encounter; Y92.009 Unspecified place in unspecified non-institutional (private) residence as the place of occurrence of the external cause; E86.0 Dehydration; E11.40 Type 2 diabetes mellitus with diabetic neuropathy, unspecified; E11.21 Type 2 diabetes mellitus with diabetic nephropathy; R29.6 Repeated falls; G25.81 Restless legs syndrome; K59.00 Constipation, unspecified; M54.9 Dorsalgia, unspecified; Z78.9 Other specified health status; Z97.3 Presence of spectacles and contact lenses; Z87.440 Personal history of urinary (tract) infections; E11.42 Type 2 diabetes mellitus with diabetic polyneuropathy; Z98.42 Cataract extraction status, left eye; Z98.41 Cataract extraction status, right eye; Z90.49 Acquired absence of other specified parts of digestive tract; Z98.890 Other specified postprocedural states; Z90.710 Acquired absence of both cervix and uterus
CPT/HCPCS: 36415 ×3; 71045; 80053 ×3; 81001; 82553; 82947 ×8; 83605; 83735 ×2; 83880; 84439; 84443; 84484; 85025 ×3; 85610; 85652; 85730; 86140; 87040 ×2; 87086; 87088; 87186; 93005; 94762 ×2; 96365; 96366; 96372 ×2; 96375; 97110; 97162; 97165; 97530 ×3; 99285; A9270 ×52; G0378 ×4; J0696 ×2; J1170; J1650 ×2; J1815 ×4; J2405; J7030 ×2; U0002; 93010; 97116-GP; 99231; 99232; 99239

== ENCOUNTER 2022-01-13 19:48 | Emergency (ER) | payer MEDICARE, BC ==
[2022-01-13] MEDS ORDERED: HYDROmorphone 0.5 MG/0.5 ML Syringe IVPUSH ONE (20:28)
[2022-01-13] MEDS ORDERED: Ondansetron 4 MG/2 ML SDV IVPUSH ONE (20:28)
[2022-01-13] MEDS ORDERED: Sodium Chloride 0.9% 10 ML Syringe FLUSH PRN (20:29)
[2022-01-13] MEDS ORDERED: Sodium Chloride 0.9% 1,000 ML IV SCH (20:30)
[2022-01-13 21:16] LABS: ESTIMATED GFR 36 mL/min (>60)
[2022-01-14] MEDS ORDERED: Lactated Ringers 1,000 ML IV ONE ×2 (00:34→03:46)
[2022-01-14] MEDS ORDERED: Piperacillin/Tazobactam 4.5 GM in Sodium Chloride 0.9% 100 ML IV ONE (01:08)
[2022-01-14 01:56] VITALS: BP 83/64
[2022-01-14] MEDS ORDERED: HYDROmorphone 0.5 MG/0.5 ML Syringe IVPUSH ONE (03:17)
[2022-01-14] MEDS ORDERED: Norepinephrine 4 MG in Dextrose 5% in Water 246 ML IV SCH ×2 (04:15)
[2022-01-14 04:18] VITALS: PULSE 128
== END 2022-01-14 04:59 ==
LOC: JD.ED 19:48
DX: A41.9 Sepsis, unspecified organism (principal); R65.21 Severe sepsis with septic shock; K80.42 Calculus of bile duct with acute cholecystitis without obstruction; I11.0 Hypertensive heart disease with heart failure; E10.9 Type 1 diabetes mellitus without complications; I50.9 Heart failure, unspecified; R09.02 Hypoxemia; E03.9 Hypothyroidism, unspecified; M10.9 Gout, unspecified; M19.90 Unspecified osteoarthritis, unspecified site; Z88.8 Allergy status to other drugs, medicaments and biological substances; Z79.899 Other long term (current) drug therapy; Z79.82 Long term (current) use of aspirin; Z79.4 Long term (current) use of insulin; Z87.891 Personal history of nicotine dependence; Z20.822 Contact with and (suspected) exposure to COVID-19
CPT/HCPCS: 36415; 36569; 36600; 43752; 71045; 74019; 74176; 80053; 82803; 82977; 83605; 83690; 83880; 85025; 86140; 87040; 96361; 96365; 96367; 96375; 99285; J1170; J2405; J2543; J3490; J7030; J7060; J7120; U0002; 36410; 76937; 87077; 87186